=== PATIENT | female | born 1935 | race Caucasian/White ===

== ENCOUNTER 2017-05-24 17:25 | Emergency (ER) | payer MEDICARE ==
--- NOTE | 2017-05-24 17:43 | ERPHSYRPT ---
- History of Present Illness Time Seen by Provider: 05/24/17 17:35 Source: patient, family (daughter) Patient Subjective Stated Complaint: pt had hot flash, speech was mumbled and pt seemed confused. Triage Nursing Assessment: pt is alert x3. skin is pale, warm and dry. speech is clear respirations even and unlabored. pt is slow to get up from wheelchair and transfer to bed. Physician History: CC: confusion Hx: About one hour RN INVASIVE the patient was at [facility] in [place]. Friends noted her to be confused with garbled speech and trouble talking. She was disoriented. Daughter was called. Patient was brought to ER. She improved en route and now is basically back to normal. She had no headache, N/T/W. She fell a night or two ago. She has chronic depression. She is caring for her ailing at home who recently returned from rehab. She has no chest or abd pain. She has labile diabetes. No injury reported. Severity: moderate Allergies/Adverse Reactions: No Known Drug Allergies Allergy (Unverified 05/24/17 18:11) Home Medications: Alprazolam [Xanax] 0.5 mg PO TID 05/24/17 [History] Glyburide 5 mg [Micronase 5 MG] 4 mg PO DAILY 05/24/17 [History] Hydrocodone Bit/Acetaminophen [[place] 10-325 Tablet] 1 each PO Q8H 05/24/17 [ History] Levothyroxine Sodium 100 Mcg [Synthroid 100 Mcg] 100 mcg PO DAILY 05/24/17 [History] Metformin HCl 500 mg [Glucophage 500 MG] 500 mg PO TID 05/24/17 [History] Nifedipine [Nifedipine ER] 90 mg PO DAILY 05/24/17 [History] Sertraline HCl [Zoloft] 100 mg PO DAILY 05/24/17 [History] Simvastatin 40 mg [Zocor 40 mg] 40 mg PO DAILY 05/24/17 [History] Hx Tetanus, Diphtheria Vaccination/Date Given: No Hx Influenza Vaccination/Date Given: Yes Hx Pneumococcal Vaccination/Date Given: No Immunizations Up to Date: Yes - Review of Systems Constitutional: Weakness, No Fever, No Chills Eyes: No Vision Changes Ears, Nose, & Throat: No Symptoms Respiratory: No Cough, No Dyspnea Cardiac: Syncope (maybe at home a night or two ago), No Chest Pain Abdominal/Gastrointestinal: No Abdominal Pain, No Nausea, No Vomiting, No Diarrhea Genitourinary Symptoms: No Dysuria Musculoskeletal: Fall, No Back Pain, No Neck Pain Skin: No Rash Neurological: Speech Changes (with disorientation and confusion), No Focal Weakness, No Headache, No Parasthesia Psychological: Depression, Emotional Lability (stress caring for ), No Suicidal Ideations All Other Systems: Reviewed and Negative - Past Medical History Pertinent Past Medical History: Yes Neurological History: No Pertinent History ENT History: No Pertinent History Cardiac History: Hypertension Respiratory History: No Pertinent History Endocrine Medical History: Diabetes Type II Musculoskeletal History: Arthritis GI Medical History: No Pertinent History History: No Pertinent History Psycho-Social History: Depression Female Reproductive Disorders: Breast Cancer - Past Surgical History Past Surgical History: Yes Neuro Surgical History: No Pertinent History Cardiac: No Pertinent History Respiratory: No Pertinent History Gastrointestinal: Cholecystectomy Female Surgical History: Hysterectomy - Social History Smoking Status: Never smoker Exposure to second hand smoke: No Drug Use: none Patient Lives Alone: No - Nursing Vital Signs Nursing Vital Signs: Initial Vital Signs Temperature 97.8 F 05/24/17 17:26 Pulse Rate 100 H 05/24/17 17:26 Respiratory Rate 18 05/24/17 17:26 Blood Pressure 146/88 05/24/17 17:26 O2 Sat by Pulse Oximetry 93 L 05/24/17 17:26 Pain Scale Pain Intensity 0 - Physical Exam General Appearance: alert Eye Exam: PERRL/EOMI Ears, Nose, Throat Exam: normal ENT inspection, moist mucous membranes Neck Exam: normal inspection, non-tender, supple, No midline tenderness Respiratory Exam: normal breath sounds, lungs clear Cardiovascular Exam: regular rate/rhythm Gastrointestinal/Abdomen Exam: soft, No tenderness, No distention Back Exam: normal inspection, No vertebral tenderness Extremity Exam: normal inspection, normal range of motion Neurologic Exam: alert, cooperative, java j2ee lead II-XII nml as tested, sensation nml, No motor deficits Skin Exam: warm, dry, No rash SpO2 Interpretation: normal SpO2: 93 Oxygen Delivery: Room Air - Course Nursing assessment & vital signs reviewed: Yes EKG Interpreted by Me: RATE (97), Sinus Rhythm, NORMAL AXIS, NORMAL INTERVALS ( QTc 458), Q-wave (inferior) - Radiology Exams cxr X-ray Interpretation: Reviewed by me, Negative - CT Exams head CT Interpretation: Tele-radiologist Report (nonacute senile brain) Ordered Tests: Active Orders 24 hr Category Date Time Status Accucheck STAT Care 05/24/17 17:35 Active Armature Winder Repair STAT Care 05/24/17 17:37 Active Cath for Specimen-Straight STAT Care 05/24/17 17:37 Active EKG-ER Only STAT Care 05/24/17 17:35 Active IV Insertion STAT Care 05/24/17 17:35 Active NPO (ED) STAT Care 05/24/17 17:35 Active Pulse Oximetry (ED) STAT Care 05/24/17 17:35 Active CHEST 1 VIEW (PORTABLE) Stat Exams 05/24/17 17:36 Taken HEAD WITHOUT CONTRAST [CT] Stat Exams 05/24/17 17:36 Taken CBC W DIFF Stat Lab 05/24/17 17:45 Completed CMP Stat Lab 05/24/17 17:45 Completed CULTURE,URINE Stat Lab 05/24/17 18:30 Received ETHYL ALCOHOL Stat Lab 05/24/17 17:45 Completed PROTIME WITH INR Stat Lab 05/24/17 17:45 Completed PTT Stat Lab 05/24/17 17:45 Completed UA W/ MICROSCOPIC Stat Lab 05/24/17 18:30 Completed Urine Triage Profile Stat Lab 05/24/17 18:30 Completed Medication Summary Generic Name Dose Route Start Last Admin Trade Name Freq PRN Reason Stop Dose Admin Sodium Chloride 1,000 mls @ 50 mls/hr 05/24/17 17:45 05/24/17 18:02 Sodium Chloride 0.9% 1000 Ml IV 06/23/17 17:44 50 mls/hr .Q20H JEIMY Administration Lab/Rad Data: Laboratory Result Diagrams 05/24/17 17:45 05/24/17 17:45 Laboratory Results 05/24/17 05/24/17 05/24/17 Range/Units 18:30 18:30 17:45 WBC (4.0-10.5) K/mm3 RBC (4.1-5.4) M/mm3 Hgb (12.0-16.0) gm/dl Hct (35-47) % MCV (78-100) fl MCH (26-32) pg MCHC (32-36) g/dl RDW (11.5-14.0) % Plt Count (150-450) K/mm3 MPV (6-9.5) fl Gran % (36.0-66.0) % Lymphocytes % (24.0-44.0) % Monocytes % (0.0-12.0) % Eosinophils % (0.00-5.0) % Basophils % (0.0-0.4) % Basophils # (0-0.4) INR (0.8-3.0) APTT (25.3-37.0) SECONDS Sodium (136-145) mEq/L Potassium (3.5-5.1) mEq/L Chloride (98-107) mEq/L Carbon Dioxide (21-32) mEq/L Anion Gap (5-15) MEQ/L BUN (9-20) mg/dL Creatinine (0.55-1.30) mg/dl Estimated GFR ML/MIN Glucose (70-110) MG/DL Calcium (8.5-10.1) mg/dL Total Bilirubin (0.2-1.0) mg/dL AST (15-37) U/L ALT (12-78) U/L Alkaline Phosphatase (46-116) U/L Serum Total Protein (6.4-8.2) gm/dL Albumin (3.4-5.0) g/dL Ur Collection Type CCMS Urine Color YELLOW (YELLOW) Urine Appearance SLIGHTLY CLOUDY (CLEAR) Urine pH 5.0 (5-6) Ur Specific [place]ullen 1.025 (1.005-1.025) Urine Protein 30 (Negative) Urine Ketones NEGATIVE (NEGATIVE) Urine Blood NEGATIVE (0-5) Mitch/ul Urine Nitrite POSITIVE (NEGATIVE) Urine Bilirubin NEGATIVE (NEGATIVE) Urine Urobilinogen NORMAL (0-1) mg/dL Ur Leukocyte Esterase TRACE (NEGATIVE) Urine Microscopic WBC 25-50 (0-5) /HPF Ur Epithelial Cells RARE (FEW) /HPF Urine Bacteria PACKED (NEGATIVE) /HPF Urine Glucose NEGATIVE (NEGATIVE) mg/dL Urine Opiates Level POS. (NEGATIVE) Ur Methadone NEG. (NEGATIVE) Urine Barbiturates NEG. (NEGATIVE) Ur Phencyclidine (PCP) NEG. (NEGATIVE) Urine Amphetamine NEG. (NEGATIVE) U Benzodiazepine Level POS. (NEGATIVE) Urine Cocaine NEG. (NEGATIVE) Urine Marijuana (THC) NEG. (NEGATIVE) Ethyl Alcohol < 0.010 (0.00-0.01) % Specimen Received 05-24-17 [id number] 05/24/17 05/24/17 05/24/17 Range/Units 17:45 17:45 17:45 WBC 6.7 (4.0-10.5) K/mm3 RBC 4.67 (4.1-5.4) M/mm3 Hgb 13.1 (12.0-16.0) gm/dl Hct 40.4 (35-47) % MCV 86.5 (78-100) fl MCH 28.1 (26-32) pg MCHC 32.4 (32-36) g/dl RDW 15.1 H (11.5-14.0) % Plt Count 174 (150-450) K/mm3 MPV 11.9 H (6-9.5) fl Gran % 69.8 H (36.0-66.0) % Lymphocytes % 20.8 L (24.0-44.0) % Monocytes % 7.6 (0.0-12.0) % Eosinophils % 1.5 (0.00-5.0) % Basophils % 0.3 (0.0-0.4) % Basophils # 0.02 (0-0.4) INR 0.96 (0.8-3.0) APTT 30.0 (25.3-37.0) SECONDS Sodium 142 (136-145) mEq/L Potassium 4.1 (3.5-5.1) mEq/L Chloride 105 (98-107) mEq/L Carbon Dioxide 23.5 (21-32) mEq/L Anion Gap 18.0 H (5-15) MEQ/L BUN 30 H (9-20) mg/dL Creatinine 1.43 H (0.55-1.30) mg/dl Estimated GFR 37 ML/MIN Glucose 197 H (70-110) MG/DL Calcium 9.1 (8.5-10.1) mg/dL Total Bilirubin 0.40 (0.2-1.0) mg/dL AST 15 (15-37) U/L ALT 20 (12-78) U/L Alkaline Phosphatase 60 (46-116) U/L Serum Total Protein 7.7 (6.4-8.2) gm/dL Albumin 4.0 (3.4-5.0) g/dL Ur Collection Type Urine Color (YELLOW) Urine Appearance (CLEAR) Urine pH (5-6) Ur Specific Cullen (1.005-1.025) Urine Protein (Negative) Urine Ketones (NEGATIVE) Urine Blood (0-5) Mitch/ul Urine Nitrite (NEGATIVE) Urine Bilirubin (NEGATIVE) Urine Urobilinogen (0-1) mg/dL Ur Leukocyte Esterase (NEGATIVE) Urine Microscopic WBC (0-5) /HPF Ur Epithelial Cells (FEW) /HPF Urine Bacteria (NEGATIVE) /HPF Urine Glucose (NEGATIVE) mg/dL Urine Opiates Level (NEGATIVE) Ur Methadone (NEGATIVE) Urine Barbiturates (NEGATIVE) Ur Phencyclidine (PCP) (NEGATIVE) Urine Amphetamine (NEGATIVE) U Benzodiazepine Level (NEGATIVE) Urine Cocaine (NEGATIVE) Urine Marijuana (THC) (NEGATIVE) Ethyl Alcohol (0.00-0.01) % Specimen Received - Progress Progress Note: 05/24/17 18:43 NIH scale 0. Drank water without difficulty- passed bedside swallow test. 05/24/17 18:55 Pt ambulated well. She is tired and under stress. She has refused HHC. Family trying to help her care for . She needs rest. Advised baby asa daily and follow up with Dr Rosanne Arellano. 05/24/17 19:01 Cath urine positive. Culture sent. Rx keflex. Counseled pt/family regarding: lab results, diagnosis, need for follow-up, rad results - Departure Time of Disposition: 19:01 Departure Disposition: Home Clinical Impression: Emotional fatigue, TIA (transient ischemic attack), UTI (urinary tract infection) Condition: Stable Critical Care Time: No Referrals: CB ARELLANO [Primary Care Provider] - Instructions: Transient Ischemic Attack, Fatigue Additional Instructions: You need help at home caring for and to allow you to rest. Take baby aspirin daily. Follow up with Dr Arellano next week. Return for problems or concerns. No driving. Prescriptions: Cephalexin Mh 500 mg [Keflex 500 mg] 1 cap PO TID #21 capsule
[2017-05-24] MEDS ORDERED: Sodium Chloride 0.9% 1000 ML 1,000 ML IV SCH (17:45)
[2017-05-24 17:51] LABS: BASOPHIL % 0.3 % (0.0-0.4); Eosinophil % 1.5 % (0.00-5.0); Granulocytes % 69.8 % (36.0-66.0); Lymphocytes % 20.8 % (24.0-44.0); Mean Cell Volume 86.5 fl (78-100); Mean Corpuscular Hemoglobin 28.1 pg (26-32); Mean Platelet Volume 11.9 fl (6-9.5); Monocytes % 7.6 % (0.0-12.0); Platelet Count 174 K/mm3 (150-450); Red Blood Count 4.67 M/mm3 (4.1-5.4); Red Cell Distribution Width 15.1 % (11.5-14.0); White Blood Count 6.7 K/mm3 (4.0-10.5)
[2017-05-24] MEDS ORDERED: Sodium Chloride 0.9% 1000 ML 1,000 ML ONE (18:00)
[2017-05-24 18:17] LABS: INR 0.96 (0.8-3.0); PROTIME 10.9 SECONDS (9.95-12.35)
[2017-05-24 18:37] LABS: BILIRUBIN,TOTAL 0.4 mg/dL (0.2-1.0); Carbon Dioxide 23.5 mEq/L (21-32); Potassium 4.1 mEq/L (3.5-5.1); Total Protein 7.7 gm/dL (6.4-8.2)
[2017-05-24 18:57] LABS: Collection Type CCMS
[2017-05-24 18:58] LABS: Bilirubin NEGATIVE (NEGATIVE); Blood NEGATIVE Ery/ul (0-5); COMPLETE URINE MICROSCOPIC? YES; Glucose NEGATIVE (NEGATIVE); Leukocyte Esterase TRACE (NEGATIVE)
[2017-05-24 18:59] LABS: ADD URINE CULTURE? YES (NO); Bacteria PACKED /HPF (NEGATIVE); Epithelial Cells RARE /HPF (FEW); WBC 25-50 /HPF (0-5)
[2017-05-24 19:15] VITALS: BP 121/92; PULSE 105; O2SAT 96
--- NOTE | 2017-05-25 08:38 | XRAY ---
Indication: Confusion. Fatigue. Comparison: None Portable chest clear. Heart and mediastinal structures within normal limits. Bony thorax intact with mild osteopenia and degenerative changes. Impression: Nonacute chest.
--- NOTE | 2017-05-25 08:40 | XRAY ---
Indication: Confusion and fatigue. Multiple contiguous axial images obtained through the head without contrast. Comparison: None Study slightly degraded by motion artifact. Age-appropriate global atrophy and moderate periventricular degenerative microvascular ischemia bilaterally. Left thalamic remote lacunar infarct. No acute intracranial hemorrhage, abnormal extra-axial fluid collection, or mass effect. Fourth ventricle is midline. Bony calvarium intact. Visualized paranasal sinuses and mastoid air cells are clear. Impression: Left thalamic remote lacunar infarct. Nonacute senile brain. CTDI 60.68
== END 2017-05-24 19:16 | disposition home or self-care (01) ==
LOC: ED 17:25
DX: R45.86 Emotional lability (principal); Z86.73 Personal history of transient ischemic attack (TIA), and cerebral infarction without residual deficits; N39.0 Urinary tract infection, site not specified
CPT/HCPCS: 93041; 99285; 36000; 82962; 93005; 81000; 85610; 85730; 36415; 87186; 80307; 85025; 87077; 80053; 87086; 71010; 70450; P9612; G0481

== ENCOUNTER 2018-05-30 08:46 | Observation (INO) | payer MEDICARE ==
[2018-05-30] MEDS ORDERED: BABY ASPIRIN 81 MG CHEW PO ONE (09:03)
[2018-05-30] MEDS ORDERED: BABY ASPIRIN 81 MG CHEW ONE (09:11)
--- NOTE | 2018-05-30 09:11 | ERPHSYRPT ---
- History of Present Illness Time Seen by Provider: 05/30/18 09:00 Historian: patient Exam Limitations: no limitations Patient Subjective Stated Complaint: pt here for sob that woke her up this morning, no cough, no fever, pt tripped and fell againts house and was helped up , she states no injury at time, but now middle back hurts Triage Nursing Assessment: pt walked in, resp easy, skin w/d/p. alert, chest chema, pt able to talk without effert, no bruising noted to back Physician History: 83 y/o female with history of DM, HTN and anxiety comes to the ER with complaints of substernal chest pain and shortness of breath that started one hour prior to arrival while preparing breakfast. Pt states that the pain came on all of a sudden and lasted for several seconds. Pt describes the pain as burning, intermittent, mild, with radiation to back and pt did not take any pain meds. Pt also admits to having shortness of breath and dizziness. Of note, patient lost her 9 months which has caused her to have an additional amount of stress. Pt denies any fever, chills, cough, palpitations or lifting any heavy objects. Timing/Duration: today Activities at Onset: none Quality: burning Location: substernal Chest Pain Radiation: back Severity of Pain-Max: mild Severity of Pain-Current: none Modifying Factors: Improves With: nothing Associated Symptoms: dizziness Prior Chest Pain/Cardiac Workup: no prior chest pain Nitro Today/Relief: no nitro taken today Aspirin Treatment Today: no aspirin today Allergies/Adverse Reactions: No Known Drug Allergies Allergy (Verified 05/30/18 09:02) Home Medications: Alprazolam [Xanax] 0.5 mg PO TID 05/24/17 [History] Glyburide 5 mg [Micronase 5 MG] 4 mg PO DAILY 05/24/17 [History] Hydrocodone Bit/Acetaminophen [[place] 10-325 Tablet] 1 each PO Q8H 05/24/17 [ History] Levothyroxine Sodium 100 Mcg [Synthroid 100 Mcg] 100 mcg PO DAILY 05/24/17 [History] Metformin HCl 500 mg [Glucophage 500 MG] 500 mg PO TID 05/24/17 [History] Nifedipine [Nifedipine ER] 90 mg PO DAILY 05/24/17 [History] Sertraline HCl [Zoloft] 100 mg PO DAILY 05/24/17 [History] Simvastatin 40 mg [Zocor 40 mg] 40 mg PO DAILY 05/24/17 [History] Hx Tetanus, Diphtheria Vaccination/Date Given: No Hx Influenza Vaccination/Date Given: Yes Hx Pneumococcal Vaccination/Date Given: Yes Immunizations Up to Date: Yes - Review of Systems Constitutional: No Fever, No Chills Eyes: No Symptoms Ears, Nose, & Throat: No Symptoms Respiratory: Dyspnea, Dyspnea on Exertion (ROMERO), No Cough Cardiac: Chest Pain, No Edema, No Syncope Abdominal/Gastrointestinal: No Abdominal Pain, No Nausea, No Vomiting, No Diarrhea Genitourinary Symptoms: No Dysuria Musculoskeletal: No Back Pain, No Neck Pain Skin: No Rash Neurological: Dizziness, No Focal Weakness, No Sensory Changes Psychological: No Symptoms Endocrine: No Symptoms All Other Systems: Reviewed and Negative - Past Medical History Pertinent Past Medical History: Yes Neurological History: No Pertinent History ENT History: No Pertinent History Cardiac History: Hypertension Respiratory History: No Pertinent History Endocrine Medical History: Diabetes Type II Musculoskeletal History: Arthritis GI Medical History: No Pertinent History History: No Pertinent History Psycho-Social History: Depression Female Reproductive Disorders: Breast Cancer Other Medical History: chronic pain - Past Surgical History Past Surgical History: Yes Neuro Surgical History: No Pertinent History Cardiac: No Pertinent History Respiratory: No Pertinent History Gastrointestinal: Cholecystectomy Female Surgical History: Hysterectomy - Social History Smoking Status: Never smoker Exposure to second hand smoke: No Drug Use: none Patient Lives Alone: No - Female History Hx Last Menstrual Period: post Hx Now: No - Nursing Vital Signs Nursing Vital Signs: Initial Vital Signs Temperature 98.0 F 05/30/18 08:50 Pulse Rate 106 H 05/30/18 08:50 Respiratory Rate 18 05/30/18 08:50 Blood Pressure 179/90 05/30/18 08:50 O2 Sat by Pulse Oximetry 95 05/30/18 08:50 Pain Scale Pain Intensity 0 - Physical Exam General Appearance: no apparent distress, alert Eye Exam: PERRL/EOMI, eyes nml inspection Ears, Nose, Throat Exam: normal ENT inspection, moist mucous membranes Neck Exam: normal inspection, non-tender, supple, full range of motion Respiratory Exam: normal breath sounds, lungs clear, No respiratory distress Cardiovascular Exam: regular rate/rhythm, normal heart sounds, tachycardia Gastrointestinal/Abdomen Exam: soft, No tenderness, No mass Back Exam: normal inspection, No CVA tenderness, No vertebral tenderness Extremity Exam: normal inspection, normal range of motion Neurologic Exam: alert, oriented x 3, cooperative, normal mood/affect, sensation nml, No motor deficits Skin Exam: normal color, warm, dry SpO2: 95 - Course Nursing assessment & vital signs reviewed: Yes EKG Interpreted by Me: Non-specific ST Changes, Other (T wave flattening AVL. Q wave in III) Ordered Tests: Active Orders 24 hr Category Date Time Status Cement Finisher Apprentice STAT Care 05/30/18 09:04 Active EKG-ER Only STAT Care 05/30/18 09:03 Active IV Insertion STAT Care 05/30/18 09:03 Active CHEST 1 VIEW (PORTABLE) Stat Exams 05/30/18 09:04 Completed CHEST WITH CONTRAST [CT] Stat Exams 05/30/18 09:56 Completed CBC W DIFF Stat Lab 05/30/18 09:31 Completed CK-Creatinine Phosphokinase Stat Lab 05/30/18 09:31 Completed CMP Stat Lab 05/30/18 09:31 Completed D-DIMER QUANTITATION Stat Lab 05/30/18 09:31 Completed NT PRO BNP Stat Lab 05/30/18 09:31 Completed PROTIME WITH INR Stat Lab 05/30/18 09:31 Completed PTT Stat Lab 05/30/18 09:31 Completed TROPONIN Q3H Lab 05/30/18 09:30 Completed TROPONIN Q3H Lab 05/30/18 13:30 Ordered TROPONIN Q3H Lab 05/30/18 16:30 Ordered TROPONIN Q3H Lab 05/30/18 19:30 Ordered TROPONIN Q3H Lab 05/30/18 22:30 Ordered Medication Summary Discontinued Medications Generic Name Dose Route Start Last Admin Trade Name Freq PRN Reason Stop Dose Admin Aspirin 324 mg 05/30/18 09:03 05/30/18 09:11 Baby Aspirin 81 Mg Chew PO 05/30/18 09:04 324 mg STAT ONE Administration Aspirin Confirm 05/30/18 09:11 Baby Aspirin 81 Mg Chew Administered 05/30/18 09:12 Dose 324 mg .ROUTE .STK-MED ONE Sodium Chloride 1,000 mls @ 999 mls/hr 05/30/18 10:09 05/30/18 10:34 Sodium Chloride 0.9% 1000 Ml IV 05/30/18 11:09 999 mls/hr .Q1H1M STA Administration Sodium Chloride Confirm 05/30/18 10:33 Sodium Chloride 0.9% 1000 Ml Administered 05/30/18 10:34 Dose 1,000 mls @ ud .ROUTE .STK-MED ONE Insulin Human Regular 10 unit 05/30/18 10:09 05/30/18 10:35 Novolin R IV 05/30/18 10:10 10 unit STAT ONE Administration Insulin Human Regular Confirm 05/30/18 10:33 Novolin R Administered 05/30/18 10:34 Dose 10 unit .ROUTE .STK-MED ONE Lab/Rad Data: Laboratory Result Diagrams 05/30/18 09:31 05/30/18 09:31 Laboratory Results 05/30/18 05/30/18 05/30/18 Range/Units 09:31 09:31 09:31 WBC 6.9 (4.0-10.5) K/mm3 RBC 4.95 (4.1-5.4) M/mm3 Hgb 14.4 (12.0-16.0) gm/dl Hct 41.5 (35-47) % MCV 83.8 (78-100) fl MCH 29.1 (26-32) pg MCHC 34.7 (32-36) g/dl RDW 14.9 H (11.5-14.0) % Plt Count 213 (150-450) K/mm3 MPV 12.2 H (6-9.5) fl Gran % 71.6 H (36.0-66.0) % Eos # (Auto) 0.07 (0-0.5) Absolute Lymphs (auto) 1.47 (1.0-4.6) Absolute Monos (auto) 0.38 (0.0-1.3) Lymphocytes % 21.5 L (24.0-44.0) % Monocytes % 5.5 (0.0-12.0) % Eosinophils % 1.0 (0.00-5.0) % Basophils % 0.4 (0.0-0.4) % Absolute Granulocytes 4.90 (1.4-6.9) Basophils # 0.03 (0-0.4) PT 10.1 (9.95-12.35) SECONDS INR 0.87 (0.8-3.0) APTT 24.8 L (25.3-37.0) SECONDS D-Dimer 675 H* (215-500) ng/mL Sodium 132 L (137-145) mmol/L Potassium 4.6 (3.5-5.1) mmol/L Chloride 95 L (98-107) mmol/L Carbon Dioxide 26 (22-30) mmol/L Anion Gap 15.4 H (5-15) MEQ/L BUN 30 H (7-17) mg/dL Creatinine 1.07 H (0.52-1.04) mg/dL Estimated GFR 52.2 ML/MIN Glucose 597 H* (74-106) mg/dL Calcium 9.5 (8.4-10.2) mg/dL Total Bilirubin 0.30 (0.2-1.3) mg/dL AST 13 L (14-36) U/L ALT 21 (0-35) U/L Alkaline Phosphatase 112 (38-126) U/L Creatine Kinase 59 (30-135) U/L Troponin I (0.000-0.034) ng/mL NT-Pro-B Natriuret Pep 49.7 (0-1800) pg/mL Serum Total Protein 7.3 (6.3-8.2) g/dL Albumin 4.5 (3.5-5.0) g/dL 05/30/18 Range/Units 09:30 WBC (4.0-10.5) K/mm3 RBC (4.1-5.4) M/mm3 Hgb (12.0-16.0) gm/dl Hct (35-47) % MCV (78-100) fl MCH (26-32) pg MCHC (32-36) g/dl RDW (11.5-14.0) % Plt Count (150-450) K/mm3 MPV (6-9.5) fl Gran % (36.0-66.0) % Eos # (Auto) (0-0.5) Absolute Lymphs (auto) (1.0-4.6) Absolute Monos (auto) (0.0-1.3) Lymphocytes % (24.0-44.0) % Monocytes % (0.0-12.0) % Eosinophils % (0.00-5.0) % Basophils % (0.0-0.4) % Absolute Granulocytes (1.4-6.9) Basophils # (0-0.4) PT (9.95-12.35) SECONDS INR (0.8-3.0) APTT (25.3-37.0) SECONDS D-Dimer (215-500) ng/mL Sodium (137-145) mmol/L Potassium (3.5-5.1) mmol/L Chloride (98-107) mmol/L Carbon Dioxide (22-30) mmol/L Anion Gap (5-15) MEQ/L BUN (7-17) mg/dL Creatinine (0.52-1.04) mg/dL Estimated GFR ML/MIN Glucose (74-106) mg/dL Calcium (8.4-10.2) mg/dL Total Bilirubin (0.2-1.3) mg/dL AST (14-36) U/L ALT (0-35) U/L Alkaline Phosphatase (38-126) U/L Creatine Kinase (30-135) U/L Troponin I < 0.012 (0.000-0.034) ng/mL NT-Pro-B Natriuret Pep (0-1800) pg/mL Serum Total Protein (6.3-8.2) g/dL Albumin (3.5-5.0) g/dL - Progress Progress: improved Progress Note: 05/30/18 11:52 The EKG and first troponin are within normal limits. The d-dimer is elevated at 597. The CTA chest does not show any PE. The patient will receive NS fluids and 10 units of regular insulin. Repeat FS is 417. Since patient has multiple risk factors for coronary disease, patient will be admitted to Dr Lawton for chest pain. - Departure Time of Disposition: 11:54 Departure Disposition: Observation Clinical Impression: Chest pain Qualifiers: Chest pain type: unspecified Qualified Code(s): R07.9 - Chest pain, unspecified Condition: Fair Critical Care Time: Yes Critical Care Time(excluding separately billable procedures): 30-74 minutes Referrals: CB ARELLANO [Primary Care Provider] -
--- NOTE | 2018-05-30 09:28 | XRAY ---
Indication: Chest pain and short of breath. Comparison: May 24, 2017. Portable chest again demonstrates minimal bibasilar atelectasis/scarring. No focal infiltrate, consolidation, or large effusion. Heart and mediastinal structures within normal limits. Bony thorax intact again with mild osteopenia and degenerative changes. Impression: Stable nonacute chest with chronic features.
[2018-05-30 09:32] LABS: BASOPHIL % 0.4 % (0.0-0.4); Basophil (Absolute #) 0.03 (0-0.4); Eosinophil (Absolute #) 0.07 (0-0.5); Granulocytes % 71.6 % (36.0-66.0); Hematocrit 41.5 % (35-47); Hemoglobin 14.4 gm/dl (12.0-16.0); Lymphocyte (Absolute #) 1.47 (1.0-4.6); Lymphocytes % 21.5 % (24.0-44.0); Mean Cell Volume 83.8 fl (78-100); Mean Corpuscular Hemoglobin 29.1 pg (26-32); Mean Corpuscular Hgb Concent. 34.7 g/dl (32-36); Mean Platelet Volume 12.2 fl (6-9.5); Monocyte (Absolute #) 0.38 (0.0-1.3); Monocytes % 5.5 % (0.0-12.0); Platelet Count 213 K/mm3 (150-450); Red Blood Count 4.95 M/mm3 (4.1-5.4); Red Cell Distribution Width 14.9 % (11.5-14.0); White Blood Count 6.9 K/mm3 (4.0-10.5)
[2018-05-30 09:46] LABS: INR 0.87 (0.8-3.0)
[2018-05-30 09:49] LABS: PTT 24.8 SECONDS (25.3-37.0)
[2018-05-30 10:00] LABS: ALBUMIN 4.5 g/dL (3.5-5.0); ANION GAP 15.4 MEQ/L (5-15); BILIRUBIN,TOTAL 0.3 mg/dL (0.2-1.3); Calcium 9.5 mg/dL (8.4-10.2); Creatinine 1 1.07 mg/dL (0.52-1.04); NT PRO BNP 49.7 pg/mL (0-1800); Potassium 4.6 mmol/L (3.5-5.1); Total Protein 7.3 g/dL (6.3-8.2)
[2018-05-30] MEDS ORDERED: NovoLIN R IV ONE (10:09)
[2018-05-30] MEDS ORDERED: Sodium Chloride 0.9% 1000 ML 1,000 ML IV STA (10:09)
[2018-05-30] MEDS ORDERED: NovoLIN R ONE (10:33)
[2018-05-30] MEDS ORDERED: Sodium Chloride 0.9% 1000 ML 1,000 ML ONE (10:33)
[2018-05-30] MEDS ORDERED: HOLD METFORMIN PRODUCTS FOR 48 HOURS MC SCH (10:45)
--- NOTE | 2018-05-30 11:39 | XRAY ---
Indication: Short of breath, substernal chest pain, and elevated d-dimer. Multiple contiguous axial images obtained through the chest using 100 cc Isovue 370 contrast and PE protocol. Comparison: None There is adequate opacification of the pulmonary arteries to include the lobar and segmental branches. No filling defect or pulmonary embolus. Heart is not enlarged. Aorta mildly arteriosclerotic without aneurysm/dissection. 1.5 x 2.0 cm subcarinal lymph node. Smaller 1.0 x 1.4 cm node anterior to the arch. No pathologic hilar lymphadenopathy. Examination of the lung parenchyma demonstrates scattered fibrosis/scarring bilaterally. Indeterminate 1 cm noncalcified nodule in the inferior anterior medial right upper lobe. No infiltrate or effusion. Bony thorax intact with flowing osteophytes throughout the spine. Right breast demonstrates mild asymmetric periareolar skin thickening and a 12 mm intramammary lymph node in the outer aspect. Limited upper abdomen including adrenal glands unremarkable. Impression: 1. Negative pulmonary embolus. 2. Scattered fibrosis/scarring. No acute cardiopulmonary abnormalities. 3. Indeterminate right upper lobe 1 cm noncalcified pulmonary nodule. Comparison studies would be of benefit if performed elsewhere. If not, recommend follow-up per Fleischner guidelines. 4. Prominent subcarinal node. 5. Incidental right breast skin thickening and intramammary lymph node. CT DI 22.43
[2018-05-30] MEDS ORDERED: TYLENOL 325 MG PO PRN (11:55)
[2018-05-30] MEDS ORDERED: MILK OF MAGNESIA 30 ML PO PRN (11:55)
[2018-05-30] MEDS ORDERED: Zofran 4 MG/2 ML VIAL IV PRN (11:55)
[2018-05-30] MEDS ORDERED: Senokot-S Tablet PO PRN (11:55)
[2018-05-30] MEDS ORDERED: MAALOX ES 30 ML UNIT DOSE PO PRN (11:55)
[2018-05-30] MEDS: NovoLIN R SQ PRN ×2 (16:45→21:55)
[2018-05-30] MEDS: Norco 10/325 MG Tablet PO SCH ×2 (16:49→21:55)
[2018-05-30] MEDS ORDERED: Lantus Insulin SQ SCH (17:00)
[2018-05-30] MEDS ORDERED: Adalat CC 30 MG TABLET PO SCH (17:00)
[2018-05-30] MEDS ORDERED: ZOCOR 20MG PO SCH (17:00)
[2018-05-30] MEDS ORDERED: SYNTHROID 100 MCG PO SCH (17:00)
[2018-05-30] MEDS ORDERED: Cymbalta 30 MG Capsule PO SCH (17:00)
[2018-05-30] MEDS ORDERED: Lactated Ringers 1,000 ML IV ONE (18:14)
--- NOTE | 2018-05-30 18:17 | PCM.HP ---
History of Present Illness - Chief Complaint Chief Complaint: chest pain Date: 05/30/18 History of Present Illness: is a 83 year old female. 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 She called her son who brought her to the ED. These symptoms lasted about 30 mins and were improved on arrival at the ED and have not recurred. She di fall off her porch about 1 week ago and ems was called to her house but she did not seek treatment and has not noted any njuries since that time. She was trying to clean it and her foot slipped off the back falling onto her back and her neighbor called ems but she says she was up walking before they got there. She states she has been taking her medicine but has not been compliant with her diet and has been drinking about 1 gallon of chocolate mild and 2 dozen donuts over the last few days. She has improved mood but missed her f/u with [facility] after her falling event. She plans to re-establish with this. She has aching in her hips and legs but no chest pain or shortness of breath currently. - Review of Systems Constitutional: No Fever, No Chills Eyes: No Symptoms Ears, Nose, & Throat: No Symptoms Respiratory: No Cough, No Short Of Breath Cardiac: No Chest Pain, No Edema, No Syncope Abdominal/Gastrointestinal: No Abdominal Pain, No Nausea, No Vomiting, No Diarrhea Genitourinary Symptoms: No Dysuria Musculoskeletal: Back Pain, Joint Pain, Myalgias, No Neck Pain Skin: No Rash Neurological: No Dizziness, No Focal Weakness, No Sensory Changes Psychological: No Symptoms Endocrine: No Symptoms Hematologic/Lymphatic: No Symptoms Immunological/Allergic: No Symptoms Medications & Allergies Home Medications: Home Medication List Hydrocodone Bit/Acetaminophen [[place] 10-325 Tablet] 1 each PO Q8H 05/24/17 [ History Confirmed 05/30/18] Levothyroxine Sodium 100 Mcg [Synthroid 100 Mcg] 100 mcg PO DAILY 05/24/17 [History Confirmed 05/30/18] Nifedipine [Nifedipine ER] 90 mg PO DAILY 05/24/17 [History Confirmed 05/30/18] Simvastatin 40 mg [Zocor 40 mg] 40 mg PO DAILY 05/24/17 [History Confirmed 05/30] Diazepam 5 mg [Valium 5 MG] 5 mg PO HS 05/30/18 [History Confirmed ] Duloxetine HCl 60 mg PO DAILY 05/30/18 [History Confirmed 05/30/18] Olanzapine 5 mg PO HS 05/30/18 [History Confirmed 05/30/18] Aspirin EC 81 mg [Ecotrin 81 mg] 81 mg PO DAILY #90 tablet 05/31/18 [Rx] Insulin Glargine,Hum.rec.anlog [Lantus Solostar] 30 units SQ DAILY #0 05/31/18 [ Rx Confirmed 05/30/18] Allergies/Adverse Reactions: Allergies Allergy/AdvReac Type Severity Reaction Status Date / Time No Known Drug Allergies Allergy Verified 05/30/18 09:02 - Past Medical History Past Medical History: Yes Neurological History: No Pertinent History ENT History: No Pertinent History Cardiac History: Hypertension Respiratory History: No Pertinent History Endocrine Medical History: Diabetes Type II Musculoskelatal History: Arthritis GI Medical History: No Pertinent History History: No Pertinent History Pyscho-Social History: Depression Reproductive Disorders: Breast Cancer Comment: chronic pain - Female History Hx Last Menstrual Period: post Are you now?: No - Past Surgical History Past Surgical History: Yes Neuro Surgical History: No Pertinent History Cardiac History: No Pertinent History Respiratory Surgery: No Pertinent History GI Surgical History: Cholecystectomy Female Surgical History: Hysterectomy - Social History Smoking Status: Never smoker Exposure to second hand smoke: No Alcohol: None Drug Use: none - Physical Exam Vital Signs: Vital Signs - 24 hr Temp Pulse Resp BP Pulse Ox 05/30/18 16:17 98.1 F 119 H 20 141/71 95 05/30/18 13:09 92 L 05/30/18 12:44 98.3 F 107 H 20 161/80 95 05/30/18 12:37 98.3 F 107 H 20 161/80 95 05/30/18 11:55 94 L 05/30/18 11:54 95 05/30/18 11:43 95 H 16 200/111 96 05/30/18 10:08 72 16 169/90 93 L 05/30/18 09:01 18 95 05/30/18 08:50 98.0 F 106 H 18 179/90 95 General Appearance: no apparent distress, alert Neurologic Exam: alert, oriented x 3, cooperative, normal mood/affect, nml cerebellar function, nml station & gait, sensation nml, No motor deficits Eye Exam: PERRL/EOMI, eyes nml inspection Ears, Nose, Throat Exam: normal ENT inspection, pharynx normal, moist mucous membranes Neck Exam: normal inspection, non-tender, supple, full range of motion Respiratory Exam: normal breath sounds, lungs clear, No respiratory distress Cardiovascular Exam: regular rate/rhythm, normal heart sounds, normal peripheral pulses Gastrointestinal/Abdomen Exam: soft, normal bowel sounds, No tenderness, No mass Back Exam: normal inspection, normal range of motion, No CVA tenderness, No vertebral tenderness Extremity Exam: normal inspection, normal range of motion, pelvis stable Skin Exam: normal color, warm, dry, No rash Lymphatic Exam: No adenopathy Results - Labs Lab/Micro Results: Accuchecks Date 05/30/18 Accucheck Value: 383 Accucheck Value: 419 Accucheck Value: 419 Lab Results-Last 24 Hours 05/30/18 05/30/18 05/30/18 Range/Units 09:30 09:31 09:31 WBC 6.9 (4.0-10.5) K/mm3 RBC 4.95 (4.1-5.4) M/mm3 Hgb 14.4 (12.0-16.0) gm/dl Hct 41.5 (35-47) % MCV 83.8 (78-100) fl MCH 29.1 (26-32) pg MCHC 34.7 (32-36) g/dl RDW 14.9 H (11.5-14.0) % Plt Count 213 (150-450) K/mm3 MPV 12.2 H (6-9.5) fl Gran % 71.6 H (36.0-66.0) % Eos # (Auto) 0.07 (0-0.5) Absolute Lymphs (auto) 1.47 (1.0-4.6) Absolute Monos (auto) 0.38 (0.0-1.3) Lymphocytes % 21.5 L (24.0-44.0) % Monocytes % 5.5 (0.0-12.0) % Eosinophils % 1.0 (0.00-5.0) % Basophils % 0.4 (0.0-0.4) % Absolute Granulocytes 4.90 (1.4-6.9) Basophils # 0.03 (0-0.4) PT (9.95-12.35) SECONDS INR (0.8-3.0) APTT (25.3-37.0) SECONDS D-Dimer (215-500) ng/mL Sodium 132 L (137-145) mmol/L Potassium 4.6 (3.5-5.1) mmol/L Chloride 95 L (98-107) mmol/L Carbon Dioxide 26 (22-30) mmol/L Anion Gap 15.4 H (5-15) MEQ/L BUN 30 H (7-17) mg/dL Creatinine 1.07 H (0.52-1.04) mg/dL Estimated GFR 52.2 ML/MIN Glucose 597 H* (74-106) mg/dL Calcium 9.5 (8.4-10.2) mg/dL Total Bilirubin 0.30 (0.2-1.3) mg/dL AST 13 L (14-36) U/L ALT 21 (0-35) U/L Alkaline Phosphatase 112 (38-126) U/L Creatine Kinase 59 (30-135) U/L Troponin I < 0.012 (0.000-0.034) ng/mL NT-Pro-B Natriuret Pep 49.7 (0-1800) pg/mL Serum Total Protein 7.3 (6.3-8.2) g/dL Albumin 4.5 (3.5-5.0) g/dL 05/30/18 05/30/18 05/30/18 Range/Units 09:31 13:40 17:00 WBC (4.0-10.5) K/mm3 RBC (4.1-5.4) M/mm3 Hgb (12.0-16.0) gm/dl Hct (35-47) % MCV (78-100) fl MCH (26-32) pg MCHC (32-36) g/dl RDW (11.5-14.0) % Plt Count (150-450) K/mm3 MPV (6-9.5) fl Gran % (36.0-66.0) % Eos # (Auto) (0-0.5) Absolute Lymphs (auto) (1.0-4.6) Absolute Monos (auto) (0.0-1.3) Lymphocytes % (24.0-44.0) % Monocytes % (0.0-12.0) % Eosinophils % (0.00-5.0) % Basophils % (0.0-0.4) % Absolute Granulocytes (1.4-6.9) Basophils # (0-0.4) PT 10.1 (9.95-12.35) SECONDS INR 0.87 (0.8-3.0) APTT 24.8 L (25.3-37.0) SECONDS D-Dimer 675 H* (215-500) ng/mL Sodium (137-145) mmol/L Potassium (3.5-5.1) mmol/L Chloride (98-107) mmol/L Carbon Dioxide (22-30) mmol/L Anion Gap (5-15) MEQ/L BUN (7-17) mg/dL Creatinine (0.52-1.04) mg/dL Estimated GFR ML/MIN Glucose (74-106) mg/dL Calcium (8.4-10.2) mg/dL Total Bilirubin (0.2-1.3) mg/dL AST (14-36) U/L ALT (0-35) U/L Alkaline Phosphatase (38-126) U/L Creatine Kinase (30-135) U/L Troponin I < 0.012 < 0.012 (0.000-0.034) ng/mL NT-Pro-B Natriuret Pep (0-1800) pg/mL Serum Total Protein (6.3-8.2) g/dL Albumin (3.5-5.0) g/dL Accuchecks Date 05/30/18 Accucheck Value: 383 Accucheck Value: 419 Accucheck Value: 419 - Radiology Impressions Radiology Exams & Impressions: Radiology Procedures Category Date Time Status CHEST 1 VIEW (PORTABLE) Stat Exams 05/30/18 09:04 Completed CHEST WITH CONTRAST [CT] Stat Exams 05/30/18 09:56 Completed - Other Procedures and Tests Respiratory Therapy 05/31/18 05:00 EKG ONCE 06/01/18 05:00 EKG ONCE 06/02/18 05:00 EKG ONCE Assessment/Plan (1) Chest pain Status: Acute Qualifiers: Chest pain type: unspecified Qualified Code(s): R07.9 - Chest pain, unspecified Assessment & Plan: troponin negative thus far she has had the aspirin continue telemetry correct her hyperglycemia with insulin improve diet with her persistent hyperglycemia will give additional 1 L LR bolus Code(s): R07.9 - CHEST PAIN, UNSPECIFIED (2) Type 2 diabetes mellitus Status: Acute (3) Anxiety Status: Chronic Code(s): F41.9 - ANXIETY DISORDER, UNSPECIFIED (4) Depression Status: Chronic Code(s): F32.9 - MAJOR DEPRESSIVE DISORDER, SINGLE EPISODE, UNSPECIFIED (5) Hypertension Status: Chronic Code(s): I10 - ESSENTIAL (PRIMARY) HYPERTENSION (6) Hypothyroid Status: Chronic Code(s): E03.9 - HYPOTHYROIDISM, UNSPECIFIED (7) Spinal stenosis of lumbar region Status: Chronic Code(s): M48.061 - SPINAL STENOSIS, LUMBAR REGION WITHOUT NEUROGENIC KT
[2018-05-30] MEDS ORDERED: Valium 5 MG PO SCH (22:00)
[2018-05-30] MEDS ORDERED: zyPREXA 5MG TABLET PO SCH (22:00)
[2018-05-31 05:55] LABS: ANION GAP 13.6 MEQ/L (5-15); BLOOD UREA NITROGEN 21 mg/dL (7-17); CHLORIDE 100 mmol/L (98-107); Calcium 9.1 mg/dL (8.4-10.2); Carbon Dioxide 29 mmol/L (22-30); Cholesterol 197 mg/dL (50-200); Creatinine 1 0.89 mg/dL (0.52-1.04); Glucose 168 mg/dL (74-106); HDL CHOLESTEROL 38 mg/dL (40-60); LDL, DIRECT 91 mg/dL (30-100); Potassium 3.5 mmol/L (3.5-5.1); Risk Ratio 5.2; SODIUM 139 mmol/L (137-145); TRIGLYCERIDE 350 mg/dL (30-150)
[2018-05-31] MEDS: Norco 10/325 MG Tablet PO SCH (06:43)
[2018-05-31 08:13] VITALS: BP 133/62; PULSE 89; O2SAT 90
--- NOTE | 2018-05-31 08:49 | PCM.DS ---
Discharge Summary Date of Admission: 05/30/18 12:26 Date of Discharge: 05/31/2018 Admitting Physician: CB ARELLANO Primary Care Provider: CB ARELLANO Allergies Allergies No Known Drug Allergies Allergy (Verified 05/30/18 09:02) Hospital Summary - Hospital Course Hospital Course: she was admitted with sudden onset chest pain and heaviness in her chest and difficulty breathing that resolved in 30 mins. She was brought to the ED and found to have a blood sugar of >500. She admits to eating a very poor diet recently about 2 dozen donuts and a gallon of milk in the last few days. Her chest pain was resolved in the ED without treatment. She was given aspirin and admitted for rule out. She had no recurrence and no events on telemetry. troponin remained negative. Her blood sugar improved with iv hydration and regular insulin correction subcutaneous. She was started on aspirin her lantus is increased and she plans to improve her diet and f/u in 1 week. - Vitals & Intake/Output Vital Signs: Vital Signs Temperature 97.7 F 05/31/18 08:00 Pulse Rate 89 05/31/18 08:00 Respiratory Rate 18 05/31/18 08:00 Blood Pressure 133/62 05/31/18 08:00 O2 Sat by Pulse Oximetry 90 L 05/31/18 08:00 Intake & Output: Intake & Output 05/28/18 05/29/18 05/30/18 05/31/18 11:59 11:59 11:59 11:59 Intake Total 2245 Balance 2245 Weight 76.657 kg 96 kg - Lab Result Diagrams: 05/30/18 09:31 05/31/18 05:15 Lab Results-Last 24 Hrs: Accuchecks Date 05/31/18 Date 05/30/18 Date 05/30/18 Time 08:03 Time 22:00 Accucheck Value: 168 Accucheck Value: 271 Accucheck Value: 383 Accucheck Value: 419 Accucheck Value: 419 Lab Results-Last 24 Hours 05/30/18 05/30/18 05/30/18 Range/Units 09:30 09:31 09:31 WBC 6.9 (4.0-10.5) K/mm3 RBC 4.95 (4.1-5.4) M/mm3 Hgb 14.4 (12.0-16.0) gm/dl Hct 41.5 (35-47) % MCV 83.8 (78-100) fl MCH 29.1 (26-32) pg MCHC 34.7 (32-36) g/dl RDW 14.9 H (11.5-14.0) % Plt Count 213 (150-450) K/mm3 MPV 12.2 H (6-9.5) fl Gran % 71.6 H (36.0-66.0) % Eos # (Auto) 0.07 (0-0.5) Absolute Lymphs (auto) 1.47 (1.0-4.6) Absolute Monos (auto) 0.38 (0.0-1.3) Lymphocytes % 21.5 L (24.0-44.0) % Monocytes % 5.5 (0.0-12.0) % Eosinophils % 1.0 (0.00-5.0) % Basophils % 0.4 (0.0-0.4) % Absolute Granulocytes 4.90 (1.4-6.9) Basophils # 0.03 (0-0.4) PT (9.95-12.35) SECONDS INR (0.8-3.0) APTT (25.3-37.0) SECONDS D-Dimer (215-500) ng/mL Sodium 132 L (137-145) mmol/L Potassium 4.6 (3.5-5.1) mmol/L Chloride 95 L (98-107) mmol/L Carbon Dioxide 26 (22-30) mmol/L Anion Gap 15.4 H (5-15) MEQ/L BUN 30 H (7-17) mg/dL Creatinine 1.07 H (0.52-1.04) mg/dL Estimated GFR 52.2 ML/MIN Glucose 597 H* (74-106) mg/dL Hemoglobin A1c (4.5-6.0) % Calcium 9.5 (8.4-10.2) mg/dL Total Bilirubin 0.30 (0.2-1.3) mg/dL AST 13 L (14-36) U/L ALT 21 (0-35) U/L Alkaline Phosphatase 112 (38-126) U/L Creatine Kinase 59 (30-135) U/L Troponin I < 0.012 (0.000-0.034) ng/mL NT-Pro-B Natriuret Pep 49.7 (0-1800) pg/mL Serum Total Protein 7.3 (6.3-8.2) g/dL Albumin 4.5 (3.5-5.0) g/dL Triglycerides (30-150) mg/dL Cholesterol (50-200) mg/dL LDL Cholesterol (30-100) mg/dL HDL Cholesterol (40-60) mg/dL Heart Disease Risk Ratio 05/30/18 05/30/18 05/30/18 Range/Units 09:31 13:40 17:00 WBC (4.0-10.5) K/mm3 RBC (4.1-5.4) M/mm3 Hgb (12.0-16.0) gm/dl Hct (35-47) % MCV (78-100) fl MCH (26-32) pg MCHC (32-36) g/dl RDW (11.5-14.0) % Plt Count (150-450) K/mm3 MPV (6-9.5) fl Gran % (36.0-66.0) % Eos # (Auto) (0-0.5) Absolute Lymphs (auto) (1.0-4.6) Absolute Monos (auto) (0.0-1.3) Lymphocytes % (24.0-44.0) % Monocytes % (0.0-12.0) % Eosinophils % (0.00-5.0) % Basophils % (0.0-0.4) % Absolute Granulocytes (1.4-6.9) Basophils # (0-0.4) PT 10.1 (9.95-12.35) SECONDS INR 0.87 (0.8-3.0) APTT 24.8 L (25.3-37.0) SECONDS D-Dimer 675 H* (215-500) ng/mL Sodium (137-145) mmol/L Potassium (3.5-5.1) mmol/L Chloride (98-107) mmol/L Carbon Dioxide (22-30) mmol/L Anion Gap (5-15) MEQ/L BUN (7-17) mg/dL Creatinine (0.52-1.04) mg/dL Estimated GFR ML/MIN Glucose (74-106) mg/dL Hemoglobin A1c (4.5-6.0) % Calcium (8.4-10.2) mg/dL Total Bilirubin (0.2-1.3) mg/dL AST (14-36) U/L ALT (0-35) U/L Alkaline Phosphatase (38-126) U/L Creatine Kinase (30-135) U/L Troponin I < 0.012 < 0.012 (0.000-0.034) ng/mL NT-Pro-B Natriuret Pep (0-1800) pg/mL Serum Total Protein (6.3-8.2) g/dL Albumin (3.5-5.0) g/dL Triglycerides (30-150) mg/dL Cholesterol (50-200) mg/dL LDL Cholesterol (30-100) mg/dL HDL Cholesterol (40-60) mg/dL Heart Disease Risk Ratio 05/31/18 05/31/18 05/31/18 Range/Units 05:15 05:15 05:15 WBC (4.0-10.5) K/mm3 RBC (4.1-5.4) M/mm3 Hgb (12.0-16.0) gm/dl Hct (35-47) % MCV (78-100) fl MCH (26-32) pg MCHC (32-36) g/dl RDW (11.5-14.0) % Plt Count (150-450) K/mm3 MPV (6-9.5) fl Gran % (36.0-66.0) % Eos # (Auto) (0-0.5) Absolute Lymphs (auto) (1.0-4.6) Absolute Monos (auto) (0.0-1.3) Lymphocytes % (24.0-44.0) % Monocytes % (0.0-12.0) % Eosinophils % (0.00-5.0) % Basophils % (0.0-0.4) % Absolute Granulocytes (1.4-6.9) Basophils # (0-0.4) PT (9.95-12.35) SECONDS INR (0.8-3.0) APTT (25.3-37.0) SECONDS D-Dimer (215-500) ng/mL Sodium 139 (137-145) mmol/L Potassium 3.5 (3.5-5.1) mmol/L Chloride 100 (98-107) mmol/L Carbon Dioxide 29 (22-30) mmol/L Anion Gap 13.6 (5-15) MEQ/L BUN 21 H (7-17) mg/dL Creatinine 0.89 (0.52-1.04) mg/dL Estimated GFR > 60.0 ML/MIN Glucose 168 H (74-106) mg/dL Hemoglobin A1c 12.35 H (4.5-6.0) % Calcium 9.1 (8.4-10.2) mg/dL Total Bilirubin (0.2-1.3) mg/dL AST (14-36) U/L ALT (0-35) U/L Alkaline Phosphatase (38-126) U/L Creatine Kinase (30-135) U/L Troponin I < 0.012 (0.000-0.034) ng/mL NT-Pro-B Natriuret Pep (0-1800) pg/mL Serum Total Protein (6.3-8.2) g/dL Albumin (3.5-5.0) g/dL Triglycerides 350 H (30-150) mg/dL Cholesterol 197 (50-200) mg/dL LDL Cholesterol 91 (30-100) mg/dL HDL Cholesterol 38 L (40-60) mg/dL Heart Disease Risk Ratio 5.2 Micro Results-Entire Visit: Accuchecks Date 05/31/18 Date 05/30/18 Date 05/30/18 Time 08:03 Time 22:00 Accucheck Value: 168 Accucheck Value: 271 Accucheck Value: 383 Accucheck Value: 419 Accucheck Value: 419 - Radiology Exams Ordered Rad Exams-Entire Visit: Radiology Procedures Category Date Time Status CHEST 1 VIEW (PORTABLE) Stat Exams 05/30/18 09:04 Completed CHEST WITH CONTRAST [CT] Stat Exams 05/30/18 09:56 Completed - Procedures and Test Procedures and Tests throughout Hospitalization: Therapy Orders & Screens 05/30/18 17:01 EKG ONCE Comment: Diagnosis: chest pain 05/31/18 05:00 EKG ONCE Comment: Diagnosis: chest pain 06/01/18 05:00 EKG ONCE Comment: Diagnosis: chest pain 06/02/18 05:00 EKG ONCE Comment: Diagnosis: chest pain Final Diagnosis/Problem List - Final Discharge Diagnosis/Problem (1) Chest pain Current Visit: Yes Status: Acute (2) Type 2 diabetes mellitus Current Visit: Yes Status: Acute (3) Hypothyroid Current Visit: Yes Status: Chronic (4) Hypertension Current Visit: Yes Status: Chronic (5) Depression Current Visit: Yes Status: Chronic (6) Anxiety Current Visit: Yes Status: Chronic (7) Spinal stenosis of lumbar region Current Visit: Yes Status: Chronic - Discharge Discharge Date: 05/31/18 Disposition: Home, Self-Care Condition: Stable Prescriptions: New Aspirin EC 81 mg [Ecotrin 81 mg] 81 mg PO DAILY #90 tablet Continue Simvastatin 40 mg [Zocor 40 mg] 40 mg PO DAILY Hydrocodone Bit/Acetaminophen [[place] 10-325 Tablet] 1 each PO Q8H Levothyroxine Sodium 100 Mcg [Synthroid 100 Mcg] 100 mcg PO DAILY Nifedipine [Nifedipine ER] 90 mg PO DAILY Duloxetine HCl 60 mg PO DAILY Olanzapine 5 mg PO HS Diazepam 5 mg [Valium 5 MG] 5 mg PO HS Changed Insulin Glargine,Hum.rec.anlog [Lantus Solostar] 30 units SQ DAILY #0 Instructions: Diabetes Type 1, Adult (DC), Chest Pain (DC) Follow up with: CB ARELLANO [Primary Care Provider] - Call for Appointment Forms: Discharge Instructions, Patient Portal Information
[2018-05-31] MEDS ORDERED: NON-FORMULARY ITEM (Simvastatin 40 Mg [Zocor 40 Mg] 40 MG) PO SCH (10:00)
[2018-05-31] MEDS ORDERED: ENOXAPARIN SODIUM SQ SCH (10:00)
[2018-05-31] MEDS ORDERED: Ecotrin 325 MG PO SCH (10:00)
[2018-05-31] MEDS ORDERED: NIFEDIPINE 90 MG PO SCH (10:00)
[2018-05-31] MEDS ORDERED: INSULIN GLARGINE HUM REC ANLOG 20 UNIT SQ SCH (10:00)
== END 2018-05-31 09:50 | disposition home or self-care (01) ==
LOC: ED 08:46 → MED SURG 12:26
PROVIDERS: ADMIT Family Medicine; ATTEND Family Medicine
DX: R07.89 Other chest pain (principal); E11.9 Type 2 diabetes mellitus without complications; E03.9 Hypothyroidism, unspecified; I10 Essential (primary) hypertension; F41.8 Other specified anxiety disorders; M48.061 Spinal stenosis, lumbar region without neurogenic claudication; M19.90 Unspecified osteoarthritis, unspecified site; Z85.3 Personal history of malignant neoplasm of breast
CPT/HCPCS: 36000; 36415; 71045; 71260; 80048; 80053; 80061; 82550; 82962; 83036; 83721; 83880; 84484; 85025; 85379; 85610; 85730; 93005; 93041; 93268; 94762; 96360; 96374; 99285; A9270-GY; G0378

== ENCOUNTER 2018-07-13 13:32 | Emergency (ER) | payer MEDICARE ==
--- NOTE | 2018-07-13 14:05 | ERPHSYRPT ---
- History of Present Illness Time Seen by Provider: 07/13/18 13:51 Source: patient Exam Limitations: no limitations Patient Subjective Stated Complaint: Pt states "I checked my sugar and it was 450." Triage Nursing Assessment: Pt alert and oriented X 3, skin pwd. Pt ambulates with an upright slow gait. Pt carrying her cane but no using it. PT speech clear in full sentences. PT in no apparent respiratory distress. Physician History: The patient is an 83-year-old female with her son complaining of not feeling well for 3 days. Today she took her blood sugar using her own home monitor and it read 450. She wants to come in to be evaluated because she thinks she might have high blood sugar. She denies nausea, vomiting, or diarrhea. She denies fever or chills. She denies cough. She denies shortness of breath. She denies chest pain. She states that when she was in the kitchen this morning she walked over and sat down and "blacked out" briefly. She took 40 units of insulin glargine this morning. She has a past medical history of diabetes, hypothyroidism, hypertension, and arthritis. Timing/Duration: day(s) (3), constant, gradual onset Severity: mild Modifying Factors: Improves With: nothing Associated Symptoms: malaise, syncope Allergies/Adverse Reactions: No Known Drug Allergies Allergy (Verified 05/30/18 09:02) Home Medications: Hydrocodone Bit/Acetaminophen [[place] 10-325 Tablet] 1 each PO Q8H 05/24/17 [ History] Levothyroxine Sodium 100 Mcg [Synthroid 100 Mcg] 100 mcg PO DAILY 05/24/17 [History] Nifedipine [Nifedipine ER] 90 mg PO DAILY 05/24/17 [History] Simvastatin 40 mg [Zocor 40 mg] 40 mg PO DAILY 05/24/17 [History] Diazepam 5 mg [Valium 5 MG] 5 mg PO HS 05/30/18 [History] Duloxetine HCl 60 mg PO DAILY 05/30/18 [History] Olanzapine 5 mg PO HS 05/30/18 [History] Insulin Glargine,Hum.rec.anlog [Lantus Solostar] 100 unit IM DAILY 07/13/18 [ History] Hx Tetanus, Diphtheria Vaccination/Date Given: Yes Hx Influenza Vaccination/Date Given: Yes Hx Pneumococcal Vaccination/Date Given: Yes Immunizations Up to Date: Yes - Review of Systems Constitutional: No Fever, No Chills Eyes: No Symptoms Ears, Nose, & Throat: No Symptoms Respiratory: No Symptoms Cardiac: No Chest Pain, No Edema, No Syncope Abdominal/Gastrointestinal: No Abdominal Pain, No Nausea, No Vomiting, No Diarrhea Genitourinary Symptoms: No Dysuria Musculoskeletal: No Back Pain, No Neck Pain Skin: No Rash Neurological: No Dizziness, No Focal Weakness, No Sensory Changes Psychological: No Symptoms Endocrine: No Symptoms Hematologic/Lymphatic: No Symptoms Immunological/Allergic: No Symptoms All Other Systems: Reviewed and Negative - Past Medical History Pertinent Past Medical History: Yes Neurological History: No Pertinent History ENT History: No Pertinent History Cardiac History: Hypertension Respiratory History: No Pertinent History Endocrine Medical History: Diabetes Type II Musculoskeletal History: Arthritis GI Medical History: No Pertinent History History: No Pertinent History Psycho-Social History: Depression Female Reproductive Disorders: Breast Cancer Other Medical History: chronic pain - Past Surgical History Past Surgical History: Yes Neuro Surgical History: No Pertinent History Cardiac: No Pertinent History Respiratory: No Pertinent History Gastrointestinal: Cholecystectomy Female Surgical History: Hysterectomy - Social History Smoking Status: Never smoker Exposure to second hand smoke: No Drug Use: none Patient Lives Alone: Yes - Female History Hx Now: No - Nursing Vital Signs Nursing Vital Signs: Initial Vital Signs Temperature 98.2 F 07/13/18 13:41 Pulse Rate 96 H 07/13/18 13:41 Respiratory Rate 18 07/13/18 13:41 Blood Pressure 171/104 07/13/18 13:41 O2 Sat by Pulse Oximetry 96 07/13/18 13:41 Pain Scale Pain Intensity 6 - Physical Exam General Appearance: no apparent distress, alert Eye Exam: PERRL/EOMI, eyes nml inspection Ears, Nose, Throat Exam: normal ENT inspection, TMs normal, pharynx normal, moist mucous membranes Neck Exam: normal inspection, non-tender, supple, full range of motion Respiratory Exam: normal breath sounds, lungs clear, No respiratory distress Cardiovascular Exam: regular rate/rhythm, normal heart sounds, normal peripheral pulses Gastrointestinal/Abdomen Exam: soft, normal bowel sounds, No tenderness, No mass Pelvic Exam: not done Rectal Exam: not done Back Exam: normal inspection, normal range of motion, No CVA tenderness, No vertebral tenderness Extremity Exam: normal inspection, normal range of motion, pelvis stable Neurologic Exam: alert, oriented x 3, cooperative, normal mood/affect, nml cerebellar function, nml station & gait, sensation nml, No motor deficits Skin Exam: normal color, warm, dry, No rash Lymphatic Exam: No adenopathy SpO2 Interpretation: normal SpO2: 96 Oxygen Delivery: Room Air - Course EKG Interpreted by Me: RATE, Sinus Rhythm, NORMAL INTERVALS, NORMAL QRS, NORMAL ST-T, Other (no change compared to EKG from 05/31/18.) - Radiology Exams Chest X-ray Interpretation: Interpreted by me, Negative, Other (neg 2V chest with stable fibrosis in right lung, comp 1V chest 05/30/18.) Ordered Tests: Active Orders 24 hr Category Date Time Status EKG-ER Only STAT Care 07/13/18 14:09 Active CHEST 2 VIEWS (PA AND LAT) Stat Exams 07/13/18 14:38 Taken BMP Stat Lab 07/13/18 14:20 Completed CBC W DIFF Stat Lab 07/13/18 14:20 Completed CULTURE,URINE Stat Lab 07/13/18 16:32 Received Lactic Acid Stat Lab 07/13/18 14:09 Completed TROPONIN Q3H Lab 07/13/18 14:20 Completed TROPONIN Q3H Lab 07/13/18 17:15 Ordered TROPONIN Q3H Lab 07/13/18 20:15 Ordered TROPONIN Q3H Lab 07/13/18 23:15 Ordered TROPONIN Q3H Lab 07/14/18 02:15 Ordered UA W/RFX UR CULTURE Stat Lab 07/13/18 16:32 Completed Medication Summary Generic Name Dose Route Start Last Admin Trade Name Freq PRN Reason Stop Dose Admin Duloxetine HCl 60 mg 07/14/18 10:00 07/13/18 16:16 Cymbalta 30 Mg Capsule PO 08/13/18 09:59 60 mg QAM JEIMY Administration Discontinued Medications Generic Name Dose Route Start Last Admin Trade Name Freq PRN Reason Stop Dose Admin Duloxetine HCl Confirm 07/13/18 16:00 Cymbalta 30 Mg Capsule Administered 07/13/18 16:01 Dose 60 mg .ROUTE .[employer] Lab/Rad Data: Laboratory Result Diagrams 07/13/18 14:20 07/13/18 14:20 Laboratory Results 07/13/18 07/13/18 07/13/18 Range/Units 16:32 14:20 14:20 WBC (4.0-10.5) K/mm3 RBC (4.1-5.4) M/mm3 Hgb (12.0-16.0) gm/dl Hct (35-47) % MCV (78-100) fl MCH (26-32) pg MCHC (32-36) g/dl RDW (11.5-14.0) % Plt Count (150-450) K/mm3 MPV (6-9.5) fl Gran % (36.0-66.0) % Eos # (Auto) (0-0.5) Absolute Lymphs (auto) (1.0-4.6) Absolute Monos (auto) (0.0-1.3) Lymphocytes % (24.0-44.0) % Monocytes % (0.0-12.0) % Eosinophils % (0.00-5.0) % Basophils % (0.0-0.4) % Absolute Granulocytes (1.4-6.9) Basophils # (0-0.4) Sodium 140 (137-145) mmol/L Potassium 4.3 (3.5-5.1) mmol/L Chloride 101 (98-107) mmol/L Carbon Dioxide 30 (22-30) mmol/L Anion Gap 13.2 (5-15) MEQ/L BUN 20 H (7-17) mg/dL Creatinine 1.07 H (0.52-1.04) mg/dL Estimated GFR 52.2 ML/MIN Glucose 197 H (74-106) mg/dL Lactic Acid (0.4-2.0) Calcium 9.1 (8.4-10.2) mg/dL Troponin I < 0.012 (0.000-0.034) ng/mL Urine Color YELLOW (YELLOW) Urine Appearance SLIGHTLY CLOUDY (CLEAR) Urine pH 6.0 (5-6) Ur Specific [place] 1.008 (1.005-1.025) Urine Protein 30 (Negative) Urine Ketones NEGATIVE (NEGATIVE) Urine Blood NEGATIVE (0-5) Mitch/ul Urine Nitrite POSITIVE (NEGATIVE) Urine Bilirubin NEGATIVE (NEGATIVE) Urine Urobilinogen NEGATIVE (0-1) mg/dL Ur Leukocyte Esterase MODERATE (NEGATIVE) Urine WBC (Auto) 51-100 (0-5) /HPF Urine RBC (Auto) 0-2 (0-2) /HPF U Epithel Cells (Auto) RARE (FEW) /HPF Urine Bacteria (Auto) PACKED (NEGATIVE) /HPF Urine Mucus (Auto) SLIGHT (NEGATIVE) /HPF Urine Culture Reflexed YES (NO) Urine Glucose NEGATIVE (NEGATIVE) mg/dL 07/13/18 07/13/18 Range/Units 14:20 14:09 WBC 4.9 (4.0-10.5) K/mm3 RBC 4.99 (4.1-5.4) M/mm3 Hgb 14.1 (12.0-16.0) gm/dl Hct 42.7 (35-47) % MCV 85.6 (78-100) fl MCH 28.3 (26-32) pg MCHC 33.0 (32-36) g/dl RDW 14.8 H (11.5-14.0) % Plt Count 184 (150-450) K/mm3 MPV 12.5 H (6-9.5) fl Gran % 61.9 (36.0-66.0) % Eos # (Auto) 0.12 (0-0.5) Absolute Lymphs (auto) 1.49 (1.0-4.6) Absolute Monos (auto) 0.25 (0.0-1.3) Lymphocytes % 30.2 (24.0-44.0) % Monocytes % 5.1 (0.0-12.0) % Eosinophils % 2.4 (0.00-5.0) % Basophils % 0.4 (0.0-0.4) % Absolute Granulocytes 3.06 (1.4-6.9) Basophils # 0.02 (0-0.4) Sodium (137-145) mmol/L Potassium (3.5-5.1) mmol/L Chloride (98-107) mmol/L Carbon Dioxide (22-30) mmol/L Anion Gap (5-15) MEQ/L BUN (7-17) mg/dL Creatinine (0.52-1.04) mg/dL Estimated GFR ML/MIN Glucose (74-106) mg/dL Lactic Acid 1.0 (0.4-2.0) Calcium (8.4-10.2) mg/dL Troponin I (0.000-0.034) ng/mL Urine Color (YELLOW) Urine Appearance (CLEAR) Urine pH (5-6) Ur Specific [place] (1.005-1.025) Urine Protein (Negative) Urine Ketones (NEGATIVE) Urine Blood (0-5) Mitch/ul Urine Nitrite (NEGATIVE) Urine Bilirubin (NEGATIVE) Urine Urobilinogen (0-1) mg/dL Ur Leukocyte Esterase (NEGATIVE) Urine WBC (Auto) (0-5) /HPF Urine RBC (Auto) (0-2) /HPF U Epithel Cells (Auto) (FEW) /HPF Urine Bacteria (Auto) (NEGATIVE) /HPF Urine Mucus (Auto) (NEGATIVE) /HPF Urine Culture Reflexed (NO) Urine Glucose (NEGATIVE) mg/dL - Departure Time of Disposition: 17:01 Departure Disposition: Home Clinical Impression: UTI (urinary tract infection) Condition: Stable Critical Care Time: No Referrals: CB ARELLANO [Primary Care Provider] - Additional Instructions: You have not been feeling well for a few days because you have a UTI. You were given Rocephin 1 g by IM in the ER. Take Macrobid 100 mg 2 times a day for 7 days. Follow-up with your primary medical doctor on Saturday or Saturday. Prescriptions: Nitrofurantoin Macro 100 mg [Macrobid 100MG Capsule] 100 mg PO BID #14 capsule
[2018-07-13 14:28] LABS: BASOPHIL % 0.4 % (0.0-0.4); Basophil (Absolute #) 0.02 (0-0.4); Eosinophil % 2.4 % (0.00-5.0); Eosinophil (Absolute #) 0.12 (0-0.5); Granulocyte Absolute (ANC) 3.06 (1.4-6.9); Granulocytes % 61.9 % (36.0-66.0); Hematocrit 42.7 % (35-47); Hemoglobin 14.1 gm/dl (12.0-16.0); Lymphocyte (Absolute #) 1.49 (1.0-4.6); Lymphocytes % 30.2 % (24.0-44.0); Mean Cell Volume 85.6 fl (78-100); Mean Corpuscular Hemoglobin 28.3 pg (26-32); Mean Platelet Volume 12.5 fl (6-9.5); Monocyte (Absolute #) 0.25 (0.0-1.3); Monocytes % 5.1 % (0.0-12.0); Platelet Count 184 K/mm3 (150-450); Red Blood Count 4.99 M/mm3 (4.1-5.4); Red Cell Distribution Width 14.8 % (11.5-14.0); White Blood Count 4.9 K/mm3 (4.0-10.5)
[2018-07-13 14:45] LABS: ANION GAP 13.2 MEQ/L (5-15); Calcium 9.1 mg/dL (8.4-10.2); Creatinine 1 1.07 mg/dL (0.52-1.04); Potassium 4.3 mmol/L (3.5-5.1)
[2018-07-13] MEDS ORDERED: Cymbalta 30 MG Capsule ONE (16:00)
[2018-07-13 16:44] LABS: Appearance SLIGHTLY CLOUDY (CLEAR); Bilirubin NEGATIVE (NEGATIVE); Blood NEGATIVE Ery/ul (0-5); Glucose NEGATIVE (NEGATIVE); Ketones NEGATIVE (NEGATIVE); Leukocyte Esterase MODERATE (NEGATIVE); Nitrite POSITIVE (NEGATIVE); Protein,Urine Dip 30 (Negative); Specific Gravity 1.008 (1.005-1.025); Urobilinogen NEGATIVE mg/dL (0-1)
[2018-07-13] MEDS ORDERED: Rocephin 1000 MG INJ IM ONE (17:00)
[2018-07-13 17:06] VITALS: BP 178/102; PULSE 88; O2SAT 97
[2018-07-13] MEDS ORDERED: Rocephin 1000 MG INJ ONE (17:10)
--- NOTE | 2018-07-13 20:13 | XRAY ---
Indication: Syncope. High blood sugar. Comparison: May 30, 2018. PA/lateral chest inflated again with minimal bibasilar fibrosis/scarring. No focal infiltrate, consolidation, or large effusion. Heart and mediastinal structures within normal limits. Bony thorax intact again with mild osteopenia and degenerative changes. Impression: Nonacute chest with chronic features.
[2018-07-14] MEDS ORDERED: Cymbalta 30 MG Capsule PO SCH (10:00)
== END 2018-07-13 17:21 | disposition home or self-care (01) ==
LOC: ED 13:32
DX: N39.0 Urinary tract infection, site not specified (principal); R53.81 Other malaise; R55 Syncope and collapse; Z79.899 Other long term (current) drug therapy; E11.9 Type 2 diabetes mellitus without complications; Z79.4 Long term (current) use of insulin
CPT/HCPCS: 36415; 71046; 80048; 81001; 82962; 83605; 84484; 85025; 87077; 87086; 87186; 93005; 96372; 99284; J0696; A9270-GY

== ENCOUNTER 2018-12-16 16:57 | Emergency (ER) | payer MEDICARE ==
[2018-12-16] MEDS ORDERED: TYLENOL 325 MG PO ONE (17:44)
[2018-12-16 17:57] LABS: BASOPHIL % 0.5 % (0.0-0.4); Basophil (Absolute #) 0.03 (0-0.4); Eosinophil % 3.4 % (0.00-5.0); Granulocyte Absolute (ANC) 3.18 (1.4-6.9); Granulocytes % 54.6 % (36.0-66.0); Hematocrit 39.9 % (35-47); Lymphocyte (Absolute #) 2.01 (1.0-4.6); Lymphocytes % 34.5 % (24.0-44.0); Mean Cell Volume 87.3 fl (78-100); Mean Corpuscular Hemoglobin 28.4 pg (26-32); Mean Corpuscular Hgb Concent. 32.6 g/dl (32-36); Mean Platelet Volume 11.7 fl (6-9.5); Monocyte (Absolute #) 0.41 (0.0-1.3); Platelet Count 190 K/mm3 (150-450); Red Blood Count 4.57 M/mm3 (4.1-5.4); Red Cell Distribution Width 14.2 % (11.5-14.0); White Blood Count 5.8 K/mm3 (4.0-10.5)
[2018-12-16] MEDS ORDERED: TYLENOL 325 MG ONE ×2 (18:04→20:00)
[2018-12-16 18:07] LABS: ALBUMIN 3.9 g/dL (3.5-5.0); ALKALINE PHOSPHATASE 63 U/L (38-126); ANION GAP 12.9 MEQ/L (5-15); BLOOD UREA NITROGEN 26 mg/dL (7-17); CHLORIDE 105 mmol/L (98-107); Calcium 9.3 mg/dL (8.4-10.2); Carbon Dioxide 26 mmol/L (22-30); Creatinine 1 0.84 mg/dL (0.52-1.04); Glucose 269 mg/dL (74-106); SGOT/AST 14 U/L (14-36); SGPT/ALT 15 U/L (0-35); SODIUM 139 mmol/L (137-145); Total Protein 6.9 g/dL (6.3-8.2)
--- NOTE | 2018-12-16 18:11 | ERPHSYRPT ---
- History of Present Illness Source: patient Exam Limitations: no limitations Patient Subjective Stated Complaint: Pt states "I have had pain all over and a little shortness of breath. I just do not feel well." Triage Nursing Assessment: Pt alert and oriented X 3, skin pwd Pt ambulates with an upright steady gait, able to speak in clear full sentences. Pt in no apparent respiratory distress. PT moaning, tearful. Timing/Duration: week(s) Severity: moderate Modifying Factors: Improves With: medication Associated Symptoms: denies symptoms Hx Tetanus, Diphtheria Vaccination/Date Given: Yes Hx Influenza Vaccination/Date Given: Yes Hx Pneumococcal Vaccination/Date Given: Yes Immunizations Up to Date: Yes <RANDALL VELEZ - Last Filed: 12/16/18 18:34> <AZAR PATINO - Last Filed: 12/16/18 19:44> - History of Present Illness Time Seen by Provider: 12/16/18 19:40 Physician History: Pt is an 83 y/o female with a h/o OA. She was taking Ibuprofen for pain and in the past was on Lloyd, but was weaned off by her PCP. Her PCP retired/left, and pt was seen twice by a SYSTEMS TECHNICIAN. Pt states, that her pain is so bad, she finds its hard to ambulate. Pt is using a cane, and has multiple of cats that she is taking care off, and does not want to go to a facility. Pt had a h/o suicide attempts, but she feels well now, and believes that her Celexa is taking care of her depression. Pt never tried Tylenol before. (RANDALL VELEZ) Allergies/Adverse Reactions: No Known Drug Allergies Allergy (Verified 05/30/18 09:02) Home Medications: Levothyroxine Sodium 100 Mcg [Synthroid 100 Mcg] 100 mcg PO DAILY 05/24/17 [History] Nifedipine [Nifedipine ER] 90 mg PO DAILY 05/24/17 [History] Simvastatin 40 mg [Zocor 40 mg] 40 mg PO DAILY 05/24/17 [History] Diazepam 5 mg [Valium 5 MG] 5 mg PO HS 05/30/18 [History] Duloxetine HCl 60 mg PO DAILY 05/30/18 [History] Olanzapine 5 mg PO HS 05/30/18 [History] Insulin Glargine,Hum.rec.anlog [Lantus Solostar] 100 unit IM DAILY 07/13/18 [ History] Citalopram Hydrobromide 20 mg* [ceLEXa 20 MG] 20 mg PO DAILY 12/16/18 [ History] Trazodone HCl 50 mg PO DAILY 12/16/18 [History] - Review of Systems Constitutional: No Fever, No Chills Eyes: No Symptoms Ears, Nose, & Throat: No Symptoms Respiratory: No Cough, No Dyspnea Cardiac: No Chest Pain, No Edema, No Syncope Abdominal/Gastrointestinal: No Abdominal Pain, No Nausea, No Vomiting, No Diarrhea Musculoskeletal: Arthralgias, Joint Pain Neurological: No Dizziness, No Focal Weakness, No Sensory Changes <RANDALL VELEZ - Last Filed: 12/16/18 18:34> - Past Medical History Pertinent Past Medical History: Yes Neurological History: No Pertinent History ENT History: No Pertinent History Cardiac History: Hypertension Respiratory History: No Pertinent History Endocrine Medical History: Diabetes Type II Musculoskeletal History: Arthritis GI Medical History: No Pertinent History History: No Pertinent History Psycho-Social History: Depression Female Reproductive Disorders: Breast Cancer Other Medical History: chronic pain - Past Surgical History Past Surgical History: Yes Neuro Surgical History: No Pertinent History Cardiac: No Pertinent History Respiratory: No Pertinent History Gastrointestinal: Cholecystectomy Female Surgical History: Hysterectomy - Social History Smoking Status: Never smoker Exposure to second hand smoke: No Drug Use: none Patient Lives Alone: Yes - Female History Hx Now: No <RANDALL VELEZ - Last Filed: 12/16/18 18:34> - Physical Exam General Appearance: moderate distress (Secondary to pain) Eye Exam: PERRL/EOMI, eyes nml inspection Ears, Nose, Throat Exam: normal ENT inspection, pharynx normal, moist mucous membranes Neck Exam: normal inspection, non-tender, supple, full range of motion Respiratory Exam: normal breath sounds, lungs clear, No respiratory distress Cardiovascular Exam: regular rate/rhythm, normal heart sounds, normal peripheral pulses Gastrointestinal/Abdomen Exam: soft, normal bowel sounds, No tenderness, No mass Extremity Exam: normal inspection, normal range of motion, pelvis stable Neurologic Exam: alert, oriented x 3, cooperative, normal mood/affect, nml cerebellar function, nml station & gait, sensation nml, No motor deficits SpO2: 95 <RANDALL VELEZ Last Filed: 12/16/18 18:34> - Nursing Vital Signs Nursing Vital Signs: Initial Vital Signs Temperature 98.0 F 12/16/18 17:06 Pulse Rate 102 H 12/16/18 17:06 Respiratory Rate 20 12/16/18 17:06 Blood Pressure 151/90 12/16/18 17:06 O2 Sat by Pulse Oximetry 95 12/16/18 17:06 Pain Scale Pain Intensity [Right 8 Generalized] Pain Intensity 4 - Course Nursing assessment & vital signs reviewed: Yes <CYNTHIARANDALL - Last Filed: 12/16/18 18:34> Ordered Tests: Active Orders 24 hr Category Date Time Status CBC W DIFF Stat Lab 12/16/18 17:51 Completed CMP Stat Lab 12/16/18 17:51 Completed UA W/RFX UR CULTURE Stat Lab 12/16/18 18:52 Completed Medication Summary Discontinued Medications Generic Name Dose Route Start Last Admin Trade Name Freq PRN Reason Stop Dose Admin Acetaminophen 975 mg 12/16/18 17:44 12/16/18 18:04 Tylenol 325 Mg PO 12/16/18 17:45 975 mg STAT ONE Administration Acetaminophen Confirm 12/16/18 18:04 Tylenol 325 Mg Administered 12/16/18 18:05 Dose 975 mg .ROUTE .[employer] ONE Lab/Rad Data: Laboratory Result Diagrams 12/16/18 17:51 12/16/18 17:51 Laboratory Results 12/16/18 12/16/18 12/16/18 Range/Units 18:52 17:51 17:51 WBC 5.8 (4.0-10.5) K/mm3 RBC 4.57 (4.1-5.4) M/mm3 Hgb 13.0 (12.0-16.0) gm/dl Hct 39.9 (35-47) % MCV 87.3 (78-100) fl MCH 28.4 (26-32) pg MCHC 32.6 (32-36) g/dl RDW 14.2 H (11.5-14.0) % Plt Count 190 (150-450) K/mm3 MPV 11.7 H (6-9.5) fl Gran % 54.6 (36.0-66.0) % Eos # (Auto) 0.20 (0-0.5) Absolute Lymphs (auto) 2.01 (1.0-4.6) Absolute Monos (auto) 0.41 (0.0-1.3) Lymphocytes % 34.5 (24.0-44.0) % Monocytes % 7.0 (0.0-12.0) % Eosinophils % 3.4 (0.00-5.0) % Basophils % 0.5 (0.0-0.4) % Absolute Granulocytes 3.18 (1.4-6.9) Basophils # 0.03 (0-0.4) Sodium 139 (137-145) mmol/L Potassium 4.0 (3.5-5.1) mmol/L Chloride 105 (98-107) mmol/L Carbon Dioxide 26 (22-30) mmol/L Anion Gap 12.9 (5-15) MEQ/L BUN 26 H (7-17) mg/dL Creatinine 0.84 (0.52-1.04) mg/dL Estimated GFR > 60.0 ML/MIN Glucose 269 H (74-106) mg/dL Calcium 9.3 (8.4-10.2) mg/dL Total Bilirubin 0.30 (0.2-1.3) mg/dL AST 14 (14-36) U/L ALT 15 (0-35) U/L Alkaline Phosphatase 63 (38-126) U/L Serum Total Protein 6.9 (6.3-8.2) g/dL Albumin 3.9 (3.5-5.0) g/dL Urine Color STRAW (YELLOW) Urine Appearance CLEAR (CLEAR) Urine pH 6.0 (5-6) Ur Specific [place] 1.011 (1.005-1.025) Urine Protein NEGATIVE (Negative) Urine Ketones NEGATIVE (NEGATIVE) Urine Blood NEGATIVE (0-5) Mitch/ul Urine Nitrite NEGATIVE (NEGATIVE) Urine Bilirubin NEGATIVE (NEGATIVE) Urine Urobilinogen NEGATIVE (0-1) mg/dL Ur Leukocyte Esterase TRACE (NEGATIVE) Urine WBC (Auto) 6-10 (0-5) /HPF Urine RBC (Auto) NONE (0-2) /HPF U Epithel Cells (Auto) NONE (FEW) /HPF Urine Bacteria (Auto) NONE SEEN (NEGATIVE) /HPF Urine Culture Reflexed NO (NO) Urine Glucose >=500 (NEGATIVE) mg/dL <RANDALL VELEZ - Last Filed: 12/16/18 18:34> <AZAR PATINO - Last Filed: 12/16/18 19:44> - Progress Progress Note: 12/16/18 18:10 Pt presented to the ED with diffuse joint pain that is not controlled by Ibuprofen. Pt was on Lloyd in the past but was weaned off it. She never got Tylenol. Tylenol 975mg was given to the pt, and labs were taken. Pt was signed out to Dr Patino 12/16/18 18:35 (RANDALL VELEZ) 12/16/18 19:40 83-year-old white female with history of diabetes type 2, arthritis, depression , breast cancer, chronic pain Patient arrives with complaint of diffuse joint pain states she had some slight shortness of breath Patient apparently recently weaned off of Lloyd by her family doctor. Patient initially seen by Dr. Velez. Patient was given Tylenol she states she is feeling markedly better. Physical examination elderly white female she is alert oriented 3. Head is atraumatic normocephalic. Eyes PERRLA EOMI fundi are unremarkable. Ears TMs ruth intact bilaterally. Nose is clear. Throat is clear. Neck is supple. Lungs are clear. Heart regular rate and rhythm without murmur. Abdomen soft nontender nondistended positive bowel sounds. Extremities full range of motion pulse equal symmetrical 2 over 4. Neuro cranial nerves II through XII are intact DTRs symmetrical 2 over 4 Taniya Coma Scale is 15. Vitals temperature 98.0 pulse 102 respiration 20 blood pressure 151/90 sats 95%. Labs chemistry sodium 139 potassium 4.0 chloride 105 bicarbonate 26 BUN 26 creatinine 0.84 glucose 269. CBC White blood cell 5.8 hemoglobin 13.0 hematocrit 39.9 platelets 190. Urinalysis 6-10 white cells per high-power field greater than 500 glucose in the urine negative nitrites. Impression diffuse joint pain. Chronic joint pain syndrome. Hyperglycemia Patient with markedly improvement with Tylenol patient states she is ready to go home rolled discharge patient. Patient will need to watch her blood sugars. Tylenol every 4 hours as needed for pain. Contact your family doctor and arrange follow-up appointment. (AZAR PATINO) <RANDALL VELEZ - Last Filed: 12/16/18 18:34> - Departure Time of Disposition: 19:43 Departure Disposition: Home Critical Care Time: No <AZAR PATINO - Last Filed: 12/16/18 19:44> - Departure Clinical Impression: Chronic pain syndrome, Hyperglycemia Joint pain Qualifiers: Joint pain location: unspecified Qualified Code(s): M25.50 - Pain in unspecified joint Condition: Fair Referrals: CB ARELLANO [ACTIVE STAFF] - Instructions: Chronic Pain (DC) Additional Instructions: Return home. Plenty of fluids. Tylenol every 4 hours as needed for pain. Monitor blood sugars carefully follow-up with your family doctor. Return for acute distress or for severe symptoms.
[2018-12-16 19:09] LABS: Appearance CLEAR (CLEAR); Bilirubin NEGATIVE (NEGATIVE); Blood NEGATIVE Ery/ul (0-5); Glucose >=500 mg/dL (NEGATIVE); Ketones NEGATIVE (NEGATIVE); Leukocyte Esterase TRACE (NEGATIVE); Nitrite NEGATIVE (NEGATIVE); Protein,Urine Dip NEGATIVE (Negative); Specific Gravity 1.011 (1.005-1.025); Urobilinogen NEGATIVE mg/dL (0-1)
[2018-12-16 19:12] VITALS: BP 169/83; PULSE 91; O2SAT 93
[2018-12-16 19:12] LABS: Bacteria NONE SEEN /HPF (NEGATIVE)
[2018-12-16] MEDS ORDERED: TYLENOL 325 MG PO PRN (20:08)
== END 2018-12-16 20:15 | disposition home or self-care (01) ==
LOC: ED 16:57
DX: G89.4 Chronic pain syndrome (principal); M25.50 Pain in unspecified joint; E11.9 Type 2 diabetes mellitus without complications; F32.9 Major depressive disorder, single episode, unspecified; Z79.899 Other long term (current) drug therapy; Z85.3 Personal history of malignant neoplasm of breast
CPT/HCPCS: 36415; 80053; 81001; 85025; 99283; A9270-GY

== ENCOUNTER 2019-03-20 22:08 | Inpatient (IN) | payer MEDICARE ==
[2019-03-20] MEDS ORDERED: Sodium Chloride 0.9% 1000 ML 1,000 ML IV STA (22:24)
--- NOTE | 2019-03-20 22:30 | ERPHSYRPT ---
- History of Present Illness Time Seen by Provider: 03/20/19 22:29 Source: patient Exam Limitations: no limitations Patient Subjective Stated Complaint: Pt states "I've been falling all over the house, yesterday I knocked myself out. My health is just deteriorating so much, I just want to .". When asked if pt had plan to hurt herself pt states "Oh no! I would never ever do that. If I wanted to do that I would have done it years ago.". Pt adds "I haven't taken my meds in 2 days, because I just didn't care" Triage Nursing Assessment: Arnold/warm/dry, resp easy, a&ox4, gait not observed, pt has sad affect, appropriate behaviors. Physician History: Pt states "I've been falling all over the house, yesterday I knocked myself out. My health is just deteriorating so much, I just want to ." When asked if pt had plan to hurt herself pt states "Oh no! I would never ever do that. If I wanted to do that I would have done it years ago." Pt adds "I haven't taken my meds in 2 days, because I just didn't care" Timing/Duration: day(s) Associated Symptoms: denies symptoms Allergies/Adverse Reactions: No Known Drug Allergies Allergy (Verified 03/20/19 23:19) Home Medications: Levothyroxine Sodium 100 Mcg [Synthroid 100 Mcg] 100 mcg PO DAILY 05/24/17 [History] Nifedipine [Nifedipine ER] 90 mg PO DAILY 05/24/17 [History] Simvastatin 40 mg [Zocor 40 mg] 40 mg PO DAILY 05/24/17 [History] Olanzapine 5 mg PO HS 05/30/18 [History] Insulin Glargine,Hum.rec.anlog [Lantus Solostar] 100 unit SQ DAILY 07/13/18 [ History] Citalopram Hydrobromide 20 mg* [ceLEXa 20 MG] 20 mg PO DAILY 12/16/18 [ History] Trazodone HCl 50 mg PO DAILY 12/16/18 [History] Alprazolam 1 mg [Xanax 1 mg] 1 mg PO TID 03/20/19 [History] Glimepiride 4 mg [Amaryl 4 mg] 4 mg PO DAILY 03/20/19 [History] Losartan Potassium 25 mg PO DAILY 03/20/19 [History] Metformin HCl 500 mg PO BID 03/20/19 [History] Hx Tetanus, Diphtheria Vaccination/Date Given: Yes Hx Influenza Vaccination/Date Given: Yes Hx Pneumococcal Vaccination/Date Given: Yes Immunizations Up to Date: Yes - Review of Systems Constitutional: No Fever, No Chills Eyes: No Symptoms Ears, Nose, & Throat: No Symptoms Respiratory: No Cough, No Dyspnea Cardiac: No Chest Pain, No Edema, No Syncope Abdominal/Gastrointestinal: No Abdominal Pain, No Nausea, No Vomiting, No Diarrhea Genitourinary Symptoms: No Dysuria Musculoskeletal: No Back Pain, No Neck Pain Skin: No Rash Neurological: No Dizziness, No Focal Weakness, No Sensory Changes Psychological: No Symptoms Endocrine: No Symptoms All Other Systems: Reviewed and Negative - Past Medical History Pertinent Past Medical History: Yes Neurological History: No Pertinent History ENT History: No Pertinent History Cardiac History: Hypertension Respiratory History: No Pertinent History Endocrine Medical History: Diabetes Type II Musculoskeletal History: Arthritis GI Medical History: No Pertinent History History: No Pertinent History Psycho-Social History: Depression Female Reproductive Disorders: Breast Cancer Other Medical History: chronic pain - Past Surgical History Past Surgical History: Yes Neuro Surgical History: No Pertinent History Cardiac: No Pertinent History Respiratory: No Pertinent History Gastrointestinal: Cholecystectomy Female Surgical History: Hysterectomy - Social History Smoking Status: Never smoker Exposure to second hand smoke: No Drug Use: none Patient Lives Alone: Yes - Female History Hx Now: No - Nursing Vital Signs Nursing Vital Signs: Initial Vital Signs Temperature 98.0 F 03/20/19 22:10 Pulse Rate 95 H 03/20/19 22:10 Respiratory Rate 16 03/20/19 22:10 Blood Pressure 211/93 03/20/19 22:10 O2 Sat by Pulse Oximetry 93 L 03/20/19 22:10 - Physical Exam General Appearance: no apparent distress, alert Eye Exam: PERRL/EOMI, eyes nml inspection Ears, Nose, Throat Exam: normal ENT inspection, TMs normal, pharynx normal, moist mucous membranes Neck Exam: normal inspection, non-tender, supple, full range of motion Respiratory Exam: normal breath sounds, lungs clear, No respiratory distress Cardiovascular Exam: regular rate/rhythm, normal heart sounds, normal peripheral pulses Gastrointestinal/Abdomen Exam: soft, normal bowel sounds, No tenderness, No mass Back Exam: normal inspection, normal range of motion, No CVA tenderness, No vertebral tenderness Extremity Exam: normal inspection, normal range of motion, pelvis stable Neurologic Exam: alert, oriented x 3, cooperative, sensation nml, No motor deficits Skin Exam: normal color, warm, dry, rash (in right groin area) Lymphatic Exam: No adenopathy SpO2: 93 - Course Nursing assessment & vital signs reviewed: Yes Ordered Tests: Active Orders 24 hr Category Date Time Status IV Insertion STAT Care 03/20/19 22:52 Active CBC W DIFF Stat Lab 03/20/19 23:00 Completed CMP Stat Lab 03/20/19 23:00 Completed CULTURE,URINE Stat Lab 03/20/19 23:00 Received UA W/RFX UR CULTURE Stat Lab 03/20/19 23:00 Completed Medication Summary Generic Name Dose Route Start Last Admin Trade Name Freq PRN Reason Stop Dose Admin Ceftriaxone Sodium 1,000 mg 03/20/19 23:48 Rocephin 1000 Mg Inj IV 03/20/19 23:49 STAT ONE Discontinued Medications Generic Name Dose Route Start Last Admin Trade Name Freq PRN Reason Stop Dose Admin Sodium Chloride 1,000 mls @ 999 mls/hr 03/20/19 22:24 03/20/19 22:46 Sodium Chloride 0.9% 1000 Ml IV 03/20/19 23:24 999 mls/hr .Q1H1M STA Administration Sodium Chloride Confirm 03/20/19 22:42 Sodium Chloride 0.9% 1000 Ml Administered 03/20/19 22:43 Dose 1,000 mls @ ud .ROUTE .STK-MED ONE Lab/Rad Data: Laboratory Result Diagrams 03/20/19 23:00 03/20/19 23:00 Laboratory Results 03/20/19 03/20/19 03/20/19 Range/Units 23:00 23:00 23:00 WBC 8.6 (4.0-10.5) K/mm3 RBC 4.86 (4.1-5.4) M/mm3 Hgb 14.2 (12.0-16.0) gm/dl Hct 41.9 (35-47) % MCV 86.2 (78-100) fl MCH 29.2 (26-32) pg MCHC 33.9 (32-36) g/dl RDW 14.8 H (11.5-14.0) % Plt Count 198 (150-450) K/mm3 MPV 12.4 H (6-9.5) fl Gran % 71.8 H (36.0-66.0) % Eos # (Auto) 0.13 (0-0.5) Absolute Lymphs (auto) 1.80 (1.0-4.6) Absolute Monos (auto) 0.45 (0.0-1.3) Lymphocytes % 21.0 L (24.0-44.0) % Monocytes % 5.3 (0.0-12.0) % Eosinophils % 1.5 (0.00-5.0) % Basophils % 0.4 (0.0-0.4) % Absolute Granulocytes 6.15 (1.4-6.9) Basophils # 0.03 (0-0.4) Sodium 142 (137-145) mmol/L Potassium 3.5 (3.5-5.1) mmol/L Chloride 105 (98-107) mmol/L Carbon Dioxide 25 (22-30) mmol/L Anion Gap 14.5 (5-15) MEQ/L BUN 19 H (7-17) mg/dL Creatinine 1.12 H (0.52-1.04) mg/dL Estimated GFR 49.4 ML/MIN Glucose 265 H (74-106) mg/dL Calcium 9.6 (8.4-10.2) mg/dL Total Bilirubin 0.50 (0.2-1.3) mg/dL AST 19 (14-36) U/L ALT 15 (0-35) U/L Alkaline Phosphatase 83 (38-126) U/L Serum Total Protein 7.3 (6.3-8.2) g/dL Albumin 3.9 (3.5-5.0) g/dL Urine Color YELLOW (YELLOW) Urine Appearance SLIGHTLY CLOUDY (CLEAR) Urine pH 5.0 (5-6) Ur Specific [place] 1.013 (1.005-1.025) Urine Protein 100 (Negative) Urine Ketones NEGATIVE (NEGATIVE) Urine Blood NEGATIVE (0-5) Mitch/ul Urine Nitrite NEGATIVE (NEGATIVE) Urine Bilirubin NEGATIVE (NEGATIVE) Urine Urobilinogen NEGATIVE (0-1) mg/dL Ur Leukocyte Esterase NEGATIVE (NEGATIVE) Urine WBC (Auto) 3-5 (0-5) /HPF Urine RBC (Auto) 3-5 (0-2) /HPF U Hyaline Cast (Auto) 3-5 (0-2) /LPF U Epithel Cells (Auto) NONE (FEW) /HPF Urine Bacteria (Auto) MODERATE (NEGATIVE) /HPF Urine Mucus (Auto) SLIGHT (NEGATIVE) /HPF Urine Culture Reflexed YES (NO) Urine Glucose 150 (NEGATIVE) mg/dL - Progress Progress: unchanged Discussed with : Cecille Will see patient in: hospital (observation) Counseled pt/family regarding: lab results, diagnosis, need for follow-up - Departure Departure Disposition: Observation Clinical Impression: Hyperglycemia Depression Qualifiers: Depression Type: reactive depression Qualified Code(s): F32.9 - Major depressive disorder, single episode, unspecified UTI (urinary tract infection) Qualifiers: Urinary tract infection type: site unspecified Hematuria presence: without hematuria Qualified Code(s): N39.0 - Urinary tract infection, site not specified Type 2 diabetes mellitus Qualifiers: Diabetes mellitus fci insulin use: without fci use Diabetes mellitus complication status: with other specified complication Qualified Code(s ): E11.69 - Type 2 diabetes mellitus with other specified complication Condition: Fair Critical Care Time: Yes Critical Care Time(excluding separately billable procedures): 30-74 minutes
[2019-03-20] MEDS ORDERED: Sodium Chloride 0.9% 1000 ML 1,000 ML ONE (22:42)
[2019-03-20 23:04] LABS: BASOPHIL % 0.4 % (0.0-0.4); Basophil (Absolute #) 0.03 (0-0.4); Eosinophil % 1.5 % (0.00-5.0); Eosinophil (Absolute #) 0.13 (0-0.5); Granulocyte Absolute (ANC) 6.15 (1.4-6.9); Granulocytes % 71.8 % (36.0-66.0); Hematocrit 41.9 % (35-47); Hemoglobin 14.2 gm/dl (12.0-16.0); Mean Cell Volume 86.2 fl (78-100); Mean Corpuscular Hemoglobin 29.2 pg (26-32); Mean Corpuscular Hgb Concent. 33.9 g/dl (32-36); Mean Platelet Volume 12.4 fl (6-9.5); Monocyte (Absolute #) 0.45 (0.0-1.3); Monocytes % 5.3 % (0.0-12.0); Platelet Count 198 K/mm3 (150-450); Red Blood Count 4.86 M/mm3 (4.1-5.4); Red Cell Distribution Width 14.8 % (11.5-14.0); White Blood Count 8.6 K/mm3 (4.0-10.5)
[2019-03-20 23:30] LABS: Appearance SLIGHTLY CLOUDY (CLEAR); Bacteria MODERATE /HPF (NEGATIVE); Bilirubin NEGATIVE (NEGATIVE); Blood NEGATIVE Ery/ul (0-5); Glucose 150 mg/dL (NEGATIVE); Ketones NEGATIVE (NEGATIVE); Leukocyte Esterase NEGATIVE (NEGATIVE); Mucus SLIGHT /HPF (NEGATIVE); Nitrite NEGATIVE (NEGATIVE); Protein,Urine Dip 100 (Negative); Specific Gravity 1.013 (1.005-1.025); Urobilinogen NEGATIVE mg/dL (0-1)
[2019-03-20 23:33] LABS: ALBUMIN 3.9 g/dL (3.5-5.0); ANION GAP 14.5 MEQ/L (5-15); BILIRUBIN,TOTAL 0.5 mg/dL (0.2-1.3); Calcium 9.6 mg/dL (8.4-10.2); Creatinine 1 1.12 mg/dL (0.52-1.04); Potassium 3.5 mmol/L (3.5-5.1); Total Protein 7.3 g/dL (6.3-8.2)
[2019-03-20] MEDS ORDERED: Rocephin 1000 MG INJ IV ONE (23:48)
[2019-03-20] MEDS ORDERED: ROCEPHIN 1 Gm-D5w 50 ml Bag** 1 G/50 ML IVPB IV STA (23:56)
[2019-03-20] MEDS ORDERED: ROCEPHIN 1 Gm-D5w 50 ml Bag** 1 G/50 ML IVPB IV ONE (23:57)
[2019-03-21] MEDS: Sodium Chloride 0.9% 1000 ML 1,000 ML IV SCH ×2 (03:55→19:57)
--- NOTE | 2019-03-21 08:58 | PCM.HP ---
History of Present Illness - Chief Complaint Chief Complaint: c/o weakness, c/o hopelessness History of Present Illness: is a 84 year old female came to ER with c/o weakness, depression, feeling hopeless, Patient lives by herself since her year and half ago and feeling very depressed and hopeless - Review of Systems Constitutional: Fatigue, Malaise, Weakness, No Fever, No Chills Eyes: No Symptoms Ears, Nose, & Throat: No Symptoms Respiratory: No Cough, No Short Of Breath Cardiac: No Chest Pain, No Edema, No Syncope Abdominal/Gastrointestinal: No Abdominal Pain, No Nausea, No Vomiting, No Diarrhea Genitourinary Symptoms: No Dysuria Musculoskeletal: No Back Pain, No Neck Pain Skin: No Rash Neurological: No Dizziness, No Focal Weakness, No Sensory Changes Psychological: Anxiety, Depression, Emotional Lability, Mood Changes Endocrine: No Symptoms Hematologic/Lymphatic: No Symptoms Immunological/Allergic: No Symptoms Medications & Allergies Home Medications: Home Medication List Levothyroxine Sodium 100 Mcg [Synthroid 100 Mcg] 100 mcg PO DAILY 05/24/17 [History Confirmed 03/20/19] Nifedipine [Nifedipine ER] 90 mg PO DAILY 05/24/17 [History Confirmed 03/20/19] Simvastatin 40 mg [Zocor 40 mg] 40 mg PO DAILY 05/24/17 [History Confirmed 03/20] Olanzapine 5 mg PO HS 05/30/18 [History Confirmed 03/20/19] Citalopram Hydrobromide 20 mg* [ceLEXa 20 MG] 20 mg PO DAILY 12/16/18 [ History Confirmed 03/20/19] Trazodone HCl 50 mg PO DAILY 12/16/18 [History Confirmed 03/20/19] Alprazolam 1 mg [Xanax 1 mg] 1 mg PO TID 03/20/19 [History Confirmed 03/20] Glimepiride 4 mg [Amaryl 4 mg] 4 mg PO DAILY 03/20/19 [History Confirmed 03/20/19] Losartan Potassium 25 mg PO DAILY 03/20/19 [History Confirmed 03/20/19] Metformin HCl 500 mg PO BID 03/20/19 [History Confirmed 03/20/19] Insulin Glargine,Hum.rec.anlog [Lantus Solostar] 20 units SQ DAILY 03/21/19 [ History Confirmed 03/21/19] Allergies/Adverse Reactions: Allergies Allergy/AdvReac Type Severity Reaction Status Date / Time No Known Drug Allergies Allergy Verified 03/20/19 23:19 - Past Medical History Past Medical History: Yes Neurological History: No Pertinent History ENT History: No Pertinent History Cardiac History: Hypertension Respiratory History: No Pertinent History Endocrine Medical History: Diabetes Type II Musculoskelatal History: Arthritis GI Medical History: No Pertinent History History: No Pertinent History Pyscho-Social History: Depression Reproductive Disorders: Breast Cancer Comment: chronic pain - Female History Are you now?: No - Past Surgical History Past Surgical History: Yes Neuro Surgical History: No Pertinent History Cardiac History: No Pertinent History Respiratory Surgery: No Pertinent History GI Surgical History: Cholecystectomy Female Surgical History: Hysterectomy - Social History Smoking Status: Never smoker Exposure to second hand smoke: No Alcohol: Rarely Drug Use: none - Physical Exam Vital Signs: Vital Signs - 24 hr Temp Pulse Resp BP Pulse Ox 03/21/19 07:24 98.9 F 100 H 18 140/87 96 03/21/19 04:00 98.1 F 98 H 19 181/86 94 L 03/21/19 01:18 98.2 F 103 H 18 188/88 92 L 03/21/19 00:21 106 H 18 180/65 96 03/20/19 23:50 93 L 03/20/19 22:10 98.0 F 95 H 16 211/93 93 L General Appearance: no apparent distress, alert Neurologic Exam: alert, oriented x 3, cooperative, No motor deficits Eye Exam: PERRL/EOMI, eyes nml inspection Ears, Nose, Throat Exam: normal ENT inspection, TMs normal, pharynx normal, moist mucous membranes Neck Exam: normal inspection, non-tender, supple, full range of motion Respiratory Exam: normal breath sounds, lungs clear, No respiratory distress Cardiovascular Exam: regular rate/rhythm, normal heart sounds, normal peripheral pulses Gastrointestinal/Abdomen Exam: soft, normal bowel sounds, No tenderness, No mass Back Exam: normal inspection, normal range of motion, No CVA tenderness, No vertebral tenderness Extremity Exam: normal inspection, normal range of motion, pelvis stable Skin Exam: normal color, warm, dry, No rash Lymphatic Exam: No adenopathy Additional Findings: 03/21/19 08:59 Patient is depressed, Results - Labs Lab/Micro Results: Lab Results-Last 24 Hours 03/20/19 03/20/19 03/20/19 Range/Units 23:00 23:00 23:00 WBC 8.6 (4.0-10.5) K/mm3 RBC 4.86 (4.1-5.4) M/mm3 Hgb 14.2 (12.0-16.0) gm/dl Hct 41.9 (35-47) % MCV 86.2 (78-100) fl MCH 29.2 (26-32) pg MCHC 33.9 (32-36) g/dl RDW 14.8 H (11.5-14.0) % Plt Count 198 (150-450) K/mm3 MPV 12.4 H (6-9.5) fl Gran % 71.8 H (36.0-66.0) % Eos # (Auto) 0.13 (0-0.5) Absolute Lymphs (auto) 1.80 (1.0-4.6) Absolute Monos (auto) 0.45 (0.0-1.3) Lymphocytes % 21.0 L (24.0-44.0) % Monocytes % 5.3 (0.0-12.0) % Eosinophils % 1.5 (0.00-5.0) % Basophils % 0.4 (0.0-0.4) % Absolute Granulocytes 6.15 (1.4-6.9) Basophils # 0.03 (0-0.4) Sodium 142 (137-145) mmol/L Potassium 3.5 (3.5-5.1) mmol/L Chloride 105 (98-107) mmol/L Carbon Dioxide 25 (22-30) mmol/L Anion Gap 14.5 (5-15) MEQ/L BUN 19 H (7-17) mg/dL Creatinine 1.12 H (0.52-1.04) mg/dL Estimated GFR 49.4 ML/MIN Glucose 265 H (74-106) mg/dL Calcium 9.6 (8.4-10.2) mg/dL Total Bilirubin 0.50 (0.2-1.3) mg/dL AST 19 (14-36) U/L ALT 15 (0-35) U/L Alkaline Phosphatase 83 (38-126) U/L Serum Total Protein 7.3 (6.3-8.2) g/dL Albumin 3.9 (3.5-5.0) g/dL Urine Color YELLOW (YELLOW) Urine Appearance SLIGHTLY CLOUDY (CLEAR) Urine pH 5.0 (5-6) Ur Specific [place] 1.013 (1.005-1.025) Urine Protein 100 (Negative) Urine Ketones NEGATIVE (NEGATIVE) Urine Blood NEGATIVE (0-5) Mitch/ul Urine Nitrite NEGATIVE (NEGATIVE) Urine Bilirubin NEGATIVE (NEGATIVE) Urine Urobilinogen NEGATIVE (0-1) mg/dL Ur Leukocyte Esterase NEGATIVE (NEGATIVE) Urine WBC (Auto) 3-5 (0-5) /HPF Urine RBC (Auto) 3-5 (0-2) /HPF U Hyaline Cast (Auto) 3-5 (0-2) /LPF U Epithel Cells (Auto) NONE (FEW) /HPF Urine Bacteria (Auto) MODERATE (NEGATIVE) /HPF Urine Mucus (Auto) SLIGHT (NEGATIVE) /HPF Urine Culture Reflexed YES (NO) Urine Glucose 150 (NEGATIVE) mg/dL Assessment/Plan (1) UTI (urinary tract infection) Current Visit: Yes Status: Acute Qualifiers: Urinary tract infection type: site unspecified Hematuria presence: without hematuria Qualified Code(s): N39.0 - Urinary tract infection, site not specified Assessment & Plan: Chief Complaint Diagnosis c/o weakness, c/o hopelessness Allergies Allergy/AdvReac Type Severity Reaction Status Date / Time No Known Drug Allergies Allergy Verified 03/20/19 23:19 Vital Signs (Last 24 hours) Temp Pulse Resp BP Pulse Ox 03/21/19 07:24 98.9 F 100 H 18 140/87 96 03/21/19 04:00 98.1 F 98 H 19 181/86 94 L 03/21/19 01:18 98.2 F 103 H 18 188/88 92 L 03/21/19 00:21 106 H 18 180/65 96 03/20/19 23:50 93 L 03/20/19 22:10 98.0 F 95 H 16 211/93 93 L Home Medications Medication Instructions Recorded Confirmed Last Taken Type Alprazolam 1 mg [Xanax 1 mg] 1 mg PO TID 03/20/19 03/20/19 Unknown History Glimepiride 4 mg [Amaryl 4 4 mg PO DAILY 03/20/19 03/20/19 Unknown History mg] Losartan Potassium 25 mg PO DAILY 03/20/19 03/20/19 Unknown History Metformin HCl 500 mg PO BID 03/20/19 03/20/19 Unknown History Insulin Glargine,Hum.rec.anlog 20 units SQ DAILY 03/21/19 03/21/19 Unknown History [Lantus Solostar] Current Medications Generic Name Dose Route Start Last Admin Trade Name Freq PRN Reason Stop Dose Admin Alprazolam 1 mg 03/21/19 10:00 Xanax 1 Mg PO 04/20/19 09:59 TID JEIMY Citalopram Hydrobromide 20 mg 03/21/19 10:00 Celexa 20 Mg PO 04/20/19 09:59 DAILY JEIMY Glimepiride 4 mg 03/21/19 09:00 Amaryl 4 Mg PO 04/20/19 08:59 BREAKFAST JEIMY Sodium Chloride 1,000 mls @ 100 mls/hr 03/20/19 23:45 03/21/19 03:55 Sodium Chloride 0.9% 1000 Ml IV 04/19/19 23:44 100 mls/hr .Q10H JEIMY Administration Ceftriaxone Sodium/Dextrose 1 g in 50 mls @ 100 mls/hr 03/21/19 22:00 Rocephin 1 Gm-D5w 50 Ml Bag IV 04/20/19 09:59 QPM JEIMY Insulin Aspart 0 unit 03/21/19 06:57 Novolog Insulin SQ 04/20/19 06:56 UD PRN HYPERGLYCEMIA Insulin Glargine 20 unit 03/21/19 10:00 Lantus Insulin SQ 04/20/19 09:59 DAILY JEIMY Levothyroxine Sodium 100 mcg 03/21/19 10:00 Synthroid 100 Mcg PO 04/20/19 09:59 DAILY JEIMY Losartan Potassium 25 mg 03/21/19 10:00 Cozaar 50 Mg PO 04/20/19 09:59 DAILY JEIMY Metformin HCl 500 mg 03/21/19 09:00 Glucophage 500 Mg PO 04/20/19 08:59 BIDWM JEIMY Nifedipine 90 mg 03/21/19 10:00 Adalat Cc 30 Mg Tablet PO 04/20/19 09:59 DAILY JEIMY Olanzapine 5 mg 03/21/19 22:00 Zyprexa 5mg Tablet PO 04/20/19 21:59 HS JEIMY Simvastatin 40 mg 03/21/19 10:00 Zocor 20mg PO 04/20/19 09:59 DAILY JEIMY Trazodone HCl 25 mg 03/21/19 10:00 Desyrel 50 Mg PO 04/20/19 09:59 DAILY JEIMY Discontinued Medications Generic Name Dose Route Start Last Admin Trade Name Johnq PRN Reason Stop Dose Admin Ceftriaxone Sodium 1,000 mg 03/20/19 23:48 03/20/19 23:58 Rocephin 1000 Mg Inj IV 03/20/19 23:49 Not Given STAT ONE Sodium Chloride 1,000 mls @ 999 mls/hr 03/20/19 22:24 03/20/19 22:46 Sodium Chloride 0.9% 1000 Ml IV 03/20/19 23:24 999 mls/hr .Q1H1M STA Administration Sodium Chloride Confirm 03/20/19 22:42 Sodium Chloride 0.9% 1000 Ml Administered 03/20/19 22:43 Dose 1,000 mls @ ud .ROUTE .STK-MED ONE Ceftriaxone Sodium/Dextrose 1 g in 50 mls @ 100 mls/hr 03/21/19 10:00 23:58 Rocephin 1 Gm-D5w 50 Ml Bag IV 04/20/19 09:59 100 mls/hr Q24H10 JEIMY Administration Ceftriaxone Sodium/Dextrose 1 g in 50 mls @ 100 mls/hr 03/20/19 23:56 03:55 Rocephin 1 Gm-D5w 50 Ml Bag IV 03/21/19 00:25 Not Given STAT STA Ceftriaxone Sodium/Dextrose Confirm 03/20/19 23:57 Rocephin 1 Gm-D5w 50 Ml Bag Administered 03/20/19 23:58 Dose 1 g in 50 mls @ ud IV .STK-MED ONE Intake & Output (Last 24 hours) 03/18/19 03/19/19 03/20/19 03/21/19 11:59 11:59 11:59 11:59 Intake Total 600 Output Total 700 Balance -100 Weight 85.1 kg Microbiology Results (Last 24 hours) 03/20/19 23:00 Urine, Catheterized Urine Culture - Pending Laboratory Results (Last 24 hours) 03/20/19 03/20/19 03/20/19 23:00 23:00 23:00 WBC 8.6 RBC 4.86 Hgb 14.2 Hct 41.9 MCV 86.2 MCH 29.2 MCHC 33.9 RDW 14.8 H Plt Count 198 MPV 12.4 H Gran % 71.8 H Eos # (Auto) 0.13 Absolute Lymphs (auto) 1.80 Absolute Monos (auto) 0.45 Lymphocytes % 21.0 L Monocytes % 5.3 Eosinophils % 1.5 Basophils % 0.4 Absolute Granulocytes 6.15 Basophils # 0.03 Sodium 142 Potassium 3.5 Chloride 105 Carbon Dioxide 25 Anion Gap 14.5 BUN 19 H Creatinine 1.12 H Estimated GFR 49.4 Glucose 265 H Calcium 9.6 Total Bilirubin 0.50 AST 19 ALT 15 Alkaline Phosphatase 83 Serum Total Protein 7.3 Albumin 3.9 Urine Color YELLOW Urine Appearance SLIGHTLY CLOUDY Urine pH 5.0 Ur Specific [place] 1.013 Urine Protein 100 Urine Ketones NEGATIVE Urine Blood NEGATIVE Urine Nitrite NEGATIVE Urine Bilirubin NEGATIVE Urine Urobilinogen NEGATIVE Ur Leukocyte Esterase NEGATIVE Urine WBC (Auto) 3-5 Urine RBC (Auto) 3-5 U Hyaline Cast (Auto) 3-5 U Epithel Cells (Auto) NONE Urine Bacteria (Auto) MODERATE Urine Mucus (Auto) SLIGHT Urine Culture Reflexed YES Urine Glucose 150 Orders (Last 24 hours) Category Date Time Status Up Ad [place] ROUTINE Activity 03/20/19 23:53 Active ACCUCHECK [Accucheck] ACHS Care 03/21/19 06:55 Active Code Status Order ROUTINE Care 03/20/19 23:52 Active IV Care Q6H Care 03/20/19 23:52 Active IV Insertion STAT Care 03/20/19 22:52 Active Miscellaneous Nursing Order ROUTINE Care 03/20/19 23:[address] in Observation ROUTINE Care 03/20/19 23:52 Active Jose [place] ROUTINE Care 03/20/19 23:52 Active [employer] Specialist/Discharge Plan ROUTINE Cons 03/21/19 02:40 Active Nutritional Admission Screen once Diet 03/21/19 02:40 Active CBC W DIFF Stat Lab 03/20/19 23:00 Completed CMP Stat Lab 03/20/19 23:00 Completed CULTURE,URINE Stat Lab 03/20/19 23:00 Received UA W/RFX UR CULTURE Stat Lab 03/20/19 23:00 Completed Alprazolam 1 mg [Xanax 1 mg] Med 03/21/19 10:00 Active 1 mg PO TID Ceftriaxone 1 GM/50 ML PREMIX* [ROCEPHIN 1 Gm-D5w 50 ml Med 03/21/19 10:00 Discontinued Bag] 1 g in 50 ml IV Q24H10 Ceftriaxone 1 GM/50 ML PREMIX* [ROCEPHIN 1 Gm-D5w 50 ml Med 03/21/19 22:00 Active Bag] 1 g in 50 ml IV QPM Ceftriaxone 1 GM/50 ML PREMIX* [ROCEPHIN 1 Gm-D5w 50 ml Med 03/20/19 23:56 Discontinued Bag] 1 g in 50 ml IV STAT Ceftriaxone 1 GM/50 ML PREMIX* [ROCEPHIN 1 Gm-D5w 50 ml Med 03/20/19 23:57 Discontinued Bag] 1 g in 50 ml IV UD Ceftriaxone Sod 1000 mg Inj [Rocephin 1000 MG INJ] Med 03/20/19 23:48 Discontinued 1,000 mg IV STAT ONE Citalopram Hydrobromide 20 mg* [ceLEXa 20 MG] Med 03/21/19 10:00 Active 20 mg PO DAILY Glimepiride 4 mg [Amaryl 4 mg] Med 03/21/19 09:00 Active 4 mg PO BREAKFAST Insulin Aspart [NovoLOG Insulin] Med 03/21/19 06:57 Active See Dose Instructions SQ UD PRN Insulin Glargine [Lantus Insulin] Med 03/21/19 10:00 Active 20 unit SQ DAILY Levothyroxine Sodium 100 Mcg [Synthroid 100 Mcg] Med 03/21/19 10:00 Active 100 mcg PO DAILY Losartan Potassium 50 mg [Cozaar 50 MG] Med 03/21/19 10:00 Active 25 mg PO DAILY Metformin HCl 500 mg [Glucophage 500 MG] Med 03/21/19 09:00 Active 500 mg PO BIDWM NaCl 0.9% 1000 ml [Sodium Chloride 0.9% 1000 ML] 000 Med 03/20/19 22:42 Discontinued ml .ROUTE UD NaCl 0.9% 1000 ml [Sodium Chloride 0.9% 1000 ML] 000 Med 03/20/19 23:45 Active ml IV 100 mls/hr NaCl 0.9% 1000 ml [Sodium Chloride 0.9% 1000 ML] 000 Med 03/20/19 22:24 Discontinued ml IV 999 mls/hr Nifedipine Xl 30 mg [Adalat CC 30 MG TABLET] Med 03/21/19 10:00 Active 90 mg PO DAILY Olanzapine 5 mg [zyPREXA 5MG TABLET] Med 03/21/19 22:00 Active 5 mg PO HS Simvastatin 20Mg [Zocor 20Mg] Med 03/21/19 10:00 Active 40 mg PO DAILY Trazodone HCl 50 mg [Desyrel 50 mg] Med 03/21/19 10:00 Active 25 mg PO DAILY OT Screen per Nursing Assess ONCE OT 03/21/19 02:40 Active PT Screen per Nursing Assess ONCE PT 03/21/19 02:40 Active Code(s): N39.0 - URINARY TRACT INFECTION, SITE NOT SPECIFIED (2) Type 2 diabetes mellitus Current Visit: Yes Status: Acute Qualifiers: Diabetes mellitus long-term insulin use: 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
[2019-03-21] MEDS ORDERED: ROCEPHIN 1 Gm-D5w 50 ml Bag** 1 G/50 ML IVPB IV SCH ×2 (10:00→22:00)
[2019-03-21] MEDS ORDERED: NON-FORMULARY ITEM (Simvastatin 40 Mg [Zocor 40 Mg] 40 MG) PO SCH (10:00)
[2019-03-21] MEDS ORDERED: INSULIN GLARGINE HUM REC ANLOG 20 UNIT SQ SCH (10:00)
[2019-03-21] MEDS ORDERED: NIFEDIPINE 90 MG PO SCH (10:00)
[2019-03-21] MEDS: Lantus Insulin SQ SCH (10:43)
[2019-03-21] MEDS: ZOCOR 20MG PO SCH (10:44)
[2019-03-21] MEDS: ceLEXa 20 MG PO SCH (10:44)
[2019-03-21] MEDS: DESYREL 50 MG PO SCH (10:45)
[2019-03-21] MEDS: Adalat CC 30 MG TABLET PO SCH (10:46)
[2019-03-21] MEDS: SYNTHROID 100 MCG PO SCH (10:47)
[2019-03-21] MEDS: XANAX 1 MG PO SCH ×3 (10:47→22:30)
[2019-03-21] MEDS: Cozaar 50 MG PO SCH (10:48)
[2019-03-21] MEDS: NovoLOG Insulin SQ PRN ×3 (11:51→22:26)
[2019-03-21] MEDS: Glucophage 500 MG PO SCH ×2 (11:51→16:50)
[2019-03-21] MEDS: AMARYL 4 MG PO SCH (11:51)
[2019-03-21 21:08] LABS: Adenovirus F 40/41 NEGATIVE (NEGATIVE); Astrovirus NEGATIVE (NEGATIVE); C. Difficile Organism NEGATIVE (NEGATIVE); Campylobacter NEGATIVE (NEGATIVE); Cyclospora cayentanensis NEGATIVE (NEGATIVE); Entamoeaba histolytica NEGATIVE (NEGATIVE); Enteroaggregative E.coli NEGATIVE (NEGATIVE); Giardia lamblia NEGATIVE (NEGATIVE); Rotavirus A NEGATIVE (NEGATIVE); Salmonella NEGATIVE (NEGATIVE); Sapovirus NEGATIVE (NEGATIVE); Shiga-like toxin prod.E.coli NEGATIVE (NEGATIVE); Vibrio NEGATIVE (NEGATIVE)
[2019-03-21] MEDS: zyPREXA 5MG TABLET PO SCH (22:31)
[2019-03-22] MEDS ORDERED: BENADRYL 50 MG/ML IV ONE (05:31)
[2019-03-22] MEDS ORDERED: Decadron 4 MG INJ IV ONE (05:33)
[2019-03-22] MEDS: NovoLOG Insulin SQ PRN ×4 (07:43→22:37)
[2019-03-22] MEDS: Glucophage 500 MG PO SCH ×2 (07:43→16:38)
[2019-03-22] MEDS: AMARYL 4 MG PO SCH (07:43)
[2019-03-22] MEDS: Lantus Insulin SQ SCH (07:45)
--- NOTE | 2019-03-22 08:41 | PCM.NOTE ---
Date and Time: 03/22/19837 Subjective Assessment: doing better, c/o swollen lip ? due to rocephin - Review of Systems Constitutional: No Fever, No Chills Eyes: No Symptoms Ears, Nose, & Throat: No Symptoms, Other (swollen lip) Respiratory: No Cough, No Short Of Breath Cardiac: No Chest Pain, No Edema, No Syncope Abdominal/Gastrointestinal: No Abdominal Pain, No Nausea, No Vomiting, No Diarrhea Genitourinary Symptoms: No Dysuria Musculoskeletal: No Back Pain, No Neck Pain Skin: No Rash Neurological: No Dizziness, No Focal Weakness, No Sensory Changes Psychological: No Symptoms Endocrine: No Symptoms Hematologic/Lymphatic: No Symptoms Immunological/Allergic: No Symptoms Objective Exam General Appearance: no apparent distress, alert Neurologic Exam: alert, oriented x 3, cooperative, normal mood/affect, nml cerebellar function, sensation nml, No motor deficits Skin Exam: normal color, warm, dry Wound Assessment: healing Eye Exam: PERRL, EOMI, eyes nml inspection Ears, Nose, Throat Exam: normal ENT inspection, pharynx normal, moist mucous membranes, other (swollen lip) Neck Exam: normal inspection, non-tender, supple, full range of motion Respiratory Exam: normal breath sounds, lungs clear, No respiratory distress Cardiovascular Exam: regular rate/rhythm, normal heart sounds Gastrointestinal/Abdomen Exam: soft, No tenderness, No mass Extremity Exam: normal inspection, normal range of motion Back Exam: normal inspection, normal range of motion, No CVA tenderness, No vertebral tenderness Pelvic Exam: deferred Rectal Exam: deferred OBJECTIVE DATA Vital Signs: Vital Signs - 24 hr Temp Pulse Resp BP Pulse Ox 03/22/19 07:38 98.4 F 102 H 18 136/76 93 L 03/22/19 06:56 94 L 03/22/19 05:42 93 L 03/22/19 04:00 97.6 F 111 H 68 H 143/68 94 L 03/21/19 23:50 98.2 F 116 H 20 144/65 93 L 03/21/19 19:59 98.0 F 101 H 20 140/64 92 L 03/21/19 16:00 98.3 F 103 H 18 151/59 95 03/21/19 12:00 98.2 F 99 H 18 162/74 95 Pain Assessment - Last Documented Pain Intensity 3 Pain Scale Used 0-10 Pain Scale Intake and Output: Intake & Output 03/19/19 03/20/19 03/21/19 03/22/19 11:59 11:59 11:59 11:59 Intake Total 1460 2260 Output Total 1200 1350 Balance 260 910 Weight 85.1 kg Lab Results: Accuchecks Date 03/22/19 Date 03/21/19 Date 03/21/19 Date 03/21/19 Time 07:30 Time 21:30 Time 16:29 Time 11:30 Accucheck Value: 230 Accucheck Value: 229 Accucheck Value: 240 Accucheck Value: 365 Lab Results-Last 24 Hours 03/21/19 Range/Units 18:47 Stl C. cayetanensis PCR NEGATIVE (NEGATIVE) Stl Adenov F 40/41 PCR NEGATIVE (NEGATIVE) Stool Astrovirus (PCR) NEGATIVE (NEGATIVE) Stool Cryptosporidium PCR NEGATIVE (NEGATIVE) Stool EPEC (PCR) NEGATIVE (NEGATIVE) Stool EAEC (PCR) NEGATIVE (NEGATIVE) Stl E. histolytica PCR NEGATIVE (NEGATIVE) Stl P. shigelloides PCR NEGATIVE (NEGATIVE) Stool Sapovirus (PCR) NEGATIVE (NEGATIVE) St Y.enterocolitica PCR NEGATIVE (NEGATIVE) Stool Vibrio (PCR) NEGATIVE (NEGATIVE) Stl Vibrio cholerae PCR NEGATIVE (NEGATIVE) Stl Norovirus GI/GII PCR NEGATIVE (NEGATIVE) Campylobacter (PCR) NEGATIVE (NEGATIVE) C. difficile (PCR) NEGATIVE (NEGATIVE) Enterotoxigenic E. coli NEGATIVE (NEGATIVE) E.coli Shiga Toxins NEGATIVE (NEGATIVE) Giardia lamblia NEGATIVE (NEGATIVE) Rotavirus A (PCR) NEGATIVE (NEGATIVE) Salmonella (PCR) NEGATIVE (NEGATIVE) Shigella (PCR) NEGATIVE (NEGATIVE) Multi-Disciplinary Progress Notes: Multi-Disciplinary Progress Notes 03/21/19 17:22 Case Management Note by Alisia Vasquez DISCHARGE PLAN REVIEWED WITH DAUGHTER AND LAY CAREGIVER BLACK RENTERIA . PT NORMALLY LIVES AT HOME ALONE WITH A WALKER AND DIABETIC TESTING DEVICE. SHE HAS 2 HOUSE CATS, AND NUMEROUS OUTSIDE CATS. SHE HAS ADEQUATE COVERAGE FOR MEDICATIONS AND TRANSPORTATION VIA HER CHILDREN. 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 PT HAS HAD FREQUENT FALLS AT HOME. PLAN THOUGH IS FOR PT TO RETURN HOME TO PRE EPISODIC LEVEL OF FUNCTION, WITH ASSIST OF HHC/PT/OT IF ALLOWED, OR ASSISTED LIVING IF AGREEABLE. PT HAS ADAMANTLY REFUSED SNF. PRIMARY NURSE WILL CONTINUE TO MONITOR PATIENT TODAY, AND THIS NURSE WILL MEET WITH BOTH FAMILY AND PATIENT 03/22 AT NOON TO CONTINUE TO DISCUSS A SAFE D/C PLAN. Initialized on 03/21/19 17:22 - END OF NOTE Assessment/Plan (1) UTI (urinary tract infection) Current Visit: Yes Status: Acute Qualifiers: Urinary tract infection type: site unspecified Hematuria presence: without hematuria Qualified Code(s): N39.0 - Urinary tract infection, site not specified Assessment & Plan: abx changed to levaquin due to possible allergic reaction to rocephin Code(s): N39.0 - URINARY TRACT INFECTION, SITE NOT SPECIFIED (2) Type 2 diabetes mellitus Current Visit: Yes Status: Acute Qualifiers: Diabetes mellitus exterminator insulin use: with exterminator use Diabetes mellitus complication status: with other specified complication Qualified Code (s): E11.69 - Type 2 diabetes mellitus with other specified complication; Z79.4 - jail (current) use of insulin (3) Depression Current Visit: Yes Status: Chronic Qualifiers: Depression Type: reactive depression Qualified Code(s): F32.9 - Major depressive disorder, single episode, unspecified Code(s): F32.9 - MAJOR DEPRESSIVE DISORDER, SINGLE EPISODE, UNSPECIFIED
[2019-03-22] MEDS: Adalat CC 30 MG TABLET PO SCH (09:48)
[2019-03-22] MEDS: ZOCOR 20MG PO SCH (09:48)
[2019-03-22] MEDS: DESYREL 50 MG PO SCH (09:51)
[2019-03-22] MEDS: Cozaar 50 MG PO SCH (09:52)
[2019-03-22] MEDS: SYNTHROID 100 MCG PO SCH (09:52)
[2019-03-22] MEDS: XANAX 1 MG PO SCH ×3 (09:53→22:37)
[2019-03-22] MEDS: Levaquin 250MG/50ML D5W 250 MG/50 ML BAG IV SCH (09:53)
[2019-03-22] MEDS: ceLEXa 20 MG PO SCH (09:53)
[2019-03-22] MEDS: Sodium Chloride 0.9% 1000 ML 1,000 ML IV SCH ×2 (10:04→19:53)
[2019-03-22] MEDS: zyPREXA 5MG TABLET PO SCH (22:37)
[2019-03-23] MEDS: AMARYL 4 MG PO SCH (08:06)
[2019-03-23] MEDS: Glucophage 500 MG PO SCH ×2 (08:07→16:49)
[2019-03-23] MEDS: NovoLOG Insulin SQ PRN ×2 (08:07→12:27)
[2019-03-23] MEDS: Levaquin 250MG/50ML D5W 250 MG/50 ML BAG IV SCH (10:23)
--- NOTE | 2019-03-23 11:40 | PCM.NOTE ---
Date and Time: 03/23/19 1139 Subjective Assessment: doing ok - Review of Systems Constitutional: No Fever, No Chills Eyes: No Symptoms Ears, Nose, & Throat: No Symptoms Respiratory: No Cough, No Short Of Breath Cardiac: No Chest Pain, No Edema, No Syncope Abdominal/Gastrointestinal: No Abdominal Pain, No Nausea, No Vomiting, No Diarrhea Genitourinary Symptoms: No Dysuria Musculoskeletal: No Back Pain, No Neck Pain Skin: No Rash Neurological: No Dizziness, No Focal Weakness, No Sensory Changes Psychological: No Symptoms Endocrine: No Symptoms Hematologic/Lymphatic: No Symptoms Immunological/Allergic: No Symptoms Objective Exam General Appearance: no apparent distress, alert Neurologic Exam: alert, oriented x 3, cooperative, normal mood/affect, nml cerebellar function, sensation nml, No motor deficits Skin Exam: normal color, warm, dry Eye Exam: PERRL, EOMI, eyes nml inspection Ears, Nose, Throat Exam: normal ENT inspection, pharynx normal, moist mucous membranes Neck Exam: normal inspection, non-tender, supple, full range of motion Respiratory Exam: normal breath sounds, lungs clear, No respiratory distress Cardiovascular Exam: regular rate/rhythm, normal heart sounds Gastrointestinal/Abdomen Exam: soft, No tenderness, No mass Extremity Exam: normal inspection, normal range of motion Back Exam: normal inspection, normal range of motion, No CVA tenderness, No vertebral tenderness Pelvic Exam: deferred Rectal Exam: deferred OBJECTIVE DATA Vital Signs: Vital Signs - 24 hr Temp Pulse Resp BP Pulse Ox 03/23/19 07:34 98.2 F 101 H 18 166/78 94 L 03/23/19 07:04 94 L 03/23/19 04:00 97.9 F 65 18 145/65 95 03/22/19 23:09 98.2 F 112 H 18 140/65 95 03/22/19 19:36 98.3 F 114 H 19 141/74 94 L 03/22/19 19:19 92 L 03/22/19 16:00 98.7 F 117 H 18 145/69 96 03/22/19 11:47 98.4 F 101 H 18 159/72 94 L Pain Assessment - Last Documented Pain Intensity 0 Pain Scale Used 0-10 Pain Scale Intake and Output: Intake & Output 03/20/19 03/21/19 03/22/19 03/23/19 11:59 11:59 11:59 11:59 Intake Total 1460 2600 2200 Output Total 1200 1950 2250 Balance 260 650 -50 Weight 85.1 kg Lab Results: Accuchecks Date 03/22/19 Date 03/22/19 Time 21:30 Time 16:30 Accucheck Value: 229 Accucheck Value: 376 Accucheck Value: 409 Multi-Disciplinary Progress Notes: Multi-Disciplinary Progress Notes 03/22/19 12:42 Case Management Note by Alisia Vasquez AGAIN, CLARIFIED WITH THE POA/DAUGHTER THAT THE PATIENT STAY WAS INPATIENT, BUT SHE HAD "HEARD" THAT IT COULD BE UP TO 96 DAYS, NOT 96 HOURS. 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 DAUGHTER SAID THAT SHE WOULD LIKE HER TO THEN GO TO [facility] FOR MORE THERAPY BEFORE SHE GOES HOME, IF SHE CAN DO THAT. ADVISED THAT WE WOULD CONTACT [facility] ON SATURDAY TO SEE IF THEY WOULD HAVE A BED LATER IN THE WEEK , IF PT STILL NEEDED MORE THERAPY. WILL CONTINUE TO MONITOR AND ANSWER ALL QUESTIONS FROM BOTH PATIENT AND FAMILY. Initialized on 03/22/19 12:42 - END OF NOTE 03/22/19 12:00 (created 03/22/19 12:32) Case Management Note by Alisia Vasquez SON AND DAUGHTER AT BEDSIDE WITH PATIENT. DISCHARGE PLAN DISCUSSED. NOTIFIED THAT SHE HAD BEEN CHANGED TO INPATIENT THIS AM, AND WE WOULD WORK WITH HER TO BUILD HER STRENGTH WHILE SHE WAS HERE. PT DOES WANT TO GO HOME. ALL QUESTIONS WERE ANSWERED, AND THEY WERE ALL NOTIFIED THAT SHE WAS GOING TO HAVE A FACE TO FACE WITH [facility] EITHER LATER TODAY OR TOMORROW. THEY ARE IN AGREEMENT WITH THIS, THEY HAVE BEEN WORRIED ABOUT HER DEPRESSION SINCE HER . WILL CONTINUE TO MONITOR FOR ALL D/C NEEDS. Initialized on 03/22/19 12:32 - END OF NOTE Assessment/Plan (1) UTI (urinary tract infection) Current Visit: Yes Status: Resolved Qualifiers: Urinary tract infection type: site unspecified Hematuria presence: without hematuria Qualified Code(s): N39.0 - Urinary tract infection, site not specified Code(s): N39.0 - URINARY TRACT INFECTION, SITE NOT SPECIFIED (2) Type 2 diabetes mellitus Current Visit: Yes Status: Acute Qualifiers: Diabetes mellitus assistant terminal manager insulin use: with prison use Diabetes mellitus complication status: with other specified complication Qualified Code (s): E11.69 - Type 2 diabetes mellitus with other specified complication; Z79.4 - watermelon inspector (current) use of insulin (3) Depression Current Visit: Yes Status: Chronic Qualifiers: Depression Type: reactive depression Qualified Code(s): F32.9 - Major depressive disorder, single episode, unspecified Code(s): F32.9 - MAJOR DEPRESSIVE DISORDER, SINGLE EPISODE, UNSPECIFIED
[2019-03-23] MEDS: XANAX 1 MG PO SCH ×3 (12:25→21:17)
[2019-03-23] MEDS: Cozaar 50 MG PO SCH (12:25)
[2019-03-23] MEDS: Adalat CC 30 MG TABLET PO SCH (12:25)
[2019-03-23] MEDS: ZOCOR 20MG PO SCH (12:26)
[2019-03-23] MEDS: Lantus Insulin SQ SCH (12:26)
[2019-03-23] MEDS: ceLEXa 20 MG PO SCH (12:26)
[2019-03-23] MEDS: DESYREL 50 MG PO SCH (12:26)
[2019-03-23] MEDS: SYNTHROID 100 MCG PO SCH (12:26)
[2019-03-23] MEDS: Sodium Chloride 0.9% 1000 ML 1,000 ML IV SCH ×2 (12:31→22:24)
--- NOTE | 2019-03-23 16:17 | XRAY ---
Indication: intermediate placement. Comparison: July 13, 2018. Portable chest less inflated and slightly rotated. Stable right base fibrosis/scarring and a few tiny scattered calcified granulomas. No focal infiltrate, consolidation, or large effusion. Heart is not enlarged for AP portable technique. Bony thorax intact again with mild osteopenia and degenerative changes. Impression: Nonacute chest with chronic features.
[2019-03-23] MEDS: zyPREXA 5MG TABLET PO SCH (21:17)
[2019-03-24] MEDS ORDERED: BENADRYL 50 MG/ML IV ONE (04:54)
[2019-03-24] MEDS: Sodium Chloride 0.9% 1000 ML 1,000 ML IV SCH ×2 (08:19→18:12)
--- NOTE | 2019-03-24 08:41 | PCM.NOTE ---
Date and Time: 03/24/19839 Subjective Assessment: doing ok - Review of Systems Constitutional: No Fever, No Chills Eyes: No Symptoms Ears, Nose, & Throat: No Symptoms Respiratory: No Cough, No Short Of Breath Cardiac: No Chest Pain, No Edema, No Syncope Abdominal/Gastrointestinal: No Abdominal Pain, No Nausea, No Vomiting, No Diarrhea Genitourinary Symptoms: No Dysuria Musculoskeletal: No Back Pain, No Neck Pain Skin: No Rash Neurological: No Dizziness, No Focal Weakness, No Sensory Changes Psychological: No Symptoms Endocrine: No Symptoms Hematologic/Lymphatic: No Symptoms Immunological/Allergic: No Symptoms Objective Exam General Appearance: no apparent distress, alert Neurologic Exam: alert, oriented x 3, cooperative, normal mood/affect, nml cerebellar function, sensation nml, No motor deficits Skin Exam: normal color, warm, dry Eye Exam: PERRL, EOMI, eyes nml inspection Ears, Nose, Throat Exam: normal ENT inspection, pharynx normal, moist mucous membranes Neck Exam: normal inspection, non-tender, supple, full range of motion Respiratory Exam: normal breath sounds, lungs clear, No respiratory distress Cardiovascular Exam: regular rate/rhythm, normal heart sounds Gastrointestinal/Abdomen Exam: soft, No tenderness, No mass Extremity Exam: normal inspection, normal range of motion Back Exam: normal inspection, normal range of motion, No CVA tenderness, No vertebral tenderness Pelvic Exam: deferred Rectal Exam: deferred OBJECTIVE DATA Vital Signs: Vital Signs - 24 hr Temp Pulse Resp BP Pulse Ox 03/24/19 08:00 98.5 F 93 H 18 139/60 94 L 03/24/19 07:34 93 L 03/24/19 04:00 98.3 F 102 H 20 150/73 92 L 03/24/19 00:00 98.9 F 103 H 18 148/70 90 L 03/23/19 20:00 98.4 F 110 H 20 157/74 91 L 03/23/19 16:00 98.3 F 114 H 18 168/83 98 03/23/19 12:00 98.1 F 99 H 18 149/68 94 L Oxygen-Last 24 hours O2 Percentage 2 Liters = 28% Pain Assessment - Last Documented Pain Intensity 0 Pain Scale Used 0-10 Pain Scale Intake and Output: Intake & Output 03/21/19 03/22/19 03/23/19 03/24/19 11:59 11:59 11:59 11:59 Intake Total 1460 2600 2200 980 Output Total 1200 1950 2250 1600 Balance 260 650 -50 -620 Weight 85.1 kg Lab Results: Accuchecks Accucheck Value: 221 Accucheck Value: 144 Accucheck Value: 201 Radiology Exams: Radiology Procedures Category Date Time Status CHEST 1 VIEW (PORTABLE) Routine Exams 03/23/19 15:57 Completed Multi-Disciplinary Progress Notes: Multi-Disciplinary Progress Notes 03/23/19 15:40 Case Management Note by Fiordaliza Gomes REFERRAL FAXED TO [facility] FOR REHAB STAY ON DISCHARGE, PT/FAMILY PROVIDER OF CHOICE. Initialized on 03/23/19 15:40 - END OF NOTE 03/23/19 15:39 Case Management Note by Fiordaliza Gomes PASRR STARTED, QUEUED FOR REVIEW Initialized on 03/23/19 15:39 - END OF NOTE Assessment/Plan (1) UTI (urinary tract infection) Current Visit: Yes Status: Resolved Qualifiers: Urinary tract infection type: site unspecified Hematuria presence: without hematuria Qualified Code(s): N39.0 - Urinary tract infection, site not specified Code(s): N39.0 - URINARY TRACT INFECTION, SITE NOT SPECIFIED (2) Type 2 diabetes mellitus Current Visit: Yes Status: Acute Qualifiers: Diabetes mellitus terminal supervisor insulin use: with jail use Diabetes mellitus complication status: with other specified complication Qualified Code (s): E11.69 - Type 2 diabetes mellitus with other specified complication; Z79.4 - [facility] (current) use of insulin (3) Depression Current Visit: Yes Status: Chronic Qualifiers: Depression Type: reactive depression Qualified Code(s): F32.9 - Major depressive disorder, single episode, unspecified Code(s): F32.9 - MAJOR DEPRESSIVE DISORDER, SINGLE EPISODE, UNSPECIFIED
[2019-03-24] MEDS: Glucophage 500 MG PO SCH ×2 (09:16→17:03)
[2019-03-24] MEDS: AMARYL 4 MG PO SCH (09:16)
[2019-03-24] MEDS: DESYREL 50 MG PO SCH (09:17)
[2019-03-24] MEDS: ZOCOR 20MG PO SCH (09:17)
[2019-03-24] MEDS: SYNTHROID 100 MCG PO SCH (09:17)
[2019-03-24] MEDS: Cozaar 50 MG PO SCH (09:17)
[2019-03-24] MEDS: XANAX 1 MG PO SCH ×3 (09:17→18:35)
[2019-03-24] MEDS: Adalat CC 30 MG TABLET PO SCH (09:17)
[2019-03-24] MEDS: ceLEXa 20 MG PO SCH (09:18)
[2019-03-24] MEDS: Lantus Insulin SQ SCH (10:24)
[2019-03-24] MEDS: NovoLOG Insulin SQ PRN ×2 (11:58→17:03)
[2019-03-24] MEDS: zyPREXA 5MG TABLET PO SCH (22:10)
[2019-03-25] MEDS: Sodium Chloride 0.9% 1000 ML 1,000 ML IV SCH ×2 (04:09→07:59)
[2019-03-25] MEDS: AMARYL 4 MG PO SCH (07:36)
[2019-03-25] MEDS: Glucophage 500 MG PO SCH (07:36)
[2019-03-25 07:43] VITALS: BP 142/63; PULSE 109; O2SAT 94
[2019-03-25] MEDS: ZOCOR 20MG PO SCH (09:10)
[2019-03-25] MEDS: ceLEXa 20 MG PO SCH (09:10)
[2019-03-25] MEDS: DESYREL 50 MG PO SCH (09:11)
[2019-03-25] MEDS: Lantus Insulin SQ SCH (09:11)
[2019-03-25] MEDS: SYNTHROID 100 MCG PO SCH (09:11)
[2019-03-25] MEDS: XANAX 1 MG PO SCH (09:11)
[2019-03-25] MEDS: Cozaar 50 MG PO SCH (09:11)
[2019-03-25] MEDS: Adalat CC 30 MG TABLET PO SCH (09:11)
--- NOTE | 2019-03-25 11:44 | PCM.DS ---
Discharge Summary Date of Admission: 03/22/19 07:49 Date of Discharge: 03/25/2019 Admitting Physician: ALICIA WU Consults: Consults on Case 03/21/19 18:13 Tele-Health Consult ROUTINE Primary Care Provider: ZORAIDA DAVILA NP Allergies Allergies ceftriaxone [From Rocephin] Allergy (Verified 03/22/19 07:27) lip swelling Hospital Summary - Hospital Course Hospital Course: Chief Complaint Diagnosis UTI, FAILED OUTPATIENT, PROFOUND WEAKNESS Allergies Allergy/AdvReac Type Severity Reaction Status Date / Time ceftriaxone [From Rocephin] Allergy Verified 03/22/19 07:27 Vital Signs (Last 24 hours) Temp Pulse Resp BP Pulse Ox 03/25/19 07:43 98.4 F 109 H 18 142/63 94 L 03/25/19 07:32 90 L 03/25/19 04:00 97.9 F 101 H 22 144/70 90 L 03/25/19 00:00 18 03/24/19 20:00 98.6 F 92 H 18 147/68 94 L 03/24/19 19:51 90 L 03/24/19 16:00 99.3 F 98 H 22 137/72 92 L Home Medications Medication Instructions Recorded Confirmed Last Taken Type Alprazolam 1 mg [Xanax 1 mg] 1 mg PO TID 03/20/19 03/20/19 Unknown History Glimepiride 4 mg [Amaryl 4 4 mg PO DAILY 03/20/19 03/20/19 Unknown History mg] Losartan Potassium 25 mg PO DAILY 03/20/19 03/20/19 Unknown History Metformin HCl 500 mg PO BID 03/20/19 03/20/19 Unknown History Insulin Glargine,Hum.rec.anlog 20 units SQ DAILY 03/21/19 03/21/19 Unknown History [Lantus Solostar] Current Medications Discontinued Medications Generic Name Dose Route Start Last Admin Trade Name Freq PRN Reason Stop Dose Admin Alprazolam 1 mg 03/21/19 10:00 03/25/19 09:11 Xanax 1 Mg PO 04/20/19 09:59 1 mg TID JEIMY Administration Ceftriaxone Sodium 1,000 mg 03/20/19 23:48 03/20/19 23:58 Rocephin 1000 Mg Inj IV 03/20/19 23:49 Not Given STAT ONE Citalopram Hydrobromide 20 mg 03/21/19 10:00 03/25/19 09:10 Celexa 20 Mg PO 04/20/19 09:59 20 mg DAILY JEIMY Administration Dexamethasone Sodium Phosphate 4 mg 03/22/19 05:33 03/22/19 05:49 Decadron 4 Mg Inj IV 03/22/19 05:34 4 mg STAT ONE Administration Diphenhydramine HCl 25 mg 03/22/19 05:31 03/22/19 05:47 Benadryl 50 Mg/Ml IV 03/22/19 05:32 25 mg STAT ONE Administration Diphenhydramine HCl 25 mg 03/24/19 04:54 03/24/19 05:01 Benadryl 50 Mg/Ml IV 03/24/19 04:55 25 mg STAT ONE Administration Glimepiride 4 mg 03/21/19 09:00 03/25/19 07:36 Amaryl 4 Mg PO 04/20/19 08:59 4 mg BREAKFAST JEIMY Administration Sodium Chloride 1,000 mls @ 999 mls/hr 03/20/19 22:24 03/20/19 22:46 Sodium Chloride 0.9% 1000 Ml IV 03/20/19 23:24 999 mls/hr .Q1H1M STA Administration Sodium Chloride Confirm 03/20/19 22:42 Sodium Chloride 0.9% 1000 Ml Administered 03/20/19 22:43 Dose 1,000 mls @ ud .ROUTE .STK-MED ONE Ceftriaxone Sodium/Dextrose 1 g in 50 mls @ 100 mls/hr 03/21/19 10:00 23:58 Rocephin 1 Gm-D5w 50 Ml Bag IV 04/20/19 09:59 100 mls/hr Q24H10 JEIMY Administration Sodium Chloride 1,000 mls @ 100 mls/hr 03/20/19 23:45 03/25/19 07:59 Sodium Chloride 0.9% 1000 Ml IV 04/19/19 23:44 Not Given .Q10H JEIMY Ceftriaxone Sodium/Dextrose 1 g in 50 mls @ 100 mls/hr 03/20/19 23:56 03:55 Rocephin 1 Gm-D5w 50 Ml Bag IV 03/21/19 00:25 Not Given STAT STA Ceftriaxone Sodium/Dextrose 1 g in 50 mls @ 100 mls/hr 03/21/19 22:00 22:29 Rocephin 1 Gm-D5w 50 Ml Bag IV 04/20/19 09:59 100 mls/hr QPM JEIMY Administration Ceftriaxone Sodium/Dextrose Confirm 03/20/19 23:57 Rocephin 1 Gm-D5w 50 Ml Bag Administered 03/20/19 23:58 Dose 1 g in 50 mls @ ud IV .STK-MED ONE Levofloxacin/Dextrose 250 mg in 50 mls @ 50 mls/hr 03/22/19 10:00 03/23/19 10 :23 Levaquin 250mg/50ml D5w IV 04/21/19 09:59 50 mls/hr Q24H10 JEIMY Administration Insulin Aspart 0 unit 03/21/19 06:57 03/24/19 17:03 Novolog Insulin SQ 04/20/19 06:56 2 unit UD PRN Administration HYPERGLYCEMIA Insulin Glargine 20 unit 03/21/19 10:00 03/25/19 09:11 Lantus Insulin SQ 04/20/19 09:59 20 unit DAILY JEIMY Administration Levothyroxine Sodium 100 mcg 03/21/19 10:00 03/25/19 09:11 Synthroid 100 Mcg PO 04/20/19 09:59 100 mcg DAILY JEIMY Administration Losartan Potassium 25 mg 03/21/19 10:00 03/25/19 09:11 Cozaar 50 Mg PO 04/20/19 09:59 25 mg DAILY JEIMY Administration Metformin HCl 500 mg 03/21/19 09:00 03/25/19 07:36 Glucophage 500 Mg PO 04/20/19 08:59 500 mg BIDWM JEIMY Administration Nifedipine 90 mg 03/21/19 10:00 03/25/19 09:11 Adalat Cc 30 Mg Tablet PO 04/20/19 09:59 90 mg DAILY JEIMY Administration Olanzapine 5 mg 03/21/19 22:00 03/24/19 22:10 Zyprexa 5mg Tablet PO 04/20/19 21:59 5 mg HS JEIMY Administration Simvastatin 40 mg 03/21/19 10:00 03/25/19 09:10 Zocor 20mg PO 04/20/19 09:59 40 mg DAILY JEIMY Administration Trazodone HCl 25 mg 03/21/19 10:00 03/25/19 09:11 Desyrel 50 Mg PO 04/20/19 09:59 25 mg DAILY JEIMY Administration Intake & Output (Last 24 hours) 03/22/19 03/23/19 03/24/19 03/25/19 11:59 11:59 11:59 11:59 Intake Total 2600 2200 980 4779 Output Total 1950 2250 1600 1400 Balance 184 -66 -004 4355 Weight 85.1 kg Orders (Last 24 hours) Category Date Time Status Discharge Routine Discharge 03/25/19 Ordered Discharge Transfer Routine Transfer 03/25/19 Completed Patient Care Notes (Last 24 hours) 03/25/19 09:27 Nursing Note by Khloe Barr pt dc'd to swing bed. Initialized on 03/25/19 09:27 - END OF NOTE 03/25/19 09:00 (created 03/25/19 09:30) Case Management Note by Fiordaliza Gomes MD ORDER TO DC TO SWING BED TODAY, AWAIT LEVEL II COMPLETION FOR PT TO TRANSITION TO [facility] FOR SHORT TERM REHAB STAY. Initialized on 03/25/19 09:30 - END OF NOTE 03/24/19 15:15 (created 03/25/19 09:31) Case Management Note by Fiordaliza Gomes SPOKE WITH [facility] FROM [facility]POR[facility] THAT THEY CAN ACCEPT PT AND WILL HAVE REHAB BED AVAILABLE WHEN LEVEL II COMPLETE. Initialized on 03/25/19 09:31 - END OF NOTE - Vitals & Intake/Output Vital Signs: Vital Signs Temperature 98.4 F 03/25/19 07:43 Pulse Rate 109 H 03/25/19 07:43 Respiratory Rate 18 03/25/19 07:43 Blood Pressure 142/63 03/25/19 07:43 O2 Sat by Pulse Oximetry 94 L 03/25/19 07:43 Oxygen-Last Documented O2 Percentage 3 Liters = 32% Intake & Output: Intake & Output 03/22/19 03/23/19 03/24/19 03/25/19 11:59 11:59 11:59 11:59 Intake Total 2600 8090 980 4779 Output Total 0882 8220 1600 4543 Balance 508 -37 -909 7778 Weight 85.1 kg - Lab Result Diagrams: 03/20/19 23:00 03/20/19 23:00 Lab Results-Last 24 Hrs: Accuchecks Date 03/25/19 Time 07:47 Accucheck Value: 155 Accucheck Value: 246 Micro Results-Entire Visit: Microbiology 03/20/19 23:00 Urine Culture - Final Urine, Catheterized <10K NORMAL SKIN ANDIE PROBABLE SKIN CONTAMINANT Accuchecks Date 03/25/19 Time 07:47 Accucheck Value: 155 Accucheck Value: 246 - Radiology Exams Ordered Rad Exams-Entire Visit: Radiology Procedures Category Date Time Status CHEST 1 VIEW (PORTABLE) Routine Exams 03/23/19 15:57 Completed - Procedures and Test Procedures and Tests throughout Hospitalization: Therapy Orders & Screens 03/21/19 02:40 OT Screen per Nursing Assess ONCE Comment: Protocol Order Physician Instructions: Greater than 3 points order OT Admission Screening Reason For Exam: Triggered on Admission Diagnosis: UTI, hyperglycemia, acute reactive depression Open Wound/Cellutlitis/Pressure Ulcers: No Acute Fx/ORIF/Change in wt bearing status: No Severe MUSCULOSKELETAL pain: No ADL Dysfunction: Yes Acute CVA w/Hemiparesis/Hemiplegia: No Decreased Functional Mobility/Strength: Yes Sprain/Strain: No Acute Post-op Mobility Dysfunction: No Total Points: 4 PT Screen per Nursing Assess ONCE Comment: Protocol Order Physician Instructions: Greater than 3 points order PT Admission Screenin Reason For Exam: Triggered on Admission Diagnosis: UTI, hyperglycemia, acute reactive depression Open Wound/Cellutlitis/Pressure Ulcers: No Acute Fx/ORIF/Change in wt bearing status: No Severe MUSCULOSKELETAL pain: No ADL Dysfunction: Yes Acute CVA w/Hemiparesis/Hemiplegia: No Decreased Functional Mobility/Strength: Yes Sprain/Strain: No Acute Post-op Mobility Dysfunction: No Total Points: 4 03/22/19 05:42 Oxygen Nasal Cannula 2 lpm Comment: Diagnosis: c/o weakness, c/o hopelessness Discharge Exam General Appearance: no apparent distress, alert Neurologic Exam: alert, oriented x 3, cooperative, normal mood/affect, nml cerebellar function, sensation nml, No motor deficits Eye Exam: PERRL, EOMI, eyes nml inspection Ears, Nose, Throat Exam: normal ENT inspection, pharynx normal, moist mucous membranes Neck Exam: normal inspection, non-tender, supple, full range of motion Respiratory Exam: normal breath sounds, lungs clear, No respiratory distress Cardiovascular Exam: regular rate/rhythm, normal heart sounds Gastrointestinal/Abdomen Exam: soft, No tenderness, No mass Pelvic Exam: deferred Rectal Exam: deferred Back Exam: normal inspection, normal range of motion, No CVA tenderness, No vertebral tenderness Extremity Exam: normal inspection, normal range of motion Skin Exam: normal color, warm, dry Final Diagnosis/Problem List - Final Discharge Diagnosis/Problem (1) UTI (urinary tract infection) Status: Resolved Code(s): N39.0 - URINARY TRACT INFECTION, SITE NOT SPECIFIED (2) Type 2 diabetes mellitus Status: Acute (3) Depression Status: Chronic Code(s): F32.9 - MAJOR DEPRESSIVE DISORDER, SINGLE EPISODE, UNSPECIFIED - Discharge Discharge Date: 03/25/19 Disposition: Swing Bed @ [facility] Condition: Stable Prescriptions: No Action Simvastatin 40 mg [Zocor 40 mg] 40 mg PO DAILY Levothyroxine Sodium 100 Mcg [Synthroid 100 Mcg] 100 mcg PO DAILY Nifedipine [Nifedipine ER] 90 mg PO DAILY Olanzapine 5 mg PO HS Trazodone HCl 50 mg PO DAILY Citalopram Hydrobromide 20 mg* [ceLEXa 20 MG] 20 mg PO DAILY Metformin HCl 500 mg PO BID Glimepiride 4 mg [Amaryl 4 mg] 4 mg PO DAILY Losartan Potassium 25 mg PO DAILY Alprazolam 1 mg [Xanax 1 mg] 1 mg PO TID Insulin Glargine,Hum.rec.anlog [Lantus Solostar] 20 units SQ DAILY Additional Instructions: discharge to swing bed with same orders Follow up with: ZORAIDA DAVILA NP [Primary Care Provider] - 1 Week
== END 2019-03-25 09:29 | disposition swing bed (61) | DRG 690 ==
LOC: ED 22:08 → UNDOADMOB 23:08 → MED SURG 23:08 → UNDOADMOB 03-21 00:35 → OBSVTOIN 03-22 07:49
PROVIDERS: ADMIT General Practice; ATTEND General Practice
DX: N39.0 Urinary tract infection, site not specified (principal); E11.9 Type 2 diabetes mellitus without complications; F32.9 Major depressive disorder, single episode, unspecified; I10 Essential (primary) hypertension; R53.83 Other fatigue; R53.81 Other malaise; R53.1 Weakness; Z85.3 Personal history of malignant neoplasm of breast; Z79.4 Long term (current) use of insulin; Z79.899 Other long term (current) drug therapy
CPT/HCPCS: 36415; 71045; 80053; 81001; 82962; 83036; 85025; 87086; 87507; 90791; 94760; 94762; 99291; G0378; Q3014; 36000; 99285; J0696; J1100; J1200; J1956; A9270-GY

== ENCOUNTER 2019-03-25 09:30 | Inpatient (IN) | payer MEDICARE ==
[2019-03-25] MEDS ORDERED: Aplisol ID ONE (09:33)
[2019-03-25] MEDS ORDERED: Sodium Chloride 0.9% 1000 ML 1,000 ML IV SCH (09:33)
[2019-03-25] MEDS ORDERED: Aplisol ID SCH (10:00)
[2019-03-25] MEDS ORDERED: MAALOX ES 30 ML UNIT DOSE PO PRN (13:47)
[2019-03-25] MEDS: XANAX 1 MG PO SCH ×2 (14:05→23:04)
[2019-03-25] MEDS: Glucophage 500 MG PO SCH (16:47)
[2019-03-25] MEDS: zyPREXA 5MG TABLET PO SCH (23:04)
[2019-03-26] MEDS: DESYREL 50 MG PO SCH (09:49)
[2019-03-26] MEDS: ZOCOR 20MG PO SCH (09:50)
[2019-03-26] MEDS: Glucophage 500 MG PO SCH ×2 (09:50→16:40)
[2019-03-26] MEDS: Adalat CC 30 MG TABLET PO SCH (09:51)
[2019-03-26] MEDS: SYNTHROID 100 MCG PO SCH (09:51)
[2019-03-26] MEDS: Cozaar 50 MG PO SCH (09:51)
[2019-03-26] MEDS: ceLEXa 20 MG PO SCH (09:52)
[2019-03-26] MEDS: Lantus Insulin SQ SCH (09:52)
[2019-03-26] MEDS: XANAX 1 MG PO SCH ×3 (09:52→21:33)
[2019-03-26] MEDS: AMARYL 4 MG PO SCH (09:56)
[2019-03-26] MEDS: zyPREXA 5MG TABLET PO SCH (21:33)
[2019-03-27] MEDS: Glucophage 500 MG PO SCH ×2 (08:38→17:37)
[2019-03-27] MEDS: AMARYL 4 MG PO SCH (08:38)
[2019-03-27] MEDS: ceLEXa 20 MG PO SCH (10:58)
[2019-03-27] MEDS: Cozaar 50 MG PO SCH (10:58)
[2019-03-27] MEDS: DESYREL 50 MG PO SCH (10:58)
[2019-03-27] MEDS: Adalat CC 30 MG TABLET PO SCH (10:59)
[2019-03-27] MEDS: XANAX 1 MG PO SCH ×3 (10:59→22:26)
[2019-03-27] MEDS: ZOCOR 20MG PO SCH (10:59)
[2019-03-27] MEDS: SYNTHROID 100 MCG PO SCH (10:59)
[2019-03-27] MEDS: Lantus Insulin SQ SCH (11:00)
[2019-03-27] MEDS: zyPREXA 5MG TABLET PO SCH (22:26)
[2019-03-27] MEDS: Sodium Chloride 0.9% 10 ML FLUSH Syringe IV SCH (22:42)
--- NOTE | 2019-03-28 08:10 | PCM.NOTE ---
Date and Time: 03/28/19 0808 Subjective Assessment: doing better - Review of Systems Constitutional: No Fever, No Chills Eyes: No Symptoms Ears, Nose, & Throat: No Symptoms Respiratory: No Cough, No Short Of Breath Cardiac: No Chest Pain, No Edema, No Syncope Abdominal/Gastrointestinal: No Abdominal Pain, No Nausea, No Vomiting, No Diarrhea Genitourinary Symptoms: No Dysuria Musculoskeletal: No Back Pain, No Neck Pain Skin: No Rash Neurological: No Dizziness, No Focal Weakness, No Sensory Changes Psychological: No Symptoms Endocrine: No Symptoms Hematologic/Lymphatic: No Symptoms Immunological/Allergic: No Symptoms Objective Exam General Appearance: no apparent distress, alert Neurologic Exam: alert, oriented x 3, cooperative, normal mood/affect, nml cerebellar function, sensation nml, No motor deficits Skin Exam: normal color, warm, dry Eye Exam: PERRL, EOMI, eyes nml inspection Ears, Nose, Throat Exam: normal ENT inspection, pharynx normal, moist mucous membranes Neck Exam: normal inspection, non-tender, supple, full range of motion Respiratory Exam: normal breath sounds, lungs clear, No respiratory distress Cardiovascular Exam: regular rate/rhythm, normal heart sounds Gastrointestinal/Abdomen Exam: soft, No tenderness, No mass Extremity Exam: normal inspection, normal range of motion Back Exam: normal inspection, normal range of motion, No CVA tenderness, No vertebral tenderness Pelvic Exam: deferred Rectal Exam: deferred OBJECTIVE DATA Vital Signs: Vital Signs - 24 hr Temp Pulse Resp BP Pulse Ox 03/28/19 08:00 99.6 F 106 H 19 143/66 90 L 03/27/19 22:01 91 L 03/27/19 20:00 98.0 F 103 H 22 133/63 92 L 03/27/19 14:04 94 L Oxygen-Last 24 hours O2 Percentage 2 Liters = 28% O2 Percentage 2 Liters = 28% Pain Assessment - Last Documented Pain Intensity 0 Pain Scale Used [id number] Intake and Output: Intake & Output 03/25/19 03/26/19 03/27/19 03/28/19 11:59 11:59 11:59 11:59 Intake Total 1120 980 Output Total 650 400 Balance 470 580 Weight 85.1 kg Lab Results: Accuchecks Date 03/27/19 Time 21:30 Accucheck Value: 154 Accucheck Value: 131 Accucheck Value: 178 Multi-Disciplinary Progress Notes: Multi-Disciplinary Progress Notes 03/27/19 22:15 Respiratory Note by Rosario,Chris ENTERED PT RM AND SHE HAD REMOVED HER NC AND SHE HAD A SAT OF 80% ON RA. I PLACED PT ON 2LPM AND SAT CAME UP TO ONLY 88% AND HELD STEADY. I TITRATED PT UP TO 4LPM O2 TO MAINTAIN A SAT OF 91% AND ADDED HUMIDITY. 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 Initialized on 03/27/19 22:15 - END OF NOTE Assessment/Plan (1) Debilitated patient Current Visit: Yes Status: Acute Assessment & Plan: Last Vital Signs Temp 99.6 F 03/28/19 08:00 Pulse 106 H 03/28/19 08:00 Resp 19 03/28/19 08:00 BP 143/66 03/28/19 08:00 Pulse Ox 90 L 03/28/19 08:00 Allergies ceftriaxone [From Rocephin] Allergy (Verified 03/22/19 07:27) lip swelling Active Medications Al Hydrox/Mg Hydrox/Simethicone (Maalox Es 30 Ml Unit Dose) 30 ml PO Q4H PRN PRN PRN Reason: INDIGESTION Stop: 04/24/19 13:46 Last Admin: 03/25/19 14:05 Dose: 30 ml Alprazolam (Xanax 1 Mg) 1 mg PO TID JEIMY Stop: 04/20/19 14:59 Last Admin: 03/27/19 22:26 Dose: 1 mg Citalopram Hydrobromide (Celexa 20 Mg) 20 mg PO DAILY JEIMY Stop: 04/25/19 09:59 Last Admin: 03/27/19 10:58 Dose: 20 mg Glimepiride (Amaryl 4 Mg) 4 mg PO BREAKFAST JEIMY Stop: 04/20/19 08:59 Last Admin: 03/27/19 08:38 Dose: 4 mg Insulin Aspart (Novolog Insulin) 0 unit SQ UD PRN PRN Reason: HYPERGLYCEMIA Stop: 04/20/19 06:56 Insulin Glargine (Lantus Insulin) 20 unit SQ DAILY JEIMY Stop: 04/25/19 09:59 Last Admin: 03/27/19 11:00 Dose: 20 unit Levothyroxine Sodium (Synthroid 100 Mcg) 100 mcg PO DAILY [facility] Stop: 04/25/19 09:59 Last Admin: 03/27/19 10:59 Dose: 100 mcg Losartan Potassium (Cozaar 50 Mg) 25 mg PO DAILY JEIMY Stop: 04/25/19 09:59 Last Admin: 03/27/19 10:58 Dose: 25 mg Metformin HCl (Glucophage 500 Mg) 500 mg PO BIDWM JEIMY Stop: 04/20/19 08:59 Last Admin: 03/27/19 17:37 Dose: 500 mg Nifedipine (Adalat Cc 30 Mg Tablet) 90 mg PO DAILY JEIMY Stop: 04/25/19 09:59 Last Admin: 03/27/19 10:59 Dose: 90 mg Olanzapine (Zyprexa 5mg Tablet) 5 mg PO HS JEIMY Stop: 04/20/19 21:59 Last Admin: 03/27/19 22:26 Dose: 5 mg Simvastatin (Zocor 20mg) 40 mg PO DAILY [facility] Stop: 04/25/19 09:59 Last Admin: 03/27/19 10:59 Dose: 40 mg Sodium Chloride (Sodium Chloride 0.9% 10 Ml Flush Syringe) 10 ml IV Q12H JEIMY Stop: 04/27/19 08:59 Last Admin: 03/27/19 22:42 Dose: 10 ml Trazodone HCl (Desyrel 50 Mg) 25 mg PO DAILY [facility] Stop: 04/25/19 09:59 Last Admin: 03/27/19 10:58 Dose: 25 mg Tuberculin PPD (Aplisol) 5 unit ID DAILY [facility] Stop: 04/05/19 10:01 Intake & Output 03/27/19 03/28/19 11:59 11:59 Intake Total 1120 980 Output Total 650 400 Balance 470 580 Orders 03/28/19 09:00 NaCl 0.9% 10 ML FLUSH [Sodium Chloride 0.9% 10 ML FLUSH Syringe] 10 ml IV Q12H 04/01/19 05:00 Weight,Daily Q7D 04/05/19 10:00 Tuberculin,Purif.prot.deriv. [Aplisol] 5 unit ID DAILY 04/08/19 09:30 BMP Q14D Code(s): R53.81 - OTHER MALAISE (2) Type 2 diabetes mellitus Current Visit: Yes Status: Chronic Qualifiers: Diabetes mellitus retirement insulin use: unspecified retirement insulin use status Diabetes mellitus complication status: with other specified complication Qualified Code(s): E11.69 - Type 2 diabetes mellitus with other specified complication (3) Anxiety Current Visit: Yes Status: Chronic Code(s): F41.9 - ANXIETY DISORDER, UNSPECIFIED (4) Depression Current Visit: Yes Status: Chronic Qualifiers: Depression Type: major depressive disorder Active/Remission status: currently active Major depression episode severity: moderate Code(s): F32.9 - MAJOR DEPRESSIVE DISORDER, SINGLE EPISODE, UNSPECIFIED (5) Hypertension Current Visit: Yes Status: Chronic Qualifiers: Hypertension type: essential hypertension Qualified Code(s): I10 - Essential (primary) hypertension Code(s): I10 - ESSENTIAL (PRIMARY) HYPERTENSION (6) Hypothyroid Current Visit: Yes Status: Chronic Qualifiers: Hypothyroidism type: unspecified Qualified Code(s): E03.9 - Hypothyroidism , unspecified Code(s): E03.9 - HYPOTHYROIDISM, UNSPECIFIED (7) Spinal stenosis of lumbar region Current Visit: Yes Status: Chronic Qualifiers: Neurogenic claudication status: without neurogenic claudication Qualified Code(s): M48.061 - Spinal stenosis, lumbar region without neurogenic claudication Code(s): M48.061 - SPINAL STENOSIS, LUMBAR REGION WITHOUT NEUROGENIC KT (8) UTI (urinary tract infection) Current Visit: Yes Status: Resolved Qualifiers: Urinary tract infection type: site unspecified Hematuria presence: without hematuria Qualified Code(s): N39.0 - Urinary tract infection, site not specified Code(s): N39.0 - URINARY TRACT INFECTION, SITE NOT SPECIFIED
[2019-03-28] MEDS: AMARYL 4 MG PO SCH (09:02)
[2019-03-28] MEDS: Glucophage 500 MG PO SCH ×2 (09:02→17:09)
[2019-03-28] MEDS: DESYREL 50 MG PO SCH (10:22)
[2019-03-28] MEDS: SYNTHROID 100 MCG PO SCH (10:22)
[2019-03-28] MEDS: XANAX 1 MG PO SCH ×3 (10:22→21:50)
[2019-03-28] MEDS: Cozaar 50 MG PO SCH (10:23)
[2019-03-28] MEDS: Adalat CC 30 MG TABLET PO SCH (10:24)
[2019-03-28] MEDS: ZOCOR 20MG PO SCH (10:24)
[2019-03-28] MEDS: ceLEXa 20 MG PO SCH (10:24)
[2019-03-28] MEDS: Lantus Insulin SQ SCH (10:28)
[2019-03-28] MEDS: NovoLOG Insulin SQ PRN (12:18)
[2019-03-28] MEDS: zyPREXA 5MG TABLET PO SCH (21:50)
[2019-03-29 00:14] LABS: 027 TOX PROD PRESUMPTIVE NEGATIVE (NEGATIVE); TOXIGENIC C. DIFF ORG NEGATIVE (NEGATIVE)
[2019-03-29] MEDS: Sodium Chloride 0.9% 10 ML FLUSH Syringe IV SCH ×3 (07:30→22:13)
--- NOTE | 2019-03-29 07:39 | PCM.NOTE ---
Date and Time: 03/29/19737 Subjective Assessment: doing better - Review of Systems Constitutional: No Fever, No Chills Eyes: No Symptoms Ears, Nose, & Throat: No Symptoms Respiratory: No Cough, No Short Of Breath Cardiac: No Chest Pain, No Edema, No Syncope Abdominal/Gastrointestinal: No Abdominal Pain, No Nausea, No Vomiting, No Diarrhea Genitourinary Symptoms: No Dysuria Musculoskeletal: No Back Pain, No Neck Pain Skin: No Rash Neurological: No Dizziness, No Focal Weakness, No Sensory Changes Psychological: No Symptoms Endocrine: No Symptoms Hematologic/Lymphatic: No Symptoms Immunological/Allergic: No Symptoms Objective Exam General Appearance: no apparent distress, alert Neurologic Exam: alert, oriented x 3, cooperative, normal mood/affect, nml cerebellar function, sensation nml, No motor deficits Skin Exam: normal color, warm, dry Eye Exam: PERRL, EOMI, eyes nml inspection Ears, Nose, Throat Exam: normal ENT inspection, pharynx normal, moist mucous membranes Neck Exam: normal inspection, non-tender, supple, full range of motion Respiratory Exam: normal breath sounds, crackles/rales, No respiratory distress Cardiovascular Exam: regular rate/rhythm, normal heart sounds Gastrointestinal/Abdomen Exam: soft, No tenderness, No mass Extremity Exam: normal inspection, normal range of motion Back Exam: normal inspection, normal range of motion, No CVA tenderness, No vertebral tenderness Pelvic Exam: deferred Rectal Exam: deferred OBJECTIVE DATA Vital Signs: Vital Signs - 24 hr Temp Pulse Resp BP Pulse Ox 03/29/19 07:31 97.8 F 74 20 124/80 96 03/28/19 20:49 92 L 03/28/19 20:20 98.6 F 91 H 20 122/57 93 L 03/28/19 09:39 93 L 03/28/19 08:00 99.6 F 106 H 19 143/66 90 L Oxygen-Last 24 hours O2 Percentage 2 Liters = 28% O2 Percentage 2 Liters = 28% O2 Percentage 2 Liters = 28% Pain Assessment - Last Documented Pain Intensity 0 Pain Scale Used [facility] Intake and Output: Intake & Output 03/26/19 03/27/19 03/28/19 03/29/19 11:59 11:59 11:59 11:59 Intake Total 1120 980 240 Output Total 650 400 Balance 470 580 240 Lab Results: Accuchecks Accucheck Value: 119 Accucheck Value: 130 Accucheck Value: 233 Lab Results-Last 24 Hours 03/28/19 Range/Units 23:15 C. difficile Screen NEGATIVE (NEGATIVE) C.difficile [id number] PRESUMPTIVE NEGATIVE (NEGATIVE) Assessment/Plan (1) Debilitated patient Current Visit: Yes Status: Acute Assessment & Plan: Chief Complaint Diagnosis DECONDITIONING R/T UTI, FAILED OUTPATIENT, PROFOUND WEAKNESS Allergies Allergy/AdvReac Type Severity Reaction Status Date / Time ceftriaxone [From Rocephin] Allergy Verified 03/22/19 07:27 Vital Signs (Last 24 hours) Temp Pulse Resp BP Pulse Ox 03/29/19 07:31 97.8 F 74 20 124/80 96 03/28/19 20:49 92 L 03/28/19 20:20 98.6 F 91 H 20 122/57 93 L 03/28/19 09:39 93 L 03/28/19 08:00 99.6 F 106 H 19 143/66 90 L Current Medications Generic Name Dose Route Start Last Admin Trade Name Freq PRN Reason Stop Dose Admin Al Hydrox/Mg Hydrox/Simethicone 30 ml 03/25/19 13:47 03/25/19 14:05 Maalox Es 30 Ml Unit Dose PO 04/24/19 13:46 30 ml Q4H PRN PRN Administration INDIGESTION Alprazolam 1 mg 03/25/19 15:00 03/28/19 21:50 Xanax 1 Mg PO 04/20/19 14:59 1 mg TID JEIMY Administration Citalopram Hydrobromide 20 mg 03/26/19 10:00 03/28/19 10:24 Celexa 20 Mg PO 04/25/19 09:59 20 mg DAILY JEIMY Administration Glimepiride 4 mg 03/26/19 08:00 03/28/19 09:02 Amaryl 4 Mg PO 04/20/19 08:59 4 mg BREAKFAST JEIMY Administration Insulin Aspart 0 unit 03/25/19 09:33 03/28/19 12:18 Novolog Insulin SQ 04/20/19 06:56 2 unit UD PRN Administration HYPERGLYCEMIA Insulin Glargine 20 unit 03/26/19 10:00 03/28/19 10:28 Lantus Insulin SQ 04/25/19 09:59 20 unit DAILY JEIMY Administration Levothyroxine Sodium 100 mcg 03/26/19 10:00 03/28/19 10:22 Synthroid 100 Mcg PO 04/25/19 09:59 100 mcg DAILY JEIMY Administration Losartan Potassium 25 mg 03/26/19 10:00 03/28/19 10:23 Cozaar 50 Mg PO 04/25/19 09:59 25 mg DAILY JEIMY Administration Metformin HCl 500 mg 03/25/19 17:00 03/28/19 17:09 Glucophage 500 Mg PO 04/20/19 08:59 500 mg BIDWM JEIMY Administration Nifedipine 90 mg 03/26/19 10:00 03/28/19 10:24 Adalat Cc 30 Mg Tablet PO 04/25/19 09:59 90 mg DAILY JEIMY Administration Olanzapine 5 mg 03/25/19 22:00 03/28/19 21:50 Zyprexa 5mg Tablet PO 04/20/19 21:59 5 mg HS JEIMY Administration Simvastatin 40 mg 03/26/19 10:00 03/28/19 10:24 Zocor 20mg PO 04/25/19 09:59 40 mg DAILY JEIMY Administration Sodium Chloride 10 ml 03/28/19 09:00 03/27/19 22:42 Sodium Chloride 0.9% 10 Ml Flush Syringe IV 04/27/19 08:59 10 ml Q12H JEIMY Administration Trazodone HCl 25 mg 03/26/19 10:00 03/28/19 10:22 Desyrel 50 Mg PO 04/25/19 09:59 25 mg DAILY JEIMY Administration Tuberculin PPD 5 unit 04/05/19 10:00 Aplisol ID 04/05/19 10:01 DAILY JEIMY Discontinued Medications Generic Name Dose Route Start Last Admin Trade Name Freq PRN Reason Stop Dose Admin Sodium Chloride 1,000 mls @ 100 mls/hr 03/25/19 09:33 03/25/19 17:18 Sodium Chloride 0.9% 1000 Ml IV 04/19/19 23:44 Not Given .Q10H JEIMY Tuberculin PPD 5 unit 03/25/19 10:00 03/25/19 10:10 Aplisol ID 03/25/19 10:01 5 unit DAILY JEIMY Administration Intake & Output (Last 24 hours) 03/26/19 03/27/19 03/28/19 03/29/19 11:59 11:59 11:59 11:59 Intake Total 1120 980 240 Output Total 650 400 Balance 470 580 240 Laboratory Results (Last 24 hours) 03/28/19 23:15 C. difficile Screen NEGATIVE C.difficile [id number] PRESUMPTIVE NEGATIVE Orders (Last 24 hours) Category Date Time Status Weight,Daily Q7D Care 04/01/19 05:00 Active BMP Q14D Lab 04/08/19 09:30 Ordered C.Difficile by PCR Stat Lab 03/28/19 23:15 Completed NaCl 0.9% 10 ML FLUSH [Sodium Chloride 0.9% 10 ML FLUSH Med 03/28/19 09:00 Active Syringe] 10 ml IV Q12H Tuberculin,Purif.prot.deriv. 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 Diabetes mellitus complication status: with other specified complication Qualified Code(s): E11.69 - Type 2 diabetes mellitus with other specified complication (3) Anxiety Current Visit: Yes Status: Chronic Code(s): F41.9 - ANXIETY DISORDER, UNSPECIFIED (4) Depression Current Visit: Yes Status: Chronic Qualifiers: Depression Type: major depressive disorder Active/Remission status: currently active Major depression episode severity: moderate Code(s): F32.9 - MAJOR DEPRESSIVE DISORDER, SINGLE EPISODE, UNSPECIFIED (5) Hypertension Current Visit: Yes Status: Chronic Qualifiers: Hypertension type: essential hypertension Qualified Code(s): I10 - Essential (primary) hypertension Code(s): I10 - ESSENTIAL (PRIMARY) HYPERTENSION (6) Hypothyroid Current Visit: Yes Status: Chronic Qualifiers: Hypothyroidism type: unspecified Qualified Code(s): E03.9 - Hypothyroidism , unspecified Code(s): E03.9 - HYPOTHYROIDISM, UNSPECIFIED (7) Spinal stenosis of lumbar region Current Visit: Yes Status: Chronic Qualifiers: Neurogenic claudication status: without neurogenic claudication Qualified Code(s): M48.061 - Spinal stenosis, lumbar region without neurogenic claudication Code(s): M48.061 - SPINAL STENOSIS, LUMBAR REGION WITHOUT NEUROGENIC KT (8) UTI (urinary tract infection) Current Visit: Yes Status: Resolved Qualifiers: Urinary tract infection type: site unspecified Hematuria presence: without hematuria Qualified Code(s): N39.0 - Urinary tract infection, site not specified Code(s): N39.0 - URINARY TRACT INFECTION, SITE NOT SPECIFIED
[2019-03-29] MEDS: Glucophage 500 MG PO SCH ×2 (08:13→15:57)
[2019-03-29] MEDS: AMARYL 4 MG PO SCH (08:13)
[2019-03-29] MEDS: SYNTHROID 100 MCG PO SCH (10:39)
[2019-03-29] MEDS: DESYREL 50 MG PO SCH (10:39)
[2019-03-29] MEDS: Adalat CC 30 MG TABLET PO SCH (10:39)
[2019-03-29] MEDS: XANAX 1 MG PO SCH ×3 (10:39→22:11)
[2019-03-29] MEDS: ceLEXa 20 MG PO SCH (10:39)
[2019-03-29] MEDS: Cozaar 50 MG PO SCH (10:39)
[2019-03-29] MEDS: ZOCOR 20MG PO SCH (10:39)
[2019-03-29] MEDS: Lantus Insulin SQ SCH (10:40)
[2019-03-29] MEDS: zyPREXA 5MG TABLET PO SCH (22:11)
[2019-03-30] MEDS: Glucophage 500 MG PO SCH ×2 (08:19→17:00)
[2019-03-30] MEDS: AMARYL 4 MG PO SCH (08:19)
[2019-03-30] MEDS: Sodium Chloride 0.9% 10 ML FLUSH Syringe IV SCH ×2 (08:20)
[2019-03-30] MEDS: Cozaar 50 MG PO SCH (09:15)
[2019-03-30] MEDS: Lantus Insulin SQ SCH (09:15)
[2019-03-30] MEDS: ceLEXa 20 MG PO SCH (09:15)
[2019-03-30] MEDS: DESYREL 50 MG PO SCH (09:15)
[2019-03-30] MEDS: SYNTHROID 100 MCG PO SCH (09:15)
[2019-03-30] MEDS: XANAX 1 MG PO SCH ×3 (09:15→21:09)
[2019-03-30] MEDS: Adalat CC 30 MG TABLET PO SCH (09:15)
[2019-03-30] MEDS: ZOCOR 20MG PO SCH (09:15)
[2019-03-30] MEDS: zyPREXA 5MG TABLET PO SCH (21:09)
[2019-03-31] MEDS: Glucophage 500 MG PO SCH ×2 (08:35→16:32)
[2019-03-31] MEDS: AMARYL 4 MG PO SCH (08:35)
[2019-03-31] MEDS: ZOCOR 20MG PO SCH (10:19)
[2019-03-31] MEDS: ceLEXa 20 MG PO SCH (10:19)
[2019-03-31] MEDS: DESYREL 50 MG PO SCH (10:19)
[2019-03-31] MEDS: Cozaar 50 MG PO SCH (10:20)
[2019-03-31] MEDS: XANAX 1 MG PO SCH ×3 (10:20→22:29)
[2019-03-31] MEDS: SYNTHROID 100 MCG PO SCH (10:20)
[2019-03-31] MEDS: Adalat CC 30 MG TABLET PO SCH (10:21)
[2019-03-31] MEDS: Lantus Insulin SQ SCH (10:21)
[2019-03-31] MEDS: NYSTOP 30 GM CREAM TOP SCH ×2 (15:13→22:30)
[2019-03-31] MEDS: zyPREXA 5MG TABLET PO SCH (22:29)
[2019-03-31] MEDS: NovoLOG Insulin SQ PRN (22:30)
[2019-04-01] MEDS: AMARYL 4 MG PO SCH (07:57)
[2019-04-01] MEDS: Glucophage 500 MG PO SCH ×2 (07:57→16:35)
[2019-04-01] MEDS: ZOCOR 20MG PO SCH (08:01)
[2019-04-01] MEDS: ceLEXa 20 MG PO SCH (08:01)
[2019-04-01] MEDS: Adalat CC 30 MG TABLET PO SCH (08:02)
[2019-04-01] MEDS: Cozaar 50 MG PO SCH (08:02)
[2019-04-01] MEDS: DESYREL 50 MG PO SCH (08:02)
[2019-04-01] MEDS: SYNTHROID 100 MCG PO SCH (08:03)
[2019-04-01] MEDS: NYSTOP 30 GM CREAM TOP SCH ×2 (08:03→21:29)
[2019-04-01] MEDS: XANAX 1 MG PO SCH ×3 (08:04→21:28)
--- NOTE | 2019-04-01 09:00 | PCM.NOTE ---
Date and Time: 04/01/19 0859 Subjective Assessment: doing ok - Review of Systems Constitutional: No Fever, No Chills Eyes: No Symptoms Ears, Nose, & Throat: No Symptoms Respiratory: No Cough, No Short Of Breath Cardiac: No Chest Pain, No Edema, No Syncope Abdominal/Gastrointestinal: No Abdominal Pain, No Nausea, No Vomiting, No Diarrhea Genitourinary Symptoms: No Dysuria Musculoskeletal: No Back Pain, No Neck Pain Skin: No Rash Neurological: No Dizziness, No Focal Weakness, No Sensory Changes Psychological: No Symptoms Endocrine: No Symptoms Hematologic/Lymphatic: No Symptoms Immunological/Allergic: No Symptoms Objective Exam General Appearance: no apparent distress, alert Neurologic Exam: alert, oriented x 3, cooperative, normal mood/affect, nml cerebellar function, sensation nml, No motor deficits Skin Exam: normal color, warm, dry Eye Exam: PERRL, EOMI, eyes nml inspection Ears, Nose, Throat Exam: normal ENT inspection, pharynx normal, moist mucous membranes Neck Exam: normal inspection, non-tender, supple, full range of motion Respiratory Exam: normal breath sounds, lungs clear, No respiratory distress Cardiovascular Exam: regular rate/rhythm, normal heart sounds Gastrointestinal/Abdomen Exam: soft, No tenderness, No mass Extremity Exam: normal inspection, normal range of motion Back Exam: normal inspection, normal range of motion, No CVA tenderness, No vertebral tenderness Pelvic Exam: deferred Rectal Exam: deferred OBJECTIVE DATA Vital Signs: Vital Signs - 24 hr Temp Pulse Resp BP Pulse Ox 04/01/19 07:54 92 L 04/01/19 07:50 85 L 04/01/19 07:26 98.4 F 70 20 136/80 97 03/31/19 23:45 92 L 03/31/19 20:15 99.6 F 99 H 20 129/59 95 03/31/19 17:50 94 L 03/31/19 13:37 98.5 F Oxygen-Last 24 hours O2 Percentage 2 Liters = 28% O2 Percentage 2 Liters = 28% Pain Assessment - Last Documented Pain Intensity 0 Pain Scale Used 0-10 Pain Scale Intake and Output: Intake & Output 03/29/19 03/30/19 03/31/19 04/01/19 11:59 11:59 11:59 11:59 Intake Total 240 112 428 9178 Output Total 600 900 Balance 240 -240 480 340 Weight 85.1 kg 87 kg Lab Results: Accuchecks Date 04/01/19 Date 03/31/19 Date 03/31/19 Time 08:06 Time 16:30 Time 11:30 Accucheck Value: 100 Accucheck Value: 226 Accucheck Value: 108 Accucheck Value: 103 Multi-Disciplinary Progress Notes: Multi-Disciplinary Progress Notes 03/31/19 09:05 (created 03/31/19 15:51) Case Management Note by Fiordaliza Gomes CALLED [facility] TODAY SPOKE WITH MIREILLE, REPORTS THAT SHE WILL INQUIRE ABOUT LEVEL II TO SEE HOW MUCH LONGER IT WILL BE. SHE THINKS THAT IT IS LIKELY WITH THE PSYCHIATRIST NOW FOR REVIEW. 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 Diabetes mellitus complication status: with other specified complication Qualified Code(s): E11.69 - Type 2 diabetes mellitus with other specified complication (3) Anxiety Current Visit: Yes Status: Chronic Code(s): F41.9 - ANXIETY DISORDER, UNSPECIFIED (4) Depression Current Visit: Yes Status: Chronic Qualifiers: Depression Type: major depressive disorder Active/Remission status: currently active Major depression episode severity: moderate Code(s): F32.9 - MAJOR DEPRESSIVE DISORDER, SINGLE EPISODE, UNSPECIFIED (5) Hypertension Current Visit: Yes Status: Chronic Qualifiers: Hypertension type: essential hypertension Qualified Code(s): I10 - Essential (primary) hypertension Code(s): I10 - ESSENTIAL (PRIMARY) HYPERTENSION (6) Hypothyroid Current Visit: Yes Status: Chronic Qualifiers: Hypothyroidism type: unspecified Qualified Code(s): E03.9 - Hypothyroidism , unspecified Code(s): E03.9 - HYPOTHYROIDISM, UNSPECIFIED (7) Spinal stenosis of lumbar region Current Visit: Yes Status: Chronic Qualifiers: Neurogenic claudication status: without neurogenic claudication Qualified Code(s): M48.061 - Spinal stenosis, lumbar region without neurogenic claudication Code(s): M48.061 - SPINAL STENOSIS, LUMBAR REGION WITHOUT NEUROGENIC KT (8) UTI (urinary tract infection) Current Visit: Yes Status: Resolved Qualifiers: Urinary tract infection type: site unspecified Hematuria presence: without hematuria Qualified Code(s): N39.0 - Urinary tract infection, site not specified Code(s): N39.0 - URINARY TRACT INFECTION, SITE NOT SPECIFIED
[2019-04-01] MEDS: Lantus Insulin SQ SCH (09:56)
[2019-04-01] MEDS: zyPREXA 5MG TABLET PO SCH (21:28)
[2019-04-02 07:40] VITALS: BP 143/65; PULSE 111; O2SAT 94
[2019-04-02] MEDS: AMARYL 4 MG PO SCH (08:42)
[2019-04-02] MEDS: ceLEXa 20 MG PO SCH (08:42)
[2019-04-02] MEDS: ZOCOR 20MG PO SCH (08:42)
[2019-04-02] MEDS: DESYREL 50 MG PO SCH (08:42)
[2019-04-02] MEDS: Glucophage 500 MG PO SCH (08:42)
[2019-04-02] MEDS: Adalat CC 30 MG TABLET PO SCH (08:42)
[2019-04-02] MEDS: Lantus Insulin SQ SCH (08:43)
[2019-04-02] MEDS: SYNTHROID 100 MCG PO SCH (08:43)
[2019-04-02] MEDS: Cozaar 50 MG PO SCH (08:43)
[2019-04-02] MEDS: XANAX 1 MG PO SCH ×2 (08:43→14:05)
[2019-04-02] MEDS: NYSTOP 30 GM CREAM TOP SCH (08:44)
[2019-04-02] MEDS: NovoLOG Insulin SQ PRN (13:08)
--- NOTE | 2019-04-02 13:54 | PCM.DS ---
Discharge Summary Date of Admission: 03/25/19 09:30 Admitting Physician: ALICIA WU Primary Care Provider: ZORAIDA DAVILA NP Allergies Allergies ceftriaxone [From Rocephin] Allergy (Verified 03/22/19 07:27) lip swelling Hospital Summary - Hospital Course Hospital Course: Chief Complaint Diagnosis DECONDITIONING R/T UTI, FAILED OUTPATIENT, PROFOUND WEAKNESS Allergies Allergy/AdvReac Type Severity Reaction Status Date / Time ceftriaxone [From Rocephin] Allergy Verified 03/22/19 07:27 Vital Signs (Last 24 hours) Temp Pulse Resp BP Pulse Ox 04/02/19 07:39 97.8 F 111 H 18 143/65 94 L 04/02/19 07:27 93 L 04/01/19 20:46 91 L 04/01/19 20:00 99.2 F 102 H 18 152/67 91 L Current Medications Generic Name Dose Route Start Last Admin Trade Name Freq PRN Reason Stop Dose Admin Al Hydrox/Mg Hydrox/Simethicone 30 ml 03/25/19 13:47 03/25/19 14:05 Maalox Es 30 Ml Unit Dose PO 04/24/19 13:46 30 ml Q4H PRN PRN Administration INDIGESTION Alprazolam 1 mg 03/25/19 15:00 04/02/19 08:43 Xanax 1 Mg PO 04/20/19 14:59 1 mg TID JEIMY Administration Citalopram Hydrobromide 20 mg 03/26/19 10:00 04/02/19 08:42 Celexa 20 Mg PO 04/25/19 09:59 20 mg DAILY JEIMY Administration Glimepiride 4 mg 03/26/19 08:00 04/02/19 08:42 Amaryl 4 Mg PO 04/20/19 08:59 4 mg BREAKFAST JEIMY Administration Insulin Aspart 0 unit 03/25/19 09:33 04/02/19 13:08 Novolog Insulin SQ 04/20/19 06:56 2 unit UD PRN Administration HYPERGLYCEMIA Insulin Glargine 20 unit 03/26/19 10:00 04/02/19 08:43 Lantus Insulin SQ 04/25/19 09:59 20 unit DAILY JEIMY Administration Levothyroxine Sodium 100 mcg 03/26/19 10:00 04/02/19 08:43 Synthroid 100 Mcg PO 04/25/19 09:59 100 mcg DAILY JEIMY Administration Losartan Potassium 25 mg 03/26/19 10:00 04/02/19 08:43 Cozaar 50 Mg PO 04/25/19 09:59 25 mg DAILY JEIMY Administration Metformin HCl 500 mg 03/25/19 17:00 04/02/19 08:42 Glucophage 500 Mg PO 04/20/19 08:59 500 mg BIDWM JEIMY Administration Nifedipine 90 mg 03/26/19 10:00 04/02/19 08:42 Adalat Cc 30 Mg Tablet PO 04/25/19 09:59 90 mg DAILY JEIMY Administration Nystatin 1 gm 03/31/19 12:15 04/02/19 08:44 Nystop 30 Gm Cream TOP 04/30/19 12:14 1 gm BID JEIMY Administration Olanzapine 5 mg 03/25/19 22:00 04/01/19 21:28 Zyprexa 5mg Tablet PO 04/20/19 21:59 5 mg HS JEIMY Administration Simvastatin 40 mg 03/26/19 10:00 04/02/19 08:42 Zocor 20mg PO 04/25/19 09:59 40 mg DAILY JEIMY Administration Trazodone HCl 25 mg 03/26/19 10:00 04/02/19 08:42 Desyrel 50 Mg PO 04/25/19 09:59 25 mg DAILY JEIMY Administration Tuberculin PPD 5 unit 04/05/19 10:00 Aplisol ID 04/05/19 10:01 DAILY JEIMY Discontinued Medications Generic Name Dose Route Start Last Admin Trade Name Freq PRN Reason Stop Dose Admin Sodium Chloride 1,000 mls @ 100 mls/hr 03/25/19 09:33 03/25/19 17:18 Sodium Chloride 0.9% 1000 Ml IV 04/19/19 23:44 Not Given .Q10H JEIMY Sodium Chloride 10 ml 03/28/19 09:00 03/30/19 08:20 Sodium Chloride 0.9% 10 Ml Flush Syringe IV 04/27/19 08:59 Not Given Q12H JEIMY Tuberculin PPD 5 unit 03/25/19 10:00 03/25/19 10:10 Aplisol ID 03/25/19 10:01 5 unit DAILY JEIMY Administration Intake & Output (Last 24 hours) 03/31/19 04/01/19 04/02/19 04/03/19 11:59 11:59 11:59 11:59 Intake Total 480 1240 1060 Output Total 900 750 Balance 480 340 310 Weight 85.1 kg 87 kg Orders (Last 24 hours) Category Date Time Status Discharge Routine Discharge 04/02/19 Ordered BMP Q14D Lab 04/08/19 09:30 Ordered Tuberculin,Purif.prot.deriv. [Aplisol] Med 04/05/19 10:00 Active 5 unit ID DAILY Patient Care Notes (Last 24 hours) 04/02/19 13:46 Nursing Note by Chasity Philippe report called to briana at [facility] Initialized on 04/02/19 13:46 - END OF NOTE - Vitals & Intake/Output Vital Signs: Vital Signs Temperature 97.8 F 04/02/19 07:39 Pulse Rate 111 H 04/02/19 07:39 Respiratory Rate 18 04/02/19 07:39 Blood Pressure 143/65 04/02/19 07:39 O2 Sat by Pulse Oximetry 94 L 04/02/19 07:39 Oxygen-Last Documented O2 Percentage 2 Liters = 28% Intake & Output: Intake & Output 03/31/19 04/01/19 04/02/19 04/03/19 11:59 11:59 11:59 11:59 Intake Total 480 1240 1060 Output Total 900 750 Balance 480 340 310 Weight 85.1 kg 87 kg - Lab Lab Results-Last 24 Hrs: Accuchecks Date 04/02/1904/02/1904/01/19 Time 11:30 Time 07:30 Time 16:32 Accucheck Value: 247 Accucheck Value: 104 Accucheck Value: 134 Accucheck Value: 174 Micro Results-Entire Visit: Accuchecks Date 04/02/1904/02/1904/01/19 Time 11:30 Time 07:30 Time 16:32 Accucheck Value: 247 Accucheck Value: 104 Accucheck Value: 134 Accucheck Value: 174 - Procedures and Test Procedures and Tests throughout Hospitalization: Therapy Orders & Screens 03/25/19 09:33 PT Eval & Treat (MD Order) ROUTINE Reason for Eval:: DECONDITIONING Diagnosis: DECONDITIONING R/T UTI, FAILED OUTPATIENT, PROFOUND WEAKNESS Oxygen Nasal Cannula 2 lpm Comment: Diagnosis: c/o weakness, c/o hopelessness 03/25/19 18:10 EKG STAT Comment: Diagnosis: DECONDITIONING R/T UTI, FAILED OUTPATIENT, PROFOUND WEAKNESS Discharge Exam General Appearance: no apparent distress, alert Neurologic Exam: alert, oriented x 3, cooperative, normal mood/affect, nml cerebellar function, sensation nml, No motor deficits Eye Exam: PERRL, EOMI, eyes nml inspection Ears, Nose, Throat Exam: normal ENT inspection, pharynx normal, moist mucous membranes Neck Exam: normal inspection, non-tender, supple, full range of motion Respiratory Exam: normal breath sounds, lungs clear, No respiratory distress Cardiovascular Exam: regular rate/rhythm, normal heart sounds Gastrointestinal/Abdomen Exam: soft, No tenderness, No mass Pelvic Exam: deferred Rectal Exam: deferred Back Exam: normal inspection, normal range of motion, No CVA tenderness, No vertebral tenderness Extremity Exam: normal inspection, normal range of motion Skin Exam: normal color, warm, dry Final Diagnosis/Problem List - Final Discharge Diagnosis/Problem (1) Debilitated patient Current Visit: Yes Status: Acute Code(s): R53.81 - OTHER MALAISE (2) Type 2 diabetes mellitus Current Visit: Yes Status: Chronic (3) Anxiety Current Visit: Yes Status: Chronic Code(s): F41.9 - ANXIETY DISORDER, UNSPECIFIED (4) Depression Current Visit: Yes Status: Chronic Code(s): F32.9 - MAJOR DEPRESSIVE DISORDER, SINGLE EPISODE, UNSPECIFIED (5) Hypertension Current Visit: Yes Status: Chronic Code(s): I10 - ESSENTIAL (PRIMARY) HYPERTENSION (6) Hypothyroid Current Visit: Yes Status: Chronic Code(s): E03.9 - HYPOTHYROIDISM, UNSPECIFIED (7) Spinal stenosis of lumbar region Current Visit: Yes Status: Chronic Code(s): M48.061 - SPINAL STENOSIS, LUMBAR REGION WITHOUT NEUROGENIC KT (8) UTI (urinary tract infection) Current Visit: Yes Status: Resolved Code(s): N39.0 - URINARY TRACT INFECTION , SITE NOT SPECIFIED - Discharge Discharge Date: 04/02/19 Disposition: DC TO [facility] Condition: Stable Prescriptions: Continue Simvastatin 40 mg [Zocor 40 mg] 40 mg PO DAILY Levothyroxine Sodium 100 Mcg [Synthroid 100 Mcg] 100 mcg PO DAILY Nifedipine [Nifedipine ER] 90 mg PO DAILY Olanzapine 5 mg PO HS Trazodone HCl 50 mg PO DAILY Citalopram Hydrobromide 20 mg* [ceLEXa 20 MG] 20 mg PO DAILY Metformin HCl 500 mg PO BID Glimepiride 4 mg [Amaryl 4 mg] 4 mg PO DAILY Losartan Potassium 25 mg PO DAILY Insulin Glargine,Hum.rec.anlog [Lantus Solostar] 20 units SQ DAILY Alprazolam 1 mg [Xanax 1 mg] 1 mg PO TID #45 tablet Additional Instructions: [facility] ORDERS: PT/OT EVAL AND TREAT ACCU CHECK AC/HS 1800 ADA DIET 2L OXYGEN NEEDED TO KEEP SPO2 > 92% SEE ATTACHED MED LIST FOR CURRENT MED ORDERS Follow up with: ZORAIDA DAVILA NP [Primary Care Provider] - 1 Week ALICIA WU MD [ACTIVE STAFF] - 1 Week
[2019-04-05] MEDS ORDERED: Aplisol ID SCH (10:00)
== END 2019-04-02 14:09 | DRG 948 ==
LOC: MED SURG 09:30
PROVIDERS: ADMIT General Practice; ATTEND General Practice
DX: R53.81 Other malaise (principal); N39.0 Urinary tract infection, site not specified; E11.9 Type 2 diabetes mellitus without complications; F41.8 Other specified anxiety disorders; I10 Essential (primary) hypertension; E03.9 Hypothyroidism, unspecified; M48.061 Spinal stenosis, lumbar region without neurogenic claudication; Z79.899 Other long term (current) drug therapy; Z79.4 Long term (current) use of insulin; Z99.81 Dependence on supplemental oxygen
CPT/HCPCS: 36415; 82962; 84484; 87493; 93005; 94760; 97110-GP; A9270-GY

== ENCOUNTER 2019-12-29 03:54 | Emergency (ER) | payer MEDICARE ==
[2019-12-29] MEDS ORDERED: Sodium Chloride 0.9% 1000 ML 1,000 ML IV STA (04:22)
--- NOTE | 2019-12-29 04:33 | ERPHSYRPT ---
- History of Present Illness Time Seen by Provider: 12/29/19 04:33 Source: patient Exam Limitations: no limitations Physician History: Is a female 84 years old who yesterday at noon was lying down taking a nap on a single bed when she fell out of bed and was able to get up and laid on the floor until 8 PM. At that point she was found by her daughter who helped her up to a chair the daughter remained with her for a while and then the daughter went home and at 930 the patient suffered another fall felling face first and was not found until 3 AM and by her daughter. She complains primarily of pain in her back although this seems to be a chronic problem and she does have documented lumbar spinal stenosis in her medical record. Records also indicate a history of TIAs urinary tract infections diabetes mellitus type 2 hypothyroidism hypertension had her left knee replaced. Occurred: yesterday Reason for Fall: unknown Injuries/Pain Location: back, lower extremity (Knees) Loss of Consciousness: no loss of consciousness Quality: aching, cramping Severity of Pain-Max: moderate Severity of Pain-Current: moderate Modifying Factors: Improves With: nothing Associated Symptoms (Fall): back pain, extremity injury Allergies/Adverse Reactions: ceftriaxone [From Rocephin] Allergy (Verified 03/22/19 07:27) lip swelling Home Medications: Levothyroxine Sodium 100 Mcg [Synthroid 100 Mcg] 100 mcg PO DAILY 05/24/17 [History] Nifedipine [Nifedipine ER] 90 mg PO DAILY 05/24/17 [History] Simvastatin 40 mg [Zocor 40 mg] 40 mg PO DAILY 05/24/17 [History] Olanzapine 5 mg PO HS 05/30/18 [History] Citalopram Hydrobromide 20 mg* [ceLEXa 20 MG] 20 mg PO DAILY 12/16/18 [ History] Trazodone HCl 50 mg PO DAILY 12/16/18 [History] Glimepiride 4 mg [Amaryl 4 mg] 4 mg PO DAILY 03/20/19 [History] Losartan Potassium 25 mg PO DAILY 03/20/19 [History] Metformin HCl 500 mg PO TID 03/20/19 [History] Insulin Glargine,Hum.rec.anlog [Lantus Solostar] 20 units SQ DAILY 03/21/19 [ History] Aspirin EC 81 mg [Ecotrin 81 mg] 81 mg PO DAILY 12/29/19 [History] Melatonin 5 mg PO HS 12/29/19 [History] Hx Tetanus, Diphtheria Vaccination/Date Given: Yes Hx Influenza Vaccination/Date Given: Yes Hx Pneumococcal Vaccination/Date Given: Yes Travel Risk - International Travel Have you traveled outside of the country in past 3 weeks: No Have you or anyone close to you been diagnosed with or: No Do your reside in a community with a known COVID-19 case?: No - Coronavirus Screening Has patient experienced Coronavirus symptoms: No - Review of Systems Constitutional: Weakness, No Fever, No Chills Eyes: No Symptoms Ears, Nose, & Throat: No Symptoms Respiratory: No Cough, No Dyspnea Cardiac: No Chest Pain, No Edema, No Syncope Abdominal/Gastrointestinal: No Abdominal Pain, No Nausea, No Vomiting, No Diarrhea Genitourinary Symptoms: No Dysuria Musculoskeletal: No Back Pain, No Neck Pain Skin: Rash (Intertriginous areas) Neurological: No Dizziness, No Focal Weakness, No Sensory Changes Psychological: No Symptoms Endocrine: No Symptoms All Other Systems: Reviewed and Negative - Past Medical History Pertinent Past Medical History: Yes Neurological History: No Pertinent History ENT History: No Pertinent History Cardiac History: Hypertension Respiratory History: No Pertinent History Endocrine Medical History: Diabetes Type II Musculoskeletal History: Arthritis GI Medical History: No Pertinent History History: No Pertinent History Psycho-Social History: Depression Female Reproductive Disorders: Breast Cancer Other Medical History: chronic pain - Past Surgical History Past Surgical History: Yes Neuro Surgical History: No Pertinent History Cardiac: No Pertinent History Respiratory: No Pertinent History Gastrointestinal: Cholecystectomy Female Surgical History: Hysterectomy - Social History Smoking Status: Never smoker Exposure to second hand smoke: No Drug Use: none Patient Lives Alone: Yes - Nursing Vital Signs Nursing Vital Signs: Initial Vital Signs Temperature 98.2 F 12/29/19 04:01 Pulse Rate 115 H 12/29/19 04:01 Respiratory Rate 18 12/29/19 04:01 Blood Pressure 160/78 12/29/19 04:01 O2 Sat by Pulse Oximetry 97 12/29/19 04:01 Pain Scale Pain Intensity 5 - Taniya Coma Score Best Eye Response (Taniya): (4) open spontaneously Best Verbal Response ([place]): (5) oriented Best Motor Response (Taniya): (6) obeys commands Taniya Total: 15 - Physical Exam General Appearance: moderate distress Head Injury: no evidence of injury Eye Exam: PERRL/EOMI, eyes nml inspection ENT Exam: airway nml, evidence of ENT injury Neck Exam: supple, trachea midline, limited range of motion Respiratory/Chest Exam: chest tenderness, normal breath sounds, No palpable fracture Cardiovascular Exam: normal heart sounds, regular rate/rhythm Gastrointestinal Exam: soft, normal bowel sounds Rectal Exam: deferred Back Exam: normal inspection, vertebral tenderness, decreased range of motion Extremity Exam: limited range of motion Peripheral Pulses: carotid (R): 2+, carotid (L): 2+ Neurologic Exam: alert, oriented x 3, motor weakness Skin Exam: rash (Rash beneath the breast and in the inguinal folds very severe weeping red), abrasion (Both knees), other (Feels indicated some softness) SpO2 Interpretation: normal SpO2: 97 O2 Delivery: Nasal Cannula (3) - Course Nursing assessment & vital signs reviewed: Yes EKG Interpreted by Me: RATE (115), Sinus Tach, NORMAL AXIS, NORMAL INTERVALS, NORMAL QRS, Non-specific ST Changes - Radiology Exams Knee X-ray Interpretation: Interpreted by me, Other (Lateral knee show only degenerative changes no acute fractures or dislocations noted long the left there is been a knee replacement.) - CT Exams Head CT Interpretation: Other (The of the head shows a hematoma in the forehead.Chronic changes) Cervical Spine CT Interpretation: Negative, Other (CT scan of the C-spine shows a fracture of C4 CT scan of the chest shows no evidence of trauma CT scan of the abdomen pelvis shows no evidence of trauma there is diverticulitis noted.) Ordered Tests: Active Orders 24 hr Category Date Time Status EKG-ER Only STAT Care 12/29/19 04:22 Active IV Insertion STAT Care 12/29/19 04:22 Active ABDOMEN AND PELVIS W/0 CONTRAS [CT] Stat Exams 12/29/19 04:19 Taken CERVICAL SPINE WO CONTRAST [CT] Stat Exams 12/29/19 04:19 Taken CHEST WITHOUT CONTRAST [CT] Stat Exams 12/29/19 04:19 Taken HEAD WITHOUT CONTRAST [CT] Stat Exams 12/29/19 04:18 Taken KNEE (1 OR 2 VIEW) Stat Exams 12/29/19 04:20 Taken KNEE (3 VIEWS) Stat Exams 12/29/19 04:21 Taken AMYLASE Stat Lab 12/29/19 04:50 Completed CBC W DIFF Stat Lab 12/29/19 04:50 Completed CK (IN-HOUSE) [CK-Creatinine Phosphokinase] Stat Lab 12/29/19 04:50 Completed CMP Stat Lab 12/29/19 04:50 Completed CULTURE,URINE Stat Lab 12/29/19 06:00 Received LIPASE Stat Lab 12/29/19 04:50 Completed Lactic Acid Stat Lab 12/29/19 04:45 Completed TROPONIN Q3H Lab 12/29/19 04:50 Completed TROPONIN Q3H Lab 12/29/19 07:30 Ordered TROPONIN Q3H Lab 12/29/19 10:30 Ordered TROPONIN Q3H Lab 12/29/19 13:30 Ordered TROPONIN Q3H Lab 12/29/19 16:30 Ordered TSH [TSH, 3RD Generation] Stat Lab 12/29/19 04:50 Completed UA W/RFX UR CULTURE Stat Lab 12/29/19 06:00 Completed Urine Triage Profile Stat Lab 12/29/19 05:56 Completed Medication Summary Generic Name Dose Route Start Last Admin Trade Name Frerah PRN Reason Stop Dose Admin Lorazepam 1 mg 12/29/19 06:44 Ativan 2 Mg/1 Ml Vial IV 01/28/20 06:43 PRN PRN CIWA SCORE Nystatin 1 gm 12/29/19 10:00 12/29/19 04:47 Nystop Powder 15 Gm TP 01/28/20 09:59 1 gm BID JEIMY Administration Discontinued Medications Generic Name Dose Route Start Last Admin Trade Name Freq PRN Reason Stop Dose Admin Sodium Chloride 1,000 mls @ 999 mls/hr 12/29/19 04:22 12/29/19 05:59 Sodium Chloride 0.9% 1000 Ml IV 12/29/19 05:22 Infused .Q1H1M STA Infusion Sodium Chloride Confirm 12/29/19 04:37 Sodium Chloride 0.9% 1000 Ml Administered 12/29/19 04:38 Dose 1,000 mls @ ud .ROUTE .STK-MED ONE Ketorolac Tromethamine 15 mg 12/29/19 04:36 12/29/19 04:39 Toradol 30 Mg Injection IV 12/29/19 04:37 15 mg STAT ONE Administration Ketorolac Tromethamine Confirm 12/29/19 04:37 Toradol 30 Mg Injection Administered 12/29/19 04:38 Dose 30 mg .ROUTE .STK-MED ONE Lab/Rad Data: Laboratory Result Diagrams 12/29/19 04:50 12/29/19 04:50 Laboratory Results 12/29/19 12/29/19 12/29/19 Range/Units 06:00 05:56 04:50 WBC (4.0-10.5) K/mm3 RBC (4.1-5.4) M/mm3 Hgb (12.0-16.0) gm/dl Hct (35-47) % MCV (78-100) fl MCH (26-32) pg MCHC (32-36) g/dl RDW (11.5-14.0) % Plt Count (150-450) K/mm3 MPV (7.5-11.0) fl Gran % (36.0-66.0) % Eos # (Auto) (0-0.5) Absolute Lymphs (auto) (1.0-4.6) Absolute Monos (auto) (0.0-1.3) Lymphocytes % (24.0-44.0) % Monocytes % (0.0-12.0) % Eosinophils % (0.00-5.0) % Basophils % (0.0-0.4) % Absolute Granulocytes (1.4-6.9) Basophils # (0-0.4) Sodium (137-145) mmol/L Potassium (3.5-5.1) mmol/L Chloride (98-107) mmol/L Carbon Dioxide (22-30) mmol/L Anion Gap (5-15) MEQ/L BUN (7-17) mg/dL Creatinine (0.52-1.04) mg/dL Estimated GFR ML/MIN Glucose (74-106) mg/dL Lactic Acid (0.4-2.0) Calcium (8.4-10.2) mg/dL Total Bilirubin (0.2-1.3) mg/dL AST (14-36) U/L ALT (0-35) U/L Alkaline Phosphatase (38-126) U/L Creatine Kinase (30-135) U/L Troponin I (0.000-0.034) ng/mL Serum Total Protein (6.3-8.2) g/dL Albumin (3.5-5.0) g/dL Amylase (30-110) U/L Lipase (23-300) U/L TSH 3rd Generation 0.242 L (0.47-4.68) mIU/L Urine Color YELLOW (YELLOW) Urine Appearance SLIGHTLY CLOUDY (CLEAR) Urine pH 5.0 (5-6) Ur Specific [place] 1.021 (1.005-1.025) Urine Protein 100 (Negative) Urine Ketones SMALL (NEGATIVE) Urine Blood LARGE (0-5) Mitch/ul Urine Nitrite NEGATIVE (NEGATIVE) Urine Bilirubin NEGATIVE (NEGATIVE) Urine Urobilinogen NEGATIVE (0-1) mg/dL Ur Leukocyte Esterase NEGATIVE (NEGATIVE) Urine WBC (Auto) 3-5 (0-5) /HPF Urine RBC (Auto) 0-2 (0-2) /HPF U Hyaline Cast (Auto) 3-5 (0-2) /LPF U Epithel Cells (Auto) FEW (FEW) /HPF Urine Bacteria (Auto) RARE (NEGATIVE) /HPF Granular Casts (Auto) 2-5 (NEGATIVE) /LPF Urine Mucus (Auto) SLIGHT (NEGATIVE) /HPF Urine Culture Reflexed ORDERED SEPARATELY (NO) Urine Glucose 50 (NEGATIVE) mg/dL Urine Opiates Level NEGATIVE (NEGATIVE) Ur Methadone NEGATIVE (NEGATIVE) Urine Barbiturates NEGATIVE (NEGATIVE) Ur Phencyclidine (PCP) NEGATIVE (NEGATIVE) Urine Amphetamine NEGATIVE (NEGATIVE) U Benzodiazepine Level POSITIVE (NEGATIVE) Urine Cocaine NEGATIVE (NEGATIVE) Urine Marijuana (THC) NEGATIVE (NEGATIVE) 12/29/19 12/29/19 12/29/19 Range/Units 04:50 04:50 04:50 WBC 17.1 H (4.0-10.5) K/mm3 RBC 4.57 (4.1-5.4) M/mm3 Hgb 13.0 (12.0-16.0) gm/dl Hct 38.9 (35-47) % MCV 85.1 (78-100) fl MCH 28.4 (26-32) pg MCHC 33.4 (32-36) g/dl RDW 15.9 H (11.5-14.0) % Plt Count 238 (150-450) K/mm3 MPV 11.4 H (7.5-11.0) fl Gran % 90.7 H (36.0-66.0) % Eos # (Auto) 0.01 (0-0.5) Absolute Lymphs (auto) 0.79 L (1.0-4.6) Absolute Monos (auto) 0.77 (0.0-1.3) Lymphocytes % 4.6 L (24.0-44.0) % Monocytes % 4.5 (0.0-12.0) % Eosinophils % 0.1 (0.00-5.0) % Basophils % 0.1 (0.0-0.4) % Absolute Granulocytes 15.48 H (1.4-6.9) Basophils # 0.02 (0-0.4) Sodium 140 (137-145) mmol/L Potassium 4.0 (3.5-5.1) mmol/L Chloride 107 (98-107) mmol/L Carbon Dioxide 23 (22-30) mmol/L Anion Gap 14.6 (5-15) MEQ/L BUN 25 H (7-17) mg/dL Creatinine 1.07 H (0.52-1.04) mg/dL Estimated GFR 52.1 ML/MIN Glucose 307 H (74-106) mg/dL Lactic Acid (0.4-2.0) Calcium 9.5 (8.4-10.2) mg/dL Total Bilirubin 0.70 (0.2-1.3) mg/dL AST 42 H (14-36) U/L ALT 26 (0-35) U/L Alkaline Phosphatase 87 (38-126) U/L Creatine Kinase (30-135) U/L Troponin I 0.021 (0.000-0.034) ng/mL Serum Total Protein 7.7 (6.3-8.2) g/dL Albumin 4.2 (3.5-5.0) g/dL Amylase 42 (30-110) U/L Lipase 76 (23-300) U/L TSH 3rd Generation (0.47-4.68) mIU/L Urine Color (YELLOW) Urine Appearance (CLEAR) Urine pH (5-6) Ur Specific [place] (1.005-1.025) Urine Protein (Negative) Urine Ketones (NEGATIVE) Urine Blood (0-5) Mitch/ul Urine Nitrite (NEGATIVE) Urine Bilirubin (NEGATIVE) Urine Urobilinogen (0-1) mg/dL Ur Leukocyte Esterase (NEGATIVE) Urine WBC (Auto) (0-5) /HPF Urine RBC (Auto) (0-2) /HPF U Hyaline Cast (Auto) (0-2) /LPF U Epithel Cells (Auto) (FEW) /HPF Urine Bacteria (Auto) (NEGATIVE) /HPF Granular Casts (Auto) (NEGATIVE) /LPF Urine Mucus (Auto) (NEGATIVE) /HPF Urine Culture Reflexed (NO) Urine Glucose (NEGATIVE) mg/dL Urine Opiates Level (NEGATIVE) Ur Methadone (NEGATIVE) Urine Barbiturates (NEGATIVE) Ur Phencyclidine (PCP) (NEGATIVE) Urine Amphetamine (NEGATIVE) U Benzodiazepine Level (NEGATIVE) Urine Cocaine (NEGATIVE) Urine Marijuana (THC) (NEGATIVE) 12/29/19 12/29/19 Range/Units 04:50 04:45 WBC (4.0-10.5) K/mm3 RBC (4.1-5.4) M/mm3 Hgb (12.0-16.0) gm/dl Hct (35-47) % MCV (78-100) fl MCH (26-32) pg MCHC (32-36) g/dl RDW (11.5-14.0) % Plt Count (150-450) K/mm3 MPV (7.5-11.0) fl Gran % (36.0-66.0) % Eos # (Auto) (0-0.5) Absolute Lymphs (auto) (1.0-4.6) Absolute Monos (auto) (0.0-1.3) Lymphocytes % (24.0-44.0) % Monocytes % (0.0-12.0) % Eosinophils % (0.00-5.0) % Basophils % (0.0-0.4) % Absolute Granulocytes (1.4-6.9) Basophils # (0-0.4) Sodium (137-145) mmol/L Potassium (3.5-5.1) mmol/L Chloride (98-107) mmol/L Carbon Dioxide (22-30) mmol/L Anion Gap (5-15) MEQ/L BUN (7-17) mg/dL Creatinine (0.52-1.04) mg/dL Estimated GFR ML/MIN Glucose (74-106) mg/dL Lactic Acid 2.7 H (0.4-2.0) Calcium (8.4-10.2) mg/dL Total Bilirubin (0.2-1.3) mg/dL AST (14-36) U/L ALT (0-35) U/L Alkaline Phosphatase (38-126) U/L Creatine Kinase 1519 H (30-135) U/L Troponin I (0.000-0.034) ng/mL Serum Total Protein (6.3-8.2) g/dL Albumin (3.5-5.0) g/dL Amylase (30-110) U/L Lipase (23-300) U/L TSH 3rd Generation (0.47-4.68) mIU/L Urine Color (YELLOW) Urine Appearance (CLEAR) Urine pH (5-6) Ur Specific [place] (1.005-1.025) Urine Protein (Negative) Urine Ketones (NEGATIVE) Urine Blood (0-5) Mitch/ul Urine Nitrite (NEGATIVE) Urine Bilirubin (NEGATIVE) Urine Urobilinogen (0-1) mg/dL Ur Leukocyte Esterase (NEGATIVE) Urine WBC (Auto) (0-5) /HPF Urine RBC (Auto) (0-2) /HPF U Hyaline Cast (Auto) (0-2) /LPF U Epithel Cells (Auto) (FEW) /HPF Urine Bacteria (Auto) (NEGATIVE) /HPF Granular Casts (Auto) (NEGATIVE) /LPF Urine Mucus (Auto) (NEGATIVE) /HPF Urine Culture Reflexed (NO) Urine Glucose (NEGATIVE) mg/dL Urine Opiates Level (NEGATIVE) Ur Methadone (NEGATIVE) Urine Barbiturates (NEGATIVE) Ur Phencyclidine (PCP) (NEGATIVE) Urine Amphetamine (NEGATIVE) U Benzodiazepine Level (NEGATIVE) Urine Cocaine (NEGATIVE) Urine Marijuana (THC) (NEGATIVE) - Progress Progress: unchanged - Departure Departure Disposition: Transfer (To transfer this patient to [facility] to trauma to in the ER there accepting physician is Dr. Leonel Reynaga) Clinical Impression: C4 cervical fracture, Rhabdomyolysis, Diverticulitis Condition: Critical Critical Care Time: Yes Critical Care Time(excluding separately billable procedures): Critical 105-134 mins Referrals: ALICIA WU MD [Primary Care Provider] -
[2019-12-29] MEDS ORDERED: TORAdol 30 mg Injection IV ONE (04:36)
[2019-12-29] MEDS ORDERED: TORAdol 30 mg Injection ONE (04:37)
[2019-12-29] MEDS ORDERED: Sodium Chloride 0.9% 1000 ML 1,000 ML ONE ×2 (04:37→07:05)
[2019-12-29] MEDS ORDERED: NYSTOP POWDER 15 GM ONE (04:42)
[2019-12-29 04:54] LABS: Absolute Neutrophil Ct (ANC) 15.48 (1.4-6.9); BASOPHIL % 0.1 % (0.0-0.4); Basophil (Absolute #) 0.02 (0-0.4); Eosinophil % 0.1 % (0.00-5.0); Eosinophil (Absolute #) 0.01 (0-0.5); Hematocrit 38.9 % (35-47); Lymphocyte (Absolute #) 0.79 (1.0-4.6); Lymphocytes % 4.6 % (24.0-44.0); Mean Cell Volume 85.1 fl (78-100); Mean Corpuscular Hemoglobin 28.4 pg (26-32); Mean Corpuscular Hgb Concent. 33.4 g/dl (32-36); Mean Platelet Volume 11.4 fl (7.5-11.0); Monocyte (Absolute #) 0.77 (0.0-1.3); Monocytes % 4.5 % (0.0-12.0); Neutrophil % 90.7 % (36.0-66.0); Platelet Count 238 K/mm3 (150-450); Red Blood Count 4.57 M/mm3 (4.1-5.4); Red Cell Distribution Width 15.9 % (11.5-14.0); White Blood Count 17.1 K/mm3 (4.0-10.5)
[2019-12-29 05:06] LABS: ALBUMIN 4.2 g/dL (3.5-5.0); ANION GAP 14.6 MEQ/L (5-15); BILIRUBIN,TOTAL 0.7 mg/dL (0.2-1.3); Calcium 9.5 mg/dL (8.4-10.2); Creatinine 1 1.07 mg/dL (0.52-1.04); Total Protein 7.7 g/dL (6.3-8.2)
[2019-12-29 06:28] LABS: Appearance SLIGHTLY CLOUDY (CLEAR); Bacteria RARE /HPF (NEGATIVE); Bilirubin NEGATIVE (NEGATIVE); Blood LARGE Ery/ul (0-5); Epithelial Cells FEW /HPF (FEW); Glucose 50 mg/dL (NEGATIVE); Ketones SMALL (NEGATIVE); Leukocyte Esterase NEGATIVE (NEGATIVE); Mucus SLIGHT /HPF (NEGATIVE); Nitrite NEGATIVE (NEGATIVE); Protein,Urine Dip 100 (Negative); RBC 0-2 /HPF (0-2); Specific Gravity 1.021 (1.005-1.025); Urobilinogen NEGATIVE mg/dL (0-1)
[2019-12-29 06:36] LABS: Amphetamine,Urine NEGATIVE (NEGATIVE); Barbiturate,Urine NEGATIVE (NEGATIVE); Benzodiazepine,Urine POSITIVE (NEGATIVE); Cocaine,Urine NEGATIVE (NEGATIVE); Methadone,Urine NEGATIVE (NEGATIVE); Opiate,Urine NEGATIVE (NEGATIVE); PCP,Urine NEGATIVE (NEGATIVE); THC,Urine NEGATIVE (NEGATIVE)
[2019-12-29] MEDS ORDERED: Ativan 2 MG/1 ML VIAL IV PRN (06:44)
[2019-12-29] MEDS ORDERED: Ativan 2 MG/1 ML VIAL ONE (06:51)
[2019-12-29 06:58] VITALS: BP 155/70; PULSE 114; O2SAT 95
--- NOTE | 2019-12-29 09:04 | XRAY ---
Indication: Headache following fall. Multiple contiguous axial images obtained through the head without contrast. Comparison: May 24, 2017. Stable age-appropriate global atrophy and moderate periventricular degenerative micro-ischemia bilaterally. No acute intracranial hemorrhage, abnormal extra-axial fluid collection, or mass effect. Fourth ventricle is midline without hydrocephalus. New small frontal scalp hematoma near the vertex. Bony calvarium intact. Visualized paranasal sinuses and mastoid air cells are clear. Impression: New frontal scalp hematoma. Otherwise stable nonacute senile brain. Comment: Preliminary interpretation was made by [facility]. No critical discrepancy.
--- NOTE | 2019-12-29 09:12 | XRAY ---
Indication: Headache following fall. Multiple contiguous axial images obtained through the cervical spine. Sagittal and coronal reformatted images obtained. Comparison: None. Age-related osteopenia. Mild/moderate multilevel bridging and nonbridging anterior endplate spurring with what appears to be nondisplaced fracture involving the anterior C3-C4 osteophyte. Fracture line extends into the anterior superior C4 segment. Elsewhere mild atlantoaxial degenerative arthropathy, and mild C6-C7 degenerative vacuum disc phenomena. Otherwise no acute fracture, suspicious bony lesions, or spinal canal stenosis. Sagittal and coronal reformatted images demonstrates normal alignment with minimal C6-T1 disc space narrowing. No acute compression fracture, subluxation, or jumped facet. Normal appearing craniocervical junction. Visualized noncontrasted soft tissues demonstrates moderate carotid calcifications bilaterally. CT head and CT chest reported separately. Impression: 1. Multilevel anterior osteophytes with nondisplaced C3-C4 osteophyte fracture. 2. Osteopenia and multilevel degenerative changes. Comment: Preliminary interpretation was made by [facility]. No critical discrepancy.
--- NOTE | 2019-12-29 09:29 | XRAY ---
Indication: Back pain following fall. Multiple contiguous axial images obtained through the chest without contrast as ordered. Comparison: May 30, 2018. Lungs are inflated with stable scattered fibrosis/scarring bilaterally. Worsening mild bilateral dependent atelectasis especially lung bases. Stable 1 cm noncalcified nodule in the inferior anterior medial right upper lobe favored to be benign given stability over the years. No new pulmonary mass, infiltrate, or effusion. Heart is not enlarged with now small pericardial effusion. Aorta remains mildly arteriosclerotic without aneurysm. There remains a few small mediastinal lymph nodes. Again prominent subcarinal node today measuring 1.7 x 2.2 cm, previously 1.5 x 2.0 cm. Bony thorax again demonstrates osteopenia, degenerative changes, and flowing osteophytes throughout the spine. CT abdomen reported separately. Impression: 1. New small pericardial effusion. Echocardiogram may yield further information. 2. Minimally enlarging prominence subcarinal node. 3. Stable scattered bony fibrosis/scarring, atelectasis, benign right upper lobe noncalcified nodule, and chronic bony findings. Comment: Preliminary interpretation was made by [facility] who reports new left lower lobe pleural-based nodule. I believe the finding is more likely atelectasis as there is worsening dependent atelectasis especially left lung base.
--- NOTE | 2019-12-29 09:31 | XRAY ---
Indication: Back pain following fall. Multiple contiguous axial images obtained through the abdomen and pelvis without contrast as ordered. Comparison: None. CT chest reported separately. Noncontrasted stomach and bowel loops appear nonobstructed. Scattered descending and sigmoid diverticulosis. Junction of the descending and sigmoid colon demonstrates abnormal circumferential wall thickening with pericolonic stranding and tiny free fluid favoring diverticulitis. No walled off fluid collection or free air. Gallbladder not seen either contracted or surgically absent. Uterus surgically absent. Remaining liver, pancreas, spleen, adrenal glands, kidneys, ureters, and bladder appear unremarkable for noncontrast exam. Mild scattered vascular calcifications without AAA. Osseous structures demonstrates osteopenia, mild/moderate degenerative changes throughout the thoracolumbar spine, and moderate degenerative changes of both hips. Impression: 1. Colonic diverticulosis with diverticulitis at the junction of the descending and sigmoid colon. Tiny free fluid presumed reactive. 2. Osteopenia and degenerative changes. Comment: Preliminary interpretation was made by [facility]. No critical discrepancy.
--- NOTE | 2019-12-29 09:33 | XRAY ---
Indication: Pain following fall. Comparison: None 3 views of the left knee demonstrates osteopenia, total knee arthroplasty with intact articulation/prosthesis, patella spurring, and scattered vascular calcifications. No other bony, articular, or soft tissue abnormalities.
--- NOTE | 2019-12-29 09:33 | XRAY ---
Indication: Pain following fall. Comparison: None 2 views of the right knee demonstrates osteopenia, moderate tricompartmental degenerative changes greatest medial compartment, and scattered vascular calcifications. No other bony, articular, or soft tissue abnormalities.
[2019-12-29] MEDS ORDERED: NYSTOP POWDER 15 GM TP SCH (10:00)
== END 2019-12-29 08:00 | disposition short-term general hospital (02) ==
LOC: ED 03:54
DX: S12.300A Unspecified displaced fracture of fourth cervical vertebra, initial encounter for closed fracture (principal); W06.XXXA Fall from bed, initial encounter; Z91.81 History of falling; Y93.84 Activity, sleeping; Y92.9 Unspecified place or not applicable; M48.00 Spinal stenosis, site unspecified; E11.9 Type 2 diabetes mellitus without complications; Z86.73 Personal history of transient ischemic attack (TIA), and cerebral infarction without residual deficits; E03.9 Hypothyroidism, unspecified; Z96.652 Presence of left artificial knee joint; Z79.899 Other long term (current) drug therapy; Z87.440 Personal history of urinary (tract) infections
CPT/HCPCS: 36415; 70450; 71250; 72125; 73560; 73562; 74176; 80053; 80307; 81001; 82150; 82550; 83605; 83690; 84443; 84484; 85025; 87086; 93005; 96360; 96374; 96375; 99285; 99291; 99292; J1885; J2060; L0172

== ENCOUNTER 2020-03-11 13:05 | Observation (INO) | payer MEDICARE ==
[2020-03-11] MEDS ORDERED: BABY ASPIRIN 81 MG CHEW PO ONE (13:37)
[2020-03-11] MEDS ORDERED: BABY ASPIRIN 81 MG CHEW ONE (13:44)
[2020-03-11 13:47] LABS: Absolute Neutrophil Ct (ANC) 4.12 (1.4-6.9); BASOPHIL % 0.2 % (0.0-0.4); Basophil (Absolute #) 0.01 (0-0.4); Eosinophil % 2.3 % (0.00-5.0); Eosinophil (Absolute #) 0.15 (0-0.5); Hematocrit 35.2 % (35-47); Hemoglobin 11.2 gm/dl (12.0-16.0); Lymphocyte (Absolute #) 1.95 (1.0-4.6); Lymphocytes % 29.5 % (24.0-44.0); Mean Cell Volume 88.4 fl (78-100); Mean Corpuscular Hemoglobin 28.1 pg (26-32); Mean Corpuscular Hgb Concent. 31.8 g/dl (32-36); Mean Platelet Volume 11.6 fl (7.5-11.0); Monocyte (Absolute #) 0.38 (0.0-1.3); Monocytes % 5.7 % (0.0-12.0); Neutrophil % 62.3 % (36.0-66.0); Platelet Count 236 K/mm3 (150-450); Red Blood Count 3.98 M/mm3 (4.1-5.4); Red Cell Distribution Width 16.2 % (11.5-14.0); White Blood Count 6.6 K/mm3 (4.0-10.5)
[2020-03-11 13:56] LABS: Appearance CLEAR (CLEAR); Bacteria RARE /HPF (NEGATIVE); Bilirubin NEGATIVE (NEGATIVE); Blood NEGATIVE Ery/ul (0-5); Glucose NEGATIVE (NEGATIVE); Ketones NEGATIVE (NEGATIVE); Leukocyte Esterase NEGATIVE (NEGATIVE); Nitrite NEGATIVE (NEGATIVE); Protein,Urine Dip NEGATIVE (Negative); Specific Gravity 1.011 (1.005-1.025); Urobilinogen NEGATIVE mg/dL (0-1)
[2020-03-11 14:08] LABS: ALBUMIN 4.2 g/dL (3.5-5.0); ALKALINE PHOSPHATASE 96 U/L (38-126); ANION GAP 16.8 MEQ/L (5-15); BLOOD UREA NITROGEN 31 mg/dL (7-17); CHLORIDE 105 mmol/L (98-107); Calcium 9.1 mg/dL (8.4-10.2); Carbon Dioxide 23 mmol/L (22-30); Creatinine 1 0.92 mg/dL (0.52-1.04); Glucose 170 mg/dL (74-106); NT PRO BNP 84.9 pg/mL (0-1800); Potassium 4.7 mmol/L (3.5-5.1); SGOT/AST 150 U/L (14-36); SGPT/ALT 201 U/L (0-35); SODIUM 140 mmol/L (137-145); Total Protein 7.5 g/dL (6.3-8.2)
--- NOTE | 2020-03-11 14:08 | XRAY ---
Indication: Chest pain. Comparison: March 23, 2019 Portable chest demonstrates cervical collar overlying both lung apices. New left costophrenic angle blunting favoring tiny pleural effusion/thickening. Remaining heart and lungs unremarkable. Bony thorax intact again with osteopenia and degenerative changes.
--- NOTE | 2020-03-11 15:14 | ERPHSYRPT ---
- History of Present Illness Time Seen by Provider: 03/11/20 13:15 Historian: patient, family Patient Subjective Stated Complaint: Pt stated that she has been having chest pain for the past couple of weeks and it got worse today, pt stated that she was having pain in the medial chest that radiates to the left lower kidney, goes to her left shoulder and to her back shoulder blades and down her left arm Triage Nursing Assessment: Pt brought to the ER by her daughter, pt denies any cardiac history, rates her chest pain as 5/10, +3 pitting edema to nathanael feet, no swelling in legs, pulses normal, tachycardic, hypertensive, skin n/w/d, pt denies any bowel or urine issues, heart sounds normal, lungs clear Physician History: 84 years old old female with history of diabetes mellitus, hypertension, anxiety /depression, remote spinous process neck injury which is healed with resultant arthritic changes with c-collar on presented in the ER with sudden onset substernal chest pain sudden onset almost an hour and a half prior to arrival with radiation to the back and left arm and left flank area without any significant aggravating or relieving factor, lasted for almost an hour and started to improve and currently patient is pain-free. It was associated with mild shortness of breath and palpitations. Denies any fever chills or cough. No nausea or vomiting or abdominal pain otherwise. No diarrhea. Denies any sick contact. Does not have any cardiac work-up done in the past. Patient has bilateral feet ankle swelling off and on for quite some time. Timing/Duration: today, sudden, improved Activities at Onset: rest Quality: dullness, pressure Location: central Chest Pain Radiation: neck, arm, back, abdomen Severity of Pain-Max: moderate Severity of Pain-Current: none Modifying Factors: Improves With: nothing Associated Symptoms: shortness of breath Prior Chest Pain/Cardiac Workup: no prior cardiac workup Nitro Today/Relief: no nitro taken today Aspirin Treatment Today: no aspirin today Allergies/Adverse Reactions: ceftriaxone [From Rocephin] Allergy (Verified 03/11/20 13:06) lip swelling Home Medications: Levothyroxine Sodium 100 Mcg [Synthroid 100 Mcg] 100 mcg PO DAILY 05/24/17 [History] Nifedipine [Nifedipine ER] 90 mg PO DAILY 05/24/17 [History] Simvastatin 40 mg [Zocor 40 mg] 40 mg PO DAILY 05/24/17 [History] Olanzapine 5 mg PO HS 05/30/18 [History] Citalopram Hydrobromide 20 mg* [ceLEXa 20 MG] 40 mg PO DAILY 12/16/18 [ History] Trazodone HCl 100 mg PO DAILY 12/16/18 [History] Glimepiride 4 mg [Amaryl 4 mg] 4 mg PO DAILY 03/20/19 [History] Losartan Potassium 25 mg PO DAILY 03/20/19 [History] Metformin HCl 500 mg PO BID 03/20/19 [History] Insulin Glargine,Hum.rec.anlog [Lantus Solostar] 20 units SQ DAILY 03/21/19 [ History] Melatonin 5 mg PO HS 12/29/19 [History] Alprazolam 1 mg [Xanax 1 mg] 1 mg PO BID 03/11/20 [History] Celecoxib 100 mg [celeBREX 100 MG] 100 mg PO BID 03/11/20 [History] Escitalopram Oxalate [Lexapro] 20 mg PO DAILY 03/11/20 [History] Gabapentin 100 mg PO BID 03/11/20 [History] Hx Tetanus, Diphtheria Vaccination/Date Given: Yes Hx Influenza Vaccination/Date Given: Yes Hx Pneumococcal Vaccination/Date Given: Yes Travel Risk - International Travel Have you traveled outside of the country in past 3 weeks: No Have you or anyone close to you been diagnosed with or: No Do your reside in a community with a known COVID-19 case?: Yes If Yes where:: [place] - Coronavirus Screening Has patient experienced Coronavirus symptoms: No - Review of Systems Constitutional: No Symptoms Eyes: No Symptoms Ears, Nose, & Throat: No Symptoms Respiratory: Dyspnea Cardiac: Chest Pain, Palpitations Abdominal/Gastrointestinal: No Symptoms Genitourinary Symptoms: No Symptoms Musculoskeletal: Neck Pain Skin: No Symptoms Neurological: No Symptoms Psychological: No Symptoms Endocrine: No Symptoms Hematologic/Lymphatic: No Symptoms Immunological/Allergic: No Symptoms - Past Medical History Pertinent Past Medical History: Yes Neurological History: No Pertinent History ENT History: No Pertinent History Cardiac History: Hypertension Respiratory History: No Pertinent History Endocrine Medical History: Diabetes Type II Musculoskeletal History: Arthritis GI Medical History: No Pertinent History History: No Pertinent History Psycho-Social History: Depression Female Reproductive Disorders: Breast Cancer Other Medical History: chronic pain - Past Surgical History Past Surgical History: Yes Neuro Surgical History: No Pertinent History Cardiac: No Pertinent History Respiratory: No Pertinent History Gastrointestinal: Cholecystectomy Genitourinary: No Pertinent History Musculoskeletal: Joint Replacement Female Surgical History: Hysterectomy Other Surgical History: Left Knee Replacement - Social History Smoking Status: Never smoker Exposure to second hand smoke: No Drug Use: none Patient Lives Alone: Yes - Nursing Vital Signs Nursing Vital Signs: Initial Vital Signs Temperature 98.4 F 03/11/20 13:09 Pulse Rate 101 H 03/11/20 13:09 Respiratory Rate 18 03/11/20 13:09 Blood Pressure 131/110 03/11/20 13:09 O2 Sat by Pulse Oximetry 96 03/11/20 13:09 Pain Scale Pain Intensity 0 - Physical Exam General Appearance: no apparent distress Eye Exam: PERRL/EOMI, eyes nml inspection Ears, Nose, Throat Exam: normal ENT inspection, pharynx normal Neck Exam: normal inspection, supple, other (C-collar applied) Respiratory Exam: normal breath sounds Cardiovascular Exam: regular rate/rhythm, normal heart sounds Gastrointestinal/Abdomen Exam: soft Back Exam: normal inspection Extremity Exam: normal inspection, normal range of motion, pelvis stable Neurologic Exam: alert, oriented x 3, cooperative Skin Exam: normal color Lymphatic Exam: adenopathy SpO2 Interpretation: normal SpO2: 95 O2 Delivery: Room Air - Course Nursing assessment & vital signs reviewed: Yes EKG Interpreted by Me: RATE ([id number]), Sinus Tach, NORMAL AXIS, NORMAL INTERVALS, Non-specific ST Changes, Other (PRWP) Ordered Tests: Active Orders 24 hr Category Date Time Status 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 Specialist STAT Care 03/11/20 13:24 Active EKG-ER Only STAT Care 03/11/20 13:24 Active IV Insertion STAT Care 03/11/20 13:24 Active Pulse Oximetry (ED) STAT Care 03/11/20 13:24 Active cath [Cath for Specimen-Straight] STAT Care 03/11/20 13:25 Active CHEST 1 VIEW (PORTABLE) Stat Exams 03/11/20 13:52 Completed CBC W DIFF Stat Lab 03/11/20 13:49 Completed CMP Stat Lab 03/11/20 13:49 Completed CULTURE,URINE Stat Lab 03/11/20 13:49 Received D-DIMER QUANTITATIVE Stat Lab 03/11/20 14:11 Completed LIPASE Stat Lab 03/11/20 13:49 Completed NT PRO BNP Stat Lab 03/11/20 13:49 Completed TROPONIN Q3H Lab 03/11/20 13:49 Completed TROPONIN Q3H Lab 03/11/20 16:45 Ordered TROPONIN Q3H Lab 03/11/20 19:45 Ordered TROPONIN Q3H Lab 03/11/20 22:45 Ordered TROPONIN Q3H Lab 03/12/20 01:45 Ordered UA W/RFX UR CULTURE Stat Lab 03/11/20 13:49 Completed Transfer Order Routine Transfer 03/11/20 Ordered Medication Summary Discontinued Medications Generic Name Dose Route Start Last Admin Trade Name Freq PRN Reason Stop Dose Admin Aspirin 324 mg 03/11/20 13:37 03/11/20 13:47 Baby Aspirin 81 Mg Chew PO 03/11/20 13:38 324 mg STAT ONE Administration Aspirin Confirm 03/11/20 13:44 Baby Aspirin 81 Mg Chew Administered 03/11/20 13:45 Dose 324 mg .ROUTE .STK-MED ONE Enoxaparin Sodium 40 mg 03/11/20 15:29 03/11/20 15:39 Enoxaparin Sodium SQ 03/11/20 15:30 40 mg 1XONLY ONE Administration Enoxaparin Sodium Confirm 03/11/20 15:37 Enoxaparin Sodium Administered 03/11/20 15:38 Dose 80 mg SQ .STK-MED ONE Furosemide 20 mg 03/11/20 15:23 03/11/20 15:32 Lasix 40 Mg/4 Ml IV 03/11/20 15:24 20 mg STAT ONE Administration Furosemide Confirm 03/11/20 15:29 Lasix 40 Mg/4 Ml Administered 03/11/20 15:30 Dose 40 mg .ROUTE .STK-MED ONE Lab/Rad Data: Laboratory Result Diagrams 03/11/20 13:49 03/11/20 13:49 Laboratory Results 03/11/20 03/11/20 03/11/20 Range/Units 14:11 13:49 13:49 WBC (4.0-10.5) K/mm3 RBC (4.1-5.4) M/mm3 Hgb (12.0-16.0) gm/dl Hct (35-47) % MCV (78-100) fl MCH (26-32) pg MCHC (32-36) g/dl RDW (11.5-14.0) % Plt Count (150-450) K/mm3 MPV (7.5-11.0) fl Gran % (36.0-66.0) % Eos # (Auto) (0-0.5) Absolute Lymphs (auto) (1.0-4.6) Absolute Monos (auto) (0.0-1.3) Lymphocytes % (24.0-44.0) % Monocytes % (0.0-12.0) % Eosinophils % (0.00-5.0) % Basophils % (0.0-0.4) % Absolute Granulocytes (1.4-6.9) Basophils # (0-0.4) D-Dimer 1132 H* (215-500) ng/mL Sodium (137-145) mmol/L Potassium (3.5-5.1) mmol/L Chloride (98-107) mmol/L Carbon Dioxide (22-30) mmol/L Anion Gap (5-15) MEQ/L BUN (7-17) mg/dL Creatinine (0.52-1.04) mg/dL Estimated GFR ML/MIN Glucose (74-106) mg/dL Calcium (8.4-10.2) mg/dL Total Bilirubin (0.2-1.3) mg/dL AST (14-36) U/L ALT (0-35) U/L Alkaline Phosphatase (38-126) U/L Troponin I < 0.012 (0.000-0.034) ng/mL NT-Pro-B Natriuret Pep (0-1800) pg/mL Serum Total Protein (6.3-8.2) g/dL Albumin (3.5-5.0) g/dL Lipase 286 (23-300) U/L Urine Color (YELLOW) Urine Appearance (CLEAR) Urine pH (5-6) Ur Specific [place] (1.005-1.025) Urine Protein (Negative) Urine Ketones (NEGATIVE) Urine Blood (0-5) Mitch/ul Urine Nitrite (NEGATIVE) Urine Bilirubin (NEGATIVE) Urine Urobilinogen (0-1) mg/dL Ur Leukocyte Esterase (NEGATIVE) Urine WBC (Auto) (0-5) /HPF Urine RBC (Auto) (0-2) /HPF U Epithel Cells (Auto) (FEW) /HPF Urine Bacteria (Auto) (NEGATIVE) /HPF Urine Culture Reflexed (NO) Urine Glucose (NEGATIVE) mg/dL 03/11/20 03/11/20 03/11/20 Range/Units 13:49 13:49 13:49 WBC 6.6 (4.0-10.5) K/mm3 RBC 3.98 L (4.1-5.4) M/mm3 Hgb 11.2 L (12.0-16.0) gm/dl Hct 35.2 (35-47) % MCV 88.4 (78-100) fl MCH 28.1 (26-32) pg MCHC 31.8 L (32-36) g/dl RDW 16.2 H (11.5-14.0) % Plt Count 236 (150-450) K/mm3 MPV 11.6 H (7.5-11.0) fl Gran % 62.3 (36.0-66.0) % Eos # (Auto) 0.15 (0-0.5) Absolute Lymphs (auto) 1.95 (1.0-4.6) Absolute Monos (auto) 0.38 (0.0-1.3) Lymphocytes % 29.5 (24.0-44.0) % Monocytes % 5.7 (0.0-12.0) % Eosinophils % 2.3 (0.00-5.0) % Basophils % 0.2 (0.0-0.4) % Absolute Granulocytes 4.12 (1.4-6.9) Basophils # 0.01 (0-0.4) D-Dimer (215-500) ng/mL Sodium 140 (137-145) mmol/L Potassium 4.7 (3.5-5.1) mmol/L Chloride 105 (98-107) mmol/L Carbon Dioxide 23 (22-30) mmol/L Anion Gap 16.8 H (5-15) MEQ/L BUN 31 H (7-17) mg/dL Creatinine 0.92 (0.52-1.04) mg/dL Estimated GFR > 60.0 ML/MIN Glucose 170 H (74-106) mg/dL Calcium 9.1 (8.4-10.2) mg/dL Total Bilirubin 0.50 (0.2-1.3) mg/dL AST 150 H (14-36) U/L ALT 201 H (0-35) U/L Alkaline Phosphatase 96 (38-126) U/L Troponin I (0.000-0.034) ng/mL NT-Pro-B Natriuret Pep 84.9 (0-1800) pg/mL Serum Total Protein 7.5 (6.3-8.2) g/dL Albumin 4.2 (3.5-5.0) g/dL Lipase (23-300) U/L Urine Color YELLOW (YELLOW) Urine Appearance CLEAR (CLEAR) Urine pH 5.0 (5-6) Ur Specific [place] 1.011 (1.005-1.025) Urine Protein NEGATIVE (Negative) Urine Ketones NEGATIVE (NEGATIVE) Urine Blood NEGATIVE (0-5) Mitch/ul Urine Nitrite NEGATIVE (NEGATIVE) Urine Bilirubin NEGATIVE (NEGATIVE) Urine Urobilinogen NEGATIVE (0-1) mg/dL Ur Leukocyte Esterase NEGATIVE (NEGATIVE) Urine WBC (Auto) 3-5 (0-5) /HPF Urine RBC (Auto) NONE (0-2) /HPF U Epithel Cells (Auto) NONE (FEW) /HPF Urine Bacteria (Auto) RARE (NEGATIVE) /HPF Urine Culture Reflexed ORDERED SEPARATELY (NO) Urine Glucose NEGATIVE (NEGATIVE) mg/dL - Progress Progress: unchanged Air Movement: fair Progress Note: 03/11/20 15:26 84 years old is evaluated for chest pain. She reports having intermittent chest pain in the past as well but started almost an hour and a half prior to arrival which is improved now. She is not in any distress. She is given aspirin. She does not want anything for pain. Chest x-ray showed mild effusion and other chronic changes. She has negative initial troponin but has elevated D-dimers. I have ordered CTA chest but patient refused and will not get it done, wants to leave AGAINST MEDICAL ADVICE. Patient states she does not want to have CAT scan done at any cost. Discussed with patient about the risks of having incomplete work-up which she understand that it could be fatal as well. Later daughter called Dr. Oden, discussed with patient and she decided to stay in the hospital but would not get CTA done. I have discussed with Dr. Oden who recommended giving her 40 of subcu Lovenox and 20 mg of IV Lasix and patient would be admitted to floor for chest pain rule out. Blood Culture(s) Obtained: No Antibiotics given: No Counseled pt/family regarding: lab results, diagnosis, need for follow-up, rad results - Departure Departure Disposition: Observation Clinical Impression: Elevated d-dimer, Elevated transaminase level, Pedal edema Chest pain Qualifiers: Chest pain type: unspecified Qualified Code(s): R07.9 - Chest pain, unspecified Condition: Fair Critical Care Time: No
[2020-03-11] MEDS ORDERED: Lasix 40 MG/4 ML IV ONE (15:23)
[2020-03-11] MEDS ORDERED: ENOXAPARIN SODIUM SQ ONE ×2 (15:29→15:37)
[2020-03-11] MEDS ORDERED: Lasix 40 MG/4 ML ONE (15:29)
[2020-03-11] MEDS ORDERED: Zofran 4 MG/2 ML VIAL IV PRN (17:32)
[2020-03-11] MEDS ORDERED: DUONEB 0.5-3 MG/3 ml Neb IH PRN (17:32)
--- NOTE | 2020-03-11 19:14 | PCM.HP ---
History of Present Illness - Chief Complaint Chief Complaint: chest pain for 1 day History of Present Illness: is a 84 year old female with history of diabetes mellitus, hypertension , anxiety/depression, remote spinous process neck injury which is healed with resultant arthritic changes with c-collar on presented in the ER with sudden onset substernal chest pain sudden onset almost an hour and a half prior to arrival with radiation to the back and left arm and left flank area without any significant aggravating or relieving factor, lasted for almost an hour and started to improve and currently patient is pain-free. It was associated with mild shortness of breath and palpitations. Denies any fever chills or cough. No nausea or vomiting or abdominal pain otherwise. No diarrhea. Denies any sick contact. Does not have any cardiac work-up done in the past. Patient has bilateral feet ankle swelling off and on for quite some time. Timing/Duration: today, sudden, improved Activities at Onset: rest Quality: dullness, pressure Location: central Chest Pain Radiation: neck, arm, back, abdomen Severity of Pain-Max: moderate Severity of Pain-Current: none Modifying Factors: Improves With: nothing Associated Symptoms: shortness of breath Prior Chest Pain/Cardiac Workup: no prior cardiac workup - Review of Systems Constitutional: No Fever, No Chills Eyes: No Symptoms Ears, Nose, & Throat: No Symptoms Respiratory: Short Of Breath, No Cough Cardiac: No Chest Pain, No Edema, No Syncope Abdominal/Gastrointestinal: No Abdominal Pain, No Nausea, No Vomiting, No Diarrhea Genitourinary Symptoms: No Dysuria Musculoskeletal: No Back Pain, No Neck Pain Skin: No Rash Neurological: No Dizziness, No Focal Weakness, No Sensory Changes Psychological: No Symptoms Endocrine: No Symptoms Hematologic/Lymphatic: No Symptoms Immunological/Allergic: No Symptoms Medications & Allergies Home Medications: Home Medication List Levothyroxine Sodium 100 Mcg [Synthroid 100 Mcg] 100 mcg PO DAILY 05/24/17 [History Confirmed 03/11/20] Nifedipine [Nifedipine ER] 90 mg PO DAILY 05/24/17 [History Confirmed 03/11/20] Simvastatin 40 mg [Zocor 40 mg] 40 mg PO DAILY 05/24/17 [History Confirmed 03/11] Olanzapine 5 mg PO HS 05/30/18 [History Confirmed 03/11/20] Citalopram Hydrobromide 20 mg* [ceLEXa 20 MG] 40 mg PO DAILY 12/16/18 [ History Confirmed 03/11/20] Trazodone HCl 100 mg PO DAILY 12/16/18 [History Confirmed 03/11/20] Glimepiride 4 mg [Amaryl 4 mg] 4 mg PO DAILY 03/20/19 [History Confirmed 03/11/20] Losartan Potassium 25 mg PO DAILY 03/20/19 [History Confirmed 03/11/20] Metformin HCl 500 mg PO BID 03/20/19 [History Confirmed 03/11/20] Insulin Glargine,Hum.rec.anlog [Lantus Solostar] 20 units SQ DAILY 03/21/19 [ History Confirmed 03/11/20] Melatonin 5 mg PO HS 12/29/19 [History Confirmed 03/11/20] Alprazolam 1 mg [Xanax 1 mg] 1 mg PO BID 03/11/20 [History Confirmed 03/11] Celecoxib 100 mg [celeBREX 100 MG] 100 mg PO BID 03/11/20 [History Confirmed 03/11/20] Escitalopram Oxalate [Lexapro] 20 mg PO DAILY 03/11/20 [History Confirmed ] Gabapentin 100 mg PO BID 03/11/20 [History Confirmed 03/11/20] Allergies/Adverse Reactions: Allergies Allergy/AdvReac Type Severity Reaction Status Date / Time ceftriaxone [From Rocephin] Allergy Verified 03/11/20 13:06 - Past Medical History Past Medical History: Yes Neurological History: No Pertinent History ENT History: No Pertinent History Cardiac History: Hypertension Respiratory History: No Pertinent History Endocrine Medical History: Diabetes Type II Musculoskelatal History: Arthritis GI Medical History: No Pertinent History History: No Pertinent History Pyscho-Social History: Depression Reproductive Disorders: Breast Cancer Comment: chronic pain - Female History Are you now?: No - Past Surgical History Past Surgical History: Yes Neuro Surgical History: No Pertinent History Cardiac History: No Pertinent History Respiratory Surgery: No Pertinent History GI Surgical History: Cholecystectomy Genitourinary Surgical Hx: No Pertinent History Musculskeletal Surgical Hx: Joint Replacement Female Surgical History: Hysterectomy Other Surgical History: Left Knee Replacement - Social History Smoking Status: Never smoker Exposure to second hand smoke: No Alcohol: None Drug Use: none - Physical Exam Vital Signs: Vital Signs - 24 hr Temp Pulse Pulse Resp BP Pulse Ox 03/11/20 17:55 98.1 F 102 H 146/68 91 L 03/11/20 17:51 98.1 F 102 H 146/68 91 L 03/11/20 15:42 95 03/11/20 14:09 96 H 16 105/66 95 03/11/20 13:24 95 03/11/20 13:09 98.4 F 101 H 101 H 18 131/110 96 General Appearance: no apparent distress, alert Neurologic Exam: alert, oriented x 3, cooperative, normal mood/affect, nml cerebellar function, nml station & gait, sensation nml, No motor deficits Eye Exam: PERRL/EOMI, eyes nml inspection Ears, Nose, Throat Exam: normal ENT inspection, TMs normal, pharynx normal, moist mucous membranes Neck Exam: normal inspection, non-tender, supple, full range of motion Respiratory Exam: rhonchi, wheezing, No respiratory distress Cardiovascular Exam: regular rate/rhythm, normal heart sounds, normal peripheral pulses Gastrointestinal/Abdomen Exam: soft, normal bowel sounds, No tenderness, No mass Back Exam: normal inspection, normal range of motion, No CVA tenderness, No vertebral tenderness Extremity Exam: normal inspection, normal range of motion, pelvis stable Skin Exam: normal color, warm, dry, No rash Lymphatic Exam: No adenopathy Results - Labs Lab/Micro Results: Lab Results-Last 24 Hours 03/11/20 03/11/20 03/11/20 Range/Units 13:49 13:49 13:49 WBC 6.6 (4.0-10.5) K/mm3 RBC 3.98 L (4.1-5.4) M/mm3 Hgb 11.2 L (12.0-16.0) gm/dl Hct 35.2 (35-47) % MCV 88.4 (78-100) fl MCH 28.1 (26-32) pg MCHC 31.8 L (32-36) g/dl RDW 16.2 H (11.5-14.0) % Plt Count 236 (150-450) K/mm3 MPV 11.6 H (7.5-11.0) fl Gran % 62.3 (36.0-66.0) % Eos # (Auto) 0.15 (0-0.5) Absolute Lymphs (auto) 1.95 (1.0-4.6) Absolute Monos (auto) 0.38 (0.0-1.3) Lymphocytes % 29.5 (24.0-44.0) % Monocytes % 5.7 (0.0-12.0) % Eosinophils % 2.3 (0.00-5.0) % Basophils % 0.2 (0.0-0.4) % Absolute Granulocytes 4.12 (1.4-6.9) Basophils # 0.01 (0-0.4) D-Dimer (215-500) ng/mL Sodium 140 (137-145) mmol/L Potassium 4.7 (3.5-5.1) mmol/L Chloride 105 (98-107) mmol/L Carbon Dioxide 23 (22-30) mmol/L Anion Gap 16.8 H (5-15) MEQ/L BUN 31 H (7-17) mg/dL Creatinine 0.92 (0.52-1.04) mg/dL Estimated GFR > 60.0 ML/MIN Glucose 170 H (74-106) mg/dL Calcium 9.1 (8.4-10.2) mg/dL Total Bilirubin 0.50 (0.2-1.3) mg/dL AST 150 H (14-36) U/L ALT 201 H (0-35) U/L Alkaline Phosphatase 96 (38-126) U/L Troponin I (0.000-0.034) ng/mL NT-Pro-B Natriuret Pep 84.9 (0-1800) pg/mL Serum Total Protein 7.5 (6.3-8.2) g/dL Albumin 4.2 (3.5-5.0) g/dL Lipase (23-300) U/L Urine Color YELLOW (YELLOW) Urine Appearance CLEAR (CLEAR) Urine pH 5.0 (5-6) Ur Specific [place] 1.011 (1.005-1.025) Urine Protein NEGATIVE (Negative) Urine Ketones NEGATIVE (NEGATIVE) Urine Blood NEGATIVE (0-5) Mitch/ul Urine Nitrite NEGATIVE (NEGATIVE) Urine Bilirubin NEGATIVE (NEGATIVE) Urine Urobilinogen NEGATIVE (0-1) mg/dL Ur Leukocyte Esterase NEGATIVE (NEGATIVE) Urine WBC (Auto) 3-5 (0-5) /HPF Urine RBC (Auto) NONE (0-2) /HPF U Epithel Cells (Auto) NONE (FEW) /HPF Urine Bacteria (Auto) RARE (NEGATIVE) /HPF Urine Culture Reflexed ORDERED SEPARATELY (NO) Urine Glucose NEGATIVE (NEGATIVE) mg/dL 03/11/20 03/11/20 03/11/20 Range/Units 13:49 13:49 14:11 WBC (4.0-10.5) K/mm3 RBC (4.1-5.4) M/mm3 Hgb (12.0-16.0) gm/dl Hct (35-47) % MCV (78-100) fl MCH (26-32) pg MCHC (32-36) g/dl RDW (11.5-14.0) % Plt Count (150-450) K/mm3 MPV (7.5-11.0) fl Gran % (36.0-66.0) % Eos # (Auto) (0-0.5) Absolute Lymphs (auto) (1.0-4.6) Absolute Monos (auto) (0.0-1.3) Lymphocytes % (24.0-44.0) % Monocytes % (0.0-12.0) % Eosinophils % (0.00-5.0) % Basophils % (0.0-0.4) % Absolute Granulocytes (1.4-6.9) Basophils # (0-0.4) D-Dimer 1132 H* (215-500) ng/mL Sodium (137-145) mmol/L Potassium (3.5-5.1) mmol/L Chloride (98-107) mmol/L Carbon Dioxide (22-30) mmol/L Anion Gap (5-15) MEQ/L BUN (7-17) mg/dL Creatinine (0.52-1.04) mg/dL Estimated GFR ML/MIN Glucose (74-106) mg/dL Calcium (8.4-10.2) mg/dL Total Bilirubin (0.2-1.3) mg/dL AST (14-36) U/L ALT (0-35) U/L Alkaline Phosphatase (38-126) U/L Troponin I < 0.012 (0.000-0.034) ng/mL NT-Pro-B Natriuret Pep (0-1800) pg/mL Serum Total Protein (6.3-8.2) g/dL Albumin (3.5-5.0) g/dL Lipase 286 (23-300) U/L Urine Color (YELLOW) Urine Appearance (CLEAR) Urine pH (5-6) Ur Specific [place] (1.005-1.025) Urine Protein (Negative) Urine Ketones (NEGATIVE) Urine Blood (0-5) Mitch/ul Urine Nitrite (NEGATIVE) Urine Bilirubin (NEGATIVE) Urine Urobilinogen (0-1) mg/dL Ur Leukocyte Esterase (NEGATIVE) Urine WBC (Auto) (0-5) /HPF Urine RBC (Auto) (0-2) /HPF U Epithel Cells (Auto) (FEW) /HPF Urine Bacteria (Auto) (NEGATIVE) /HPF Urine Culture Reflexed (NO) Urine Glucose (NEGATIVE) mg/dL 03/11/20 Range/Units 16:50 WBC (4.0-10.5) K/mm3 RBC (4.1-5.4) M/mm3 Hgb (12.0-16.0) gm/dl Hct (35-47) % MCV (78-100) fl MCH (26-32) pg MCHC (32-36) g/dl RDW (11.5-14.0) % Plt Count (150-450) K/mm3 MPV (7.5-11.0) fl Gran % (36.0-66.0) % Eos # (Auto) (0-0.5) Absolute Lymphs (auto) (1.0-4.6) Absolute Monos (auto) (0.0-1.3) Lymphocytes % (24.0-44.0) % Monocytes % (0.0-12.0) % Eosinophils % (0.00-5.0) % Basophils % (0.0-0.4) % Absolute Granulocytes (1.4-6.9) Basophils # (0-0.4) D-Dimer (215-500) ng/mL Sodium (137-145) mmol/L Potassium (3.5-5.1) mmol/L Chloride (98-107) mmol/L Carbon Dioxide (22-30) mmol/L Anion Gap (5-15) MEQ/L BUN (7-17) mg/dL Creatinine (0.52-1.04) mg/dL Estimated GFR ML/MIN Glucose (74-106) mg/dL Calcium (8.4-10.2) mg/dL Total Bilirubin (0.2-1.3) mg/dL AST (14-36) U/L ALT (0-35) U/L Alkaline Phosphatase (38-126) U/L Troponin I < 0.012 (0.000-0.034) ng/mL NT-Pro-B Natriuret Pep (0-1800) pg/mL Serum Total Protein (6.3-8.2) g/dL Albumin (3.5-5.0) g/dL Lipase (23-300) U/L Urine Color (YELLOW) Urine Appearance (CLEAR) Urine pH (5-6) Ur Specific [place] (1.005-1.025) Urine Protein (Negative) Urine Ketones (NEGATIVE) Urine Blood (0-5) Mitch/ul Urine Nitrite (NEGATIVE) Urine Bilirubin (NEGATIVE) Urine Urobilinogen (0-1) mg/dL Ur Leukocyte Esterase (NEGATIVE) Urine WBC (Auto) (0-5) /HPF Urine RBC (Auto) (0-2) /HPF U Epithel Cells (Auto) (FEW) /HPF Urine Bacteria (Auto) (NEGATIVE) /HPF Urine Culture Reflexed (NO) Urine Glucose (NEGATIVE) mg/dL - Radiology Impressions Radiology Exams & Impressions: Radiology Procedures Category Date Time Status CHEST 1 VIEW (PORTABLE) Stat Exams 03/11/20 13:52 Completed Assessment/Plan (1) Chest pain Current Visit: Yes Status: Acute Qualifiers: Chest pain type: unspecified Qualified Code(s): R07.9 - Chest pain, unspecified Assessment & Plan: Chief Complaint Diagnosis chest pain Allergies Allergy/AdvReac Type Severity Reaction Status Date / Time ceftriaxone [From Rocephin] Allergy Verified 03/11/20 13:06 Vital Signs (Last 24 hours) Temp Pulse Pulse Resp BP Pulse Ox 03/11/20 17:55 98.1 F 102 H 146/68 91 L 03/11/20 17:51 98.1 F 102 H 146/68 91 L 03/11/20 15:42 95 03/11/20 14:09 96 H 16 105/66 95 03/11/20 13:24 95 03/11/20 13:09 98.4 F 101 H 101 H 18 131/110 96 Home Medications Medication Instructions Recorded Confirmed Last Taken Type Alprazolam 1 mg [Xanax 1 mg] 1 mg PO BID 03/11/20 03/11/20 03/11/20 History Celecoxib 100 mg [celeBREX 100 100 mg PO BID 03/11/20 03/11/20 03/11/20 History MG] Escitalopram Oxalate [Lexapro] 20 mg PO DAILY 03/11/20 03/11/20 03/11/20 History Gabapentin 100 mg PO BID 03/11/20 03/11/20 03/11/20 History Current Medications Generic Name Dose Route Start Last Admin Trade Name Freq PRN Reason Stop Dose Admin Albuterol/Ipratropium 3 ml 03/11/20 17:32 Duoneb 0.5-3 Mg/3 Ml Neb IH 04/10/20 17:31 Q4HPRN PRN SHORTNESS OF BREATH/WHEEZING Insulin Human Lispro 0 unit 03/11/20 17:32 Humalog SQ 04/10/20 17:31 UD PRN HYPERGLYCEMIA Ondansetron HCl 4 mg 03/11/20 17:32 Zofran 4 Mg/2 Ml Vial IV 04/10/20 17:31 Q6H PRN PRN NAUSEA/VOMITING Pantoprazole Sodium 40 mg 03/12/20 10:00 Protonix 40 Mg Iv IV 04/11/20 09:59 Q24H10 JEIMY Discontinued Medications Generic Name Dose Route Start Last Admin Trade Name Freq PRN Reason Stop Dose Admin Aspirin 324 mg 03/11/20 13:37 03/11/20 13:47 Baby Aspirin 81 Mg Chew PO 03/11/20 13:38 324 mg STAT ONE Administration Aspirin Confirm 03/11/20 13:44 Baby Aspirin 81 Mg Chew Administered 03/11/20 13:45 Dose 324 mg .ROUTE .STK-MED ONE Enoxaparin Sodium 40 mg 03/11/20 15:29 03/11/20 15:39 Enoxaparin Sodium SQ 03/11/20 15:30 40 mg 1XONLY ONE Administration Enoxaparin Sodium Confirm 03/11/20 15:37 Enoxaparin Sodium Administered 03/11/20 15:38 Dose 80 mg SQ .STK-MED ONE Furosemide 20 mg 03/11/20 15:23 03/11/20 15:32 Lasix 40 Mg/4 Ml IV 03/11/20 15:24 20 mg STAT ONE Administration Furosemide Confirm 03/11/20 15:29 Lasix 40 Mg/4 Ml Administered 03/11/20 15:30 Dose 40 mg .ROUTE .STK-MED ONE Intake & Output (Last 24 hours) 03/09/20 03/10/20 03/11/20 03/12/20 11:59 11:59 11:59 11:59 Intake Total 240 Balance 240 Weight 86.5 kg Microbiology Results (Last 24 hours) 03/11/20 13:49 Urine, Catheterized Urine Culture - Pending Laboratory Results (Last 24 hours) 03/11/20 03/11/20 03/11/20 16:50 14:11 13:49 WBC RBC Hgb Hct MCV MCH MCHC RDW Plt Count MPV Gran % Eos # (Auto) Absolute Lymphs (auto) Absolute Monos (auto) Lymphocytes % Monocytes % Eosinophils % Basophils % Absolute Granulocytes Basophils # D-Dimer 1132 H* Sodium Potassium Chloride Carbon Dioxide Anion Gap BUN Creatinine Estimated GFR Glucose Calcium Total Bilirubin AST ALT Alkaline Phosphatase Troponin I < 0.012 < 0.012 NT-Pro-B Natriuret Pep Serum Total Protein Albumin Lipase Urine Color Urine Appearance Urine pH Ur Specific [place] Urine Protein Urine Ketones Urine Blood Urine Nitrite Urine Bilirubin Urine Urobilinogen Ur Leukocyte Esterase Urine WBC (Auto) Urine RBC (Auto) U Epithel Cells (Auto) Urine Bacteria (Auto) Urine Culture Reflexed Urine Glucose 03/11/20 03/11/20 03/11/20 13:49 13:49 13:49 WBC 6.6 RBC 3.98 L Hgb 11.2 L Hct 35.2 MCV 88.4 MCH 28.1 MCHC 31.8 L RDW 16.2 H Plt Count 236 MPV 11.6 H Gran % 62.3 Eos # (Auto) 0.15 Absolute Lymphs (auto) 1.95 Absolute Monos (auto) 0.38 Lymphocytes % 29.5 Monocytes % 5.7 Eosinophils % 2.3 Basophils % 0.2 Absolute Granulocytes 4.12 Basophils # 0.01 D-Dimer Sodium 140 Potassium 4.7 Chloride 105 Carbon Dioxide 23 Anion Gap 16.8 H BUN 31 H Creatinine 0.92 Estimated GFR > 60.0 Glucose 170 H Calcium 9.1 Total Bilirubin 0.50 AST 150 H ALT 201 H Alkaline Phosphatase 96 Troponin I NT-Pro-B Natriuret Pep 84.9 Serum Total Protein 7.5 Albumin 4.2 Lipase 286 Urine Color Urine Appearance Urine pH Ur Specific [place] Urine Protein Urine Ketones Urine Blood Urine Nitrite Urine Bilirubin Urine Urobilinogen Ur Leukocyte Esterase Urine WBC (Auto) Urine RBC (Auto) U Epithel Cells (Auto) Urine Bacteria (Auto) Urine Culture Reflexed Urine Glucose 03/11/20 13:49 WBC RBC Hgb Hct MCV MCH MCHC RDW Plt Count MPV Gran % Eos # (Auto) Absolute Lymphs (auto) Absolute Monos (auto) Lymphocytes % Monocytes % Eosinophils % Basophils % Absolute Granulocytes Basophils # D-Dimer Sodium Potassium Chloride Carbon Dioxide Anion Gap BUN Creatinine Estimated GFR Glucose Calcium Total Bilirubin AST ALT Alkaline Phosphatase Troponin I NT-Pro-B Natriuret Pep Serum Total Protein Albumin Lipase Urine Color YELLOW Urine Appearance CLEAR Urine pH 5.0 Ur Specific [place] 1.011 Urine Protein NEGATIVE Urine Ketones NEGATIVE Urine Blood NEGATIVE Urine Nitrite NEGATIVE Urine Bilirubin NEGATIVE Urine Urobilinogen NEGATIVE Ur Leukocyte Esterase NEGATIVE Urine WBC (Auto) 3-5 Urine RBC (Auto) NONE U Epithel Cells (Auto) NONE Urine Bacteria (Auto) RARE Urine Culture Reflexed ORDERED SEPARATELY Urine Glucose NEGATIVE Orders (Last 24 hours) Category Date Time Status Up With Assistance ROUTINE Activity 03/11/20 17:32 Active Accucheck Q4H Care 03/11/20 17:32 Active Horizontal Boring Mill Operator STAT Care 03/11/20 13:24 Completed Code Status Order ROUTINE Care 03/11/20 17:32 Active EKG-ER Only STAT Care 03/11/20 13:24 Completed Fall Protocol ROUTINE Care 03/11/20 17:32 Active IV Care Q6H Care 03/11/20 17:32 Active IV Insertion STAT Care 03/11/20 13:[address] in Observation ROUTINE Care 03/11/20 17:32 Active Pulse Oximetry (ED) STAT Care 03/11/20 13:24 Completed Pola Hose, Apply ROUTINE Care 03/11/20 17:32 Active Weight,Daily 0600 Care 03/11/20 17:32 Active cath [Cath for Specimen-Straight] STAT Care 03/11/20 13:25 Completed 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 Assembler [employer]/Discharge Plan ROUTINE Cons 03/11/20 17:44 Active Consistent Carbohydrate Diet 1800 Calorie Diet 03/11/20 Dinner Active CHEST 1 VIEW (PORTABLE) Stat Exams 03/11/20 13:52 Completed CBC W DIFF AM.LAB Lab 03/12/20 04:00 Ordered CBC W DIFF Stat Lab 03/11/20 13:49 Completed CMP AM.LAB Lab 03/12/20 04:00 Ordered CMP Stat Lab 03/11/20 13:49 Completed CULTURE,URINE Stat Lab 03/11/20 13:49 Received D-DIMER QUANTITATIVE Stat Lab 03/11/20 14:11 Completed LIPASE Stat Lab 03/11/20 13:49 Completed NT PRO BNP Stat Lab 03/11/20 13:49 Completed TROPONIN Q3H Lab 03/11/20 13:49 Completed TROPONIN Q3H Lab 03/11/20 16:50 Completed TROPONIN Q3H Lab 03/11/20 19:45 Ordered TROPONIN Q3H Lab 03/11/20 22:45 Ordered TROPONIN Q3H Lab 03/12/20 01:45 Ordered UA W/RFX UR CULTURE Stat Lab 03/11/20 13:49 Completed Albuterol/Ipratropium 3ml Neb* [DUONEB 0.5-3 MG/3 ml Med 03/11/20 17:32 Ordered Neb] 3 ml IH Q4HPRN PRN Aspirin 81 gm Chew [Baby Aspirin 81 mg Chew] Med 03/11/20 13:44 Discontinued 324 mg .ROUTE .STK-MED ONE Aspirin 81 gm Chew [Baby Aspirin 81 mg Chew] Med 03/11/20 13:37 Discontinued 324 mg PO STAT ONE Enoxaparin Sodium [Enoxaparin Sodium] Med 03/11/20 15:29 Discontinued 40 mg SQ 1XONLY ONE Enoxaparin Sodium [Enoxaparin Sodium] Med 03/11/20 15:37 Discontinued 80 mg SQ .STK-MED ONE Furosemide 40 mg/4 ml [Lasix 40 MG/4 ML] Med 03/11/20 15:23 Discontinued 20 mg IV STAT ONE Furosemide 40 mg/4 ml [Lasix 40 MG/4 ML] Med 03/11/20 15:29 Discontinued 40 mg .ROUTE .STK-MED ONE Insulin Lispro [Humalog] Med 03/11/20 17:32 Ordered See Dose Instructions SQ UD PRN Ondansetron HCl 4 mg/2 ml [Zofran 4 MG/2 ML VIAL] Med 03/11/20 17:32 Ordered 4 mg IV Q6H PRN PRN Pantoprazole 40 mg [Protonix 40 mg IV] Med 03/12/20 10:00 Ordered 40 mg IV Q24H10 OT Screen per Nursing Assess ONCE OT 03/11/20 17:44 Active PT Screen per Nursing Assess ONCE PT 03/11/20 17:44 Active Transfer Order Routine Transfer 03/11/20 Completed Patient Care Notes (Last 24 hours) 03/11/20 18:10 Nursing Note by Tanesha Theodore Dr asking for pt to have CTA done and was going to give pt Valuim 5mg IV prior to exam though pt is refusing dt pain in back and neck when lying down states she "it is a closed subject" Initialized on 03/11/20 18:10 - END OF NOTE Code(s): R07.9 - CHEST PAIN, UNSPECIFIED (2) Elevated d-dimer Current Visit: Yes Status: Acute Code(s): R79.89 - OTHER SPECIFIED ABNORMAL FINDINGS OF BLOOD CHEMISTRY (3) Hypertension Current Visit: No Status: Chronic Qualifiers: Code(s): I10 - ESSENTIAL (PRIMARY) HYPERTENSION (4) Hypothyroid Current Visit: No Status: Chronic Qualifiers: Code(s): E03.9 - HYPOTHYROIDISM, UNSPECIFIED (5) Type 2 diabetes mellitus Current Visit: No Status: Chronic Qualifiers:
[2020-03-11] MEDS ORDERED: Glucophage 500 MG PO SCH (22:00)
[2020-03-11] MEDS: celeBREX 100 MG PO SCH (22:26)
[2020-03-11] MEDS: Neurontin 100 MG PO SCH (22:27)
[2020-03-11] MEDS: XANAX 1 MG PO SCH (22:27)
[2020-03-11] MEDS: zyPREXA 5MG TABLET PO SCH (22:28)
[2020-03-12 06:52] LABS: ALKALINE PHOSPHATASE 104 U/L (38-126); ANION GAP 14.4 MEQ/L (5-15); BLOOD UREA NITROGEN 23 mg/dL (7-17); CHLORIDE 105 mmol/L (98-107); Calcium 9.3 mg/dL (8.4-10.2); Carbon Dioxide 25 mmol/L (22-30); Creatinine 1 0.85 mg/dL (0.52-1.04); Glucose 81 mg/dL (74-106); Potassium 3.9 mmol/L (3.5-5.1); SGOT/AST 65 U/L (14-36); SGPT/ALT 160 U/L (0-35); SODIUM 141 mmol/L (137-145); Total Protein 7.4 g/dL (6.3-8.2)
[2020-03-12 06:54] LABS: BASOPHIL % 0.3 % (0.0-0.4); Basophil (Absolute #) 0.02 (0-0.4); Eosinophil % 3.2 % (0.00-5.0); Hematocrit 38.6 % (35-47); Hemoglobin 12.1 gm/dl (12.0-16.0); Lymphocyte (Absolute #) 2.05 (1.0-4.6); Lymphocytes % 32.7 % (24.0-44.0); Mean Cell Volume 88.3 fl (78-100); Mean Corpuscular Hemoglobin 27.7 pg (26-32); Mean Corpuscular Hgb Concent. 31.3 g/dl (32-36); Mean Platelet Volume 11.4 fl (7.5-11.0); Monocyte (Absolute #) 0.39 (0.0-1.3); Monocytes % 6.2 % (0.0-12.0); Neutrophil % 57.6 % (36.0-66.0); Platelet Count 260 K/mm3 (150-450); Red Blood Count 4.37 M/mm3 (4.1-5.4); Red Cell Distribution Width 16.2 % (11.5-14.0); White Blood Count 6.3 K/mm3 (4.0-10.5)
[2020-03-12] MEDS ORDERED: MEDICATION INTERVENTION MC SCH (08:00)
[2020-03-12] MEDS: AMARYL 4 MG PO SCH (08:18)
[2020-03-12] MEDS: Glucophage 500 MG PO SCH ×2 (08:18→17:09)
[2020-03-12] MEDS ORDERED: NON-FORMULARY ITEM (Escitalopram Oxalate [Lexapro] 20 MG) PO SCH (10:00)
[2020-03-12] MEDS ORDERED: INSULIN GLARGINE HUM REC ANLOG 20 UNIT SQ SCH (10:00)
[2020-03-12] MEDS ORDERED: NIFEDIPINE 90 MG PO SCH (10:00)
[2020-03-12] MEDS ORDERED: ceLEXa 20 MG PO SCH (10:00)
[2020-03-12] MEDS ORDERED: NON-FORMULARY ITEM (Simvastatin 40 Mg [Zocor 40 Mg] 40 MG) PO SCH (10:00)
[2020-03-12] MEDS ORDERED: DESYREL 50 MG PO SCH (10:00)
[2020-03-12] MEDS ORDERED: Lexapro 10 MG PO SCH (10:00)
[2020-03-12] MEDS: PROTONIX 40 MG IV IV SCH (10:36)
[2020-03-12] MEDS: ZOCOR 20MG PO SCH (10:37)
[2020-03-12] MEDS: Adalat CC 30 MG TABLET PO SCH (10:37)
[2020-03-12] MEDS: XANAX 1 MG PO SCH ×2 (10:37→21:53)
[2020-03-12] MEDS: Neurontin 100 MG PO SCH ×2 (10:38→21:53)
[2020-03-12] MEDS: celeBREX 100 MG PO SCH ×2 (10:38→21:53)
[2020-03-12] MEDS: Lantus Insulin SQ SCH (10:38)
[2020-03-12] MEDS: Cozaar 50 MG PO SCH (10:38)
[2020-03-12] MEDS: SYNTHROID 100 MCG PO SCH (11:09)
[2020-03-12] MEDS: HUMALOG SQ PRN ×2 (12:48→17:10)
[2020-03-12] MEDS: NYSTOP 30 GM CREAM TOP SCH ×2 (18:48→21:54)
[2020-03-12] MEDS: zyPREXA 5MG TABLET PO SCH (21:53)
--- NOTE | 2020-03-12 22:21 | PCM.NOTE ---
Date and Time: 03/12/202219 Subjective Assessment: doing better - Review of Systems Constitutional: No Fever, No Chills Eyes: No Symptoms Ears, Nose, & Throat: No Symptoms Respiratory: No Cough, No Short Of Breath Cardiac: No Chest Pain, No Edema, No Syncope Abdominal/Gastrointestinal: No Abdominal Pain, No Nausea, No Vomiting, No Diarrhea Genitourinary Symptoms: No Dysuria Musculoskeletal: No Back Pain, No Neck Pain Skin: No Rash Neurological: No Dizziness, No Focal Weakness, No Sensory Changes Psychological: No Symptoms Endocrine: No Symptoms Hematologic/Lymphatic: No Symptoms Immunological/Allergic: No Symptoms Objective Exam General Appearance: no apparent distress, alert Neurologic Exam: alert, oriented x 3, cooperative, normal mood/affect, nml cerebellar function, sensation nml, No motor deficits Skin Exam: normal color, warm, dry Eye Exam: PERRL, EOMI, eyes nml inspection Ears, Nose, Throat Exam: normal ENT inspection, pharynx normal, moist mucous membranes Neck Exam: normal inspection, non-tender, supple, full range of motion Respiratory Exam: normal breath sounds, lungs clear, No respiratory distress Cardiovascular Exam: regular rate/rhythm, normal heart sounds Gastrointestinal/Abdomen Exam: soft, No tenderness, No mass Extremity Exam: normal inspection, normal range of motion Back Exam: normal inspection, normal range of motion, No CVA tenderness, No vertebral tenderness Pelvic Exam: deferred Rectal Exam: deferred OBJECTIVE DATA Vital Signs: Vital Signs - 24 hr Temp Pulse Resp BP Pulse Ox 03/12/20 19:13 97.9 F 105 H 18 167/71 96 03/12/20 16:00 98.0 F 116 H 18 145/76 97 03/12/20 06:54 98.4 F 93 H 18 157/72 96 03/12/20 04:15 98.0 F 88 18 130/60 91 L 03/11/20 23:51 97.9 F 93 H 18 140/70 93 L Pain Assessment - Last Documented Pain Intensity 0 Pain Scale Used 0-10 Pain Scale Intake and Output: Intake & Output 03/10/20 03/11/20 03/12/20 03/13/20 11:59 11:59 11:59 11:59 Intake Total 660 560 Output Total 1350 600 Balance -690 -40 Weight 86 kg Lab Results: Accuchecks Date 03/12/20 Date 03/12/20 Date 03/12/20 Time 17:03 Time 12:47 Time 07:30 Accucheck Value: 201 Accucheck Value: 182 Accucheck Value: 81 Lab Results-Last 24 Hours 03/11/20 03/12/20 03/12/20 Range/Units 22:40 01:40 05:20 WBC 6.3 (4.0-10.5) K/mm3 RBC 4.37 (4.1-5.4) M/mm3 Hgb 12.1 (12.0-16.0) gm/dl Hct 38.6 (35-47) % MCV 88.3 (78-100) fl MCH 27.7 (26-32) pg MCHC 31.3 L (32-36) g/dl RDW 16.2 H (11.5-14.0) % Plt Count 260 (150-450) K/mm3 MPV 11.4 H (7.5-11.0) fl Gran % 57.6 (36.0-66.0) % Eos # (Auto) 0.20 (0-0.5) Absolute Lymphs (auto) 2.05 (1.0-4.6) Absolute Monos (auto) 0.39 (0.0-1.3) Lymphocytes % 32.7 (24.0-44.0) % Monocytes % 6.2 (0.0-12.0) % Eosinophils % 3.2 (0.00-5.0) % Basophils % 0.3 (0.0-0.4) % Absolute Granulocytes 3.60 (1.4-6.9) Basophils # 0.02 (0-0.4) Sodium (137-145) mmol/L Potassium (3.5-5.1) mmol/L Chloride (98-107) mmol/L Carbon Dioxide (22-30) mmol/L Anion Gap (5-15) MEQ/L BUN (7-17) mg/dL Creatinine (0.52-1.04) mg/dL Estimated GFR ML/MIN Glucose (74-106) mg/dL Calcium (8.4-10.2) mg/dL Total Bilirubin (0.2-1.3) mg/dL AST (14-36) U/L ALT (0-35) U/L Alkaline Phosphatase (38-126) U/L Troponin I < 0.012 < 0.012 (0.000-0.034) ng/mL Serum Total Protein (6.3-8.2) g/dL Albumin (3.5-5.0) g/dL 03/12/20 Range/Units 05:20 WBC (4.0-10.5) K/mm3 RBC (4.1-5.4) M/mm3 Hgb (12.0-16.0) gm/dl Hct (35-47) % MCV (78-100) fl MCH (26-32) pg MCHC (32-36) g/dl RDW (11.5-14.0) % Plt Count (150-450) K/mm3 MPV (7.5-11.0) fl Gran % (36.0-66.0) % Eos # (Auto) (0-0.5) Absolute Lymphs (auto) (1.0-4.6) Absolute Monos (auto) (0.0-1.3) Lymphocytes % (24.0-44.0) % Monocytes % (0.0-12.0) % Eosinophils % (0.00-5.0) % Basophils % (0.0-0.4) % Absolute Granulocytes (1.4-6.9) Basophils # (0-0.4) Sodium 141 (137-145) mmol/L Potassium 3.9 (3.5-5.1) mmol/L Chloride 105 (98-107) mmol/L Carbon Dioxide 25 (22-30) mmol/L Anion Gap 14.4 (5-15) MEQ/L BUN 23 H (7-17) mg/dL Creatinine 0.85 (0.52-1.04) mg/dL Estimated GFR > 60.0 ML/MIN Glucose 81 (74-106) mg/dL Calcium 9.3 (8.4-10.2) mg/dL Total Bilirubin 0.40 (0.2-1.3) mg/dL AST 65 H (14-36) U/L ALT 160 H (0-35) U/L Alkaline Phosphatase 104 (38-126) U/L Troponin I (0.000-0.034) ng/mL Serum Total Protein 7.4 (6.3-8.2) g/dL Albumin 4.0 (3.5-5.0) g/dL Radiology Exams: Radiology Procedures Category Date Time Status CHEST 1 VIEW (PORTABLE) Stat Exams 03/11/20 13:52 Completed Multi-Disciplinary Progress Notes: Multi-Disciplinary Progress Notes 03/12/20 09:01 Case Management Note by Alisia Vasquez DISCHARGE PLAN REVIEWED IN CHART. PT LIVES HOME ALONE AND DOES HAVE A WALKER. PT HAS A DAUGHTER THAT CHECKS ON PATIENT. PT DECLINES LAY CAREGIVER. PRIMARY NURSE TO NOTIFY SALVAGE WINDER OR THIS NURSE AT HOME OF ANY DISCHARGE NEEDS. WILL CONTINUE TO MONITOR FOR ALL D/C NEEDS. Initialized on 03/12/20 09:01 - END OF NOTE Assessment/Plan (1) Chest pain Current Visit: Yes Status: Resolved Qualifiers: Chest pain type: unspecified Qualified Code(s): R07.9 - Chest pain, unspecified Code(s): R07.9 - CHEST PAIN, UNSPECIFIED (2) Elevated d-dimer Current Visit: Yes Status: Resolved Code(s): R79.89 - OTHER SPECIFIED ABNORMAL FINDINGS OF BLOOD CHEMISTRY (3) Hypertension Current Visit: No Status: Chronic Qualifiers: Hypertension type: essential hypertension Code(s): I10 - ESSENTIAL (PRIMARY) HYPERTENSION (4) Hypothyroid Current Visit: No Status: Chronic Qualifiers: Hypothyroidism type: acquired Qualified Code(s): E03.9 - Hypothyroidism, unspecified Code(s): E03.9 - HYPOTHYROIDISM, UNSPECIFIED (5) Type 2 diabetes mellitus Current Visit: No Status: Chronic Qualifiers: Diabetes mellitus intermediate manager insulin use: without intermediate manager use Diabetes mellitus complication status: without complication Qualified Code(s): E11.9 - Type 2 diabetes mellitus without complications
[2020-03-13] MEDS: SYNTHROID 100 MCG PO SCH (06:18)
[2020-03-13] MEDS: AMARYL 4 MG PO SCH (07:31)
[2020-03-13] MEDS: Glucophage 500 MG PO SCH (07:31)
[2020-03-13] MEDS: ZOCOR 20MG PO SCH (10:13)
[2020-03-13] MEDS: Neurontin 100 MG PO SCH (10:13)
[2020-03-13] MEDS: PROTONIX 40 MG IV IV SCH (10:13)
[2020-03-13] MEDS: Lantus Insulin SQ SCH (10:14)
[2020-03-13] MEDS: XANAX 1 MG PO SCH (10:14)
[2020-03-13] MEDS: celeBREX 100 MG PO SCH (10:14)
[2020-03-13] MEDS: Adalat CC 30 MG TABLET PO SCH (10:15)
[2020-03-13] MEDS: Cozaar 50 MG PO SCH (10:15)
[2020-03-13] MEDS: NYSTOP 30 GM CREAM TOP SCH (10:16)
[2020-03-13] MEDS: HUMALOG SQ PRN (11:42)
[2020-03-13] MEDS ORDERED: xanAX 0.25 MG PO ONE (12:50)
[2020-03-13 15:16] VITALS: BP 147/65; PULSE 97; O2SAT 95
[2020-03-13] MEDS ORDERED: DESYREL 50 MG PO SCH (22:00)
== END 2020-03-13 16:15 | disposition home or self-care (01) ==
LOC: ED 13:05 → MED SURG 17:25
PROVIDERS: ADMIT General Practice; ATTEND General Practice
DX: R07.9 Chest pain, unspecified (principal); I10 Essential (primary) hypertension; E11.9 Type 2 diabetes mellitus without complications; R06.02 Shortness of breath; R00.2 Palpitations; Z79.899 Other long term (current) drug therapy; R79.89 Other specified abnormal findings of blood chemistry; E03.9 Hypothyroidism, unspecified
CPT/HCPCS: 36000; 36415; 71045; 80053; 81001; 82962; 83690; 83880; 84484; 85025; 85379; 87086; 93005; 93041; 93268; 94760; 96372; 96374; 99285; G0378; P9612; J1650; J1817; J1940; A9270-GY

== ENCOUNTER 2020-04-19 13:15 | Inpatient (IN) | payer MEDICARE ==
[2020-04-19] MEDS ORDERED: Sodium Chloride 0.9% 1000 ML 1,000 ML IV SCH ×2 (13:30→18:59)
[2020-04-19] MEDS ORDERED: Sodium Chloride 0.9% 500 ML 500 ML IV ONE ×2 (13:34→13:43)
--- NOTE | 2020-04-19 13:41 | ERPHSYRPT ---
- History of Present Illness Time Seen by Provider: 04/19/20 13:25 Source: patient, EMS Exam Limitations: no limitations Physician History: This is an insulin-dependent diabetic with hypertension 85-year-old white female who has a known chronic cervical spine fracture that is stable and not amenable to surgical intervention at this time. Patient lives alone and last night, at approximately 11:30 PM, fell for unknown reason. Patient states that she thinks she stumbled when she missed the bed. She states that she did not hit her head. However after lying on the floor for several hours (approximately 5 hours) the patient states that she "went out". Her daughter, who does frequent home visits daily, found her on the floor. Initially, the patient was lying on her right side but she said she was able to lay flat on her back after several hours. Patient complains of low back pain. She denies chest pain, she denies shortness of breath, she denies abdominal pain, she denies nausea vomiting diarrhea. Patient does state that she has some mild cramping in her feet bilaterally. Patient states that she has not been eating or drinking well in the last several days Occurred: yesterday Reason for Fall: unknown Injuries/Pain Location: back Loss of Consciousness: no loss of consciousness Quality: aching Severity of Pain-Max: moderate Severity of Pain-Current: moderate Modifying Factors: Improves With: movement Associated Symptoms (Fall): back pain, No confusion, No chest pain, No extremity injury, No shortness of breath, No slurred speech Allergies/Adverse Reactions: ceftriaxone [From Rocephin] Allergy (Verified 04/19/20 15:18) lip swelling Home Medications: Levothyroxine Sodium 100 Mcg [Synthroid 100 Mcg] 100 mcg PO DAILY 05/24/17 [History] Nifedipine [Nifedipine ER] 90 mg PO DAILY 05/24/17 [History] Simvastatin 40 mg [Zocor 40 mg] 40 mg PO DAILY 05/24/17 [History] Olanzapine 5 mg PO HS 05/30/18 [History] Trazodone HCl 100 mg PO DAILY 12/16/18 [History] Glimepiride 4 mg [Amaryl 4 mg] 4 mg PO DAILY 03/20/19 [History] Losartan Potassium 25 mg PO DAILY 03/20/19 [History] Metformin HCl 500 mg PO BID 03/20/19 [History] Insulin Glargine,Hum.rec.anlog [Lantus Solostar] 20 units SQ DAILY 03/21/19 [History] Melatonin 5 mg PO HS 12/29/19 [History] Alprazolam 1 mg [Xanax 1 mg] 1 mg PO BID 03/11/20 [History] Escitalopram Oxalate [Lexapro] 20 mg PO DAILY 03/11/20 [History] Gabapentin 100 mg PO BID 03/11/20 [History] Celecoxib 100 mg PO DAILY 04/19/20 [History] Furosemide [Lasix] 25 mg PO DAILY 04/19/20 [History] Hx Tetanus, Diphtheria Vaccination/Date Given: Yes Hx Influenza Vaccination/Date Given: Yes Hx Pneumococcal Vaccination/Date Given: Yes Travel Risk - International Travel Have you traveled outside of the country in past 3 weeks: No - Coronavirus Screening Are you exhibiting any of the following symptoms?: No Close contact with a COVID-19 positive Pt in past 14-21 Days: No - Review of Systems Constitutional: No Symptoms Eyes: No Symptoms Ears, Nose, & Throat: No Symptoms Respiratory: No Symptoms Cardiac: No Symptoms Abdominal/Gastrointestinal: No Symptoms Genitourinary Symptoms: No Symptoms Musculoskeletal: Back Pain, Other (Mild cramping in bilateral feet) Skin: No Symptoms Neurological: No Symptoms Psychological: No Symptoms Endocrine: No Symptoms - Past Medical History Pertinent Past Medical History: Yes Neurological History: No Pertinent History ENT History: No Pertinent History Cardiac History: Hypertension Respiratory History: No Pertinent History Endocrine Medical History: Diabetes Type II Musculoskeletal History: Arthritis GI Medical History: No Pertinent History History: No Pertinent History Psycho-Social History: Depression Female Reproductive Disorders: Breast Cancer Other Medical History: chronic pain - Past Surgical History Past Surgical History: Yes Neuro Surgical History: No Pertinent History Cardiac: No Pertinent History Respiratory: No Pertinent History Gastrointestinal: Cholecystectomy Genitourinary: No Pertinent History Musculoskeletal: Joint Replacement Female Surgical History: Hysterectomy Other Surgical History: Left Knee Replacement - Social History Smoking Status: Never smoker Exposure to second hand smoke: No Drug Use: none Patient Lives Alone: Yes - Nursing Vital Signs Nursing Vital Signs: Initial Vital Signs Temperature 97.4 F 04/19/20 13:16 Pulse Rate 115 H 04/19/20 13:16 Respiratory Rate 16 04/19/20 13:16 Blood Pressure 151/88 07/14/20 13:16 O2 Sat by Pulse Oximetry 95 04/19/20 13:16 Pain Scale Pain Intensity 5 - Taniya Coma Score Best Eye Response (Taniya): (4) open spontaneously Best Verbal Response (Taniya): (5) oriented Best Motor Response ([place]): (6) obeys commands Taniya Total: 15 - Physical Exam General Appearance: mild distress, alert, anxiety Head Injury: no evidence of injury Eye Exam: PERRL/EOMI, eyes nml inspection ENT Exam: airway nml, nml ext.inspection, other (Dry mucous membranes) Neck Exam: supple, trachea midline, full range of motion, normal alignment, n ormal inspection Respiratory/Chest Exam: normal breath sounds, No chest tenderness, No respiratory distress, No ecchymosis, No crepitus, No rhonchi, No wheezing, No accessory muscle use Cardiovascular Exam: normal heart sounds, regular rate/rhythm, murmur, normal peripheral pulses Gastrointestinal Exam: soft, normal bowel sounds, No tenderness Rectal Exam: not done Back Exam: normal inspection, normal range of motion, muscle spasm, No CVA tenderness, No vertebral tenderness Extremity Exam: normal inspection, normal range of motion, capillary refill <3 sec, pelvis stable Neurologic Exam: alert, oriented x 3, cooperative, marine engineer II-XII nml as tested, sensation nml Skin Exam: normal color, warm, dry SpO2 Interpretation: normal O2 Delivery: Room Air (Your mom called and said she does not have the phone) - Course Nursing assessment & vital signs reviewed: Yes EKG Interpreted by Me: RATE, Sinus Tach, NORMAL AXIS, NORMAL INTERVALS, NORMAL QRS, Other (There are no acute ischemic changes. There is no change when compared to EKG dated March 11, 2020) Ordered Tests: Active Orders 24 hr Category Date Time Status Lighting Equipment Operator STAT Care 04/19/20 13:32 Active Catheter-[place]oe STAT Care 04/19/20 13:30 Active EKG-ER Only STAT Care 04/19/20 13:30 Active IV Insertion STAT Care 04/19/20 13:30 Active NPO (ED) STAT Care 04/19/20 13:31 Active CHEST 1 VIEW (PORTABLE) Stat Exams 04/19/20 13:31 Completed HEAD WITHOUT CONTRAST [CT] Stat Exams 04/19/20 13:31 Completed LUMBAR SPINE W/O [CT] Stat Exams 04/19/20 14:12 Completed CBC W DIFF Stat Lab 04/19/20 14:43 Completed CK-Creatinine Phosphokinase Stat Lab 04/19/20 15:25 Completed CMP Stat Lab 04/19/20 14:43 Completed Lactic Acid Stat Lab 04/19/20 14:55 Completed PROTIME WITH INR Stat Lab 04/19/20 14:43 Completed UA W/RFX UR CULTURE Stat Lab 04/19/20 13:41 Completed Transfer Order Routine Transfer 04/19/20 Ordered Medication Summary Generic Name Dose Route Start Last Admin Trade Name Freq PRN Reason Stop Dose Admin Sodium Chloride 1,000 mls @ 100 mls/hr 04/19/20 13:30 04/19/20 16:36 Sodium Chloride 0.9% 1000 Ml IV 05/19/20 13:29 100 mls/hr .Q10H JEIMY Administration Discontinued Medications Generic Name Dose Route Start Last Admin Trade Name Freq PRN Reason Stop Dose Admin Sodium Chloride 500 mls @ 500 mls/hr 04/19/20 13:34 04/19/20 14:47 Sodium Chloride 0.9% 500 Ml IV 04/19/20 14:33 Infused .Q1H ONE Infusion Sodium Chloride Confirm 04/19/20 13:43 Sodium Chloride 0.9% 500 Ml Administered 04/19/20 13:44 Dose 500 mls @ ud IV .STK-MED ONE Levofloxacin/Dextrose 500 mg in 100 mls @ 100 mls/hr 04/19/20 15:20 04/19/20 16:32 Levofloxacin 500mg/100ml D5w IV 04/19/20 16:19 Infused STAT STA Infusion Levofloxacin/Dextrose Confirm 04/19/20 15:30 Levofloxacin 500mg/100ml D5w Administered 04/19/20 15:31 Dose 500 mg in 100 mls @ ud IV .STK-MED ONE Lab/Rad Data: Laboratory Result Diagrams 04/19/20 14:43 04/19/20 14:43 Laboratory Results 04/19/20 04/19/20 04/19/20 Range/Units 16:51 15:25 14:55 WBC (4.0-10.5) K/mm3 RBC (4.1-5.4) M/mm3 Hgb (12.0-16.0) gm/dl Hct (35-47) % MCV (78-100) fl MCH (26-32) pg MCHC (32-36) g/dl RDW (11.5-14.0) % Plt Count (150-450) K/mm3 MPV (7.5-11.0) fl Gran % (36.0-66.0) % Eos # (Auto) (0-0.5) Absolute Lymphs (auto) (1.0-4.6) Absolute Monos (auto) (0.0-1.3) Lymphocytes % (24.0-44.0) % Monocytes % (0.0-12.0) % Eosinophils % (0.00-5.0) % Basophils % (0.0-0.4) % Absolute Granulocytes (1.4-6.9) Basophils # (0-0.4) PT (9.95-12.35) SECONDS INR (0.8-3.0) Sodium (137-145) mmol/L Potassium (3.5-5.1) mmol/L Chloride (98-107) mmol/L Carbon Dioxide (22-30) mmol/L Anion Gap (5-15) MEQ/L BUN (7-17) mg/dL Creatinine (0.52-1.04) mg/dL Estimated GFR ML/MIN Glucose (74-106) mg/dL Lactic Acid 1.7 (0.4-2.0) Calcium (8.4-10.2) mg/dL Total Bilirubin (0.2-1.3) mg/dL AST (14-36) U/L ALT (0-35) U/L Alkaline Phosphatase (38-126) U/L Creatine Kinase 511 H (30-135) U/L Serum Total Protein (6.3-8.2) g/dL Albumin (3.5-5.0) g/dL Urine Color (YELLOW) Urine Appearance (CLEAR) Urine pH (5-6) Ur Specific [place] (1.005-1.025) Urine Protein (Negative) Urine Ketones (NEGATIVE) Urine Blood (0-5) Mitch/ul Urine Nitrite (NEGATIVE) Urine Bilirubin (NEGATIVE) Urine Urobilinogen (0-1) mg/dL Ur Leukocyte Esterase (NEGATIVE) Urine WBC (Auto) (0-5) /HPF Urine RBC (Auto) (0-2) /HPF U Epithel Cells (Auto) (FEW) /HPF Urine Bacteria (Auto) (NEGATIVE) /HPF Urine Mucus (Auto) (NEGATIVE) /HPF Urine Culture Reflexed (NO) Urine Glucose (NEGATIVE) mg/dL SARS-CoV-2 (PCR) NEGATIVE (NEGATIVE) Slides for Path Review 04/19/20 04/19/20 04/19/20 Range/Units 14:43 14:43 14:43 WBC 11.4 H (4.0-10.5) K/mm3 RBC 4.07 L (4.1-5.4) M/mm3 Hgb 11.3 L (12.0-16.0) gm/dl Hct 35.9 (35-47) % MCV 88.2 (78-100) fl MCH 27.8 (26-32) pg MCHC 31.5 L (32-36) g/dl RDW 15.2 H (11.5-14.0) % Plt Count 245 (150-450) K/mm3 MPV 11.5 H (7.5-11.0) fl Gran % 93.5 H (36.0-66.0) % Eos # (Auto) 0.01 (0-0.5) Absolute Lymphs (auto) 0.37 L (1.0-4.6) Absolute Monos (auto) 0.33 (0.0-1.3) Lymphocytes % 3.3 L (24.0-44.0) % Monocytes % 2.9 (0.0-12.0) % Eosinophils % 0.1 (0.00-5.0) % Basophils % 0.2 (0.0-0.4) % Absolute Granulocytes 10.63 H (1.4-6.9) Basophils # 0.02 (0-0.4) PT 12.9 H (9.95-12.35) SECONDS INR 1.14 (0.8-3.0) Sodium 139 (137-145) mmol/L Potassium 4.6 (3.5-5.1) mmol/L Chloride 106 (98-107) mmol/L Carbon Dioxide 21 L (22-30) mmol/L Anion Gap 17.4 H (5-15) MEQ/L BUN 32 H (7-17) mg/dL Creatinine 1.22 H (0.52-1.04) mg/dL Estimated GFR 44.6 ML/MIN Glucose 315 H (74-106) mg/dL Lactic Acid (0.4-2.0) Calcium 9.0 (8.4-10.2) mg/dL Total Bilirubin 0.40 (0.2-1.3) mg/dL AST 23 (14-36) U/L ALT 27 (0-35) U/L Alkaline Phosphatase 101 (38-126) U/L Creatine Kinase (30-135) U/L Serum Total Protein 7.5 (6.3-8.2) g/dL Albumin 4.2 (3.5-5.0) g/dL Urine Color (YELLOW) Urine Appearance (CLEAR) Urine pH (5-6) Ur Specific [place] (1.005-1.025) Urine Protein (Negative) Urine Ketones (NEGATIVE) Urine Blood (0-5) Mitch/ul Urine Nitrite (NEGATIVE) Urine Bilirubin (NEGATIVE) Urine Urobilinogen (0-1) mg/dL Ur Leukocyte Esterase (NEGATIVE) Urine WBC (Auto) (0-5) /HPF Urine RBC (Auto) (0-2) /HPF U Epithel Cells (Auto) (FEW) /HPF Urine Bacteria (Auto) (NEGATIVE) /HPF Urine Mucus (Auto) (NEGATIVE) /HPF Urine Culture Reflexed (NO) Urine Glucose (NEGATIVE) mg/dL SARS-CoV-2 (PCR) (NEGATIVE) Slides for Path Review YES 04/19/20 Range/Units 13:41 WBC (4.0-10.5) K/mm3 RBC (4.1-5.4) M/mm3 Hgb (12.0-16.0) gm/dl Hct (35-47) % MCV (78-100) fl MCH (26-32) pg MCHC (32-36) g/dl RDW (11.5-14.0) % Plt Count (150-450) K/mm3 MPV (7.5-11.0) fl Gran % (36.0-66.0) % Eos # (Auto) (0-0.5) Absolute Lymphs (auto) (1.0-4.6) Absolute Monos (auto) (0.0-1.3) Lymphocytes % (24.0-44.0) % Monocytes % (0.0-12.0) % Eosinophils % (0.00-5.0) % Basophils % (0.0-0.4) % Absolute Granulocytes (1.4-6.9) Basophils # (0-0.4) PT (9.95-12.35) SECONDS INR (0.8-3.0) Sodium (137-145) mmol/L Potassium (3.5-5.1) mmol/L Chloride (98-107) mmol/L Carbon Dioxide (22-30) mmol/L Anion Gap (5-15) MEQ/L BUN (7-17) mg/dL Creatinine (0.52-1.04) mg/dL Estimated GFR ML/MIN Glucose (74-106) mg/dL Lactic Acid (0.4-2.0) Calcium (8.4-10.2) mg/dL Total Bilirubin (0.2-1.3) mg/dL AST (14-36) U/L ALT (0-35) U/L Alkaline Phosphatase (38-126) U/L Creatine Kinase (30-135) U/L Serum Total Protein (6.3-8.2) g/dL Albumin (3.5-5.0) g/dL Urine Color YELLOW (YELLOW) Urine Appearance SLIGHTLY CLOUDY (CLEAR) Urine pH 5.0 (5-6) Ur Specific [place] 1.010 (1.005-1.025) Urine Protein NEGATIVE (Negative) Urine Ketones TRACE (NEGATIVE) Urine Blood NEGATIVE (0-5) Mitch/ul Urine Nitrite NEGATIVE (NEGATIVE) Urine Bilirubin NEGATIVE (NEGATIVE) Urine Urobilinogen NEGATIVE (0-1) mg/dL Ur Leukocyte Esterase SMALL (NEGATIVE) Urine WBC (Auto) 6-10 (0-5) /HPF Urine RBC (Auto) NONE (0-2) /HPF U Epithel Cells (Auto) NONE (FEW) /HPF Urine Bacteria (Auto) FEW (NEGATIVE) /HPF Urine Mucus (Auto) SLIGHT (NEGATIVE) /HPF Urine Culture Reflexed NO (NO) Urine Glucose 50 (NEGATIVE) mg/dL SARS-CoV-2 (PCR) (NEGATIVE) Slides for Path Review - Progress Progress: improved, re-examined Progress Note: 04/19/20 15:19 Chest x-ray shows a new right lower lobe infiltrate. CAT scan of the lumbar spine shows no acute fractures or subluxation. CAT scan of the head shows a new scalp hematoma but no bony fractures or intracranial abnormalities 04/19/20 18:18 Medical decision making: This patient lives alone she had fallen and could not get up on her own. She has a right-sided pneumonia and a mild urinary tract infection. We did COVID testing on her and it was negative. I spoke with Dr. Brock. I reviewed the patient history, condition, laboratory report and report of the x-rays. She accepts the patient for admission. Discussed with : Kath Counseled pt/family regarding: lab results, diagnosis, rad results - Departure Departure Disposition: In-patient Admission Clinical Impression: Pneumonia, UTI (urinary tract infection) Condition: Stable Critical Care Time: No Referrals: ALICIA WU MD [Primary Care Provider] -
[2020-04-19 14:25] LABS: Appearance SLIGHTLY CLOUDY (CLEAR); Bacteria FEW /HPF (NEGATIVE); Bilirubin NEGATIVE (NEGATIVE); Blood NEGATIVE Ery/ul (0-5); Glucose 50 mg/dL (NEGATIVE); Ketones TRACE (NEGATIVE); Leukocyte Esterase SMALL (NEGATIVE); Mucus SLIGHT /HPF (NEGATIVE); Nitrite NEGATIVE (NEGATIVE); Protein,Urine Dip NEGATIVE (Negative); Urobilinogen NEGATIVE mg/dL (0-1)
--- NOTE | 2020-04-19 14:39 | XRAY ---
Indication: Status post fall. Loss of consciousness. Comparison: March 11, 2020. Portable chest rotated with new right infrahilar infiltrate versus atelectasis and right lung volume loss. Remaining heart and left lung unremarkable. Bony thorax intact again with osteopenia and degenerative changes.
--- NOTE | 2020-04-19 14:42 | XRAY ---
Indication: Status post fall. Loss of consciousness. Multiple contiguous axial images obtained through the head without contrast. Comparison: December 29, 2019. Stable age-appropriate global atrophy and moderate periventricular degenerative micro-ischemia bilaterally. No acute intracranial hemorrhage, abnormal extra-axial fluid collection, or mass effect. Fourth ventricle is midline without hydrocephalus. Bony calvarium intact. New small high right parietal scalp hematoma. Visualized paranasal sinuses and mastoid air cells are clear. Impression: New right parietal scalp hematoma. Otherwise stable nonacute senile brain.
--- NOTE | 2020-04-19 14:43 | XRAY ---
Indication: Pain following fall. Loss of consciousness. Multiple contiguous axial images obtained through the lumbar spine. Sagittal and coronal reformatted images obtained. Comparison: CT abdomen/pelvis December 29, 2019. Osseous structures remain demineralized. There remains grossly stable mild/moderate multilevel degenerative spondylosis throughout the thoracolumbar spine again greatest at the L3-L4 level. No acute fracture or suspicious bony lesions. Sagittal and coronal reformatted images demonstrates normal lumbar lordosis again with minimal levoscoliosis centered at L3 and minimal/mild multilevel disc space narrowing. No acute compression fracture or subluxation. Visualized noncontrasted soft tissues again demonstrates heavy scattered vascular calcifications and bibasilar dependent atelectasis. Impression: Stable osteopenia, multilevel degenerative spondylosis, minimal levoscoliosis, and arteriosclerotic disease. No new/acute findings.
[2020-04-19 14:49] LABS: Absolute Neutrophil Ct (ANC) 10.63 (1.4-6.9); BASOPHIL % 0.2 % (0.0-0.4); Basophil (Absolute #) 0.02 (0-0.4); Eosinophil % 0.1 % (0.00-5.0); Eosinophil (Absolute #) 0.01 (0-0.5); Hematocrit 35.9 % (35-47); Hemoglobin 11.3 gm/dl (12.0-16.0); Lymphocyte (Absolute #) 0.37 (1.0-4.6); Lymphocytes % 3.3 % (24.0-44.0); Mean Cell Volume 88.2 fl (78-100); Mean Corpuscular Hemoglobin 27.8 pg (26-32); Mean Corpuscular Hgb Concent. 31.5 g/dl (32-36); Mean Platelet Volume 11.5 fl (7.5-11.0); Monocyte (Absolute #) 0.33 (0.0-1.3); Monocytes % 2.9 % (0.0-12.0); Neutrophil % 93.5 % (36.0-66.0); Platelet Count 245 K/mm3 (150-450); Red Blood Count 4.07 M/mm3 (4.1-5.4); Red Cell Distribution Width 15.2 % (11.5-14.0); White Blood Count 11.4 K/mm3 (4.0-10.5)
[2020-04-19 15:05] LABS: INR 1.14 (0.8-3.0); PROTIME 12.9 SECONDS (9.95-12.35)
[2020-04-19 15:09] LABS: ALBUMIN 4.2 g/dL (3.5-5.0); ANION GAP 17.4 MEQ/L (5-15); BILIRUBIN,TOTAL 0.4 mg/dL (0.2-1.3); Creatinine 1 1.22 mg/dL (0.52-1.04); Potassium 4.6 mmol/L (3.5-5.1); Total Protein 7.5 g/dL (6.3-8.2)
[2020-04-19] MEDS ORDERED: Levofloxacin 500MG/100ML D5W 500 MG/100 ML BAG IV STA (15:20)
[2020-04-19] MEDS ORDERED: Levofloxacin 500MG/100ML D5W 500 MG/100 ML BAG IV ONE (15:30)
[2020-04-19 16:05] LABS: Slide Review 1 YES
[2020-04-19] MEDS ORDERED: Sodium Chloride 0.9% 1000 ML 1,000 ML ONE (16:35)
[2020-04-19] MEDS ORDERED: Lopressor 25MG Tab PO ONE (20:36)
[2020-04-19] MEDS: Cozaar 50 MG PO SCH (20:45)
[2020-04-19] MEDS: Adalat CC 30 MG TABLET PO SCH (20:49)
[2020-04-19] MEDS: HUMALOG SQ PRN (20:50)
[2020-04-19] MEDS ORDERED: APRESOLINE 20 MG/ML INJ IV PRN (21:00)
[2020-04-19] MEDS: XANAX 1 MG PO SCH (22:50)
[2020-04-19] MEDS: celeBREX 100 MG PO SCH (22:50)
[2020-04-19] MEDS: zyPREXA 5MG TABLET PO SCH (22:50)
[2020-04-19] MEDS: Neurontin 100 MG PO SCH (22:51)
[2020-04-20 05:17] LABS: Absolute Neutrophil Ct (ANC) 5.54 (1.4-6.9); BASOPHIL % 0.1 % (0.0-0.4); Basophil (Absolute #) 0.01 (0-0.4); Eosinophil % 1.4 % (0.00-5.0); Eosinophil (Absolute #) 0.11 (0-0.5); Hematocrit 36.9 % (35-47); Hemoglobin 11.4 gm/dl (12.0-16.0); Lymphocyte (Absolute #) 1.74 (1.0-4.6); Lymphocytes % 21.4 % (24.0-44.0); Mean Cell Volume 87.9 fl (78-100); Mean Corpuscular Hemoglobin 27.1 pg (26-32); Mean Corpuscular Hgb Concent. 30.9 g/dl (32-36); Mean Platelet Volume 11.2 fl (7.5-11.0); Monocyte (Absolute #) 0.73 (0.0-1.3); Neutrophil % 68.1 % (36.0-66.0); Platelet Count 258 K/mm3 (150-450); Red Cell Distribution Width 15.3 % (11.5-14.0); White Blood Count 8.1 K/mm3 (4.0-10.5)
[2020-04-20 05:32] LABS: ALBUMIN 3.7 g/dL (3.5-5.0); ALKALINE PHOSPHATASE 86 U/L (38-126); BLOOD UREA NITROGEN 20 mg/dL (7-17); CHLORIDE 110 mmol/L (98-107); Carbon Dioxide 25 mmol/L (22-30); Creatinine 1 0.91 mg/dL (0.52-1.04); Glucose 94 mg/dL (74-106); SGOT/AST 30 U/L (14-36); SGPT/ALT 26 U/L (0-35); SODIUM 141 mmol/L (137-145); Total Protein 6.8 g/dL (6.3-8.2)
[2020-04-20] MEDS: TYLENOL 325 MG PO PRN ×2 (07:32→12:52)
[2020-04-20] MEDS: Cozaar 50 MG PO SCH (09:42)
[2020-04-20] MEDS: Adalat CC 30 MG TABLET PO SCH (09:42)
[2020-04-20] MEDS: celeBREX 100 MG PO SCH (09:42)
[2020-04-20] MEDS: XANAX 1 MG PO SCH ×2 (09:42→21:22)
[2020-04-20] MEDS: Levofloxacin 500MG/100ML D5W 500 MG/100 ML BAG IV SCH (09:51)
[2020-04-20] MEDS ORDERED: INSULIN GLARGINE HUM REC ANLOG 20 UNIT SQ SCH (10:00)
[2020-04-20] MEDS ORDERED: Lantus Insulin SQ SCH ×2 (10:00→22:00)
[2020-04-20] MEDS ORDERED: NON-FORMULARY ITEM (Simvastatin 40 Mg [Zocor 40 Mg] 40 MG) PO SCH (10:00)
[2020-04-20] MEDS ORDERED: NON-FORMULARY ITEM (Escitalopram Oxalate [Lexapro] 20 MG) PO SCH (10:00)
--- NOTE | 2020-04-20 10:03 | PCM.HP ---
History of Present Illness - Chief Complaint Chief Complaint: Pneumonia, UTI History of Present Illness: is a 85 year old female pt of Dr. Oden with IDDM, HTN, and stable c- spine fx (nonsurgical) who was brought to ER after a fall yesterday. Found to have RLL pna and UTI and started on levaquin. Apparently she fell when getting into bed; she saw a bright green light but denies LOC. She laid there for about 5 hours; she had a first alert button but pushed it multiple times with no result. She did have some dizziness just yesterday. Denies hitting her head, but CT head chowed scalp hematoma. Was c/o lbp in ER, but lumbar spine CT neg for fx. CK was 511 yesterday but is 611 this morning. Renal function decreased on admission (eGFR 44.6 yesterday) but today is wnl. Pt c/o chronic sore on her bottom for the past 1-2 mo. Pt notes her c-spine fx is from a fall a few months ago when she laid for 9h on the floor. - Review of Systems Musculoskeletal: Back Pain, Fall Skin: Decubiti Neurological: Dizziness Psychological: Depression (long hx depression; no current suicidal ideation) Medications & Allergies Home Medications: Home Medication List Levothyroxine Sodium 100 Mcg [Synthroid 100 Mcg] 100 mcg PO DAILY 05/24/17 [History Confirmed 04/19/20] Nifedipine [Nifedipine ER] 90 mg PO DAILY 05/24/17 [History Confirmed 04/19/20] Simvastatin 40 mg [Zocor 40 mg] 40 mg PO DAILY 05/24/17 [History Confirmed 04/19/20] Olanzapine 5 mg PO HS 05/30/18 [History Confirmed 04/19/20] Trazodone HCl 100 mg PO DAILY 12/16/18 [History Confirmed 04/19/20] Glimepiride 4 mg [Amaryl 4 mg] 4 mg PO DAILY 03/20/19 [History Confirmed 04/19/20] Losartan Potassium 25 mg PO DAILY 03/20/19 [History Confirmed 04/19/20] Metformin HCl 500 mg PO BID 03/20/19 [History Confirmed 04/19/20] Insulin Glargine,Hum.rec.anlog [Lantus Solostar] 20 units SQ DAILY 03/21/19 [History Confirmed 04/19/20] Melatonin 5 mg PO HS 12/29/19 [History Confirmed 04/19/20] Alprazolam 1 mg [Xanax 1 mg] 1 mg PO BID 03/11/20 [History Confirmed 04/19/20] Escitalopram Oxalate [Lexapro] 20 mg PO DAILY 03/11/20 [History Confirmed 04/19/20] Gabapentin 200 mg PO QHS 03/11/20 [History Confirmed 04/19/20] Celecoxib 100 mg PO DAILY 04/19/20 [History Confirmed 04/19/20] Furosemide [Lasix] 25 mg PO DAILY 04/19/20 [History Confirmed 04/19/20] Allergies/Adverse Reactions: Allergies Allergy/AdvReac Type Severity Reaction Status Date / Time ceftriaxone [From Rocephin] Allergy Verified 04/19/20 15:18 - Past Medical History Past Medical History: Yes Neurological History: No Pertinent History ENT History: No Pertinent History Cardiac History: Hypertension Respiratory History: No Pertinent History Endocrine Medical History: Diabetes Type II Musculoskelatal History: Arthritis GI Medical History: No Pertinent History History: No Pertinent History Pyscho-Social History: Depression Reproductive Disorders: Breast Cancer Comment: chronic pain - Female History Are you now?: No - Past Surgical History Past Surgical History: Yes Neuro Surgical History: No Pertinent History Cardiac History: No Pertinent History Respiratory Surgery: No Pertinent History GI Surgical History: Cholecystectomy Genitourinary Surgical Hx: No Pertinent History Musculskeletal Surgical Hx: Joint Replacement Female Surgical History: Hysterectomy Other Surgical History: Left Knee Replacement - Social History Smoking Status: Never smoker Exposure to second hand smoke: No Alcohol: None Drug Use: none - Physical Exam Vital Signs: Vital Signs - 24 hr Temp Pulse Resp BP Pulse Ox 04/20/20 07:47 98.2 F 107 H 16 135/63 97 04/20/20 07:21 97 04/20/20 04:00 98.3 F 96 H 16 131/61 94 L 04/19/20 23:31 98.5 F 92 H 14 135/66 96 04/19/20 22:09 94 H 159/88 04/19/20 21:32 94 H 167/71 04/19/20 20:56 97.8 F 123 H 18 177/79 95 04/19/20 20:21 177/79 04/19/20 20:19 183/79 04/19/20 19:33 95 04/19/20 18:40 97.8 F 123 H 16 174/79 96 04/19/20 17:50 110 H 16 149/73 95 04/19/20 17:00 116 H 16 148/76 95 04/19/20 16:09 117 H 15 134/71 96 04/19/20 15:03 118 H 23 139/69 96 04/19/20 14:49 119 H 32 H 151/88 96 04/19/20 13:16 97.4 F 115 H 16 151/88 95 Oxygen-Last 24 hours Oxygen Flowrate (L/min)-RT 2 Oxygen Flowrate (L/min)-RT 2 General Appearance: no apparent distress, alert, obese Neurologic Exam: oriented x 3, cooperative Eye Exam: eyes nml inspection Ears, Nose, Throat Exam: moist mucous membranes Neck Exam: normal inspection Respiratory Exam: normal breath sounds, lungs clear, No crackles/rales, No rhonchi, No wheezing Cardiovascular Exam: regular rate/rhythm, normal heart sounds, No murmur Gastrointestinal/Abdomen Exam: soft, normal bowel sounds, No tenderness, No distention, No mass, No guarding, No rebound Extremity Exam: No pedal edema, No swelling Skin Exam: warm, dry, No rash Results - Labs Lab/Micro Results: Accuchecks Accucheck Value: 101 Lab Results-Last 24 Hours 04/19/20 04/19/20 04/19/20 Range/Units 13:41 14:43 14:43 WBC 11.4 H (4.0-10.5) K/mm3 RBC 4.07 L (4.1-5.4) M/mm3 Hgb 11.3 L (12.0-16.0) gm/dl Hct 35.9 (35-47) % MCV 88.2 (78-100) fl MCH 27.8 (26-32) pg MCHC 31.5 L (32-36) g/dl RDW 15.2 H (11.5-14.0) % Plt Count 245 (150-450) K/mm3 MPV 11.5 H (7.5-11.0) fl Gran % 93.5 H (36.0-66.0) % Eos # (Auto) 0.01 (0-0.5) Absolute Lymphs (auto) 0.37 L (1.0-4.6) Absolute Monos (auto) 0.33 (0.0-1.3) Lymphocytes % 3.3 L (24.0-44.0) % Monocytes % 2.9 (0.0-12.0) % Eosinophils % 0.1 (0.00-5.0) % Basophils % 0.2 (0.0-0.4) % Absolute Granulocytes 10.63 H (1.4-6.9) Basophils # 0.02 (0-0.4) PT (9.95-12.35) SECONDS INR (0.8-3.0) Sodium 139 (137-145) mmol/L Potassium 4.6 (3.5-5.1) mmol/L Chloride 106 (98-107) mmol/L Carbon Dioxide 21 L (22-30) mmol/L Anion Gap 17.4 H (5-15) MEQ/L BUN 32 H (7-17) mg/dL Creatinine 1.22 H (0.52-1.04) mg/dL Estimated GFR 44.6 ML/MIN Glucose 315 H (74-106) mg/dL Hemoglobin A1c (4.5-6.0) % Lactic Acid (0.4-2.0) Calcium 9.0 (8.4-10.2) mg/dL Total Bilirubin 0.40 (0.2-1.3) mg/dL AST 23 (14-36) U/L ALT 27 (0-35) U/L Alkaline Phosphatase 101 (38-126) U/L Creatine Kinase (30-135) U/L Serum Total Protein 7.5 (6.3-8.2) g/dL Albumin 4.2 (3.5-5.0) g/dL Urine Color YELLOW (YELLOW) Urine Appearance SLIGHTLY CLOUDY (CLEAR) Urine pH 5.0 (5-6) Ur Specific [place] 1.010 (1.005-1.025) Urine Protein NEGATIVE (Negative) Urine Ketones TRACE (NEGATIVE) Urine Blood NEGATIVE (0-5) Mitch/ul Urine Nitrite NEGATIVE (NEGATIVE) Urine Bilirubin NEGATIVE (NEGATIVE) Urine Urobilinogen NEGATIVE (0-1) mg/dL Ur Leukocyte Esterase SMALL (NEGATIVE) Urine WBC (Auto) 6-10 (0-5) /HPF Urine RBC (Auto) NONE (0-2) /HPF U Epithel Cells (Auto) NONE (FEW) /HPF Urine Bacteria (Auto) FEW (NEGATIVE) /HPF Urine Mucus (Auto) SLIGHT (NEGATIVE) /HPF Urine Culture Reflexed NO (NO) Urine Glucose 50 (NEGATIVE) mg/dL SARS-CoV-2 (PCR) (NEGATIVE) Slides for Path Review YES 04/19/20 04/19/20 04/19/20 Range/Units 14:43 14:43 14:55 WBC (4.0-10.5) K/mm3 RBC (4.1-5.4) M/mm3 Hgb (12.0-16.0) gm/dl Hct (35-47) % MCV (78-100) fl MCH (26-32) pg MCHC (32-36) g/dl RDW (11.5-14.0) % Plt Count (150-450) K/mm3 MPV (7.5-11.0) fl Gran % (36.0-66.0) % Eos # (Auto) (0-0.5) Absolute Lymphs (auto) (1.0-4.6) Absolute Monos (auto) (0.0-1.3) Lymphocytes % (24.0-44.0) % Monocytes % (0.0-12.0) % Eosinophils % (0.00-5.0) % Basophils % (0.0-0.4) % Absolute Granulocytes (1.4-6.9) Basophils # (0-0.4) PT 12.9 H (9.95-12.35) SECONDS INR 1.14 (0.8-3.0) Sodium (137-145) mmol/L Potassium (3.5-5.1) mmol/L Chloride (98-107) mmol/L Carbon Dioxide (22-30) mmol/L Anion Gap (5-15) MEQ/L BUN (7-17) mg/dL Creatinine (0.52-1.04) mg/dL Estimated GFR ML/MIN Glucose (74-106) mg/dL Hemoglobin A1c 6.52 H (4.5-6.0) % Lactic Acid 1.7 (0.4-2.0) Calcium (8.4-10.2) mg/dL Total Bilirubin (0.2-1.3) mg/dL AST (14-36) U/L ALT (0-35) U/L Alkaline Phosphatase (38-126) U/L Creatine Kinase (30-135) U/L Serum Total Protein (6.3-8.2) g/dL Albumin (3.5-5.0) g/dL Urine Color (YELLOW) Urine Appearance (CLEAR) Urine pH (5-6) Ur Specific [place] (1.005-1.025) Urine Protein (Negative) Urine Ketones (NEGATIVE) Urine Blood (0-5) Mitch/ul Urine Nitrite (NEGATIVE) Urine Bilirubin (NEGATIVE) Urine Urobilinogen (0-1) mg/dL Ur Leukocyte Esterase (NEGATIVE) Urine WBC (Auto) (0-5) /HPF Urine RBC (Auto) (0-2) /HPF U Epithel Cells (Auto) (FEW) /HPF Urine Bacteria (Auto) (NEGATIVE) /HPF Urine Mucus (Auto) (NEGATIVE) /HPF Urine Culture Reflexed (NO) Urine Glucose (NEGATIVE) mg/dL SARS-CoV-2 (PCR) (NEGATIVE) Slides for Path Review 04/19/20 04/19/20 04/20/20 Range/Units 15:25 16:51 04:30 WBC 8.1 (4.0-10.5) K/mm3 RBC 4.20 (4.1-5.4) M/mm3 Hgb 11.4 L (12.0-16.0) gm/dl Hct 36.9 (35-47) % MCV 87.9 (78-100) fl MCH 27.1 (26-32) pg MCHC 30.9 L (32-36) g/dl RDW 15.3 H (11.5-14.0) % Plt Count 258 (150-450) K/mm3 MPV 11.2 H (7.5-11.0) fl Gran % 68.1 H (36.0-66.0) % Eos # (Auto) 0.11 (0-0.5) Absolute Lymphs (auto) 1.74 (1.0-4.6) Absolute Monos (auto) 0.73 (0.0-1.3) Lymphocytes % 21.4 L (24.0-44.0) % Monocytes % 9.0 (0.0-12.0) % Eosinophils % 1.4 (0.00-5.0) % Basophils % 0.1 (0.0-0.4) % Absolute Granulocytes 5.54 (1.4-6.9) Basophils # 0.01 (0-0.4) PT (9.95-12.35) SECONDS INR (0.8-3.0) Sodium (137-145) mmol/L Potassium (3.5-5.1) mmol/L Chloride (98-107) mmol/L Carbon Dioxide (22-30) mmol/L Anion Gap (5-15) MEQ/L BUN (7-17) mg/dL Creatinine (0.52-1.04) mg/dL Estimated GFR ML/MIN Glucose (74-106) mg/dL Hemoglobin A1c (4.5-6.0) % Lactic Acid (0.4-2.0) Calcium (8.4-10.2) mg/dL Total Bilirubin (0.2-1.3) mg/dL AST (14-36) U/L ALT (0-35) U/L Alkaline Phosphatase (38-126) U/L Creatine Kinase 511 H (30-135) U/L Serum Total Protein (6.3-8.2) g/dL Albumin (3.5-5.0) g/dL Urine Color (YELLOW) Urine Appearance (CLEAR) Urine pH (5-6) Ur Specific [place] (1.005-1.025) Urine Protein (Negative) Urine Ketones (NEGATIVE) Urine Blood (0-5) Mitch/ul Urine Nitrite (NEGATIVE) Urine Bilirubin (NEGATIVE) Urine Urobilinogen (0-1) mg/dL Ur Leukocyte Esterase (NEGATIVE) Urine WBC (Auto) (0-5) /HPF Urine RBC (Auto) (0-2) /HPF U Epithel Cells (Auto) (FEW) /HPF Urine Bacteria (Auto) (NEGATIVE) /HPF Urine Mucus (Auto) (NEGATIVE) /HPF Urine Culture Reflexed (NO) Urine Glucose (NEGATIVE) mg/dL SARS-CoV-2 (PCR) NEGATIVE (NEGATIVE) Slides for Path Review 04/20/20 04/20/20 Range/Units 04:30 04:30 WBC (4.0-10.5) K/mm3 RBC (4.1-5.4) M/mm3 Hgb (12.0-16.0) gm/dl Hct (35-47) % MCV (78-100) fl MCH (26-32) pg MCHC (32-36) g/dl RDW (11.5-14.0) % Plt Count (150-450) K/mm3 MPV (7.5-11.0) fl Gran % (36.0-66.0) % Eos # (Auto) (0-0.5) Absolute Lymphs (auto) (1.0-4.6) Absolute Monos (auto) (0.0-1.3) Lymphocytes % (24.0-44.0) % Monocytes % (0.0-12.0) % Eosinophils % (0.00-5.0) % Basophils % (0.0-0.4) % Absolute Granulocytes (1.4-6.9) Basophils # (0-0.4) PT (9.95-12.35) SECONDS INR (0.8-3.0) Sodium 141 (137-145) mmol/L Potassium 4.0 (3.5-5.1) mmol/L Chloride 110 H (98-107) mmol/L Carbon Dioxide 25 (22-30) mmol/L Anion Gap 10.0 (5-15) MEQ/L BUN 20 H (7-17) mg/dL Creatinine 0.91 (0.52-1.04) mg/dL Estimated GFR > 60.0 ML/MIN Glucose 94 (74-106) mg/dL Hemoglobin A1c (4.5-6.0) % Lactic Acid (0.4-2.0) Calcium 9.0 (8.4-10.2) mg/dL Total Bilirubin 0.40 (0.2-1.3) mg/dL AST 30 (14-36) U/L ALT 26 (0-35) U/L Alkaline Phosphatase 86 (38-126) U/L Creatine Kinase 611 H (30-135) U/L Serum Total Protein 6.8 (6.3-8.2) g/dL Albumin 3.7 (3.5-5.0) g/dL Urine Color (YELLOW) Urine Appearance (CLEAR) Urine pH (5-6) Ur Specific [place] (1.005-1.025) Urine Protein (Negative) Urine Ketones (NEGATIVE) Urine Blood (0-5) Mitch/ul Urine Nitrite (NEGATIVE) Urine Bilirubin (NEGATIVE) Urine Urobilinogen (0-1) mg/dL Ur Leukocyte Esterase (NEGATIVE) Urine WBC (Auto) (0-5) /HPF Urine RBC (Auto) (0-2) /HPF U Epithel Cells (Auto) (FEW) /HPF Urine Bacteria (Auto) (NEGATIVE) /HPF Urine Mucus (Auto) (NEGATIVE) /HPF Urine Culture Reflexed (NO) Urine Glucose (NEGATIVE) mg/dL SARS-CoV-2 (PCR) (NEGATIVE) Slides for Path Review Accuchecks Accucheck Value: 101 - Radiology Impressions Radiology Exams & Impressions: Radiology Procedures Category Date Time Status CHEST 1 VIEW (PORTABLE) Stat Exams 04/19/20 13:31 Completed HEAD WITHOUT CONTRAST [CT] Stat Exams 04/19/20 13:31 Completed LUMBAR SPINE W/O [CT] Stat Exams 04/19/20 14:12 Completed - Other Procedures and Tests Respiratory Therapy 04/19/20 19:43 Oxygen NASAL CANNULA 2 lpm Assessment/Plan (1) Pneumonia Current Visit: Yes Status: Acute Qualifiers: Pneumonia type: due to unspecified organism Laterality: right Lung location: lower lobe of lung Qualified Code(s): J18.9 - Pneumonia, unspecified organism Assessment & Plan: Likely due to lying on the ground for hours. On IV Levaquin day #2. Code(s): J18.9 - PNEUMONIA, UNSPECIFIED ORGANISM (2) Elevated CK Current Visit: Yes Status: Acute Assessment & Plan: worse today; continue IV fluids, recheck in a.m. (3) Fall Current Visit: Yes Status: Acute Qualifiers: Encounter type: initial encounter Qualified Code(s): W19.XXXA - Unspecified fall, initial encounter Assessment & Plan: PT consulted. Code(s): W19.XXXA - UNSPECIFIED FALL, INITIAL ENCOUNTER (4) UTI (urinary tract infection) Current Visit: Yes Status: Acute Qualifiers: Urinary tract infection type: acute cystitis Hematuria presence: without hematuria Qualified Code(s): N30.00 - Acute cystitis without hematuria Assessment & Plan: Could be reason for the fall. Code(s): N39.0 - URINARY TRACT INFECTION, SITE NOT SPECIFIED (5) C4 cervical fracture Current Visit: No Status: Acute Qualifiers: Encounter type: initial encounter Fracture type: closed Fracture morphology: other fracture Fracture alignment: nondisplaced Qualified Code(s): S12.391A - Other nondisplaced fracture of fourth cervical vertebra, initial encounter for closed fracture Code(s): S12.300A - UNSP DISP FX OF FOURTH CERVICAL VERTEBRA, INIT FOR CLOS FX
[2020-04-20] MEDS: DESYREL 50 MG PO SCH (10:14)
[2020-04-20] MEDS: Lexapro 10 MG PO SCH (10:14)
[2020-04-20] MEDS ORDERED: MEDICATION INTERVENTION PO SCH (10:15)
[2020-04-20] MEDS: SYNTHROID 100 MCG PO SCH (10:15)
[2020-04-20] MEDS: ZOCOR 20MG PO SCH (10:15)
[2020-04-20] MEDS: AMARYL 4 MG PO SCH (11:52)
[2020-04-20] MEDS: HUMALOG SQ PRN (13:17)
[2020-04-20] MEDS: zyPREXA 5MG TABLET PO SCH (21:22)
[2020-04-20] MEDS: Neurontin 100 MG PO SCH (21:22)
[2020-04-21 05:19] LABS: Hematocrit 35.5 % (35-47); Mean Cell Volume 88.5 fl (78-100); Mean Corpuscular Hemoglobin 27.4 pg (26-32); Platelet Count 241 K/mm3 (150-450); Red Blood Count 4.01 M/mm3 (4.1-5.4); Red Cell Distribution Width 15.4 % (11.5-14.0); White Blood Count 7.3 K/mm3 (4.0-10.5)
[2020-04-21 05:35] LABS: ALBUMIN 3.4 g/dL (3.5-5.0); ANION GAP 8.8 MEQ/L (5-15); BILIRUBIN,TOTAL 0.3 mg/dL (0.2-1.3); Calcium 8.8 mg/dL (8.4-10.2); Creatinine 1 1.07 mg/dL (0.52-1.04); Potassium 4.1 mmol/L (3.5-5.1); Total Protein 6.3 g/dL (6.3-8.2)
[2020-04-21] MEDS: AMARYL 4 MG PO SCH (08:25)
[2020-04-21] MEDS: Lexapro 10 MG PO SCH (08:25)
[2020-04-21] MEDS: SYNTHROID 100 MCG PO SCH (08:26)
[2020-04-21] MEDS: celeBREX 100 MG PO SCH (08:26)
[2020-04-21] MEDS: XANAX 1 MG PO SCH (08:26)
[2020-04-21] MEDS: DESYREL 50 MG PO SCH (08:26)
[2020-04-21] MEDS: Adalat CC 30 MG TABLET PO SCH (08:26)
[2020-04-21] MEDS: ZOCOR 20MG PO SCH (08:26)
[2020-04-21] MEDS: Cozaar 50 MG PO SCH (08:27)
[2020-04-21] MEDS: Levofloxacin 500MG/100ML D5W 500 MG/100 ML BAG IV SCH (08:29)
[2020-04-21 13:02] VITALS: BP 144/60; PULSE 104; O2SAT 94
--- NOTE | 2020-04-21 15:11 | PCM.DS ---
Discharge Summary Date of Admission: 04/19/20 18:30 Admitting Physician: MARCELO YI Primary Care Provider: ALICIA WU Allergies Allergies ceftriaxone [From Rocephin] Allergy (Verified 04/19/20 15:18) lip swelling Hospital Summary - Hospital Course Hospital Course: Pt is 85 yo female pt of Dr. Wu with DM and peripheral neuropathy who was admitted to hospital after a fall with RLL PNA and UTI with elevated CK. Denies syncope. She was admitted on IV fluids and IV levaquin. Initially she felt weak but today she is feeling the "best I've felt in a month." She would like to go home. Has some residual aching from lying on th efloor and chronic back pain. Looking back, she didn't eat well the day of her fall and wonders if her blood sugar was decreased. Pt's O2 sat decreased to 87% last night - pt does not wear O2 at home. She doesn't want to go home on O2 currently; will consent to overnight pulse ox study in about a week. - Vitals & Intake/Output Vital Signs: Vital Signs Temperature 98.0 F 04/21/20 12:00 Pulse Rate 104 H 04/21/20 12:00 Respiratory Rate 19 04/21/20 12:00 Blood Pressure 144/60 04/21/20 12:00 O2 Sat by Pulse Oximetry 94 L 04/21/20 12:00 Intake & Output: Intake & Output 04/19/20 04/20/20 04/21/20 04/22/20 11:59 11:59 11:59 11:59 Intake Total 2110 720 Output Total 3200 800 Balance -1090 -80 Weight 87.2 kg 84.8 kg 84.8 kg - Lab Result Diagrams: 04/21/20 04:35 04/21/20 04:35 Lab Results-Last 24 Hrs: Accuchecks Date 04/21/20 Date 04/21/20 Date 04/20/20 Date 04/20/20 Time 11:30 Time 07:30 Time 22:00 Time 16:45 Accucheck Value: 136 Accucheck Value: 166 Accucheck Value: 149 Accucheck Value: 184 Lab Results-Last 24 Hours 04/21/20 04/21/20 Range/Units 04:35 04:35 WBC 7.3 (4.0-10.5) K/mm3 RBC 4.01 L (4.1-5.4) M/mm3 Hgb 11.0 L (12.0-16.0) gm/dl Hct 35.5 (35-47) % MCV 88.5 (78-100) fl MCH 27.4 (26-32) pg MCHC 31.0 L (32-36) g/dl RDW 15.4 H (11.5-14.0) % Plt Count 241 (150-450) K/mm3 MPV 11.0 (7.5-11.0) fl Sodium 140 (137-145) mmol/L Potassium 4.1 (3.5-5.1) mmol/L Chloride 110 H (98-107) mmol/L Carbon Dioxide 26 (22-30) mmol/L Anion Gap 8.8 (5-15) MEQ/L BUN 23 H (7-17) mg/dL Creatinine 1.07 H (0.52-1.04) mg/dL Estimated GFR 51.9 ML/MIN Glucose 166 H (74-106) mg/dL Calcium 8.8 (8.4-10.2) mg/dL Total Bilirubin 0.30 (0.2-1.3) mg/dL AST 23 (14-36) U/L ALT 22 (0-35) U/L Alkaline Phosphatase 71 (38-126) U/L Creatine Kinase 311 H (30-135) U/L Serum Total Protein 6.3 (6.3-8.2) g/dL Albumin 3.4 L (3.5-5.0) g/dL Micro Results-Entire Visit: Accuchecks Date 04/21/20 Date 04/21/20 Date 04/20/20 Date 04/20/20 Time 11:30 Time 07:30 Time 22:00 Time 16:45 Accucheck Value: 136 Accucheck Value: 166 Accucheck Value: 149 Accucheck Value: 184 - Radiology Exams Ordered Rad Exams-Entire Visit: Radiology Procedures Category Date Time Status LUMBAR SPINE W/O [CT] Stat Exams 04/19/20 14:12 Completed - Procedures and Test Procedures and Tests throughout Hospitalization: Therapy Orders & Screens 04/19/20 19:43 Oxygen NASAL CANNULA 2 lpm Comment: Diagnosis: Pneumonia 04/19/20 21:31 OT Screen per Nursing Assess ONCE Comment: Protocol Order Physician Instructions: Greater than 3 points order OT Admission Screening Reason For Exam: Triggered on Admission Diagnosis: Pneumonia, UTI Open Wound/Cellutlitis/Pressure Ulcers: No Acute Fx/ORIF/Change in wt bearing status: No Severe MUSCULOSKELETAL pain: No ADL Dysfunction: Yes Acute CVA w/Hemiparesis/Hemiplegia: No Decreased Functional Mobility/Strength: Yes Sprain/Strain: No Acute Post-op Mobility Dysfunction: No Total Points: 4 04/20/20 08:53 PT Eval & Treat (MD Order) ROUTINE Reason for Eval:: FALL AT HOME, LIVES ALONE Diagnosis: Pneumonia, UTI Discharge Exam General Appearance: no apparent distress, obese Neurologic Exam: oriented x 3, cooperative, other (somewhat flattened affect) Eye Exam: eyes nml inspection Ears, Nose, Throat Exam: moist mucous membranes Neck Exam: normal inspection Respiratory Exam: normal breath sounds, lungs clear, No crackles/rales, No rhonchi, No wheezing Cardiovascular Exam: regular rate/rhythm, normal heart sounds, No murmur Back Exam: normal inspection, No rash Extremity Exam: normal inspection, No swelling, No tenderness Skin Exam: normal color, warm, dry, No rash Final Diagnosis/Problem List - Final Discharge Diagnosis/Problem (1) Pneumonia Current Visit: Yes Status: Acute Assessment & Plan: Home on po levaquin. She is doing quite well clinically. Code(s): J18.9 - PNEUMONIA, UNSPECIFIED ORGANISM (2) Elevated CK Current Visit: Yes Status: Acute Assessment & Plan: Improved; was up to 611 yesterday and is 311 today. (3) Fall Current Visit: Yes Status: Acute Code(s): W19.XXXA - UNSPECIFIED FALL, INITIAL ENCOUNTER (4) UTI (urinary tract infection) Current Visit: Yes Status: Acute Code(s): N39.0 - URINARY TRACT INFECTION, SITE NOT SPECIFIED (5) C4 cervical fracture Current Visit: No Status: Chronic Assessment & Plan: chronic and stable. Code(s): S12.300A - UNSP DISP FX OF FOURTH CERVICAL VERTEBRA, INIT FOR CLOS FX (6) Hypoxemia Current Visit: Yes Status: Acute Assessment & Plan: Overnight pulse ox in 1 week; she only dropped to 87 so I think this is reasonable. Could be due to present PNA. Code(s): R09.02 - HYPOXEMIA - Discharge Disposition: Home, Self-Care Condition: Stable Prescriptions: New Levofloxacin [Levaquin] 500 mg PO DAILY #4 tablet Continue Nifedipine [Nifedipine ER] 90 mg PO DAILY Losartan Potassium 25 mg PO DAILY No Action Simvastatin 40 mg [Zocor 40 mg] 40 mg PO DAILY Levothyroxine Sodium 100 Mcg [Synthroid 100 Mcg] 100 mcg PO DAILY Olanzapine 5 mg PO HS Trazodone HCl 100 mg PO DAILY Metformin HCl 500 mg PO BID Glimepiride 4 mg [Amaryl 4 mg] 4 mg PO DAILY Insulin Glargine,Hum.rec.anlog [Lantus Solostar] 20 units SQ DAILY Melatonin 5 mg PO HS Alprazolam 1 mg [Xanax 1 mg] 1 mg PO BID Gabapentin 200 mg PO QHS Escitalopram Oxalate [Lexapro] 20 mg PO DAILY Furosemide [Lasix] 25 mg PO DAILY Celecoxib 100 mg PO DAILY Additional Instructions: YOUR APPOINTMENT WITH PHYSICAL THERAPY IS SATURDAY 04/28 AT 1 PM Follow up with: ALICIA WU MD [Primary Care Provider] - 04/28/20 10:45 am
== END 2020-04-21 15:55 | disposition home or self-care (01) | DRG 194 ==
LOC: ED 13:15 → MED SURG 18:30 → OBSVTOIN 18:30
PROVIDERS: ADMIT Family Medicine; ATTEND Family Medicine
DX: J18.9 Pneumonia, unspecified organism (principal); S12.300A Unspecified displaced fracture of fourth cervical vertebra, initial encounter for closed fracture; N39.0 Urinary tract infection, site not specified; M54.5 Low back pain; E11.9 Type 2 diabetes mellitus without complications; I10 Essential (primary) hypertension; R42 Dizziness and giddiness; R09.02 Hypoxemia; Z11.59 Encounter for screening for other viral diseases; G62.9 Polyneuropathy, unspecified; S00.03XA Contusion of scalp, initial encounter; W19.XXXA Unspecified fall, initial encounter; Y92.009 Unspecified place in unspecified non-institutional (private) residence as the place of occurrence of the external cause; Z85.3 Personal history of malignant neoplasm of breast; Z79.899 Other long term (current) drug therapy
CPT/HCPCS: 36000; 36415; 51702; 70450; 71045; 72131; 80053; 81001; 82550; 82962; 83036; 83605; 85025; 85027; 85610; 93005; 93041; 94760; 96360; 96361; 96365; 97161; 97530; 99285; U0003; J1817; J1956; A9270-GY

== ENCOUNTER 2020-05-24 14:53 | Observation (INO) | payer MEDICARE ==
[2020-05-24 15:50] LABS: Absolute Neutrophil Ct (ANC) 6.12 (1.4-6.9); BASOPHIL % 0.2 % (0.0-0.4); Basophil (Absolute #) 0.02 (0-0.4); Eosinophil % 1.9 % (0.00-5.0); Eosinophil (Absolute #) 0.18 (0-0.5); Hematocrit 38.6 % (35-47); Hemoglobin 12.1 gm/dl (12.0-16.0); Lymphocyte (Absolute #) 2.37 (1.0-4.6); Lymphocytes % 25.5 % (24.0-44.0); Mean Cell Volume 88.1 fl (78-100); Mean Corpuscular Hemoglobin 27.6 pg (26-32); Mean Corpuscular Hgb Concent. 31.3 g/dl (32-36); Mean Platelet Volume 11.1 fl (7.5-11.0); Monocyte (Absolute #) 0.59 (0.0-1.3); Monocytes % 6.4 % (0.0-12.0); Platelet Count 257 K/mm3 (150-450); Red Blood Count 4.38 M/mm3 (4.1-5.4); Red Cell Distribution Width 15.6 % (11.5-14.0); White Blood Count 9.3 K/mm3 (4.0-10.5)
[2020-05-24 16:02] LABS: ALBUMIN 4.2 g/dL (3.5-5.0); ANION GAP 16.5 MEQ/L (5-15); BILIRUBIN,TOTAL 0.4 mg/dL (0.2-1.3); Calcium 9.2 mg/dL (8.4-10.2); Creatinine 1 2.09 mg/dL (0.52-1.04); Total Protein 7.2 g/dL (6.3-8.2)
--- NOTE | 2020-05-24 16:24 | XRAY ---
Indication: Intermittent weakness and short of breath 2 weeks. Comparison: April 19, 2020. Portable chest now clear. Heart not enlarged for AP portable technique. Bony thorax intact again with mild osteopenia and degenerative changes. Impression: Nonacute chest with chronic bony findings.
--- NOTE | 2020-05-24 17:33 | ERPHSYRPT ---
- History of Present Illness Time Seen by Provider: 05/24/20 15:00 Source: patient Exam Limitations: no limitations Patient Subjective Stated Complaint: SOB Triage Nursing Assessment: Patient brought into ED via EMS and transferred to bed with assist of 2. Patient A+O 3. Patient's skin pink, warm and dry. Patient complains of increased SOB with exertion. Patient states her lower back hurts 6/10 constant aching pain. Patient also states she has a blister on her buttocks that hurts. Patient's lungs clear a/p nathanael. No edema noted. Heart tones audible. Patient has small open area noted to coccyx. Physician History: Patient is an 85-year-old female presents to our ED with complaints of shortness of breath. Patient states her shortness of breath started at home while she was sitting in a chair. Patient felt as though she was being smothered. However symptoms spontaneously improved. Patient lives by herself. No associated chest pain. No nausea no vomiting. No trauma. No fevers. Symptoms are mild to moderate in intensity when present. Symptoms are essentially nonremarkable at this time. Patient voices no other complaints. Timing/Duration: today Severity: moderate Modifying Factors: Improves With: nothing Associated Symptoms: shortness of breath, No nausea, No vomiting, No abdominal pain, No heartburn, No diaphoresis, No headaches, No syncope, No seizure Allergies/Adverse Reactions: ceftriaxone [From Rocephin] Allergy (Verified 05/24/20 14:57) lip swelling Home Medications: Levothyroxine Sodium 100 Mcg [Synthroid 100 Mcg] 100 mcg PO DAILY 05/24/17 [History] Nifedipine [Nifedipine ER] 90 mg PO DAILY 05/24/17 [History] Simvastatin 40 mg [Zocor 40 mg] 40 mg PO DAILY 05/24/17 [History] Olanzapine 5 mg PO HS 05/30/18 [History] Trazodone HCl 100 mg PO DAILY 12/16/18 [History] Glimepiride 4 mg [Amaryl 4 mg] 4 mg PO DAILY 03/20/19 [History] Losartan Potassium 25 mg PO DAILY 03/20/19 [History] Metformin HCl 500 mg PO BID 03/20/19 [History] Insulin Glargine,Hum.rec.anlog [Lantus Solostar] 20 units SQ DAILY 03/21/19 [History] Melatonin 5 mg PO HS 12/29/19 [History] Alprazolam 1 mg [Xanax 1 mg] 1 mg PO BID 03/11/20 [History] Escitalopram Oxalate [Lexapro] 20 mg PO DAILY 03/11/20 [History] Gabapentin 200 mg PO QHS 03/11/20 [History] Celecoxib 100 mg PO DAILY 04/19/20 [History] Furosemide [Lasix] 20 mg PO DAILY 04/19/20 [History] Hx Tetanus, Diphtheria Vaccination/Date Given: Yes Hx Influenza Vaccination/Date Given: Yes Hx Pneumococcal Vaccination/Date Given: Yes Immunizations Up to Date: Yes Travel Risk - International Travel Have you traveled outside of the country in past 3 weeks: No - Coronavirus Screening Are you exhibiting any of the following symptoms?: Yes Symptoms: Shortness of Breath, Vomiting/Diarrhea Close contact with a COVID-19 positive Pt in past 14-21 Days: No - Review of Systems Constitutional: No Symptoms, No Fever, No Chills Eyes: No Symptoms Ears, Nose, & Throat: No Symptoms Respiratory: No Symptoms, No Cough, No Dyspnea Cardiac: No Symptoms, No Chest Pain, No Edema, No Syncope Abdominal/Gastrointestinal: No Symptoms, No Abdominal Pain, No Nausea, No Vomiting, No Diarrhea Genitourinary Symptoms: No Symptoms, No Dysuria Musculoskeletal: No Symptoms, No Back Pain, No Neck Pain Skin: No Symptoms, No Rash Neurological: No Symptoms, No Dizziness, No Focal Weakness, No Sensory Changes Psychological: No Symptoms Endocrine: No Symptoms Hematologic/Lymphatic: No Symptoms Immunological/Allergic: No Symptoms All Other Systems: Reviewed and Negative - Past Medical History Pertinent Past Medical History: Yes Neurological History: No Pertinent History ENT History: No Pertinent History Cardiac History: Hypertension Respiratory History: Pneumonia Endocrine Medical History: Diabetes Type II Musculoskeletal History: Degenerative Disk Disease, Fractures, Osteoarthritis GI Medical History: No Pertinent History History: No Pertinent History Psycho-Social History: Depression Female Reproductive Disorders: Breast Cancer Other Medical History: PMHX: DEPRESSION, BREAST CA, CHRONIC LOW BACK PAIN, CHOLECYSTECTOMY, HYSTERECTOMY - Past Surgical History Past Surgical History: Yes Neuro Surgical History: No Pertinent History Cardiac: No Pertinent History Respiratory: No Pertinent History Gastrointestinal: Cholecystectomy Genitourinary: No Pertinent History Musculoskeletal: Joint Replacement Female Surgical History: Hysterectomy Other Surgical History: Left Knee Replacement - Social History Smoking Status: Never smoker Exposure to second hand smoke: No Drug Use: none Patient Lives Alone: Yes - Female History Hx Now: No - Nursing Vital Signs Nursing Vital Signs: Initial Vital Signs Temperature 98.6 F 05/24/20 14:58 Pulse Rate 99 H 05/24/20 14:58 Respiratory Rate 18 05/24/20 14:58 Blood Pressure 100/72 05/24/20 14:58 O2 Sat by Pulse Oximetry 94 L 05/24/20 14:58 Pain Scale Pain Intensity 5 - Physical Exam General Appearance: no apparent distress, alert Eye Exam: PERRL/EOMI, eyes nml inspection Ears, Nose, Throat Exam: normal ENT inspection, TMs normal, pharynx normal, moist mucous membranes Neck Exam: normal inspection, non-tender, supple, full range of motion Respiratory Exam: normal breath sounds, lungs clear, No respiratory distress Cardiovascular Exam: regular rate/rhythm, normal heart sounds, normal peripheral pulses Gastrointestinal/Abdomen Exam: soft, normal bowel sounds, No tenderness, No mass Back Exam: normal inspection, normal range of motion, No CVA tenderness, No vertebral tenderness Extremity Exam: normal inspection, normal range of motion, pelvis stable Neurologic Exam: alert, oriented x 3, cooperative, normal mood/affect, nml cerebellar function, nml station & gait, sensation nml, No motor deficits Skin Exam: normal color, warm, dry, No rash Lymphatic Exam: No adenopathy SpO2 Interpretation: normal SpO2: 96 O2 Delivery: Room Air - Course Nursing assessment & vital signs reviewed: Yes EKG Interpreted by Me: RATE (92), Sinus Rhythm, NORMAL AXIS, NORMAL INTERVALS - Radiology Exams Chest X-ray Interpretation: Teleradiologist Report (Nonacute chest with chronic findings.) Ordered Tests: Active Orders 24 hr Category Date Time Status Bedrest ROUTINE Activity 05/24/20 18:34 Active Accucheck ACHS Care 05/24/20 18:34 Active Planner Internship STAT Care 05/24/20 15:12 Completed Code Status Order ROUTINE Care 05/24/20 18:34 Active EKG-ER Only STAT Care 05/24/20 15:10 Completed IV Care Q6H Care 05/24/20 18:34 Active IV Insertion STAT Care 05/24/20 15:10 Completed Implement CHF Pathway ROUTINE Care 05/24/20 18:[address] in Observation ROUTINE Care 05/24/20 18:34 Active Pulse Oximetry (ED) STAT Care 05/24/20 15:10 Completed Weight,Daily 0600 Care 05/24/20 18:34 Active Consistent Carbohydrate Diet 1800 Calorie Diet 05/24/20 Breakfast Active CHEST 1 VIEW (PORTABLE) Stat Exams 05/24/20 15:12 Completed BMP AM.LAB Lab 05/25/20 04:00 Ordered CBC AM.LAB Lab 05/25/20 04:00 Ordered CBC W DIFF Stat Lab 05/24/20 15:45 Completed CMP Stat Lab 05/24/20 15:45 Completed D-DIMER QUANTITATIVE Stat Lab 05/24/20 15:45 Completed NT PRO BNP AM.LAB Lab 05/25/20 04:00 Ordered NT PRO BNP Stat Lab 05/24/20 18:15 Completed TROPONIN DAILY Lab 05/25/20 18:30 Ordered TROPONIN DAILY Lab 05/26/20 18:30 Ordered TROPONIN DAILY Lab 05/27/20 18:30 Ordered TROPONIN Q3H Lab 05/24/20 15:45 Completed TROPONIN Q3H Lab 05/24/20 18:15 Completed TROPONIN Q3H Lab 05/24/20 21:15 Ordered TROPONIN Q3H Lab 05/25/20 00:15 Ordered TROPONIN Q3H Lab 05/25/20 03:15 Ordered UA W/RFX UR CULTURE Stat Lab 05/24/20 18:01 Completed Oxygen NASAL CANNULA 2 lpm RT 05/24/20 18:34 Active Pulse Oximetry OVERNIGHT RT 05/24/20 18:34 Active Transfer Order Routine Transfer 05/24/20 Completed Medication Summary Generic Name Dose Route Start Last Admin Trade Name Freq PRN Reason Stop Dose Admin Alprazolam 1 mg 05/24/20 22:00 Xanax 1 Mg PO 06/23/20 21:59 BID JEIMY Enoxaparin Sodium 80 mg 05/24/20 20:00 Enoxaparin Sodium SQ 05/24/20 20:01 1XONLY ONE Gabapentin 200 mg 05/24/20 22:00 Neurontin 100 Mg PO 06/23/20 21:59 HS JEIMY Metformin HCl 500 mg 05/24/20 22:00 Glucophage 500 Mg PO 06/23/20 21:59 BID JEIMY Olanzapine 5 mg 05/24/20 22:00 Zyprexa 5mg Tablet PO 06/23/20 21:59 HS [facility] Lab/Rad Data: Laboratory Result Diagrams 05/24/20 15:45 05/24/20 15:45 Laboratory Results 05/24/20 05/24/20 05/24/20 Range/Units 18:15 18:15 18:01 WBC (4.0-10.5) K/mm3 RBC (4.1-5.4) M/mm3 Hgb (12.0-16.0) gm/dl Hct (35-47) % MCV (78-100) fl MCH (26-32) pg MCHC (32-36) g/dl RDW (11.5-14.0) % Plt Count (150-450) K/mm3 MPV (7.5-11.0) fl Gran % (36.0-66.0) % Eos # (Auto) (0-0.5) Absolute Lymphs (auto) (1.0-4.6) Absolute Monos (auto) (0.0-1.3) Lymphocytes % (24.0-44.0) % Monocytes % (0.0-12.0) % Eosinophils % (0.00-5.0) % Basophils % (0.0-0.4) % Absolute Granulocytes (1.4-6.9) Basophils # (0-0.4) D-Dimer (215-500) ng/mL Sodium (137-145) mmol/L Potassium (3.5-5.1) mmol/L Chloride (98-107) mmol/L Carbon Dioxide (22-30) mmol/L Anion Gap (5-15) MEQ/L BUN (7-17) mg/dL Creatinine (0.52-1.04) mg/dL Estimated GFR ML/MIN Glucose (74-106) mg/dL Calcium (8.4-10.2) mg/dL Total Bilirubin (0.2-1.3) mg/dL AST (14-36) U/L ALT (0-35) U/L Alkaline Phosphatase (38-126) U/L Troponin I < 0.012 (0.000-0.034) ng/mL NT-Pro-B Natriuret Pep 360 (0-1800) pg/mL Serum Total Protein (6.3-8.2) g/dL Albumin (3.5-5.0) g/dL Urine Color YELLOW (YELLOW) Urine Appearance CLEAR (CLEAR) Urine pH 5.0 (5-6) Ur Specific [place] 1.020 (1.005-1.025) Urine Protein 30 (Negative) Urine Ketones NEGATIVE (NEGATIVE) Urine Blood NEGATIVE (0-5) Mitch/ul Urine Nitrite NEGATIVE (NEGATIVE) Urine Bilirubin NEGATIVE (NEGATIVE) Urine Urobilinogen NEGATIVE (0-1) mg/dL Ur Leukocyte Esterase TRACE (NEGATIVE) Urine WBC (Auto) 3-5 (0-5) /HPF Urine RBC (Auto) NONE (0-2) /HPF U Hyaline Cast (Auto) 3-5 (0-2) /LPF U Epithel Cells (Auto) NONE (FEW) /HPF Urine Bacteria (Auto) NONE (NEGATIVE) /HPF Urine Mucus (Auto) SLIGHT (NEGATIVE) /HPF Urine Culture Reflexed NO (NO) Urine Glucose NEGATIVE (NEGATIVE) mg/dL 05/24/20 05/24/20 05/24/20 Range/Units 15:45 15:45 15:45 WBC (4.0-10.5) K/mm3 RBC (4.1-5.4) M/mm3 Hgb (12.0-16.0) gm/dl Hct (35-47) % MCV (78-100) fl MCH (26-32) pg MCHC (32-36) g/dl RDW (11.5-14.0) % Plt Count (150-450) K/mm3 MPV (7.5-11.0) fl Gran % (36.0-66.0) % Eos # (Auto) (0-0.5) Absolute Lymphs (auto) (1.0-4.6) Absolute Monos (auto) (0.0-1.3) Lymphocytes % (24.0-44.0) % Monocytes % (0.0-12.0) % Eosinophils % (0.00-5.0) % Basophils % (0.0-0.4) % Absolute Granulocytes (1.4-6.9) Basophils # (0-0.4) D-Dimer 2536 H* (215-500) ng/mL Sodium 139 (137-145) mmol/L Potassium 4.0 (3.5-5.1) mmol/L Chloride 104 (98-107) mmol/L Carbon Dioxide 23 (22-30) mmol/L Anion Gap 16.5 H (5-15) MEQ/L BUN 35 H (7-17) mg/dL Creatinine 2.09 H (0.52-1.04) mg/dL Estimated GFR 24.0 ML/MIN Glucose 186 H (74-106) mg/dL Calcium 9.2 (8.4-10.2) mg/dL Total Bilirubin 0.40 (0.2-1.3) mg/dL AST 20 (14-36) U/L ALT 15 (0-35) U/L Alkaline Phosphatase 61 (38-126) U/L Troponin I < 0.012 (0.000-0.034) ng/mL NT-Pro-B Natriuret Pep (0-1800) pg/mL Serum Total Protein 7.2 (6.3-8.2) g/dL Albumin 4.2 (3.5-5.0) g/dL Urine Color (YELLOW) Urine Appearance (CLEAR) Urine pH (5-6) Ur Specific [place] (1.005-1.025) Urine Protein (Negative) Urine Ketones (NEGATIVE) Urine Blood (0-5) Mitch/ul Urine Nitrite (NEGATIVE) Urine Bilirubin (NEGATIVE) Urine Urobilinogen (0-1) mg/dL Ur Leukocyte Esterase (NEGATIVE) Urine WBC (Auto) (0-5) /HPF Urine RBC (Auto) (0-2) /HPF U Hyaline Cast (Auto) (0-2) /LPF U Epithel Cells (Auto) (FEW) /HPF Urine Bacteria (Auto) (NEGATIVE) /HPF Urine Mucus (Auto) (NEGATIVE) /HPF Urine Culture Reflexed (NO) Urine Glucose (NEGATIVE) mg/dL 05/24/20 Range/Units 15:45 WBC 9.3 (4.0-10.5) K/mm3 RBC 4.38 (4.1-5.4) M/mm3 Hgb 12.1 (12.0-16.0) gm/dl Hct 38.6 (35-47) % MCV 88.1 (78-100) fl MCH 27.6 (26-32) pg MCHC 31.3 L (32-36) g/dl RDW 15.6 H (11.5-14.0) % Plt Count 257 (150-450) K/mm3 MPV 11.1 H (7.5-11.0) fl Gran % 66.0 (36.0-66.0) % Eos # (Auto) 0.18 (0-0.5) Absolute Lymphs (auto) 2.37 (1.0-4.6) Absolute Monos (auto) 0.59 (0.0-1.3) Lymphocytes % 25.5 (24.0-44.0) % Monocytes % 6.4 (0.0-12.0) % Eosinophils % 1.9 (0.00-5.0) % Basophils % 0.2 (0.0-0.4) % Absolute Granulocytes 6.12 (1.4-6.9) Basophils # 0.02 (0-0.4) D-Dimer (215-500) ng/mL Sodium (137-145) mmol/L Potassium (3.5-5.1) mmol/L Chloride (98-107) mmol/L Carbon Dioxide (22-30) mmol/L Anion Gap (5-15) MEQ/L BUN (7-17) mg/dL Creatinine (0.52-1.04) mg/dL Estimated GFR ML/MIN Glucose (74-106) mg/dL Calcium (8.4-10.2) mg/dL Total Bilirubin (0.2-1.3) mg/dL AST (14-36) U/L ALT (0-35) U/L Alkaline Phosphatase (38-126) U/L Troponin I (0.000-0.034) ng/mL NT-Pro-B Natriuret Pep (0-1800) pg/mL Serum Total Protein (6.3-8.2) g/dL Albumin (3.5-5.0) g/dL Urine Color (YELLOW) Urine Appearance (CLEAR) Urine pH (5-6) Ur Specific [place] (1.005-1.025) Urine Protein (Negative) Urine Ketones (NEGATIVE) Urine Blood (0-5) Mitch/ul Urine Nitrite (NEGATIVE) Urine Bilirubin (NEGATIVE) Urine Urobilinogen (0-1) mg/dL Ur Leukocyte Esterase (NEGATIVE) Urine WBC (Auto) (0-5) /HPF Urine RBC (Auto) (0-2) /HPF U Hyaline Cast (Auto) (0-2) /LPF U Epithel Cells (Auto) (FEW) /HPF Urine Bacteria (Auto) (NEGATIVE) /HPF Urine Mucus (Auto) (NEGATIVE) /HPF Urine Culture Reflexed (NO) Urine Glucose (NEGATIVE) mg/dL - Progress Progress: improved Progress Note: 05/24/20 20:36 Patient reassessed. She feels well. D-dimer elevated. Case discussed with Dr. Oden. Patient not a candidate for CTA due to renal function. Per we will dose patient with 1 mg/kg of Lovenox. Possible VQ scan as an inpatient. Plan of care discussed with patient. She agrees to admission to [facility] for further evaluation and treatment. Discussed with Dr.: Cammy Counseled pt/family regarding: lab results, diagnosis, rad results - Departure Departure Disposition: Observation Clinical Impression: Shortness of breath, Elevated d-dimer Condition: Stable Critical Care Time: No
[2020-05-24 18:43] LABS: Appearance CLEAR (CLEAR); Bilirubin NEGATIVE (NEGATIVE); Blood NEGATIVE Ery/ul (0-5); Glucose NEGATIVE (NEGATIVE); Ketones NEGATIVE (NEGATIVE); Leukocyte Esterase TRACE (NEGATIVE); Mucus SLIGHT /HPF (NEGATIVE); Nitrite NEGATIVE (NEGATIVE); Protein,Urine Dip 30 (Negative); Urobilinogen NEGATIVE mg/dL (0-1)
[2020-05-24] MEDS ORDERED: ENOXAPARIN SODIUM SQ ONE (20:00)
[2020-05-24] MEDS ORDERED: Glucophage 500 MG PO SCH (22:00)
[2020-05-24] MEDS: Neurontin 100 MG PO SCH (22:22)
[2020-05-24] MEDS: XANAX 1 MG PO SCH (22:28)
[2020-05-24] MEDS: zyPREXA 5MG TABLET PO SCH (22:28)
[2020-05-25 04:30] LABS: ANION GAP 12.9 MEQ/L (5-15); Calcium 9.3 mg/dL (8.4-10.2); Creatinine 1 1.66 mg/dL (0.52-1.04); Potassium 4.1 mmol/L (3.5-5.1)
[2020-05-25 04:33] LABS: Hematocrit 40.5 % (35-47); Hemoglobin 12.8 gm/dl (12.0-16.0); Mean Cell Volume 87.7 fl (78-100); Mean Corpuscular Hemoglobin 27.7 pg (26-32); Mean Corpuscular Hgb Concent. 31.6 g/dl (32-36); Mean Platelet Volume 11.2 fl (7.5-11.0); Platelet Count 264 K/mm3 (150-450); Red Blood Count 4.62 M/mm3 (4.1-5.4); Red Cell Distribution Width 15.7 % (11.5-14.0); White Blood Count 9.3 K/mm3 (4.0-10.5)
[2020-05-25] MEDS ORDERED: MEDICATION INTERVENTION MC SCH (07:30)
[2020-05-25] MEDS: Glucophage 500 MG PO SCH ×2 (08:51→18:05)
[2020-05-25] MEDS: AMARYL 4 MG PO SCH (08:51)
[2020-05-25] MEDS: Lantus Insulin SQ SCH (08:52)
[2020-05-25] MEDS: celeBREX 100 MG PO SCH (09:57)
[2020-05-25] MEDS: LASIX 20 MG PO SCH (09:57)
[2020-05-25] MEDS: Lexapro 10 MG PO SCH (09:58)
[2020-05-25] MEDS: SYNTHROID 100 MCG PO SCH (09:58)
[2020-05-25] MEDS: Adalat CC 30 MG TABLET PO SCH (09:58)
[2020-05-25] MEDS: Cozaar 50 MG PO SCH (09:59)
[2020-05-25] MEDS: XANAX 1 MG PO SCH ×2 (09:59→21:38)
[2020-05-25] MEDS ORDERED: NIFEDIPINE 90 MG PO SCH (10:00)
[2020-05-25] MEDS ORDERED: DESYREL 50 MG PO SCH ×2 (10:00→22:00)
[2020-05-25] MEDS ORDERED: NON-FORMULARY ITEM (Escitalopram Oxalate [Lexapro] 20 MG) PO SCH (10:00)
[2020-05-25] MEDS ORDERED: INSULIN GLARGINE HUM REC ANLOG 20 UNIT SQ SCH (10:00)
[2020-05-25] MEDS ORDERED: NON-FORMULARY ITEM (Simvastatin 40 Mg [Zocor 40 Mg] 40 MG) PO SCH (10:00)
[2020-05-25] MEDS: ZOCOR 20MG PO SCH (10:05)
--- NOTE | 2020-05-25 12:30 | PCM.HP ---
History of Present Illness - Chief Complaint Chief Complaint: SOB for 1-2 days History of Present Illness: is an 85-year-old female presents to our ED with complaints of shortness of breath. Patient states her shortness of breath started at home while she was sitting in a chair. Patient felt as though she was being smothered. However symptoms spontaneously improved. Patient lives by herself. No associated chest pain. No nausea no vomiting. No trauma. No fevers. Symptoms are mild to moderate in intensity when present. Symptoms are essentially nonremarkable at this time. Patient voices no other complaints. - Review of Systems Constitutional: No Fever, No Chills Eyes: No Symptoms Ears, Nose, & Throat: No Symptoms Respiratory: No Cough, No Short Of Breath Cardiac: No Chest Pain, No Edema, No Syncope Abdominal/Gastrointestinal: No Abdominal Pain, No Nausea, No Vomiting, No Diarrhea Genitourinary Symptoms: No Dysuria Musculoskeletal: No Back Pain, No Neck Pain Skin: No Rash Neurological: No Dizziness, No Focal Weakness, No Sensory Changes Psychological: No Symptoms Endocrine: No Symptoms Hematologic/Lymphatic: No Symptoms Immunological/Allergic: No Symptoms Medications & Allergies Home Medications: Home Medication List Levothyroxine Sodium 100 Mcg [Synthroid 100 Mcg] 100 mcg PO DAILY 05/24/17 [History Confirmed 05/24/20] Nifedipine [Nifedipine ER] 90 mg PO DAILY 05/24/17 [History Confirmed 05/24/20] Simvastatin 40 mg [Zocor 40 mg] 40 mg PO DAILY 05/24/17 [History Confirmed 05/24/20] Olanzapine 5 mg PO HS 05/30/18 [History Confirmed 05/24/20] Trazodone HCl 100 mg PO DAILY 12/16/18 [History Confirmed 05/24/20] Glimepiride 4 mg [Amaryl 4 mg] 4 mg PO DAILY 03/20/19 [History Confirmed 05/24/20] Losartan Potassium 25 mg PO DAILY 03/20/19 [History Confirmed 05/24/20] Metformin HCl 500 mg PO BID 03/20/19 [History Confirmed 05/24/20] Insulin Glargine,Hum.rec.anlog [Lantus Solostar] 20 units SQ DAILY 03/21/19 [History Confirmed 05/24/20] Melatonin 5 mg PO HS 12/29/19 [History Confirmed 05/24/20] Alprazolam 1 mg [Xanax 1 mg] 1 mg PO BID 03/11/20 [History Confirmed 05/24/20] Escitalopram Oxalate [Lexapro] 20 mg PO DAILY 03/11/20 [History Confirmed 05/24/20] Gabapentin 200 mg PO QHS 03/11/20 [History Confirmed 05/24/20] Celecoxib 100 mg PO DAILY 04/19/20 [History Confirmed 05/24/20] Furosemide [Lasix] 20 mg PO DAILY 04/19/20 [History Confirmed 05/24/20] Allergies/Adverse Reactions: Allergies Allergy/AdvReac Type Severity Reaction Status Date / Time ceftriaxone [From Rocephin] Allergy Verified 05/24/20 14:57 - Past Medical History Past Medical History: Yes Neurological History: No Pertinent History ENT History: No Pertinent History Cardiac History: Hypertension Respiratory History: Pneumonia Endocrine Medical History: Diabetes Type II Musculoskelatal History: Degenerative Disk Disease, Fractures, Osteoarthritis GI Medical History: No Pertinent History History: No Pertinent History Pyscho-Social History: Depression Reproductive Disorders: Breast Cancer Comment: PMHX: DEPRESSION, BREAST CA, CHRONIC LOW BACK PAIN, CHOLECYSTECTOMY, HYSTERECTOMY - Female History Are you now?: No - Past Surgical History Past Surgical History: Yes Neuro Surgical History: No Pertinent History Cardiac History: No Pertinent History Respiratory Surgery: No Pertinent History GI Surgical History: Cholecystectomy Genitourinary Surgical Hx: No Pertinent History Musculskeletal Surgical Hx: Joint Replacement Female Surgical History: Hysterectomy Other Surgical History: Left Knee Replacement - Social History Smoking Status: Never smoker Exposure to second hand smoke: No Alcohol: None Drug Use: none - Physical Exam Vital Signs: Vital Signs - 24 hr Temp Pulse Resp BP Pulse Ox 05/25/20 08:00 97.8 F 100 H 20 136/66 93 L 05/25/20 07:30 90 L 05/25/20 04:00 97.4 F 95 H 14 168/70 92 L 05/25/20 00:00 97.9 F 82 19 156/72 90 L 05/24/20 20:39 96 05/24/20 19:46 94 L 05/24/20 18:48 98.7 F 88 16 138/62 97 05/24/20 18:34 97 05/24/20 18:17 74 18 118/62 97 05/24/20 17:29 98.6 F 83 20 105/59 96 05/24/20 16:24 98.6 F 83 20 106/54 95 05/24/20 15:17 95 05/24/20 14:58 98.6 F 99 H 18 100/72 96 General Appearance: no apparent distress, alert Neurologic Exam: alert, oriented x 3, cooperative, normal mood/affect, nml cerebellar function, nml station & gait, sensation nml, No motor deficits Eye Exam: PERRL/EOMI, eyes nml inspection Ears, Nose, Throat Exam: normal ENT inspection, TMs normal, pharynx normal, moist mucous membranes Neck Exam: normal inspection, non-tender, supple, full range of motion Respiratory Exam: normal breath sounds, lungs clear, No respiratory distress Cardiovascular Exam: regular rate/rhythm, normal heart sounds, normal peripheral pulses Gastrointestinal/Abdomen Exam: soft, normal bowel sounds, No tenderness, No mass Back Exam: normal inspection, normal range of motion, No CVA tenderness, No vertebral tenderness Extremity Exam: normal inspection, normal range of motion, pelvis stable Skin Exam: normal color, warm, dry, No rash Wound Assessment: Skin/Wound Assessment Wound/Incision Assessment Start: 05/24/20 20:40 Text: Status: Active Freq: Q6H Protocol: Document 05/25/20 09:00 AR (Rec: 05/25/20 09:25 AR [id number]) Wound/Incision Assessment Proximal Right Intergluteal Cleft Wound Assessment Shift Assessment Wound Type Pressure Ulcer Wound Stage Stage II Drainage Amount None General Appearance Clean/Dry Wound Bed Greatest Portion Pale [place] Wound Bed Lesser Portion Pale [place] % Granulated (Red) 100 % Sl[place] (Yellow) 0 % Eschar (Black) 0 Surrounding Tissue [place] Primary Dressing barrier cream applied Comment BARRIER CREAM APPLIED PRN Lymphatic Exam: No adenopathy Results - Labs Lab/Micro Results: Accuchecks Date 05/24/20 Time 22:00 Accucheck Value: 152 Lab Results-Last 24 Hours 05/24/20 05/24/20 05/24/20 Range/Units 15:45 15:45 15:45 WBC 9.3 (4.0-10.5) K/mm3 RBC 4.38 (4.1-5.4) M/mm3 Hgb 12.1 (12.0-16.0) gm/dl Hct 38.6 (35-47) % MCV 88.1 (78-100) fl MCH 27.6 (26-32) pg MCHC 31.3 L (32-36) g/dl RDW 15.6 H (11.5-14.0) % Plt Count 257 (150-450) K/mm3 MPV 11.1 H (7.5-11.0) fl Gran % 66.0 (36.0-66.0) % Eos # (Auto) 0.18 (0-0.5) Absolute Lymphs (auto) 2.37 (1.0-4.6) Absolute Monos (auto) 0.59 (0.0-1.3) Lymphocytes % 25.5 (24.0-44.0) % Monocytes % 6.4 (0.0-12.0) % Eosinophils % 1.9 (0.00-5.0) % Basophils % 0.2 (0.0-0.4) % Absolute Granulocytes 6.12 (1.4-6.9) Basophils # 0.02 (0-0.4) D-Dimer 2536 H* (215-500) ng/mL Sodium 139 (137-145) mmol/L Potassium 4.0 (3.5-5.1) mmol/L Chloride 104 (98-107) mmol/L Carbon Dioxide 23 (22-30) mmol/L Anion Gap 16.5 H (5-15) MEQ/L BUN 35 H (7-17) mg/dL Creatinine 2.09 H (0.52-1.04) mg/dL Estimated GFR 24.0 ML/MIN Glucose 186 H (74-106) mg/dL Calcium 9.2 (8.4-10.2) mg/dL Total Bilirubin 0.40 (0.2-1.3) mg/dL AST 20 (14-36) U/L ALT 15 (0-35) U/L Alkaline Phosphatase 61 (38-126) U/L Troponin I (0.000-0.034) ng/mL NT-Pro-B Natriuret Pep (0-1800) pg/mL Serum Total Protein 7.2 (6.3-8.2) g/dL Albumin 4.2 (3.5-5.0) g/dL Urine Color (YELLOW) Urine Appearance (CLEAR) Urine pH (5-6) Ur Specific [place] (1.005-1.025) Urine Protein (Negative) Urine Ketones (NEGATIVE) Urine Blood (0-5) Mitch/ul Urine Nitrite (NEGATIVE) Urine Bilirubin (NEGATIVE) Urine Urobilinogen (0-1) mg/dL Ur Leukocyte Esterase (NEGATIVE) Urine WBC (Auto) (0-5) /HPF Urine RBC (Auto) (0-2) /HPF U Hyaline Cast (Auto) (0-2) /LPF U Epithel Cells (Auto) (FEW) /HPF Urine Bacteria (Auto) (NEGATIVE) /HPF Urine Mucus (Auto) (NEGATIVE) /HPF Urine Culture Reflexed (NO) Urine Glucose (NEGATIVE) mg/dL 05/24/20 05/24/20 05/24/20 Range/Units 15:45 18:01 18:15 WBC (4.0-10.5) K/mm3 RBC (4.1-5.4) M/mm3 Hgb (12.0-16.0) gm/dl Hct (35-47) % MCV (78-100) fl MCH (26-32) pg MCHC (32-36) g/dl RDW (11.5-14.0) % Plt Count (150-450) K/mm3 MPV (7.5-11.0) fl Gran % (36.0-66.0) % Eos # (Auto) (0-0.5) Absolute Lymphs (auto) (1.0-4.6) Absolute Monos (auto) (0.0-1.3) Lymphocytes % (24.0-44.0) % Monocytes % (0.0-12.0) % Eosinophils % (0.00-5.0) % Basophils % (0.0-0.4) % Absolute Granulocytes (1.4-6.9) Basophils # (0-0.4) D-Dimer (215-500) ng/mL Sodium (137-145) mmol/L Potassium (3.5-5.1) mmol/L Chloride (98-107) mmol/L Carbon Dioxide (22-30) mmol/L Anion Gap (5-15) MEQ/L BUN (7-17) mg/dL Creatinine (0.52-1.04) mg/dL Estimated GFR ML/MIN Glucose (74-106) mg/dL Calcium (8.4-10.2) mg/dL Total Bilirubin (0.2-1.3) mg/dL AST (14-36) U/L ALT (0-35) U/L Alkaline Phosphatase (38-126) U/L Troponin I < 0.012 < 0.012 (0.000-0.034) ng/mL NT-Pro-B Natriuret Pep (0-1800) pg/mL Serum Total Protein (6.3-8.2) g/dL Albumin (3.5-5.0) g/dL Urine Color YELLOW (YELLOW) Urine Appearance CLEAR (CLEAR) Urine pH 5.0 (5-6) Ur Specific [place] 1.020 (1.005-1.025) Urine Protein 30 (Negative) Urine Ketones NEGATIVE (NEGATIVE) Urine Blood NEGATIVE (0-5) Mitch/ul Urine Nitrite NEGATIVE (NEGATIVE) Urine Bilirubin NEGATIVE (NEGATIVE) Urine Urobilinogen NEGATIVE (0-1) mg/dL Ur Leukocyte Esterase TRACE (NEGATIVE) Urine WBC (Auto) 3-5 (0-5) /HPF Urine RBC (Auto) NONE (0-2) /HPF U Hyaline Cast (Auto) 3-5 (0-2) /LPF U Epithel Cells (Auto) NONE (FEW) /HPF Urine Bacteria (Auto) NONE (NEGATIVE) /HPF Urine Mucus (Auto) SLIGHT (NEGATIVE) /HPF Urine Culture Reflexed NO (NO) Urine Glucose NEGATIVE (NEGATIVE) mg/dL 05/24/20 05/24/20 05/25/20 Range/Units 18:15 21:35 00:45 WBC (4.0-10.5) K/mm3 RBC (4.1-5.4) M/mm3 Hgb (12.0-16.0) gm/dl Hct (35-47) % MCV (78-100) fl MCH (26-32) pg MCHC (32-36) g/dl RDW (11.5-14.0) % Plt Count (150-450) K/mm3 MPV (7.5-11.0) fl Gran % (36.0-66.0) % Eos # (Auto) (0-0.5) Absolute Lymphs (auto) (1.0-4.6) Absolute Monos (auto) (0.0-1.3) Lymphocytes % (24.0-44.0) % Monocytes % (0.0-12.0) % Eosinophils % (0.00-5.0) % Basophils % (0.0-0.4) % Absolute Granulocytes (1.4-6.9) Basophils # (0-0.4) D-Dimer (215-500) ng/mL Sodium (137-145) mmol/L Potassium (3.5-5.1) mmol/L Chloride (98-107) mmol/L Carbon Dioxide (22-30) mmol/L Anion Gap (5-15) MEQ/L BUN (7-17) mg/dL Creatinine (0.52-1.04) mg/dL Estimated GFR ML/MIN Glucose (74-106) mg/dL Calcium (8.4-10.2) mg/dL Total Bilirubin (0.2-1.3) mg/dL AST (14-36) U/L ALT (0-35) U/L Alkaline Phosphatase (38-126) U/L Troponin I < 0.012 < 0.012 (0.000-0.034) ng/mL NT-Pro-B Natriuret Pep 360 (0-1800) pg/mL Serum Total Protein (6.3-8.2) g/dL Albumin (3.5-5.0) g/dL Urine Color (YELLOW) Urine Appearance (CLEAR) Urine pH (5-6) Ur Specific [place] (1.005-1.025) Urine Protein (Negative) Urine Ketones (NEGATIVE) Urine Blood (0-5) Mitch/ul Urine Nitrite (NEGATIVE) Urine Bilirubin (NEGATIVE) Urine Urobilinogen (0-1) mg/dL Ur Leukocyte Esterase (NEGATIVE) Urine WBC (Auto) (0-5) /HPF Urine RBC (Auto) (0-2) /HPF U Hyaline Cast (Auto) (0-2) /LPF U Epithel Cells (Auto) (FEW) /HPF Urine Bacteria (Auto) (NEGATIVE) /HPF Urine Mucus (Auto) (NEGATIVE) /HPF Urine Culture Reflexed (NO) Urine Glucose (NEGATIVE) mg/dL 05/25/20 05/25/20 05/25/20 Range/Units 03:50 03:50 03:50 WBC 9.3 (4.0-10.5) K/mm3 RBC 4.62 (4.1-5.4) M/mm3 Hgb 12.8 (12.0-16.0) gm/dl Hct 40.5 (35-47) % MCV 87.7 (78-100) fl MCH 27.7 (26-32) pg MCHC 31.6 L (32-36) g/dl RDW 15.7 H (11.5-14.0) % Plt Count 264 (150-450) K/mm3 MPV 11.2 H (7.5-11.0) fl Gran % (36.0-66.0) % Eos # (Auto) (0-0.5) Absolute Lymphs (auto) (1.0-4.6) Absolute Monos (auto) (0.0-1.3) Lymphocytes % (24.0-44.0) % Monocytes % (0.0-12.0) % Eosinophils % (0.00-5.0) % Basophils % (0.0-0.4) % Absolute Granulocytes (1.4-6.9) Basophils # (0-0.4) D-Dimer (215-500) ng/mL Sodium 140 (137-145) mmol/L Potassium 4.1 (3.5-5.1) mmol/L Chloride 105 (98-107) mmol/L Carbon Dioxide 25 (22-30) mmol/L Anion Gap 12.9 (5-15) MEQ/L BUN 36 H (7-17) mg/dL Creatinine 1.66 H (0.52-1.04) mg/dL Estimated GFR 31.3 ML/MIN Glucose 90 (74-106) mg/dL Calcium 9.3 (8.4-10.2) mg/dL Total Bilirubin (0.2-1.3) mg/dL AST (14-36) U/L ALT (0-35) U/L Alkaline Phosphatase (38-126) U/L Troponin I < 0.012 (0.000-0.034) ng/mL NT-Pro-B Natriuret Pep 185 (0-1800) pg/mL Serum Total Protein (6.3-8.2) g/dL Albumin (3.5-5.0) g/dL Urine Color (YELLOW) Urine Appearance (CLEAR) Urine pH (5-6) Ur Specific [place] (1.005-1.025) Urine Protein (Negative) Urine Ketones (NEGATIVE) Urine Blood (0-5) Mitch/ul Urine Nitrite (NEGATIVE) Urine Bilirubin (NEGATIVE) Urine Urobilinogen (0-1) mg/dL Ur Leukocyte Esterase (NEGATIVE) Urine WBC (Auto) (0-5) /HPF Urine RBC (Auto) (0-2) /HPF U Hyaline Cast (Auto) (0-2) /LPF U Epithel Cells (Auto) (FEW) /HPF Urine Bacteria (Auto) (NEGATIVE) /HPF Urine Mucus (Auto) (NEGATIVE) /HPF Urine Culture Reflexed (NO) Urine Glucose (NEGATIVE) mg/dL Accuchecks Date 05/24/20 Time 22:00 Accucheck Value: 152 - Radiology Impressions Radiology Exams & Impressions: Radiology Procedures Category Date Time Status CHEST 1 VIEW (PORTABLE) Stat Exams 05/24/20 15:12 Completed PULMONARY PERF VENTILATION [NUCMED] Urgent Exams 05/26/20 07:00 Ordered - Other Procedures and Tests Respiratory Therapy 05/24/20 18:34 Oxygen NASAL CANNULA 2 lpm Assessment/Plan (1) Elevated d-dimer Current Visit: Yes Status: Acute Assessment & Plan: Chief Complaint Diagnosis SOB Allergies Allergy/AdvReac Type Severity Reaction Status Date / Time ceftriaxone [From Rocephin] Allergy Verified 05/24/20 14:57 Vital Signs (Last 24 hours) Temp Pulse Resp BP Pulse Ox 05/25/20 12:00 97.7 F 81 20 143/60 93 L 05/25/20 08:00 97.8 F 100 H 20 136/66 93 L 05/25/20 07:30 90 L 05/25/20 04:00 97.4 F 95 H 14 168/70 92 L 05/25/20 00:00 97.9 F 82 19 156/72 90 L 05/24/20 20:39 96 05/24/20 19:46 94 L 05/24/20 18:48 98.7 F 88 16 138/62 97 05/24/20 18:34 97 05/24/20 18:17 74 18 118/62 97 05/24/20 17:29 98.6 F 83 20 105/59 96 05/24/20 16:24 98.6 F 83 20 106/54 95 08/18/20 15:17 95 05/24/20 14:58 98.6 F 99 H 18 100/72 96 Current Medications Generic Name Dose Route Start Last Admin Trade Name James PRN Reason Stop Dose Admin Alprazolam 1 mg 05/24/20 22:00 05/25/20 09:59 Xanax 1 Mg PO 06/23/20 21:59 1 mg BID JEIMY Administration Celecoxib 100 mg 05/25/20 10:00 05/25/20 09:57 Celebrex 100 Mg PO 06/24/20 09:59 100 mg DAILY JEIMY Administration Escitalopram Oxalate 20 mg 05/25/20 10:00 05/25/20 09:58 Lexapro 10 Mg PO 06/24/20 09:59 20 mg DAILY JEIMY Administration Furosemide 20 mg 05/25/20 10:00 05/25/20 09:57 Lasix 20 Mg PO 06/24/20 09:59 20 mg DAILY JEIMY Administration Gabapentin 200 mg 05/24/20 22:00 05/24/20 22:22 Neurontin 100 Mg PO 06/23/20 21:59 200 mg HS JEIMY Administration Glimepiride 4 mg 05/25/20 08:00 05/25/20 08:51 Amaryl 4 Mg PO 06/24/20 07:59 4 mg DAILY@0800 JEIMY Administration Insulin Glargine 20 unit 05/25/20 08:00 05/25/20 08:52 Lantus Insulin SQ 06/24/20 07:59 20 unit AMINSULIN JEIMY Administration Levothyroxine Sodium 100 mcg 05/25/20 10:00 05/25/20 09:58 Synthroid 100 Mcg PO 06/24/20 09:59 100 mcg DAILY@0600 JEIMY Administration Losartan Potassium 25 mg 05/25/20 10:00 05/25/20 09:59 Cozaar 50 Mg PO 06/24/20 09:59 25 mg DAILY JEIMY Administration Metformin HCl 500 mg 05/25/20 08:00 05/25/20 08:51 Glucophage 500 Mg PO 06/24/20 07:59 500 mg BIDWM JEIMY Administration Miscellaneous Information 1 each 05/25/20 07:30 Medication Intervention MC 06/24/20 07:29 .RN TO CHECK WITH PT JEIMY Nifedipine 90 mg 05/25/20 10:00 05/25/20 09:58 Adalat Cc 30 Mg Tablet PO 06/24/20 09:59 90 mg DAILY JEIMY Administration Olanzapine 5 mg 05/24/20 22:00 05/24/20 22:28 Zyprexa 5mg Tablet PO 06/23/20 21:59 5 mg HS JEIMY Administration Simvastatin 40 mg 05/25/20 10:00 05/25/20 10:05 Zocor 20mg PO 06/24/20 09:59 40 mg DAILY JEIMY Administration Trazodone HCl 100 mg 05/25/20 22:00 Desyrel 50 Mg PO 06/24/20 09:59 HS JEIMY Discontinued Medications Generic Name Dose Route Start Last Admin Trade Name Freq PRN Reason Stop Dose Admin Enoxaparin Sodium 80 mg 05/24/20 20:00 05/24/20 20:41 Enoxaparin Sodium SQ 05/24/20 20:01 Not Given 1XONLY ONE Metformin HCl 500 mg 05/24/20 22:00 05/24/20 22:22 Glucophage 500 Mg PO 06/23/20 21:59 500 mg BID JEIMY Administration Non-Formulary Medication 20 units 05/25/20 10:00 Insulin Glargine,Hum.Rec.Anlog [Lantus Solostar] SQ 06/24/20 09:59 DAILY JEIMY Trazodone HCl 100 mg 05/25/20 10:00 Desyrel 50 Mg PO 06/24/20 09:59 DAILY JEIMY Intake & Output (Last 24 hours) 05/23/20 05/24/20 05/25/20 05/26/20 11:59 11:59 11:59 11:59 Intake Total 600 Balance 600 Weight 80.3 kg Laboratory Results (Last 24 hours) 05/25/20 05/25/20 05/25/20 03:50 03:50 03:50 WBC 9.3 RBC 4.62 Hgb 12.8 Hct 40.5 MCV 87.7 MCH 27.7 MCHC 31.6 L RDW 15.7 H Plt Count 264 MPV 11.2 H Gran % Eos # (Auto) Absolute Lymphs (auto) Absolute Monos (auto) Lymphocytes % Monocytes % Eosinophils % Basophils % Absolute Granulocytes Basophils # D-Dimer Sodium 140 Potassium 4.1 Chloride 105 Carbon Dioxide 25 Anion Gap 12.9 BUN 36 H Creatinine 1.66 H Estimated GFR 31.3 Glucose 90 Calcium 9.3 Total Bilirubin AST ALT Alkaline Phosphatase Troponin I < 0.012 NT-Pro-B Natriuret Pep 185 Serum Total Protein Albumin Urine Color Urine Appearance Urine pH Ur Specific [place] Urine Protein Urine Ketones Urine Blood Urine Nitrite Urine Bilirubin Urine Urobilinogen Ur Leukocyte Esterase Urine WBC (Auto) Urine RBC (Auto) U Hyaline Cast (Auto) U Epithel Cells (Auto) Urine Bacteria (Auto) Urine Mucus (Auto) Urine Culture Reflexed Urine Glucose 05/25/20 05/24/20 05/24/20 00:45 21:35 18:15 WBC RBC Hgb Hct MCV MCH MCHC RDW Plt Count MPV Gran % Eos # (Auto) Absolute Lymphs (auto) Absolute Monos (auto) Lymphocytes % Monocytes % Eosinophils % Basophils % Absolute Granulocytes Basophils # D-Dimer Sodium Potassium Chloride Carbon Dioxide Anion Gap BUN Creatinine Estimated GFR Glucose Calcium Total Bilirubin AST ALT Alkaline Phosphatase Troponin I < 0.012 < 0.012 NT-Pro-B Natriuret Pep 360 Serum Total Protein Albumin Urine Color Urine Appearance Urine pH Ur Specific [place] Urine Protein Urine Ketones Urine Blood Urine Nitrite Urine Bilirubin Urine Urobilinogen Ur Leukocyte Esterase Urine WBC (Auto) Urine RBC (Auto) U Hyaline Cast (Auto) U Epithel Cells (Auto) Urine Bacteria (Auto) Urine Mucus (Auto) Urine Culture Reflexed Urine Glucose 05/24/20 05/24/20 05/24/20 18:15 18:01 15:45 WBC RBC Hgb Hct MCV MCH MCHC RDW Plt Count MPV Gran % Eos # (Auto) Absolute Lymphs (auto) Absolute Monos (auto) Lymphocytes % Monocytes % Eosinophils % Basophils % Absolute Granulocytes Basophils # D-Dimer Sodium Potassium Chloride Carbon Dioxide Anion Gap BUN Creatinine Estimated GFR Glucose Calcium Total Bilirubin AST ALT Alkaline Phosphatase Troponin I < 0.012 < 0.012 NT-Pro-B Natriuret Pep Serum Total Protein Albumin Urine Color YELLOW Urine Appearance CLEAR Urine pH 5.0 Ur Specific [place] 1.020 Urine Protein 30 Urine Ketones NEGATIVE Urine Blood NEGATIVE Urine Nitrite NEGATIVE Urine Bilirubin NEGATIVE Urine Urobilinogen NEGATIVE Ur Leukocyte Esterase TRACE Urine WBC (Auto) 3-5 Urine RBC (Auto) NONE U Hyaline Cast (Auto) 3-5 U Epithel Cells (Auto) NONE Urine Bacteria (Auto) NONE Urine Mucus (Auto) SLIGHT Urine Culture Reflexed NO Urine Glucose NEGATIVE 05/24/20 05/24/20 05/24/20 15:45 15:45 15:45 WBC 9.3 RBC 4.38 Hgb 12.1 Hct 38.6 MCV 88.1 MCH 27.6 MCHC 31.3 L RDW 15.6 H Plt Count 257 MPV 11.1 H Gran % 66.0 Eos # (Auto) 0.18 Absolute Lymphs (auto) 2.37 Absolute Monos (auto) 0.59 Lymphocytes % 25.5 Monocytes % 6.4 Eosinophils % 1.9 Basophils % 0.2 Absolute Granulocytes 6.12 Basophils # 0.02 D-Dimer 2536 H* Sodium 139 Potassium 4.0 Chloride 104 Carbon Dioxide 23 Anion Gap 16.5 H BUN 35 H Creatinine 2.09 H Estimated GFR 24.0 Glucose 186 H Calcium 9.2 Total Bilirubin 0.40 AST 20 ALT 15 Alkaline Phosphatase 61 Troponin I NT-Pro-B Natriuret Pep Serum Total Protein 7.2 Albumin 4.2 Urine Color Urine Appearance Urine pH Ur Specific [place] Urine Protein Urine Ketones Urine Blood Urine Nitrite Urine Bilirubin Urine Urobilinogen Ur Leukocyte Esterase Urine WBC (Auto) Urine RBC (Auto) U Hyaline Cast (Auto) U Epithel Cells (Auto) Urine Bacteria (Auto) Urine Mucus (Auto) Urine Culture Reflexed Urine Glucose Orders (Last 24 hours) Category Date Time Status Bedrest ROUTINE Activity 05/24/20 18:34 Active Accucheck ACHS Care 05/24/20 18:34 Active Protective Service Specialist STAT Care 05/24/20 15:12 Completed Code Status Order ROUTINE Care 05/24/20 18:34 Active EKG-ER Only STAT Care 05/24/20 15:10 Completed IV Care Q6H Care 05/24/20 18:34 Active IV Insertion STAT Care 05/24/20 15:10 Completed Implement CHF Pathway ROUTINE Care 05/24/20 18:[address] in Observation ROUTINE Care 05/24/20 18:34 Active Pulse Oximetry (ED) STAT Care 05/24/20 15:10 Completed Weight,Daily 0600 Care 05/24/20 18:34 Active CHEST 1 VIEW (PORTABLE) Stat Exams 05/24/20 15:12 Completed PULMONARY PERF VENTILATION [NUCMED] Urgent Exams 05/26/20 07:00 Ordered BMP AM.LAB Lab 05/25/20 03:50 Completed CBC AM.LAB Lab 05/25/20 03:50 Completed CBC W DIFF Stat Lab 05/24/20 15:45 Completed CMP Stat Lab 05/24/20 15:45 Completed D-DIMER QUANTITATIVE Stat Lab 05/24/20 15:45 Completed NT PRO BNP AM.LAB Lab 05/25/20 03:50 Completed NT PRO BNP Stat Lab 05/24/20 18:15 Completed TROPONIN DAILY Lab 05/25/20 18:30 Ordered TROPONIN DAILY Lab 05/26/20 18:30 Ordered TROPONIN DAILY Lab 05/27/20 18:30 Ordered TROPONIN Q3H Lab 05/24/20 15:45 Completed TROPONIN Q3H Lab 05/24/20 18:15 Completed TROPONIN Q3H Lab 05/24/20 21:35 Completed TROPONIN Q3H Lab 05/25/20 00:45 Completed TROPONIN Q3H Lab 05/25/20 03:50 Completed UA W/RFX UR CULTURE Stat Lab 05/24/20 18:01 Completed Alprazolam 1 mg [Xanax 1 mg] Med 05/24/20 22:00 Active 1 mg PO BID Celecoxib 100 mg [celeBREX 100 MG] Med 05/25/20 10:00 Active 100 mg PO DAILY Enoxaparin Sodium [Enoxaparin Sodium] Med 05/24/20 20:00 Discontinued 80 mg SQ 1XONLY ONE Escitalopram Oxalate 10 mg [Lexapro 10 MG] Med 05/25/20 10:00 Active 20 mg PO DAILY Furosemide 20 mg [Lasix 20 mg] Med 05/25/20 10:00 Active 20 mg PO DAILY Gabapentin 100 mg [Neurontin 100 MG] Med 05/24/20 22:00 Active 200 mg PO HS Glimepiride 4 mg [Amaryl 4 mg] Med 05/25/20 08:00 Active 4 mg PO DAILY@0800 Insulin Glargine [Lantus Insulin] Med 05/25/20 08:00 Active 20 unit SQ AMINSULIN Insulin Glargine,Hum.rec.anlog [Lantus Solostar] Med 05/25/20 10:00 Discontinued 20 units SQ DAILY Levothyroxine Sodium 100 Mcg [Synthroid 100 Mcg] Med 05/25/20 10:00 Active 100 mcg PO DAILY@0600 Losartan Potassium 50 mg [Cozaar 50 MG] Med 05/25/20 10:00 Active 25 mg PO DAILY Medication Intervention Med 05/25/20 07:30 Active 1 each MC .RN TO CHECK WITH PT Metformin HCl 500 mg [Glucophage 500 MG] Med 05/24/20 22:00 Discontinued 500 mg PO BID Metformin HCl 500 mg [Glucophage 500 MG] Med 05/25/20 08:00 Active 500 mg PO BIDWM Nifedipine Xl 30 mg [Adalat CC 30 MG TABLET] Med 05/25/20 10:00 Active 90 mg PO DAILY Olanzapine 5 mg [zyPREXA 5MG TABLET] Med 05/24/20 22:00 Active 5 mg PO HS Simvastatin 20Mg [Zocor 20Mg] Med 05/25/20 10:00 Active 40 mg PO DAILY Trazodone HCl 50 mg [Desyrel 50 mg] Med 05/25/20 10:00 Discontinued 100 mg PO DAILY Trazodone HCl 50 mg [Desyrel 50 mg] Med 05/25/20 22:00 Active 100 mg PO HS PT Eval & Treat (MD Order) ROUTINE PT 05/25/20 09:19 Active Oxygen NASAL CANNULA 2 lpm RT 05/24/20 18:34 Active Pulse Oximetry .spot check RT 05/24/20 19:59 Active Pulse Oximetry OVERNIGHT RT 05/24/20 18:34 Active Patient Care Notes (Last 24 hours) 05/25/20 09:40 Case Management Note by Roxy Miranda ATTEMPTED TO CALL SON/POA TO DISCUSS DC PLANS- NO ANSWER AT THIS TIME Initialized on 05/25/20 09:40 - END OF NOTE Code(s): R79.89 - OTHER SPECIFIED ABNORMAL FINDINGS OF BLOOD CHEMISTRY (2) Shortness of breath Current Visit: Yes Status: Acute Code(s): R06.02 - SHORTNESS OF BREATH (3) Hypertension Current Visit: No Status: Chronic Qualifiers: Code(s): I10 - ESSENTIAL (PRIMARY) HYPERTENSION (4) Type 2 diabetes mellitus Current Visit: No Status: Chronic Qualifiers:
[2020-05-25] MEDS: Neurontin 100 MG PO SCH (21:37)
[2020-05-25] MEDS: zyPREXA 5MG TABLET PO SCH (21:38)
[2020-05-26] MEDS: SYNTHROID 100 MCG PO SCH (05:51)
[2020-05-26] MEDS: AMARYL 4 MG PO SCH (07:42)
[2020-05-26] MEDS: Lantus Insulin SQ SCH (07:42)
[2020-05-26] MEDS: Glucophage 500 MG PO SCH (07:42)
[2020-05-26] MEDS ORDERED: TYLENOL 325 MG PO PRN (10:24)
[2020-05-26] MEDS: Adalat CC 30 MG TABLET PO SCH (10:26)
[2020-05-26] MEDS: XANAX 1 MG PO SCH (10:26)
[2020-05-26] MEDS: celeBREX 100 MG PO SCH (10:27)
[2020-05-26] MEDS: Cozaar 50 MG PO SCH (10:27)
[2020-05-26] MEDS: LASIX 20 MG PO SCH (10:27)
[2020-05-26] MEDS: Lexapro 10 MG PO SCH (10:27)
[2020-05-26] MEDS: ZOCOR 20MG PO SCH (10:27)
[2020-05-26 12:03] VITALS: BP 131/63; PULSE 110; O2SAT 98
--- NOTE | 2020-05-26 13:59 | XRAY ---
Indication: Short of breath. Comparison: May 24. PA/lateral chest hyperinflated and remains clear. Heart and mediastinal structures within normal limits. No new/acute findings.
--- NOTE | 2020-05-26 17:15 | PCM.DS ---
Discharge Summary Date of Admission: 05/24/20 18:29 Admitting Physician: ALICIA WU Primary Care Provider: ALICIA WU Allergies Allergies ceftriaxone [From Rocephin] Allergy (Verified 05/24/20 14:57) lip swelling Hospital Summary - Hospital Course Hospital Course: Chief Complaint Diagnosis SOB for 1-2 days Allergies Allergy/AdvReac Type Severity Reaction Status Date / Time ceftriaxone [From Rocephin] Allergy Verified 05/24/20 14:57 Vital Signs (Last 24 hours) Temp Pulse Resp BP Pulse Ox 05/26/20 12:00 97.6 F 110 H 22 131/63 98 05/26/20 07:43 97.7 F 98 H 18 132/59 95 05/26/20 07:02 92 L 05/26/20 04:00 97.9 F 88 18 122/56 94 L 05/25/20 23:30 98.5 F 93 H 18 137/59 93 L 05/25/20 21:53 95 05/25/20 20:00 98.6 F 92 H 20 131/56 92 L 05/25/20 18:34 96 Current Medications Discontinued Medications Generic Name Dose Route Start Last Admin Trade Name Freq PRN Reason Stop Dose Admin Acetaminophen 650 mg 05/26/20 10:24 05/26/20 10:44 Tylenol 325 Mg PO 06/25/20 10:23 650 mg Q4H PRN PRN Administration PAIN AND/OR FEVER Alprazolam 1 mg 05/24/20 22:00 05/26/20 10:26 Xanax 1 Mg PO 06/23/20 21:59 1 mg BID JEIMY Administration Celecoxib 100 mg 05/25/20 10:00 05/26/20 10:27 Celebrex 100 Mg PO 06/24/20 09:59 100 mg DAILY JEIMY Administration Enoxaparin Sodium 80 mg 05/24/20 20:00 05/24/20 20:41 Enoxaparin Sodium SQ 05/24/20 20:01 Not Given 1XONLY ONE Escitalopram Oxalate 20 mg 05/25/20 10:00 05/26/20 10:27 Lexapro 10 Mg PO 06/24/20 09:59 20 mg DAILY JEIMY Administration Furosemide 20 mg 05/25/20 10:00 05/26/20 10:27 Lasix 20 Mg PO 06/24/20 09:59 20 mg DAILY JEIMY Administration Gabapentin 200 mg 05/24/20 22:00 05/25/20 21:37 Neurontin 100 Mg PO 06/23/20 21:59 200 mg HS JEIMY Administration Glimepiride 4 mg 05/25/20 08:00 05/26/20 07:42 Amaryl 4 Mg PO 06/24/20 07:59 4 mg DAILY@0800 JEIMY Administration Insulin Glargine 20 unit 05/25/20 08:00 05/26/20 07:42 Lantus Insulin SQ 06/24/20 07:59 20 unit AMINSULIN JEIMY Administration Levothyroxine Sodium 100 mcg 05/25/20 10:00 05/26/20 05:51 Synthroid 100 Mcg PO 06/24/20 09:59 100 mcg DAILY@0600 JEIMY Administration Losartan Potassium 25 mg 05/25/20 10:00 05/26/20 10:27 Cozaar 50 Mg PO 06/24/20 09:59 25 mg DAILY JEIMY Administration Metformin HCl 500 mg 05/24/20 22:00 05/24/20 22:22 Glucophage 500 Mg PO 06/23/20 21:59 500 mg BID JEIMY Administration Metformin HCl 500 mg 05/25/20 08:00 05/26/20 07:42 Glucophage 500 Mg PO 06/24/20 07:59 500 mg BIDWM JEIMY Administration Miscellaneous Information 1 each 05/25/20 07:30 Medication Intervention 06/24/20 07:29 .RN TO CHECK WITH PT [facility] Nifedipine 90 mg 05/25/20 10:00 05/26/20 10:26 Adalat Cc 30 Mg Tablet PO 06/24/20 09:59 90 mg DAILY JEIMY Administration Non-Formulary Medication 20 units 05/25/20 10:00 Insulin Glargine,Hum.Rec.Anlog [Lantus Solostar] SQ 06/24/20 09:59 DAILY JEIMY Olanzapine 5 mg 05/24/20 22:00 05/25/20 21:38 Zyprexa 5mg Tablet PO 06/23/20 21:59 5 mg HS JEIMY Administration Simvastatin 40 mg 05/25/20 10:00 05/26/20 10:27 Zocor 20mg PO 06/24/20 09:59 40 mg DAILY JEIMY Administration Trazodone HCl 100 mg 05/25/20 10:00 05/25/20 14:57 Desyrel 50 Mg PO 06/24/20 09:59 Not Given DAILY JEIMY Trazodone HCl 100 mg 05/25/20 22:00 05/25/20 21:37 Desyrel 50 Mg PO 06/24/20 09:59 100 mg HS JEIMY Administration Intake & Output (Last 24 hours) 05/24/20 05/25/20 05/26/20 05/27/20 11:59 11:59 11:59 11:59 Intake Total 600 1800 240 Balance 600 1800 240 Weight 80.3 kg 78.5 kg Laboratory Results (Last 24 hours) 05/26/20 05/25/20 04:50 19:05 D-Dimer 1721 H* Troponin I < 0.012 Orders (Last 24 hours) Category Date Time Status Discharge Routine Discharge 05/26/20 Ordered CHEST 2 VIEWS (PA AND LAT) Routine Exams 05/26/20 13:47 Completed D-DIMER QUANTITATIVE AM.LAB Lab 05/26/20 04:50 Completed TROPONIN DAILY Lab 05/25/20 19:05 Completed TROPONIN DAILY Lab 05/26/20 18:30 Ordered Acetaminophen 325 mg [Tylenol 325 mg] Med 05/26/20 10:24 Discontinued 650 mg PO Q4H PRN PRN Trazodone HCl 50 mg [Desyrel 50 mg] Med 05/25/20 22:00 Discontinued 100 mg PO HS Patient Care Notes (Last 24 hours) 05/26/20 14:30 (created 05/26/20 16:23) Nursing Note by Chris Camacho AND RUDOLPH FROM RADIOLOGY REPORTS DURING SETTING UP PT FOR SCAN SHE REFUSED IT, STATED SHE DOES NOT WANT ANYTHING PUT IN HER AND SHE CANNOT LAY ON HER BACK FLAT FOR THAT LONG. THEY BOTH EXPLAINED IMPORTANCE OF EXAM TO PT LOOKING FOR A PE. PT CONT TO REFUSE EXAM. PT WAS BROUGHT BACK TO MS FLOOR. I SPOKE TO THE PT AND EXPLAINED IMPORTANCE OF EXAM AND RISKS SHE STATED SHE UNDERSTANDS BUT SHE CONT TO REFUSE EXAM. WAS MADE AWARE Initialized on 05/26/20 16:23 - END OF NOTE 05/26/20 13:59 Case Management Note by Fiordaliza Gomes CALL TO DR. WU OFFICE TO REPORT THAT PT IS NOW REFUSING TO HAVE VQ SCAN. REPORTS THAT SHE CAN NOT LAY FLAT ON A TABLE THE LENGTH OF TIME NEEDED FOR THE TEST. [employer] INFORMED PT OF WHY THE MD WANTED THE TEST. NURSE JUANITA CAMACHO EDUCATED PT ABOUT THE COMPLICATIONS/PROBLEMS THAT PT COULD HAVE IF SHE HAS A BLOOD CLOT IN HER LUNG AND IS LEFT UNTREATED. PT VERBALIZED UNDERSTANDING, AND ABLE TO REPEAT INFORMATION. STILL PERSISTENT THAT SHE DOES NOT WANT TO HAVE ANY FURTHER TESTING. CALLED DR. WU TO REPORT. DR. WU GAVE ORDERS TO DC HOME AND F/U IN ONE WEEK. Initialized on 05/26/20 13:59 - END OF NOTE 05/26/20 11:42 Physical Therapy Note by Nataliia Carroll PT. REPORTS SHE IS FEELING BETTER W/ HER BREATHING. RATES L LBP @ 7/10 AND REQUESTED TYLENOL. DISCUSSED BENEFITS OF HHC W/ D/C ROXY CARCAMO, W/ PT AND SHE IS RESISTANT TO "STRANGERS BEING IN HER HOME." ADVISED PT. THAT SHE WOULD NEED TO BE MORE COMPLIANT W/ OP P.T. ATTENDANCE AND REGULAR BATHING IF SHE DID NOT WANT HHC THIS WAS HER SON'S REQUEST ALSO HER DAUGHTER IS A ACOUSTICAL ENGINEER AND IS NOW BACK TO WORK AND ISN'T AVAILABLE TO HELP PT. PT. WAS SEATED ON SIDE OF BED UPON P.T. ARRIVAL. HAD TAKEN HERSELF TO BATHROOM D/T URGENECY FOR 2 BOWEL MOVEMENTS. ASSISTED PT. W/ CLEANINF UP BUTTOCKS AND GOWN THERE WAS BM PRESENT. PERFORMED SIT TO STAND W/ CBA. AMBULATED 150' W/ ROLLER WALKER AND SBA-MOD I. NEEDS FREQUENT REMINDERS TO MAINTAIN PROPER FOOT POSITION IN CENTER OF WALKER FOR SAFETY AND BALANCE OF WALKER. O2 SATS 95% ON ROOM AIR AFTER WALKING. NO DYSPNEA NOTED. PT. EXHIBITS SIGNIFICANT KYPHOTIC POSTURE W/ GAIT WHICH WAS PREEXISTING. SHORTENED BUT = STRIDE LENGTH BILATERALLY. HAS TENDENCY TO ABANDON WALKER WHEN TAKING A FEW STEPS TO TURN TO SIT AND TO MOVE SHORT DISTANCES. ADVISED PT. THAT SHE NEEDS TO USE WALKER AT ALL TIMES AT HOME FOR SAFETY TO DECREASE FALL RISK. PT. STILL AT RISK FOR FALLS BUT IS NOT AGREEABLE TO HHC AT THIS TIME. IS SCHEDULED TO COME IN FOR OP PT W/ SON TO BRING HER NEXT WEEK 05/30/20. WILL CONT. INPT PT UNTIL D/C . NATALIIA CARROLL, PT Initialized on 05/26/20 11:42 - END OF NOTE 05/26/20 10:55 Case Management Note by Roxy Miranda S/W SON RICH - HE WOULD LIKE PATIENT TO BE AGREEABLE TO NH OR ACCEPT HHC. HE REPORTS SHE IS LAX WITH PERSONAL HYGIENE AND CLEANING. 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 HE REPORTS HE DOES CHECK ON HER DAILY AND WARM MEALS UP FOR HER. HE IS HER TRANSPORTATION. HE WILL CONTINUE TO PROVIDE TRANSPORTATION FOR PATIENT TO PHYSICAL THERAPY IF PATIENT WISHES TO CONTINUE. HE REPORTS SHE HAS MISSED THE LAST TWO FROM NOT FEELING WELL. S/W PATIENT AFTER CONVERSATION WITH RICH- SHE CONTINUES TO DENY HHC (DOES NOT WANT STRANGERS IN HER HOUSE) REPORTS SHE HAS A SHOWER CHAIR AND SET UP THAT SHE DOES HER OWN BATHING AND DOES NOT NEED A [facility] AID FOR THAT. SHE STATED THE [facility] NURSE "WERE A JOKE". PATIENT PROMISES TO GO TO EVERY PHYSICAL THERAPY APPOINTMENT AND KEEP UP WITH HER HYGIENE. SHE STILL REFUSES HOME HEALTHCARE AND NH PLACEMENT AT THIS TIME. Initialized on 05/26/20 10:55 - END OF NOTE 05/26/20 10:11 Case Management Note by Roxy Miranda S/Viola PATIENT ABOUT DC PLANS - SHE CONTINUES TO WANT TO RETURN HOME TO HER PRIOR LEVEL OF FUNCTIONING. SHE IS AWARE OF THE RISKS OF RETURNING HOME BY HERSELF VS A NH. SHE USES HER WALKER AND REPORTS HER FAMILY CHECKS ON HER DAILY IF NOT MORE. SHE COMES IN 2-3X A WEEK FOR THERAPY AND WANTS TO CONTINUE THAT. Initialized on 05/26/20 10:11 - END OF NOTE - Vitals & Intake/Output Vital Signs: Vital Signs Temperature 97.6 F 05/26/20 12:00 Pulse Rate 110 H 05/26/20 12:00 Respiratory Rate 22 05/26/20 12:00 Blood Pressure 131/63 05/26/20 12:00 O2 Sat by Pulse Oximetry 98 05/26/20 12:00 Intake & Output: Intake & Output 05/24/20 05/25/20 05/26/20 08/21/20 11:59 11:59 11:59 11:59 Intake Total 600 1800 240 Balance 600 1800 240 Weight 80.3 kg 78.5 kg - Lab Result Diagrams: 05/25/20 03:50 05/25/20 03:50 Lab Results-Last 24 Hrs: Accuchecks Accucheck Value: 229 Accucheck Value: 120 Accucheck Value: 150 Lab Results-Last 24 Hours 05/25/20 05/26/20 Range/Units 19:05 04:50 D-Dimer 1721 H* (215-500) ng/mL Troponin I < 0.012 (0.000-0.034) ng/mL Micro Results-Entire Visit: Accuchecks Accucheck Value: 229 Accucheck Value: 120 Accucheck Value: 150 - Radiology Exams Ordered Rad Exams-Entire Visit: Radiology Procedures Category Date Time Status CHEST 2 VIEWS (PA AND LAT) Routine Exams 05/26/20 13:47 Completed - Procedures and Test Procedures and Tests throughout Hospitalization: Therapy Orders & Screens 05/24/20 18:34 Oxygen NASAL CANNULA 2 lpm Comment: Diagnosis: CHF 05/25/20 09:19 PT Eval & Treat (MD Order) ROUTINE Reason for Eval:: WEAKNESS, LIVES ALONE Diagnosis: SOB Discharge Exam General Appearance: no apparent distress, alert Neurologic Exam: alert, oriented x 3, cooperative, normal mood/affect, nml cerebellar function, sensation nml, No motor deficits Eye Exam: PERRL, EOMI, eyes nml inspection Ears, Nose, Throat Exam: normal ENT inspection, pharynx normal, moist mucous membranes Neck Exam: normal inspection, non-tender, supple, full range of motion Respiratory Exam: normal breath sounds, lungs clear, No respiratory distress Cardiovascular Exam: regular rate/rhythm, normal heart sounds Gastrointestinal/Abdomen Exam: soft, No tenderness, No mass Pelvic Exam: deferred Rectal Exam: deferred Back Exam: normal inspection, normal range of motion, No CVA tenderness, No vertebral tenderness Extremity Exam: normal inspection, normal range of motion Skin Exam: normal color, warm, dry Wound Assessment: Skin/Wound Assessment Wound/Incision Assessment Start: 05/24/20 20:40 Text: Status: Active Freq: Q6H Protocol: Document 05/26/20 15:00 AR (Rec: 05/26/20 16:21 AR [id number]) Wound/Incision Assessment Proximal Right Intergluteal Cleft Wound Assessment Shift Assessment Wound Type Pressure Ulcer Wound Stage Stage II Drainage Amount None General Appearance Clean/Dry Wound Bed Greatest Portion Pale Toppers Wound Bed Lesser Portion Pale Toppers % Granulated (Red) 100 % Slough (Yellow) 0 % Eschar (Black) 0 Surrounding Tissue Toppers Primary Dressing barrier cream applied Comment BARRIER CREAM APPLIED PRN Wound Photo Photo Taken No Final Diagnosis/Problem List - Final Discharge Diagnosis/Problem (1) Elevated d-dimer Status: Resolved Code(s): R79.89 - OTHER SPECIFIED ABNORMAL FINDINGS OF BLOOD CHEMISTRY (2) Shortness of breath Status: Resolved Code(s): R06.02 - SHORTNESS OF BREATH (3) Hypertension Status: Chronic Code(s): I10 - ESSENTIAL (PRIMARY) HYPERTENSION (4) Type 2 diabetes mellitus Status: Chronic - Discharge Discharge Date: 05/26/20 Disposition: Home, Self-Care Condition: Stable Prescriptions: No Action Simvastatin 40 mg [Zocor 40 mg] 40 mg PO DAILY Levothyroxine Sodium 100 Mcg [Synthroid 100 Mcg] 100 mcg PO DAILY Nifedipine [Nifedipine ER] 90 mg PO DAILY Olanzapine 5 mg PO HS Trazodone HCl 100 mg PO DAILY Metformin HCl 500 mg PO BID Glimepiride 4 mg [Amaryl 4 mg] 4 mg PO DAILY Losartan Potassium 25 mg PO DAILY Insulin Glargine,Hum.rec.anlog [Lantus Solostar] 20 units SQ DAILY Melatonin 5 mg PO HS Alprazolam 1 mg [Xanax 1 mg] 1 mg PO BID Gabapentin 200 mg PO QHS Escitalopram Oxalate [Lexapro] 20 mg PO DAILY Furosemide [Lasix] 20 mg PO DAILY Celecoxib 100 mg PO DAILY Instructions: Shortness of Breath (Dyspnea) (DC) Additional Instructions: DR WU APPOINTMENT AT [place]. GO TO OUTPATIENT P.T. DIRECTED BY NATALIIA CARROLL, PHYSICAL THERAPIST. Follow up with: ALICIA WU MD [Primary Care Provider] - 06/02/20 11:15 am
== END 2020-05-26 15:57 | disposition home or self-care (01) ==
LOC: ED 14:53 → MED SURG 18:29
PROVIDERS: ADMIT General Practice; ATTEND General Practice
DX: R79.89 Other specified abnormal findings of blood chemistry (principal); R06.02 Shortness of breath; I10 Essential (primary) hypertension; E11.9 Type 2 diabetes mellitus without complications; L89.312 Pressure ulcer of right buttock, stage 2; Z79.899 Other long term (current) drug therapy; Z85.3 Personal history of malignant neoplasm of breast
CPT/HCPCS: 36415; 51701; 71045; 71046; 80048; 80053; 81001; 82962; 83880; 84484; 85025; 85027; 85379; 93005; 93041; 93268; 94760; 94762; 97161; 97530; 99285; G0378; A9270-GY

== ENCOUNTER 2020-06-18 15:58 | Inpatient (IN) | payer MEDICARE ==
[2020-06-18] MEDS ORDERED: Sodium Chloride 0.9% 1000 ML 1,000 ML IV STA (17:00)
[2020-06-18] MEDS ORDERED: Sodium Chloride 0.9% 1000 ML 1,000 ML ONE (17:02)
--- NOTE | 2020-06-18 17:02 | ERPHSYRPT ---
- History of Present Illness Time Seen by Provider: 06/18/20 16:17 Source: patient, EMS Exam Limitations: no limitations Patient Subjective Stated Complaint: pt here for falls,she has fallen 4 times since , she states she looses her balance and falls, she co pain to buttucks she states is from sitting too much, no injury from falls Triage Nursing Assessment: pt alert, arrived per ambulance, skin w/d/p, resp easy, no edema noted, Physician History: 85 years old female with multiple medical problems including history of multiple falls in the past, weak balance is brought in the ER with chief complaint of fal l and inability to get up. Patient went to the bathroom almost an hour prior to arrival and lost her balance and slowly went down on her hips. She is complaining of dull aching mild pain but because of generalized weakness she was not able to get up. Patient reports weakness all over with no energy to do her routine activities. Patient does have history of multiple falls every day. Did not hit her head, no loss of consciousness. Patient has decubitus ulcers which patient is more concerned about being painful. She denies any chest pain abdominal pain nausea or vomiting. No shortness of breath or palpitations reported. Patient reports she has not been eating and drinking very well lat lynsey. Patient reports "I do not know why I am in the hospital as I am not hurting anywhere from this fall. I was on the bathroom floor and my daughter told that EMS is here" Occurred: this afternoon Reason for Fall: lost balance Injuries/Pain Location: pelvis Loss of Consciousness: no loss of consciousness Quality: aching Severity of Pain-Max: mild Severity of Pain-Current: mild Modifying Factors: Improves With: movement Associated Symptoms (Fall): denies symptoms Allergies/Adverse Reactions: ceftriaxone [From Rocephin] Allergy (Verified 06/18/20 16:08) lip swelling Home Medications: Levothyroxine Sodium 100 Mcg [Synthroid 100 Mcg] 100 mcg PO DAILY 05/24/17 [History] Nifedipine [Nifedipine ER] 90 mg PO DAILY 05/24/17 [History] Simvastatin 40 mg [Zocor 40 mg] 40 mg PO HS 05/24/17 [History] Olanzapine 5 mg PO HS 05/30/18 [History] Trazodone HCl 100 mg PO HS 12/16/18 [History] Glimepiride 4 mg [Amaryl 4 mg] 4 mg PO DAILY 03/20/19 [History] Losartan Potassium 25 mg PO DAILY 03/20/19 [History] Metformin HCl 500 mg PO BID 03/20/19 [History] Insulin Glargine,Hum.rec.anlog [Lantus Solostar] 20 units SQ DAILY 03/21/19 [History] Melatonin 5 mg PO HS 12/29/19 [History] Alprazolam 1 mg [Xanax 1 mg] 1 mg PO BID 03/11/20 [History] Escitalopram Oxalate [Lexapro] 20 mg PO DAILY 03/11/20 [History] Gabapentin 200 mg PO BID 03/11/20 [History] Celecoxib 100 mg PO DAILY 04/19/20 [History] Furosemide [Lasix] 20 mg PO DAILY 04/19/20 [History] Hx Tetanus, Diphtheria Vaccination/Date Given: Yes Hx Influenza Vaccination/Date Given: Yes Hx Pneumococcal Vaccination/Date Given: Yes Immunizations Up to Date: Yes Travel Risk - International Travel Have you traveled outside of the country in past 3 weeks: No - Coronavirus Screening Are you exhibiting any of the following symptoms?: No Close contact with a COVID-19 positive Pt in past 14-21 Days: No - Review of Systems Constitutional: Fatigue, Weakness Eyes: No Symptoms Ears, Nose, & Throat: No Symptoms Respiratory: No Symptoms Cardiac: No Symptoms Abdominal/Gastrointestinal: No Symptoms Genitourinary Symptoms: No Symptoms Musculoskeletal: Back Pain, Fall Skin: Skin Lesions Neurological: No Symptoms Psychological: No Symptoms Endocrine: No Symptoms Hematologic/Lymphatic: No Symptoms Immunological/Allergic: No Symptoms - Past Medical History Pertinent Past Medical History: Yes Neurological History: No Pertinent History ENT History: No Pertinent History Cardiac History: Hypertension Respiratory History: Pneumonia Endocrine Medical History: Diabetes Type II Musculoskeletal History: Degenerative Disk Disease, Fractures, Osteoarthritis GI Medical History: No Pertinent History History: No Pertinent History Psycho-Social History: Depression Female Reproductive Disorders: Breast Cancer Other Medical History: PMHX: DEPRESSION, BREAST CA, CHRONIC LOW BACK PAIN, CHOLECYSTECTOMY, HYSTERECTOMY - Past Surgical History Past Surgical History: Yes Neuro Surgical History: No Pertinent History Cardiac: No Pertinent History Respiratory: No Pertinent History Gastrointestinal: Cholecystectomy Genitourinary: No Pertinent History Musculoskeletal: Joint Replacement Female Surgical History: Hysterectomy Other Surgical History: Left Knee Replacement - Social History Smoking Status: Never smoker Exposure to second hand smoke: No Drug Use: none Patient Lives Alone: Yes - Female History Hx Last Menstrual Period: post Hx Now: No - Nursing Vital Signs Nursing Vital Signs: Initial Vital Signs Temperature 98.3 F 06/18/20 16:02 Pulse Rate 127 H 06/18/20 16:02 Respiratory Rate 16 06/18/20 16:02 Blood Pressure 130/68 06/18/20 16:02 O2 Sat by Pulse Oximetry 97 06/18/20 16:02 Pain Scale Pain Intensity 0 - Taniya Coma Score Best Eye Response ([place]): (4) open spontaneously Best Verbal Response ([place]): (5) oriented Best Motor Response ([place]): (6) obeys commands Taniya Total: 15 - Physical Exam General Appearance: no apparent distress, alert Head Injury: no evidence of injury, active bleeding Eye Exam: eyes nml inspection ENT Exam: airway nml, evidence of ENT injury Neck Exam: supple, trachea midline, full range of motion, normal alignment Respiratory/Chest Exam: normal breath sounds, No chest tenderness Cardiovascular Exam: normal heart sounds, tachycardia Gastrointestinal Exam: soft, normal bowel sounds, No tenderness Back Exam: normal inspection, No CVA tenderness, No vertebral tenderness Extremity Exam: normal inspection, normal range of motion, capillary refill <3 sec Neurologic Exam: alert, oriented x 3, cooperative, 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 II-XII nml as tested, normal mood/affect Skin Exam: normal color, other (Decubitus ulcer in the coccyx area and buttocks stage II) SpO2 Interpretation: normal SpO2: 97 O2 Delivery: Room Air - Course Nursing assessment & vital signs reviewed: Yes EKG Interpreted by Me: RATE (125), Sinus Tach, NORMAL AXIS, NORMAL INTERVALS, NORMAL QRS Ordered Tests: Active Orders 24 hr Category Date Time Status Bedrest ROUTINE Activity 06/18/20 19:04 Active Up With Assistance ROUTINE Activity 06/18/20 19:03 Active Computer Operations Technician STAT Care 06/18/20 17:09 Active Code Status Order ROUTINE Care 06/18/20 19:03 Active EKG-ER Only STAT Care 06/18/20 17:03 Active Fall Protocol Q1H Care 06/18/20 19:04 Active IV Care Q6H Care 06/18/20 19:03 Active Neuro Checks Q4H Care 06/18/20 19:03 Active Oxygen-ED Only Nasal Cannula 2 lpm Care 06/18/20 17:09 Active POCT Glucose Check ACHS Care 06/18/20 19:[address] in Observation ROUTINE Care 06/18/20 19:03 Active Pola RocaJose ROUTINE Care 06/18/20 19:03 Active Weight,Daily 0600 Care 06/18/20 19:03 Active cath [Cath for Specimen-Straight] STAT Care 06/18/20 18:15 Active CHEST 1 VIEW (PORTABLE) Stat Exams 06/18/20 18:57 Taken PELVIS WITHOUT CONTRAST [CT] Routine Exams 06/18/20 17:27 Taken CBC W DIFF AM.LAB Lab 06/19/20 04:00 Ordered CBC W DIFF Stat Lab 06/18/20 16:45 Completed CK-Creatinine Phosphokinase Stat Lab 06/18/20 16:45 Completed CMP AM.LAB Lab 06/19/20 04:00 Ordered CMP Stat Lab 06/18/20 16:45 Completed UA W/RFX UR CULTURE Stat Lab 06/18/20 18:20 Completed Medication Summary Generic Name Dose Route Start Last Admin Trade Name Freq PRN Reason Stop Dose Admin Acetaminophen 650 mg 06/18/20 19:03 Tylenol 325 Mg PO 07/18/20 19:02 Q4H PRN PRN PAIN AND/OR FEVER Famotidine 20 mg 06/18/20 22:00 Pepcid 20 Mg Vial IV 07/18/20 21:59 Q12HT JEIMY Potassium Chloride/Sodium Chloride 1,000 mls @ 100 mls/hr 06/18/20 19:15 06/18/20 20:16 Sodium Chloride 0.9% W/ 20 Meq Kcl/Liter IV 07/18/20 19:14 100 mls/hr .Q10H JEIMY Administration Insulin Human Lispro 0 unit 06/18/20 19:03 Humalog SQ 07/18/20 19:02 UD PRN HYPERGLYCEMIA Ondansetron HCl 4 mg 06/18/20 19:03 Zofran 4 Mg/2 Ml Vial IV 07/18/20 19:02 Q6H PRN PRN NAUSEA/VOMITING Discontinued Medications Generic Name Dose Route Start Last Admin Trade Name Freq PRN Reason Stop Dose Admin Sodium Chloride 1,000 mls @ 999 mls/hr 06/18/20 17:00 09/12/20 19:05 Sodium Chloride 0.9% 1000 Ml IV 06/18/20 18:00 Infused .Q1H1M STA Infusion Sodium Chloride Confirm 06/18/20 17:02 Sodium Chloride 0.9% 1000 Ml Administered 06/18/20 17:03 Dose 1,000 mls @ ud .ROUTE [facility] Lab/Rad Data: Laboratory Result Diagrams 06/18/20 16:45 06/18/20 16:45 Laboratory Results 06/18/20 06/18/20 06/18/20 Range/Units 18:20 16:45 16:45 WBC 15.4 H (4.0-10.5) K/mm3 RBC 4.07 L (4.1-5.4) M/mm3 Hgb 11.3 L (12.0-16.0) gm/dl Hct 35.6 (35-47) % MCV 87.5 (78-100) fl MCH 27.8 (26-32) pg MCHC 31.7 L (32-36) g/dl RDW 15.9 H (11.5-14.0) % Plt Count 215 (150-450) K/mm3 MPV 11.5 H (7.5-11.0) fl Gran % 87.9 H (36.0-66.0) % Eos # (Auto) 0.04 (0-0.5) Absolute Lymphs (auto) 0.96 L (1.0-4.6) Absolute Monos (auto) 0.84 (0.0-1.3) Lymphocytes % 6.2 L (24.0-44.0) % Monocytes % 5.5 (0.0-12.0) % Eosinophils % 0.3 (0.00-5.0) % Basophils % 0.1 (0.0-0.4) % Absolute Granulocytes 13.52 H (1.4-6.9) Basophils # 0.01 (0-0.4) Sodium 138 (137-145) mmol/L Potassium 3.2 L (3.5-5.1) mmol/L Chloride 106 (98-107) mmol/L Carbon Dioxide 21 L (22-30) mmol/L Anion Gap 13.8 (5-15) MEQ/L BUN 60 H (7-17) mg/dL Creatinine 1.72 H (0.52-1.04) mg/dL Estimated GFR 30.0 ML/MIN Glucose 216 H (74-106) mg/dL Calcium 9.3 (8.4-10.2) mg/dL Total Bilirubin 0.60 (0.2-1.3) mg/dL AST 41 H (14-36) U/L ALT 25 (0-35) U/L Alkaline Phosphatase 85 (38-126) U/L Creatine Kinase 1187 H (30-135) U/L Serum Total Protein 7.1 (6.3-8.2) g/dL Albumin 4.0 (3.5-5.0) g/dL Urine Color YELLOW (YELLOW) Urine Appearance CLEAR (CLEAR) Urine pH 5.0 (5-6) Ur Specific Reynolds 1.015 (1.005-1.025) Urine Protein NEGATIVE (Negative) Urine Ketones NEGATIVE (NEGATIVE) Urine Blood MODERATE (0-5) Mitch/ul Urine Nitrite NEGATIVE (NEGATIVE) Urine Bilirubin NEGATIVE (NEGATIVE) Urine Urobilinogen NEGATIVE (0-1) mg/dL Ur Leukocyte Esterase NEGATIVE (NEGATIVE) Urine WBC (Auto) NONE (0-5) /HPF Urine RBC (Auto) NONE SEEN (0-2) /HPF U Hyaline Cast (Auto) 0-2 (0-2) /LPF U Epithel Cells (Auto) NONE (FEW) /HPF Urine Bacteria (Auto) NONE (NEGATIVE) /HPF Urine Mucus (Auto) SLIGHT (NEGATIVE) /HPF Urine Culture Reflexed NO (NO) Urine Glucose NEGATIVE (NEGATIVE) mg/dL - Progress Progress: improved, re-examined Progress Note: 06/18/20 85 years old is evaluated for fall. She is not complaining of any pain but has some discomfort. Patient was tachycardic on presentation, given a fluid bolus and her heart rate is improving. EKG did not show cute ischemic changes. She has a CK level of 1187 and mild acute kidney injury with a BUN 60 and creatinine of 1.72. I believe patient is developing rhabdo because of being on the floor for a little while. I have obtained CT pelvis which is negative for any acute fracture. She has a white count of 15 chest, chest x-ray negative for any acute cardiopulmonary findings. She is not in any respiratory distress. She has chronic bedsores which could be the source of white count but I would not start her on any antibiotic yet. Discussed with Dr. Madison and patient is being admitted. Discussed with Dr.: Fady Will see patient in: hospital (observation) Counseled pt/family regarding: lab results, diagnosis, rad results - Departure Departure Disposition: Observation Clinical Impression: KATELYN (acute kidney injury), Frequent falls Rhabdomyolysis Qualifiers: Rhabdomyolysis type: traumatic Encounter type: initial encounter Qualified Code(s): T79.6XXA - Traumatic ischemia of muscle, initial encounter Condition: Stable Critical Care Time: No
[2020-06-18 17:12] LABS: Absolute Neutrophil Ct (ANC) 13.52 (1.4-6.9); BASOPHIL % 0.1 % (0.0-0.4); Basophil (Absolute #) 0.01 (0-0.4); Eosinophil % 0.3 % (0.00-5.0); Eosinophil (Absolute #) 0.04 (0-0.5); Hematocrit 35.6 % (35-47); Hemoglobin 11.3 gm/dl (12.0-16.0); Lymphocyte (Absolute #) 0.96 (1.0-4.6); Lymphocytes % 6.2 % (24.0-44.0); Mean Cell Volume 87.5 fl (78-100); Mean Corpuscular Hemoglobin 27.8 pg (26-32); Mean Corpuscular Hgb Concent. 31.7 g/dl (32-36); Mean Platelet Volume 11.5 fl (7.5-11.0); Monocyte (Absolute #) 0.84 (0.0-1.3); Monocytes % 5.5 % (0.0-12.0); Neutrophil % 87.9 % (36.0-66.0); Platelet Count 215 K/mm3 (150-450); Red Blood Count 4.07 M/mm3 (4.1-5.4); Red Cell Distribution Width 15.9 % (11.5-14.0); White Blood Count 15.4 K/mm3 (4.0-10.5)
[2020-06-18 17:30] LABS: ANION GAP 13.8 MEQ/L (5-15); BILIRUBIN,TOTAL 0.6 mg/dL (0.2-1.3); Calcium 9.3 mg/dL (8.4-10.2); Creatinine 1 1.72 mg/dL (0.52-1.04); Potassium 3.2 mmol/L (3.5-5.1); Total Protein 7.1 g/dL (6.3-8.2)
[2020-06-18 18:32] LABS: Appearance CLEAR (CLEAR); Bilirubin NEGATIVE (NEGATIVE); Blood MODERATE Ery/ul (0-5); Glucose NEGATIVE (NEGATIVE); Hyaline Casts 0-2 /LPF (0-2); Ketones NEGATIVE (NEGATIVE); Leukocyte Esterase NEGATIVE (NEGATIVE); Mucus SLIGHT /HPF (NEGATIVE); Nitrite NEGATIVE (NEGATIVE); Protein,Urine Dip NEGATIVE (Negative); Specific Gravity 1.015 (1.005-1.025); Urobilinogen NEGATIVE mg/dL (0-1)
[2020-06-18 18:37] LABS: RBC NONE SEEN /HPF (0-2)
[2020-06-18] MEDS ORDERED: Zofran 4 MG/2 ML VIAL IV PRN (19:03)
[2020-06-18] MEDS: Sodium Chloride 0.9% W/ 20 mEq KCl/LITER 1,000 ML IV SCH (20:16)
--- NOTE | 2020-06-18 21:11 | XRAY ---
Indication: Sacrococcygeal pain following fall. Multiple contiguous axial images obtained through the pelvis with special attention to the osseous structures. Comparison: December 29, 2019. Stable osteopenia, mild degenerative changes of the lower lumbar spine, and mild/moderate degenerative changes of both hips. No acute fracture, dislocation, or suspicious bony lesions. Visualized noncontrasted soft tissues again demonstrates descending/sigmoid diverticulosis and hysterectomy. Stable mild aortoiliac calcifications and pelvic phleboliths. Urinary bladder unremarkable. Impression: 1. Negative for acute fracture/dislocation. 2. Stable colonic diverticulosis, arteriosclerotic disease, and chronic bony findings. Comment: Preliminary interpretation was made by [facility]. No critical discrepancy.
--- NOTE | 2020-06-18 21:13 | XRAY ---
Indication: Cough. Pneumonia. Comparison: May 26, 2020. Portable chest less inflated and remains clear. Heart is not enlarged. No new/acute findings.
[2020-06-18] MEDS: HUMALOG SQ PRN (22:56)
[2020-06-18] MEDS: XANAX 1 MG PO SCH (22:56)
[2020-06-18] MEDS: Pepcid 20 MG VIAL IV SCH (22:56)
[2020-06-19] MEDS: NYSTOP 30 GM CREAM TOP SCH ×3 (00:24→22:16)
[2020-06-19] MEDS: Sodium Chloride 0.9% W/ 20 mEq KCl/LITER 1,000 ML IV SCH ×2 (06:01→16:02)
[2020-06-19 06:14] LABS: Absolute Neutrophil Ct (ANC) 10.77 (1.4-6.9); BASOPHIL % 0.1 % (0.0-0.4); Basophil (Absolute #) 0.02 (0-0.4); Eosinophil % 0.9 % (0.00-5.0); Eosinophil (Absolute #) 0.13 (0-0.5); Hematocrit 40.2 % (35-47); Hemoglobin 12.5 gm/dl (12.0-16.0); Lymphocytes % 14.4 % (24.0-44.0); Mean Cell Volume 89.3 fl (78-100); Mean Corpuscular Hemoglobin 27.8 pg (26-32); Mean Corpuscular Hgb Concent. 31.1 g/dl (32-36); Mean Platelet Volume 12.6 fl (7.5-11.0); Monocytes % 7.2 % (0.0-12.0); Neutrophil % 77.4 % (36.0-66.0); Platelet Count 132 K/mm3 (150-450); Red Cell Distribution Width 16.3 % (11.5-14.0); White Blood Count 13.9 K/mm3 (4.0-10.5)
[2020-06-19 06:21] LABS: ALBUMIN 3.8 g/dL (3.5-5.0); ANION GAP 12.7 MEQ/L (5-15); BILIRUBIN,TOTAL 0.6 mg/dL (0.2-1.3); Calcium 8.7 mg/dL (8.4-10.2); Creatinine 1 1.14 mg/dL (0.52-1.04); EST GLOMERULAR FILTRATION RATE 48.3 ML/MIN; Potassium 3.4 mmol/L (3.5-5.1)
[2020-06-19 06:43] LABS: Slide Review 1 YES
[2020-06-19] MEDS: XANAX 1 MG PO SCH ×2 (09:04→22:15)
[2020-06-19] MEDS: Pepcid 20 MG VIAL IV SCH ×2 (09:05→22:15)
[2020-06-19 11:29] LABS: 027 TOX PROD PRESUMPTIVE NEGATIVE (NEGATIVE); TOXIGENIC C. DIFF ORG NEGATIVE (NEGATIVE)
[2020-06-19] MEDS: HUMALOG SQ PRN (12:37)
[2020-06-19 16:01] LABS: Adenovirus F 40/41 NEGATIVE (NEGATIVE); Astrovirus NEGATIVE (NEGATIVE); C. Difficile Organism NEGATIVE (NEGATIVE); Campylobacter NEGATIVE (NEGATIVE); Cryptosporidium NEGATIVE (NEGATIVE); Cyclospora cayentanensis NEGATIVE (NEGATIVE); Entamoeaba histolytica NEGATIVE (NEGATIVE); Enteroaggregative E.coli NEGATIVE (NEGATIVE); Enteropathogenic E.coli NEGATIVE (NEGATIVE); Enterotoxigenic E.coli NEGATIVE (NEGATIVE); Giardia lamblia NEGATIVE (NEGATIVE); Norovirus GI/GII NEGATIVE (NEGATIVE); Plesiomonas shigelloides NEGATIVE (NEGATIVE); Rotavirus A NEGATIVE (NEGATIVE); Salmonella NEGATIVE (NEGATIVE); Sapovirus NEGATIVE (NEGATIVE); Shiga-like toxin prod.E.coli NEGATIVE (NEGATIVE); Vibrio NEGATIVE (NEGATIVE); Vibrio cholerae NEGATIVE (NEGATIVE); Yersinia enterocolitica NEGATIVE (NEGATIVE)
[2020-06-19] MEDS: NORCO 5/325 MG PO PRN (16:02)
[2020-06-19] MEDS ORDERED: XANAX 1 MG PO SCH (22:00)
[2020-06-19] MEDS: zyPREXA 5MG TABLET PO SCH (22:15)
[2020-06-19] MEDS: Neurontin 100 MG PO SCH (22:16)
[2020-06-19] MEDS: ZOCOR 20MG PO SCH (22:16)
[2020-06-19] MEDS: DESYREL 50 MG PO SCH (22:16)
--- NOTE | 2020-06-20 00:32 | PCM.HP ---
History of Present Illness - Chief Complaint Chief Complaint: Rhabdomyolysis History of Present Illness: is a 85 year old female, patient of Dr. Oden with multiple medical problems including HTN,DM2,hyperlipidemia ,diverticulosis,spinal stenosis . Patient presented to ER by EMS after a fall ,multiple falls without head trauma ,xrays in ER ruled out fracture. Daughter states patient has had incontinence of stool and overall condition has declined . - Review of Systems Constitutional: Weakness Ears, Nose, & Throat: No Symptoms Respiratory: Other (denies cough) Cardiac: Edema, Other (denies chest pain) Abdominal/Gastrointestinal: Diarrhea, Other (incontinent of stool) Genitourinary Symptoms: Incontinence Musculoskeletal: Back Pain, Other (arthritis) Skin: Rash (groin) Neurological: Gait Changes (due to weakness), Irritability Endocrine: Other (diabetes) Medications & Allergies Home Medications: Home Medication List Levothyroxine Sodium 100 Mcg [Synthroid 100 Mcg] 100 mcg PO DAILY 05/24/17 [History Confirmed 06/18/20] Nifedipine [Nifedipine ER] 90 mg PO DAILY 05/24/17 [History Confirmed 06/18/20] Simvastatin 40 mg [Zocor 40 mg] 40 mg PO HS 05/24/17 [History Confirmed 06/18/20] Olanzapine 5 mg PO HS 05/30/18 [History Confirmed 06/18/20] Trazodone HCl 100 mg PO HS 12/16/18 [History Confirmed 06/18/20] Glimepiride 4 mg [Amaryl 4 mg] 4 mg PO DAILY 03/20/19 [History Confirmed 06/18/20] Losartan Potassium 25 mg PO DAILY 03/20/19 [History Confirmed 06/18/20] Metformin HCl 500 mg PO BID 03/20/19 [History Confirmed 06/18/20] Insulin Glargine,Hum.rec.anlog [Lantus Solostar] 20 units SQ DAILY 03/21/19 [History Confirmed 06/18/20] Melatonin 5 mg PO HS 12/29/19 [History Confirmed 06/18/20] Alprazolam 1 mg [Xanax 1 mg] 1 mg PO BID 03/11/20 [History Confirmed 06/18/20] Escitalopram Oxalate [Lexapro] 20 mg PO DAILY 03/11/20 [History Confirmed 06/18/20] Gabapentin 200 mg PO BID 03/11/20 [History Confirmed 06/18/20] Celecoxib 100 mg PO DAILY 04/19/20 [History Confirmed 06/18/20] Furosemide [Lasix] 20 mg PO DAILY 04/19/20 [History Confirmed 06/18/20] Allergies/Adverse Reactions: Allergies Allergy/AdvReac Type Severity Reaction Status Date / Time ceftriaxone [From Rocephin] Allergy Verified 06/18/20 16:08 - Past Medical History Past Medical History: Yes Neurological History: No Pertinent History ENT History: No Pertinent History Cardiac History: Hypertension Respiratory History: Pneumonia Endocrine Medical History: Diabetes Type II Musculoskelatal History: Degenerative Disk Disease, Fractures, Osteoarthritis GI Medical History: No Pertinent History History: No Pertinent History Pyscho-Social History: Depression Reproductive Disorders: Breast Cancer Comment: PMHX: DEPRESSION, BREAST CA, CHRONIC LOW BACK PAIN, CHOLECYSTECTOMY, HYSTERECTOMY - Female History Hx Last Menstrual Period: post Are you now?: No - Past Surgical History Past Surgical History: Yes Neuro Surgical History: No Pertinent History Cardiac History: No Pertinent History Respiratory Surgery: No Pertinent History GI Surgical History: Cholecystectomy Genitourinary Surgical Hx: No Pertinent History Musculskeletal Surgical Hx: Joint Replacement Female Surgical History: Hysterectomy Other Surgical History: Left Knee Replacement - Social History Smoking Status: Never smoker Exposure to second hand smoke: No Alcohol: None Drug Use: none - Physical Exam Vital Signs: Vital Signs - 24 hr Temp Pulse Resp BP Pulse Ox 06/19/20 23:34 98.0 F 106 H 18 143/72 98 06/19/20 20:00 98.7 F 96 H 16 151/66 98 06/19/20 16:00 100.7 F 111 H 23 170/77 98 06/19/20 12:00 99.8 F 112 H 22 148/72 95 06/19/20 08:00 98.3 F 110 H 18 152/70 96 06/19/20 03:59 98.2 F 107 H 20 150/69 96 06/19/20 00:15 98.2 F 101 H 20 126/53 97 General Appearance: moderate distress Neurologic Exam: alert, uncooperative (states she is not doing a F____ Covid test,refuses to cooperate and "hates female doctors". See physical exam per Dr Drake.) Results - Labs Lab/Micro Results: Lab Results-Last 24 Hours 06/19/20 06/19/20 06/19/20 Range/Units 05:40 05:40 05:40 WBC 13.9 H (4.0-10.5) K/mm3 RBC 4.50 (4.1-5.4) M/mm3 Hgb 12.5 (12.0-16.0) gm/dl Hct 40.2 (35-47) % MCV 89.3 (78-100) fl MCH 27.8 (26-32) pg MCHC 31.1 L (32-36) g/dl RDW 16.3 H (11.5-14.0) % Plt Count 132 L D (150-450) K/mm3 MPV 12.6 H (7.5-11.0) fl Gran % 77.4 H (36.0-66.0) % Eos # (Auto) 0.13 (0-0.5) Absolute Lymphs (auto) 2.00 (1.0-4.6) Absolute Monos (auto) 1.00 (0.0-1.3) Lymphocytes % 14.4 L (24.0-44.0) % Monocytes % 7.2 (0.0-12.0) % Eosinophils % 0.9 (0.00-5.0) % Basophils % 0.1 (0.0-0.4) % Absolute Granulocytes 10.77 H (1.4-6.9) Basophils # 0.02 (0-0.4) Sodium 139 (137-145) mmol/L Potassium 3.4 L (3.5-5.1) mmol/L Chloride 110 H (98-107) mmol/L Carbon Dioxide 20 L (22-30) mmol/L Anion Gap 12.7 (5-15) MEQ/L BUN 45 H (7-17) mg/dL Creatinine 1.14 H (0.52-1.04) mg/dL Estimated GFR 48.3 ML/MIN Glucose 99 (74-106) mg/dL POC Glucometer (74 to 106) mg/dL Hemoglobin A1c (4.5-6.0) % Calcium 8.7 (8.4-10.2) mg/dL Total Bilirubin 0.60 (0.2-1.3) mg/dL AST 45 H (14-36) U/L ALT 24 (0-35) U/L Alkaline Phosphatase 71 (38-126) U/L Creatine Kinase 1128 H (30-135) U/L Serum Total Protein 7.0 (6.3-8.2) g/dL Albumin 3.8 (3.5-5.0) g/dL Stl C. cayetanensis PCR (NEGATIVE) Stl Adenov F 40/ PCR (NEGATIVE) Stool Astrovirus (PCR) (NEGATIVE) Stool Cryptosporidium PCR (NEGATIVE) Stool EPEC (PCR) (NEGATIVE) Stool EAEC (PCR) (NEGATIVE) Stl E. histolytica PCR (NEGATIVE) Stl P. shigelloides PCR (NEGATIVE) Stool Sapovirus (PCR) (NEGATIVE) St Y.enterocolitica PCR (NEGATIVE) Stool Vibrio (PCR) (NEGATIVE) Stl Vibrio cholerae PCR (NEGATIVE) Stl Norovirus GI/GII PCR (NEGATIVE) Campylobacter (PCR) (NEGATIVE) C. difficile Screen (NEGATIVE) C.difficile 027-NAP1-B1 (NEGATIVE) C. difficile (PCR) (NEGATIVE) Enterotoxigenic E. coli (NEGATIVE) E.coli Shiga Toxins (NEGATIVE) Giardia lamblia (NEGATIVE) Rotavirus A (PCR) (NEGATIVE) Salmonella (PCR) (NEGATIVE) SARS-CoV-2 (PCR) (NEGATIVE) Shigella (PCR) (NEGATIVE) Slides for Path Review YES 06/19/20 06/19/20 06/19/20 Range/Units 05:40 07:37 09:53 WBC (4.0-10.5) K/mm3 RBC (4.1-5.4) M/mm3 Hgb (12.0-16.0) gm/dl Hct (35-47) % MCV (78-100) fl MCH (26-32) pg MCHC (32-36) g/dl RDW (11.5-14.0) % Plt Count (150-450) K/mm3 MPV (7.5-11.0) fl Gran % (36.0-66.0) % Eos # (Auto) (0-0.5) Absolute Lymphs (auto) (1.0-4.6) Absolute Monos (auto) (0.0-1.3) Lymphocytes % (24.0-44.0) % Monocytes % (0.0-12.0) % Eosinophils % (0.00-5.0) % Basophils % (0.0-0.4) % Absolute Granulocytes (1.4-6.9) Basophils # (0-0.4) Sodium (137-145) mmol/L Potassium (3.5-5.1) mmol/L Chloride (98-107) mmol/L Carbon Dioxide (22-30) mmol/L Anion Gap (5-15) MEQ/L BUN (7-17) mg/dL Creatinine (0.52-1.04) mg/dL Estimated GFR ML/MIN Glucose (74-106) mg/dL POC Glucometer 108 H (74 to 106) mg/dL Hemoglobin A1c 6.08 H (4.5-6.0) % Calcium (8.4-10.2) mg/dL Total Bilirubin (0.2-1.3) mg/dL AST (14-36) U/L ALT (0-35) U/L Alkaline Phosphatase (38-126) U/L Creatine Kinase (30-135) U/L Serum Total Protein (6.3-8.2) g/dL Albumin (3.5-5.0) g/dL Stl C. cayetanensis PCR (NEGATIVE) Stl Adenov F 40/41 PCR (NEGATIVE) Stool Astrovirus (PCR) (NEGATIVE) Stool Cryptosporidium PCR (NEGATIVE) Stool EPEC (PCR) (NEGATIVE) Stool EAEC (PCR) (NEGATIVE) Stl E. histolytica PCR (NEGATIVE) Stl P. shigelloides PCR (NEGATIVE) Stool Sapovirus (PCR) (NEGATIVE) St Y.enterocolitica PCR (NEGATIVE) Stool Vibrio (PCR) (NEGATIVE) Stl Vibrio cholerae PCR (NEGATIVE) Stl Norovirus GI/GII PCR (NEGATIVE) Campylobacter (PCR) (NEGATIVE) C. difficile Screen NEGATIVE (NEGATIVE) C.difficile 027-NAP1-B1 PRESUMPTIVE NEGATIVE (NEGATIVE) C. difficile (PCR) (NEGATIVE) Enterotoxigenic E. coli (NEGATIVE) E.coli Shiga Toxins (NEGATIVE) Giardia lamblia (NEGATIVE) Rotavirus A (PCR) (NEGATIVE) Salmonella (PCR) (NEGATIVE) SARS-CoV-2 (PCR) (NEGATIVE) Shigella (PCR) (NEGATIVE) Slides for Path Review 09/06/19/20 06/19/20 Range/Units 10:41 11:39 12:45 WBC (4.0-10.5) K/mm3 RBC (4.1-5.4) M/mm3 Hgb (12.0-16.0) gm/dl Hct (35-47) % MCV (78-100) fl MCH (26-32) pg MCHC (32-36) g/dl RDW (11.5-14.0) % Plt Count (150-450) K/mm3 MPV (7.5-11.0) fl Gran % (36.0-66.0) % Eos # (Auto) (0-0.5) Absolute Lymphs (auto) (1.0-4.6) Absolute Monos (auto) (0.0-1.3) Lymphocytes % (24.0-44.0) % Monocytes % (0.0-12.0) % Eosinophils % (0.00-5.0) % Basophils % (0.0-0.4) % Absolute Granulocytes (1.4-6.9) Basophils # (0-0.4) Sodium (137-145) mmol/L Potassium (3.5-5.1) mmol/L Chloride (98-107) mmol/L Carbon Dioxide (22-30) mmol/L Anion Gap (5-15) MEQ/L BUN (7-17) mg/dL Creatinine (0.52-1.04) mg/dL Estimated GFR ML/MIN Glucose (74-106) mg/dL POC Glucometer 222 H (74 to 106) mg/dL Hemoglobin A1c (4.5-6.0) % Calcium (8.4-10.2) mg/dL Total Bilirubin (0.2-1.3) mg/dL AST (14-36) U/L ALT (0-35) U/L Alkaline Phosphatase (38-126) U/L Creatine Kinase (30-135) U/L Serum Total Protein (6.3-8.2) g/dL Albumin (3.5-5.0) g/dL Stl C. cayetanensis PCR NEGATIVE (NEGATIVE) Stl Adenov F 40/41 PCR NEGATIVE (NEGATIVE) Stool Astrovirus (PCR) NEGATIVE (NEGATIVE) Stool Cryptosporidium PCR NEGATIVE (NEGATIVE) Stool EPEC (PCR) NEGATIVE (NEGATIVE) Stool EAEC (PCR) NEGATIVE (NEGATIVE) Stl E. histolytica PCR NEGATIVE (NEGATIVE) Stl P. shigelloides PCR NEGATIVE (NEGATIVE) Stool Sapovirus (PCR) NEGATIVE (NEGATIVE) St Y.enterocolitica PCR NEGATIVE (NEGATIVE) Stool Vibrio (PCR) NEGATIVE (NEGATIVE) Stl Vibrio cholerae PCR NEGATIVE (NEGATIVE) Stl Norovirus GI/GII PCR NEGATIVE (NEGATIVE) Campylobacter (PCR) NEGATIVE (NEGATIVE) C. difficile Screen (NEGATIVE) C.difficile 027-NAP1-B1 (NEGATIVE) C. difficile (PCR) NEGATIVE (NEGATIVE) Enterotoxigenic E. coli NEGATIVE (NEGATIVE) E.coli Shiga Toxins NEGATIVE (NEGATIVE) Giardia lamblia NEGATIVE (NEGATIVE) Rotavirus A (PCR) NEGATIVE (NEGATIVE) Salmonella (PCR) NEGATIVE (NEGATIVE) SARS-CoV-2 (PCR) NEGATIVE (NEGATIVE) Shigella (PCR) NEGATIVE (NEGATIVE) Slides for Path Review 06/19/20 06/19/20 Range/Units 16:21 21:04 WBC (4.0-10.5) K/mm3 RBC (4.1-5.4) M/mm3 Hgb (12.0-16.0) gm/dl Hct (35-47) % MCV (78-100) fl MCH (26-32) pg MCHC (32-36) g/dl RDW (11.5-14.0) % Plt Count (150-450) K/mm3 MPV (7.5-11.0) fl Gran % (36.0-66.0) % Eos # (Auto) (0-0.5) Absolute Lymphs (auto) (1.0-4.6) Absolute Monos (auto) (0.0-1.3) Lymphocytes % (24.0-44.0) % Monocytes % (0.0-12.0) % Eosinophils % (0.00-5.0) % Basophils % (0.0-0.4) % Absolute Granulocytes (1.4-6.9) Basophils # (0-0.4) Sodium (137-145) mmol/L Potassium (3.5-5.1) mmol/L Chloride (98-107) mmol/L Carbon Dioxide (22-30) mmol/L Anion Gap (5-15) MEQ/L BUN (7-17) mg/dL Creatinine (0.52-1.04) mg/dL Estimated GFR ML/MIN Glucose (74-106) mg/dL POC Glucometer 116 H TNP (74 to 106) mg/dL Hemoglobin A1c (4.5-6.0) % Calcium (8.4-10.2) mg/dL Total Bilirubin (0.2-1.3) mg/dL AST (14-36) U/L ALT (0-35) U/L Alkaline Phosphatase (38-126) U/L Creatine Kinase (30-135) U/L Serum Total Protein (6.3-8.2) g/dL Albumin (3.5-5.0) g/dL Stl C. cayetanensis PCR (NEGATIVE) Stl Adenov F 40/41 PCR (NEGATIVE) Stool Astrovirus (PCR) (NEGATIVE) Stool Cryptosporidium PCR (NEGATIVE) Stool EPEC (PCR) (NEGATIVE) Stool EAEC (PCR) (NEGATIVE) Stl E. histolytica PCR (NEGATIVE) Stl P. shigelloides PCR (NEGATIVE) Stool Sapovirus (PCR) (NEGATIVE) St Y.enterocolitica PCR (NEGATIVE) Stool Vibrio (PCR) (NEGATIVE) Stl Vibrio cholerae PCR (NEGATIVE) Stl Norovirus GI/GII PCR (NEGATIVE) Campylobacter (PCR) (NEGATIVE) C. difficile Screen (NEGATIVE) C.difficile 027-NAP1-B1 (NEGATIVE) C. difficile (PCR) (NEGATIVE) Enterotoxigenic E. coli (NEGATIVE) E.coli Shiga Toxins (NEGATIVE) Giardia lamblia (NEGATIVE) Rotavirus A (PCR) (NEGATIVE) Salmonella (PCR) (NEGATIVE) SARS-CoV-2 (PCR) (NEGATIVE) Shigella (PCR) (NEGATIVE) Slides for Path Review Microbiology 06/19/20 01:38 Urine Culture - Preliminary Catherized NO GROWTH TO DATE Accuchecks Date 06/19/20 Date 06/19/20 Time 21:00 Time 07:30 - Radiology Impressions Radiology Exams & Impressions: Radiology Procedures Category Date Time Status CHEST 1 VIEW (PORTABLE) Stat Exams 06/18/20 18:57 Completed PELVIS WITHOUT CONTRAST [CT] Routine Exams 06/18/20 17:27 Completed Assessment/Plan (1) Frequent falls Current Visit: Yes Status: Acute Assessment & Plan: PT Code(s): R29.6 - REPEATED FALLS (2) Rhabdomyolysis Current Visit: Yes Status: Acute Qualifiers: Rhabdomyolysis type: traumatic Encounter type: initial encounter Qualified Code(s): T79.6XXA - Traumatic ischemia of muscle, initial encounter Assessment & Plan: monitor labs,hydrate Code(s): M62.82 - RHABDOMYOLYSIS (3) Diarrhea Current Visit: Yes Status: Acute Assessment & Plan: covid rapid test negative Code(s): R19.7 - DIARRHEA, UNSPECIFIED (4) Hypertension Current Visit: No Status: Chronic Qualifiers: Assessment & Plan: moniter Code(s): I10 - ESSENTIAL (PRIMARY) HYPERTENSION (5) Type 2 diabetes mellitus Current Visit: No Status: Chronic Qualifiers: Assessment & Plan: moniter continue present meds
[2020-06-20] MEDS: Sodium Chloride 0.9% W/ 20 mEq KCl/LITER 1,000 ML IV SCH ×3 (01:31→22:54)
[2020-06-20] MEDS ORDERED: MEDICATION INTERVENTION PO SCH (06:45)
[2020-06-20] MEDS: AMARYL 4 MG PO SCH (07:55)
[2020-06-20] MEDS: Glucophage 500 MG PO SCH ×2 (07:55→16:37)
[2020-06-20] MEDS: HUMALOG SQ PRN (07:56)
[2020-06-20] MEDS: SYNTHROID 100 MCG PO SCH (09:01)
[2020-06-20] MEDS: Lexapro 10 MG PO SCH (09:01)
[2020-06-20] MEDS: Neurontin 100 MG PO SCH ×2 (09:01→22:33)
[2020-06-20] MEDS: Adalat CC 30 MG TABLET PO SCH (09:02)
[2020-06-20] MEDS: celeBREX 100 MG PO SCH (09:02)
[2020-06-20] MEDS: Cozaar 50 MG PO SCH (09:02)
[2020-06-20] MEDS: XANAX 1 MG PO SCH ×2 (09:02→22:33)
[2020-06-20] MEDS: NYSTOP 30 GM CREAM TOP SCH ×2 (09:03→22:34)
[2020-06-20] MEDS: Pepcid 20 MG VIAL IV SCH ×2 (09:03→22:34)
[2020-06-20] MEDS: Lantus Insulin SQ SCH (09:03)
[2020-06-20] MEDS ORDERED: NON-FORMULARY ITEM (Escitalopram Oxalate [Lexapro] 20 MG) PO SCH (10:00)
[2020-06-20] MEDS ORDERED: NIFEDIPINE 90 MG PO SCH (10:00)
[2020-06-20] MEDS ORDERED: INSULIN GLARGINE HUM REC ANLOG 20 UNIT SQ SCH (10:00)
--- NOTE | 2020-06-20 12:10 | PCM.NOTE ---
Date and Time: 06/20/20 1207 Subjective Assessment: weakness on right side of body, - Review of Systems Constitutional: Weakness, No Fever, No Chills Eyes: No Symptoms Ears, Nose, & Throat: No Symptoms Respiratory: No Cough, No Short Of Breath Cardiac: No Chest Pain, No Edema, No Syncope Abdominal/Gastrointestinal: No Abdominal Pain, No Nausea, No Vomiting, No Diarrhea Genitourinary Symptoms: No Dysuria Musculoskeletal: No Back Pain, No Neck Pain Skin: No Rash Neurological: Focal Weakness, Gait Changes, No Dizziness, No Sensory Changes Psychological: No Symptoms Endocrine: No Symptoms Hematologic/Lymphatic: No Symptoms Immunological/Allergic: No Symptoms Objective Exam General Appearance: no apparent distress, alert Neurologic Exam: alert, sensation nml, motor weakness, facial droop, slurred speech, aphasia, dysarthria, No motor deficits Skin Exam: normal color, warm, dry Eye Exam: PERRL, EOMI, eyes nml inspection Ears, Nose, Throat Exam: normal ENT inspection, pharynx normal, moist mucous membranes Neck Exam: normal inspection, non-tender, supple, full range of motion Respiratory Exam: normal breath sounds, lungs clear, No respiratory distress Cardiovascular Exam: regular rate/rhythm, normal heart sounds Gastrointestinal/Abdomen Exam: soft, No tenderness, No mass Extremity Exam: normal inspection, normal range of motion Back Exam: normal inspection, normal range of motion, No CVA tenderness, No vertebral tenderness Pelvic Exam: deferred Rectal Exam: deferred OBJECTIVE DATA Vital Signs: Vital Signs - 24 hr Temp Pulse Resp BP Pulse Ox 06/20/20 11:55 96 06/20/20 07:13 98.4 F 117 H 16 200/83 95 06/20/20 03:45 99.4 F 108 H 26 H 146/67 96 06/19/20 23:34 98.0 F 106 H 18 143/72 98 06/19/20 20:00 98.7 F 96 H 16 151/66 98 06/19/20 16:00 100.7 F 111 H 23 170/77 98 Pain Assessment - Last Documented Pain Intensity 4 Pain Scale Used 0-10 Pain Scale Intake and Output: Intake & Output 06/18/20 06/19/20 06/20/20 06/21/20 11:59 11:59 11:59 11:59 Intake Total 1217 3064 Output Total 550 2200 Balance 667 864 Weight 78 kg 79.5 kg Lab Results: Lab Results-Last 24 Hours 06/19/20 06/19/20 06/19/20 Range/Units 05:40 05:40 09:53 POC Glucometer (74 to 106) mg/dL Hemoglobin A1c 6.08 H (4.5-6.0) % Creatine Kinase 1128 H (30-135) U/L Stl C. cayetanensis PCR (NEGATIVE) Stl Adenov F 40/41 PCR (NEGATIVE) Stool Astrovirus (PCR) (NEGATIVE) Stool Cryptosporidium PCR (NEGATIVE) Stool EPEC (PCR) (NEGATIVE) Stool EAEC (PCR) (NEGATIVE) Stl E. histolytica PCR (NEGATIVE) Stl P. shigelloides PCR (NEGATIVE) Stool Sapovirus (PCR) (NEGATIVE) St Y.enterocolitica PCR (NEGATIVE) Stool Vibrio (PCR) (NEGATIVE) Stl Vibrio cholerae PCR (NEGATIVE) Stl Norovirus GI/GII PCR (NEGATIVE) Campylobacter (PCR) (NEGATIVE) C. difficile Screen NEGATIVE (NEGATIVE) C.difficile 027-NAP1-B1 PRESUMPTIVE NEGATIVE (NEGATIVE) C. difficile (PCR) (NEGATIVE) Enterotoxigenic E. coli (NEGATIVE) E.coli Shiga Toxins (NEGATIVE) Giardia lamblia (NEGATIVE) Rotavirus A (PCR) (NEGATIVE) Salmonella (PCR) (NEGATIVE) SARS-CoV-2 (PCR) (NEGATIVE) Shigella (PCR) (NEGATIVE) 06/19/20 06/19/20 06/19/20 Range/Units 10:41 12:45 16:21 POC Glucometer 116 H (74 to 106) mg/dL Hemoglobin A1c (4.5-6.0) % Creatine Kinase (30-135) U/L Stl C. cayetanensis PCR NEGATIVE (NEGATIVE) Stl Adenov F 40/41 PCR NEGATIVE (NEGATIVE) Stool Astrovirus (PCR) NEGATIVE (NEGATIVE) Stool Cryptosporidium PCR NEGATIVE (NEGATIVE) Stool EPEC (PCR) NEGATIVE (NEGATIVE) Stool EAEC (PCR) NEGATIVE (NEGATIVE) Stl E. histolytica PCR NEGATIVE (NEGATIVE) Stl P. shigelloides PCR NEGATIVE (NEGATIVE) Stool Sapovirus (PCR) NEGATIVE (NEGATIVE) St Y.enterocolitica PCR NEGATIVE (NEGATIVE) Stool Vibrio (PCR) NEGATIVE (NEGATIVE) Stl Vibrio cholerae PCR NEGATIVE (NEGATIVE) Stl Norovirus GI/GII PCR NEGATIVE (NEGATIVE) Campylobacter (PCR) NEGATIVE (NEGATIVE) C. difficile Screen (NEGATIVE) C.difficile 027-NAP1-B1 (NEGATIVE) C. difficile (PCR) NEGATIVE (NEGATIVE) Enterotoxigenic E. coli NEGATIVE (NEGATIVE) E.coli Shiga Toxins NEGATIVE (NEGATIVE) Giardia lamblia NEGATIVE (NEGATIVE) Rotavirus A (PCR) NEGATIVE (NEGATIVE) Salmonella (PCR) NEGATIVE (NEGATIVE) SARS-CoV-2 (PCR) NEGATIVE (NEGATIVE) Shigella (PCR) NEGATIVE (NEGATIVE) 06/19/20 06/20/20 06/20/20 Range/Units 21:04 07:04 11:49 POC Glucometer TNP 177 H 125 H (74 to 106) mg/dL Hemoglobin A1c (4.5-6.0) % Creatine Kinase (30-135) U/L Stl C. cayetanensis PCR (NEGATIVE) Stl Adenov F 40/41 PCR (NEGATIVE) Stool Astrovirus (PCR) (NEGATIVE) Stool Cryptosporidium PCR (NEGATIVE) Stool EPEC (PCR) (NEGATIVE) Stool EAEC (PCR) (NEGATIVE) Stl E. histolytica PCR (NEGATIVE) Stl P. shigelloides PCR (NEGATIVE) Stool Sapovirus (PCR) (NEGATIVE) St Y.enterocolitica PCR (NEGATIVE) Stool Vibrio (PCR) (NEGATIVE) Stl Vibrio cholerae PCR (NEGATIVE) Stl Norovirus GI/GII PCR (NEGATIVE) Campylobacter (PCR) (NEGATIVE) C. difficile Screen (NEGATIVE) C.difficile 027-NAP1-B1 (NEGATIVE) C. difficile (PCR) (NEGATIVE) Enterotoxigenic E. coli (NEGATIVE) E.coli Shiga Toxins (NEGATIVE) Giardia lamblia (NEGATIVE) Rotavirus A (PCR) (NEGATIVE) Salmonella (PCR) (NEGATIVE) SARS-CoV-2 (PCR) (NEGATIVE) Shigella (PCR) (NEGATIVE) Radiology Exams: Radiology Procedures Category Date Time Status CHEST 1 VIEW (PORTABLE) Stat Exams 06/18/20 18:57 Completed HEAD WITHOUT CONTRAST [CT] Stat Exams 06/20/20 11:10 Taken PELVIS WITHOUT CONTRAST [CT] Routine Exams 06/18/20 17:27 Completed Multi-Disciplinary Progress Notes: Multi-Disciplinary Progress Notes 06/20/20 11:14 Case Management Note by Roxy Miranda S/W RUPERTO VILLANUEVA- MARICHUY PATIENT IS AGREEABLE TO [place] AND HAS CHOSEN [facility]. HE VERIFIED UNDERSTANDING AND AGREEABLE TO THAT DC PLAN Initialized on 06/20/20 11:14 - END OF NOTE 06/20/20 11:12 Case Management Note by Roxy Miranda WHEN S/W PATIENT THIS AM LEFT SIDE OF FACE NOTED TO BE SWOLLEN, SORE AND PATIENT C/O NUMBNESS ON LEFT SIDE OF FACE. IN CONVERSATION PATIENT ALSO STATED "IM HAVING TROUBLE WITH MY WORDS" "WHY CANT I THINK OF WHAT I WANT TO SAY". NO CT HEAD DONE IN ER. DR. WU NOTIFIED-NEW ORDER RECEIVED. Initialized on 06/20/20 11:12 - END OF NOTE 06/20/20 10:43 Case Management Note by Roxy Miranda REFERRAL PACKET SENT TO [facility] AT THIS TIME. ASKED IF THEY ARE AGREEABLE TO DO PAS[facility] PAPERWORK AFTER PATIENT ARRIVES DUE LIKELY TRIGGERING A LEVEL II - THEY WILL CHECK AND GET BACK WITH US. NO COVID TESTING REQUIRED AT THIS TIME FOR ADMISSIONS. Initialized on 06/20/20 10:43 - END OF NOTE Assessment/Plan (1) Muscle paresis Current Visit: Yes Status: Acute Code(s): G72.89 - OTHER SPECIFIED MYOPATHIES (2) KATELYN (acute kidney injury) Current Visit: Yes Status: Acute Code(s): N17.9 - ACUTE KIDNEY FAILURE, UNSPECIFIED
--- NOTE | 2020-06-20 12:10 | XRAY ---
Exam: CT of the head without IV contrast from 06/20/2020. CTDI: 52.07 mGy Comparison: CT of the head without IV contrast from 04/19/2020. Indication: 85-year-old female with aphasia, swelling/numbness to left side of face, patient fell this past Saturday but did not hit her head. Technique: Non-IV contrast axial images were obtained through the brain. Reconstructed coronal and sagittal images were created and reviewed. Findings: I again see stable bilateral global atrophy which appears age-appropriate. Ventricular size is unchanged from 04/19/2020. There is moderate to marked bilateral periventricular and subcortical white matter changes, likely due to extensive chronic microvascular disease. A new discrete low attenuation cortical infarct is not seen. I see no focal mass effect or midline shift. No acute intracranial bleed or abnormal extra-axial fluid collection is seen. Structures of the posterior fossa appear unremarkable. Some vascular calcification is seen within both distal vertebral arteries as well as the carotid siphons. The calvarium of the skull is intact. Prior small high posterior right parietal scalp hematoma has resolved in the interval. There is some deviation of nasal septum toward the left. I again note some focal mucoperiosteal thickening at the anterior medial aspect of the right maxillary antrum which in retrospect is unchanged. The remainder of the visualized paranasal sinuses appears clear. The mastoid air cells are expansive and clear. The middle ear cavities appear unremarkable. No gross abnormality of either orbit is seen. Impression: 1. I again see age-appropriate global atrophy with moderate to marked bilateral periventricular and subcortical chronic white matter ischemic changes. This appears similar to 04/19/2020. A new discrete low attenuation cortical infarct is not seen within a major cerebral or cerebellar artery distribution. 2. No other acute intracranial process is seen. Prior small scalp hematoma within the upper posterior right parietal region on 04/19/2020 has resolved in the interval. 3. Other minor incidental findings, as discussed above. Note: Depending on the clinical circumstances, consider further evaluation with MRI of the brain without IV contrast to see if there are any areas of suspicious restricted diffusion to suggest an acute or subacute ischemic event.
[2020-06-20] MEDS: NORCO 5/325 MG PO PRN (16:38)
[2020-06-20] MEDS: Levofloxacin 500MG/100ML D5W 500 MG/100 ML BAG IV SCH (17:44)
[2020-06-20] MEDS: zyPREXA 5MG TABLET PO SCH (22:33)
[2020-06-20] MEDS: DESYREL 50 MG PO SCH (22:33)
[2020-06-20] MEDS: ZOCOR 20MG PO SCH (22:34)
[2020-06-21] MEDS: NORCO 5/325 MG PO PRN ×3 (04:12→15:56)
[2020-06-21 05:10] LABS: Absolute Neutrophil Ct (ANC) 11.55 (1.4-6.9); BASOPHIL % 0.1 % (0.0-0.4); Basophil (Absolute #) 0.01 (0-0.4); Eosinophil % 0.3 % (0.00-5.0); Eosinophil (Absolute #) 0.04 (0-0.5); Hematocrit 30.1 % (35-47); Lymphocyte (Absolute #) 1.35 (1.0-4.6); Lymphocytes % 9.8 % (24.0-44.0); Mean Cell Volume 88.8 fl (78-100); Mean Corpuscular Hemoglobin 27.4 pg (26-32); Mean Corpuscular Hgb Concent. 30.9 g/dl (32-36); Mean Platelet Volume 11.6 fl (7.5-11.0); Monocyte (Absolute #) 0.86 (0.0-1.3); Monocytes % 6.2 % (0.0-12.0); Neutrophil % 83.6 % (36.0-66.0); Platelet Count 170 K/mm3 (150-450); Red Blood Count 3.39 M/mm3 (4.1-5.4); White Blood Count 13.8 K/mm3 (4.0-10.5)
[2020-06-21 05:24] LABS: ALKALINE PHOSPHATASE 86 U/L (38-126); ANION GAP 9.6 MEQ/L (5-15); BLOOD UREA NITROGEN 15 mg/dL (7-17); CHLORIDE 110 mmol/L (98-107); CK-Creatinine Phosphokinase 120 U/L (30-135); Calcium 8.4 mg/dL (8.4-10.2); Carbon Dioxide 21 mmol/L (22-30); Creatinine 1 0.92 mg/dL (0.52-1.04); EST GLOMERULAR FILTRATION RATE > 60.0 ML/MIN; Glucose 123 mg/dL (74-106); Potassium 3.7 mmol/L (3.5-5.1); SGOT/AST 23 U/L (14-36); SGPT/ALT 20 U/L (0-35); SODIUM 137 mmol/L (137-145)
[2020-06-21 05:40] LABS: Hemoglobin 9.3 gm/dl (12.0-16.0)
[2020-06-21] MEDS: Sodium Chloride 0.9% W/ 20 mEq KCl/LITER 1,000 ML IV SCH ×2 (08:29→19:34)
[2020-06-21] MEDS: Glucophage 500 MG PO SCH (08:30)
[2020-06-21] MEDS: AMARYL 4 MG PO SCH (08:30)
[2020-06-21] MEDS: Cozaar 50 MG PO SCH (09:59)
[2020-06-21] MEDS: celeBREX 100 MG PO SCH (09:59)
[2020-06-21] MEDS: SYNTHROID 100 MCG PO SCH (09:59)
[2020-06-21] MEDS: Pepcid 20 MG VIAL IV SCH ×2 (09:59→21:01)
[2020-06-21] MEDS: Adalat CC 30 MG TABLET PO SCH (10:00)
[2020-06-21] MEDS: Neurontin 100 MG PO SCH ×2 (10:00→21:01)
[2020-06-21] MEDS: NYSTOP 30 GM CREAM TOP SCH ×2 (10:01→21:01)
[2020-06-21] MEDS: Lexapro 10 MG PO SCH (10:01)
[2020-06-21] MEDS: XANAX 1 MG PO SCH ×2 (10:01→21:01)
[2020-06-21] MEDS: Lantus Insulin SQ SCH (10:02)
--- NOTE | 2020-06-21 11:59 | PCM.NOTE ---
Date and Time: 06/21/20 1158 Subjective Assessment: doing ok - Review of Systems Constitutional: No Fever, No Chills Eyes: No Symptoms Ears, Nose, & Throat: No Symptoms Respiratory: No Cough, No Short Of Breath Cardiac: No Chest Pain, No Edema, No Syncope Abdominal/Gastrointestinal: No Abdominal Pain, No Nausea, No Vomiting, No Diarrhea Genitourinary Symptoms: No Dysuria Musculoskeletal: No Back Pain, No Neck Pain Skin: No Rash Neurological: No Dizziness, No Focal Weakness, No Sensory Changes Psychological: No Symptoms Endocrine: No Symptoms Hematologic/Lymphatic: No Symptoms Immunological/Allergic: No Symptoms Objective Exam General Appearance: no apparent distress, alert Neurologic Exam: alert, oriented x 3, cooperative, normal mood/affect, nml cerebellar function, sensation nml, No motor deficits Skin Exam: normal color, warm, dry Eye Exam: PERRL, EOMI, eyes nml inspection Ears, Nose, Throat Exam: normal ENT inspection, pharynx normal, moist mucous membranes Neck Exam: normal inspection, non-tender, supple, full range of motion Respiratory Exam: normal breath sounds, lungs clear, No respiratory distress Cardiovascular Exam: regular rate/rhythm, normal heart sounds Gastrointestinal/Abdomen Exam: soft, No tenderness, No mass Extremity Exam: normal inspection, normal range of motion Back Exam: normal inspection, normal range of motion, No CVA tenderness, No vertebral tenderness Pelvic Exam: deferred Rectal Exam: deferred OBJECTIVE DATA Vital Signs: Vital Signs - 24 hr Temp Pulse Resp BP BP Pulse Ox 06/21/20 08:15 96 06/21/20 07:53 99.3 F 103 H 10 L 129/58 96 06/21/20 03:32 97.9 F 112 H 12 148/65 94 L 06/21/20 00:00 100 F 104 H 18 127/54 95 06/20/20 21:16 94 L 06/20/20 20:00 99.9 F 99 H 16 129/60 93 L 06/20/20 16:00 98.4 F 110 H 18 148/67 96 06/20/20 12:00 98.1 F 103 H 20 148/70 97 Pain Assessment - Last Documented Pain Intensity 3 Pain Scale Used 0-10 Pain Scale Intake and Output: Intake & Output 06/18/20 06/19/20 06/20/20 06/21/20 11:59 11:59 11:59 11:59 Intake Total 1009 4075 282 Output Total 689 4342 1859 Balance 511 865 743 Weight 78 kg 79.5 kg 81.7 kg Lab Results: Lab Results-Last 24 Hours 06/20/20 06/20/20 06/20/20 Range/Units 12:14 15:50 21:03 WBC (4.0-10.5) K/mm3 RBC (4.1-5.4) M/mm3 Hgb (12.0-16.0) gm/dl Hct (35-47) % MCV (78-100) fl MCH (26-32) pg MCHC (32-36) g/dl RDW (11.5-14.0) % Plt Count (150-450) K/mm3 MPV (7.5-11.0) fl Gran % (36.0-66.0) % Eos # (Auto) (0-0.5) Absolute Lymphs (auto) (1.0-4.6) Absolute Monos (auto) (0.0-1.3) Lymphocytes % (24.0-44.0) % Monocytes % (0.0-12.0) % Eosinophils % (0.00-5.0) % Basophils % (0.0-0.4) % Absolute Granulocytes (1.4-6.9) Basophils # (0-0.4) Sodium (137-145) mmol/L Potassium (3.5-5.1) mmol/L Chloride (98-107) mmol/L Carbon Dioxide (22-30) mmol/L Anion Gap (5-15) MEQ/L BUN (7-17) mg/dL Creatinine (0.52-1.04) mg/dL Estimated GFR ML/MIN Glucose (74-106) mg/dL POC Glucometer 149 H 100 (74 to 106) mg/dL Calcium (8.4-10.2) mg/dL Total Bilirubin (0.2-1.3) mg/dL AST (14-36) U/L ALT (0-35) U/L Alkaline Phosphatase (38-126) U/L Creatine Kinase 215 H (30-135) U/L Serum Total Protein (6.3-8.2) g/dL Albumin (3.5-5.0) g/dL 06/21/20 06/21/20 06/21/20 Range/Units 04:30 04:30 07:40 WBC 13.8 H (4.0-10.5) K/mm3 RBC 3.39 L (4.1-5.4) M/mm3 Hgb 9.3 L D (12.0-16.0) gm/dl Hct 30.1 L (35-47) % MCV 88.8 (78-100) fl MCH 27.4 (26-32) pg MCHC 30.9 L (32-36) g/dl RDW 16.0 H (11.5-14.0) % Plt Count 170 (150-450) K/mm3 MPV 11.6 H (7.5-11.0) fl Gran % 83.6 H (36.0-66.0) % Eos # (Auto) 0.04 (0-0.5) Absolute Lymphs (auto) 1.35 (1.0-4.6) Absolute Monos (auto) 0.86 (0.0-1.3) Lymphocytes % 9.8 L (24.0-44.0) % Monocytes % 6.2 (0.0-12.0) % Eosinophils % 0.3 (0.00-5.0) % Basophils % 0.1 (0.0-0.4) % Absolute Granulocytes 11.55 H (1.4-6.9) Basophils # 0.01 (0-0.4) Sodium 137 (137-145) mmol/L Potassium 3.7 (3.5-5.1) mmol/L Chloride 110 H (98-107) mmol/L Carbon Dioxide 21 L (22-30) mmol/L Anion Gap 9.6 (5-15) MEQ/L BUN 15 (7-17) mg/dL Creatinine 0.92 (0.52-1.04) mg/dL Estimated GFR > 60.0 ML/MIN Glucose 123 H (74-106) mg/dL POC Glucometer 133 H (74 to 106) mg/dL Calcium 8.4 (8.4-10.2) mg/dL Total Bilirubin 0.40 (0.2-1.3) mg/dL AST 23 (14-36) U/L ALT 20 (0-35) U/L Alkaline Phosphatase 86 (38-126) U/L Creatine Kinase 120 (30-135) U/L Serum Total Protein 6.0 L (6.3-8.2) g/dL Albumin 3.0 L (3.5-5.0) g/dL 06/21/20 Range/Units 11:35 WBC (4.0-10.5) K/mm3 RBC (4.1-5.4) M/mm3 Hgb (12.0-16.0) gm/dl Hct (35-47) % MCV (78-100) fl MCH (26-32) pg MCHC (32-36) g/dl RDW (11.5-14.0) % Plt Count (150-450) K/mm3 MPV (7.5-11.0) fl Gran % (36.0-66.0) % Eos # (Auto) (0-0.5) Absolute Lymphs (auto) (1.0-4.6) Absolute Monos (auto) (0.0-1.3) Lymphocytes % (24.0-44.0) % Monocytes % (0.0-12.0) % Eosinophils % (0.00-5.0) % Basophils % (0.0-0.4) % Absolute Granulocytes (1.4-6.9) Basophils # (0-0.4) Sodium (137-145) mmol/L Potassium (3.5-5.1) mmol/L Chloride (98-107) mmol/L Carbon Dioxide (22-30) mmol/L Anion Gap (5-15) MEQ/L BUN (7-17) mg/dL Creatinine (0.52-1.04) mg/dL Estimated GFR ML/MIN Glucose (74-106) mg/dL POC Glucometer 162 H (74 to 106) mg/dL Calcium (8.4-10.2) mg/dL Total Bilirubin (0.2-1.3) mg/dL AST (14-36) U/L ALT (0-35) U/L Alkaline Phosphatase (38-126) U/L Creatine Kinase (30-135) U/L Serum Total Protein (6.3-8.2) g/dL Albumin (3.5-5.0) g/dL Radiology Exams: Radiology Procedures Category Date Time Status HEAD WITHOUT CONTRAST [CT] Stat Exams 06/20/20 11:10 Completed Multi-Disciplinary Progress Notes: Multi-Disciplinary Progress Notes 06/21/20 11:34 Case Management Note by Roxy Miranda ATTEMPTED TO CALL RICH TO UPDATE ON PLAN OF CARE AND THAT [facility] HAS ACCEPTED PATIENT- NO ANSWER AT THIS TIME Initialized on 06/21/20 11:34 - END OF NOTE 06/20/20 15:04 Case Management Note by Fiordaliza Gomes SPOKE WITH LATOSHA AT [facility], THEY WILL BE READY FOR PATIENT WHEN MD IS READY FOR DISCHARGE. THEY WILL COMPLETE PASRR ONCE AT THIS [facility]. Initialized on 06/20/20 15:04 - END OF NOTE Assessment/Plan (1) Muscle paresis Current Visit: Yes Status: Acute Code(s): G72.89 - OTHER SPECIFIED MYOPATHIES (2) KATELYN (acute kidney injury) Current Visit: Yes Status: Acute Code(s): N17.9 - ACUTE KIDNEY FAILURE, UNSPECIFIED
[2020-06-21] MEDS: HUMALOG SQ PRN (12:55)
--- NOTE | 2020-06-21 16:56 | XRAY ---
Exam: CT of the facial bones with IV contrast from 06/21/2020. CTDI: 23.79 mGy Comparison: CT of the head without IV contrast from 06/20/2020. Indication: Left-sided facial swelling with pain and redness. Technique: Post-IV contrast axial images were obtained through the face during automated injection of 80 cc of Isovue-370 contrast material. Reconstructed coronal and sagittal images were created and reviewed. Findings: Significant asymmetric diffuse enlargement and mild heterogeneous enhancement of the left parotid gland is seen with respect to the normal-appearing right parotid gland. There is some mild stranding about the enlarged left parotid gland. I do not see any definite associated calcifications to suggest a parotid duct stone. In retrospect, these findings are partially seen on yesterday's CT of the head study and appear similar. A discrete abscess is not seen. No bubbles of soft tissue air are noted. There is some skin/subcutaneous thickening about the proximal external auditory canal on the left as compared to the right, probably due to the adjacent inflammation. Asymmetric mildly prominent lymph nodes are seen within the upper left neck which are likely reactive in nature. The right parotid gland appears unremarkable. The submandibular glands appear unremarkable bilaterally. The paranasal sinuses reveal mild mucoperiosteal thickening at the lower anterior medial margin of the right maxillary sinus. This could represent a small retention cyst or polyp as well. No air-fluid levels are seen. Minimal mucosal thickening is seen within the ethmoid sinus complex. No bone destruction is evident. The orbits appear grossly unremarkable. The optic nerves and extraocular muscles appear symmetric. There is mild deviation of the posterior nasal septum toward the left. The posterior nasopharynx, oropharynx, uvula, and epiglottis appear unremarkable. There is moderate atherosclerotic vascular calcification at the left carotid artery bifurcation and mild atherosclerotic vascular calcification at the right carotid bifurcation. The mastoid air cells are well aerated without evidence of effusion. Some soft tissue density is seen deep within the left external auditory canal. Correlate clinically regarding cerumen or other soft tissue density. The bones within the middle ear cavities appear grossly unremarkable. No definite bone abnormality is seen. Impression: 1. There is significant asymmetric enlargement and heterogeneous enhancement within the left parotid gland without definite associated stone within the projection of the parotid duct. This is most consistent with acute parotitis. Other differential possibilities include Sjogren syndrome and lymphoma. Correlate clinically. I believe there are some mildly plump reactive lymph nodes within the upper left neck. In addition, there is some skin and subcutaneous thickening about the left external auditory canal. This may be due to adjacent inflammation. I also need note some irregular soft tissue density deep within the left external auditory canal. This could represent cerumen or other some other soft tissue density within the deep left external auditory canal. For example, see axial images #45 through #47 of series 3. 2. Small lobular soft tissue density at the lower anterior medial aspect of the right maxillary sinus may be due to a small retention cyst, polyp, or mucoperiosteal thickening. There also appears to be some subtle mucoperiosteal thickening within the ethmoid sinus complex. No air-fluid levels are seen.
[2020-06-21] MEDS: solu-MEDROL 40 MG IV SCH (18:38)
[2020-06-21] MEDS: DESYREL 50 MG PO SCH (21:01)
[2020-06-21] MEDS: ZOCOR 20MG PO SCH (21:01)
[2020-06-21] MEDS: zyPREXA 5MG TABLET PO SCH (21:01)
[2020-06-21] MEDS: TYLENOL 325 MG PO PRN (21:45)
[2020-06-22 05:36] LABS: ALBUMIN 2.8 g/dL (3.5-5.0); ANION GAP 12.3 MEQ/L (5-15); BILIRUBIN,TOTAL 0.4 mg/dL (0.2-1.3); Calcium 8.6 mg/dL (8.4-10.2); Creatinine 1 0.99 mg/dL (0.52-1.04); EST GLOMERULAR FILTRATION RATE 56.8 ML/MIN; Potassium 4.6 mmol/L (3.5-5.1); Total Protein 5.9 g/dL (6.3-8.2)
[2020-06-22] MEDS: Sodium Chloride 0.9% W/ 20 mEq KCl/LITER 1,000 ML IV SCH ×2 (06:04→17:43)
[2020-06-22] MEDS: solu-MEDROL 40 MG IV SCH ×2 (06:06→17:43)
[2020-06-22] MEDS: Levofloxacin 500MG/100ML D5W 500 MG/100 ML BAG IV SCH (06:06)
[2020-06-22] MEDS: AMARYL 4 MG PO SCH (10:03)
[2020-06-22] MEDS: HUMALOG SQ PRN ×4 (10:03→22:17)
[2020-06-22] MEDS: Adalat CC 30 MG TABLET PO SCH (10:04)
[2020-06-22] MEDS: Cozaar 50 MG PO SCH (10:04)
[2020-06-22] MEDS: Lexapro 10 MG PO SCH (10:04)
[2020-06-22] MEDS: SYNTHROID 100 MCG PO SCH (10:05)
[2020-06-22] MEDS: celeBREX 100 MG PO SCH (10:05)
[2020-06-22] MEDS: Neurontin 100 MG PO SCH ×2 (10:05→22:15)
[2020-06-22] MEDS: NYSTOP 30 GM CREAM TOP SCH ×2 (10:05→22:16)
[2020-06-22] MEDS: Pepcid 20 MG VIAL IV SCH ×2 (10:05→22:16)
[2020-06-22] MEDS: XANAX 1 MG PO SCH ×2 (10:05→22:15)
[2020-06-22] MEDS: Lantus Insulin SQ SCH (10:06)
[2020-06-22 11:38] LABS: Absolute Neutrophil Ct (ANC) 11.65 (1.4-6.9); BASOPHIL % 0.1 % (0.0-0.4); Basophil (Absolute #) 0.01 (0-0.4); Eosinophil (Absolute #) 0 (0-0.5); Hematocrit 32.2 % (35-47); Lymphocyte (Absolute #) 0.38 (1.0-4.6); Lymphocytes % 3.1 % (24.0-44.0); Mean Cell Volume 88.5 fl (78-100); Mean Corpuscular Hemoglobin 27.5 pg (26-32); Mean Corpuscular Hgb Concent. 31.1 g/dl (32-36); Mean Platelet Volume 11.9 fl (7.5-11.0); Monocyte (Absolute #) 0.21 (0.0-1.3); Monocytes % 1.7 % (0.0-12.0); Neutrophil % 95.1 % (36.0-66.0); Platelet Count 201 K/mm3 (150-450); Red Blood Count 3.64 M/mm3 (4.1-5.4); Red Cell Distribution Width 15.9 % (11.5-14.0); White Blood Count 12.3 K/mm3 (4.0-10.5)
[2020-06-22 11:49] LABS: ALBUMIN 2.9 g/dL (3.5-5.0); ANION GAP 12.7 MEQ/L (5-15); BILIRUBIN,TOTAL 0.4 mg/dL (0.2-1.3); Calcium 8.6 mg/dL (8.4-10.2); Creatinine 1 0.95 mg/dL (0.52-1.04); EST GLOMERULAR FILTRATION RATE 59.6 ML/MIN; Potassium 4.3 mmol/L (3.5-5.1)
[2020-06-22 11:53] LABS: Slide Review 1 YES
--- NOTE | 2020-06-22 12:32 | PCM.NOTE ---
Date and Time: 06/22/20 1230 Subjective Assessment: swollen left side face, fever, CT face showed parotitis - Review of Systems Constitutional: No Fever, No Chills Eyes: No Symptoms Ears, Nose, & Throat: No Symptoms, Mouth Swelling Respiratory: No Cough, No Short Of Breath Cardiac: No Chest Pain, No Edema, No Syncope Abdominal/Gastrointestinal: No Abdominal Pain, No Nausea, No Vomiting, No D iarrhea Genitourinary Symptoms: No Dysuria Musculoskeletal: No Back Pain, No Neck Pain Skin: No Rash Neurological: No Dizziness, No Focal Weakness, No Sensory Changes Psychological: No Symptoms Endocrine: No Symptoms Hematologic/Lymphatic: No Symptoms Immunological/Allergic: No Symptoms Objective Exam General Appearance: no apparent distress, alert Neurologic Exam: alert, oriented x 3, cooperative, sensation nml, No motor deficits Skin Exam: normal color, warm, dry Wound Assessment: left side fascial swelling, no open wound Eye Exam: PERRL, EOMI, eyes nml inspection Ears, Nose, Throat Exam: normal ENT inspection, pharynx normal, moist mucous membranes Neck Exam: normal inspection, non-tender, supple, full range of motion Respiratory Exam: normal breath sounds, lungs clear, No respiratory distress Cardiovascular Exam: regular rate/rhythm, normal heart sounds Gastrointestinal/Abdomen Exam: soft, No tenderness, No mass Extremity Exam: normal inspection, normal range of motion Back Exam: normal inspection, normal range of motion, No CVA tenderness, No vertebral tenderness Pelvic Exam: deferred Rectal Exam: deferred OBJECTIVE DATA Vital Signs: Vital Signs - 24 hr Temp Pulse Resp BP Pulse Ox 06/22/20 07:21 94 L 06/22/20 07:18 98.3 F 94 H 18 130/59 96 06/22/20 06:59 96 06/22/20 04:05 97.9 F 104 H 18 116/56 92 L 06/21/20 23:40 99.3 F 95 H 24 104/55 95 06/21/20 20:08 100.3 F 104 H 22 129/59 96 06/21/20 19:49 93 L 06/21/20 16:00 98.4 F 126 H 16 161/67 93 L Pain Assessment - Last Documented Pain Intensity 8 Pain Scale Used 0-10 Pain Scale Intake and Output: Intake & Output 06/20/20 06/21/20 06/22/20 06/23/20 11:59 11:59 11:59 11:59 Intake Total 5690 1543 3730 Output Total 5904 7290 925 Balance 961 086 8889 Weight 79.5 kg 81.7 kg 81.3 kg Lab Results: Lab Results-Last 24 Hours 06/21/20 06/21/20 06/21/20 Range/Units 16:35 20:51 23:55 WBC (4.0-10.5) K/mm3 RBC (4.1-5.4) M/mm3 Hgb (12.0-16.0) gm/dl Hct (35-47) % MCV (78-100) fl MCH (26-32) pg MCHC (32-36) g/dl RDW (11.5-14.0) % Plt Count (150-450) K/mm3 MPV (7.5-11.0) fl Gran % (36.0-66.0) % Eos # (Auto) (0-0.5) Absolute Lymphs (auto) (1.0-4.6) Absolute Monos (auto) (0.0-1.3) Lymphocytes % (24.0-44.0) % Monocytes % (0.0-12.0) % Eosinophils % (0.00-5.0) % Basophils % (0.0-0.4) % Absolute Granulocytes (1.4-6.9) Basophils # (0-0.4) Sodium (137-145) mmol/L Potassium (3.5-5.1) mmol/L Chloride (98-107) mmol/L Carbon Dioxide (22-30) mmol/L Anion Gap (5-15) MEQ/L BUN (7-17) mg/dL Creatinine (0.52-1.04) mg/dL Estimated GFR ML/MIN Glucose (74-106) mg/dL POC Glucometer 69 L 124 H 162 H (74 to 106) mg/dL Calcium (8.4-10.2) mg/dL Total Bilirubin (0.2-1.3) mg/dL AST (14-36) U/L ALT (0-35) U/L Alkaline Phosphatase (38-126) U/L Creatine Kinase (30-135) U/L Serum Total Protein (6.3-8.2) g/dL Albumin (3.5-5.0) g/dL Slides for Path Review 06/22/20 06/22/20 06/22/20 Range/Units 04:39 04:39 06:53 WBC (4.0-10.5) K/mm3 RBC (4.1-5.4) M/mm3 Hgb (12.0-16.0) gm/dl Hct (35-47) % MCV (78-100) fl MCH (26-32) pg MCHC (32-36) g/dl RDW (11.5-14.0) % Plt Count (150-450) K/mm3 MPV (7.5-11.0) fl Gran % (36.0-66.0) % Eos # (Auto) (0-0.5) Absolute Lymphs (auto) (1.0-4.6) Absolute Monos (auto) (0.0-1.3) Lymphocytes % (24.0-44.0) % Monocytes % (0.0-12.0) % Eosinophils % (0.00-5.0) % Basophils % (0.0-0.4) % Absolute Granulocytes (1.4-6.9) Basophils # (0-0.4) Sodium 138 (137-145) mmol/L Potassium 4.6 D (3.5-5.1) mmol/L Chloride 111 H (98-107) mmol/L Carbon Dioxide 19 L (22-30) mmol/L Anion Gap 12.3 (5-15) MEQ/L BUN 18 H (7-17) mg/dL Creatinine 0.99 (0.52-1.04) mg/dL Estimated GFR 56.8 ML/MIN Glucose 223 H (74-106) mg/dL POC Glucometer 190 H (74 to 106) mg/dL Calcium 8.6 (8.4-10.2) mg/dL Total Bilirubin 0.40 (0.2-1.3) mg/dL AST 39 H (14-36) U/L ALT 34 (0-35) U/L Alkaline Phosphatase 121 (38-126) U/L Creatine Kinase 96 (30-135) U/L Serum Total Protein 5.9 L (6.3-8.2) g/dL Albumin 2.8 L (3.5-5.0) g/dL Slides for Path Review 06/22/20 06/22/20 06/22/20 Range/Units 11:22 11:33 11:33 WBC 12.3 H (4.0-10.5) K/mm3 RBC 3.64 L (4.1-5.4) M/mm3 Hgb 10.0 L (12.0-16.0) gm/dl Hct 32.2 L (35-47) % MCV 88.5 (78-100) fl MCH 27.5 (26-32) pg MCHC 31.1 L (32-36) g/dl RDW 15.9 H (11.5-14.0) % Plt Count 201 (150-450) K/mm3 MPV 11.9 H (7.5-11.0) fl Gran % 95.1 H (36.0-66.0) % Eos # (Auto) 0 (0-0.5) Absolute Lymphs (auto) 0.38 L (1.0-4.6) Absolute Monos (auto) 0.21 (0.0-1.3) Lymphocytes % 3.1 L (24.0-44.0) % Monocytes % 1.7 (0.0-12.0) % Eosinophils % 0.0 (0.00-5.0) % Basophils % 0.1 (0.0-0.4) % Absolute Granulocytes 11.65 H (1.4-6.9) Basophils # 0.01 (0-0.4) Sodium 138 (137-145) mmol/L Potassium 4.3 (3.5-5.1) mmol/L Chloride 111 H (98-107) mmol/L Carbon Dioxide 19 L (22-30) mmol/L Anion Gap 12.7 (5-15) MEQ/L BUN 19 H (7-17) mg/dL Creatinine 0.95 (0.52-1.04) mg/dL Estimated GFR 59.6 ML/MIN Glucose 252 H (74-106) mg/dL POC Glucometer 229 H (74 to 106) mg/dL Calcium 8.6 (8.4-10.2) mg/dL Total Bilirubin 0.40 (0.2-1.3) mg/dL AST 57 H (14-36) U/L ALT 45 H (0-35) U/L Alkaline Phosphatase 124 (38-126) U/L Creatine Kinase (30-135) U/L Serum Total Protein 6.0 L (6.3-8.2) g/dL Albumin 2.9 L (3.5-5.0) g/dL Slides for Path Review YES Radiology Exams: Radiology Procedures Category Date Time Status FACIAL BONES WITH CONTRAST [CT] Urgent Exams 06/21/20 13:40 Completed Assessment/Plan (1) Parotitis Current Visit: Yes Status: Acute Assessment & Plan: on abx Code(s): K11.20 - SIALOADENITIS, UNSPECIFIED (2) Muscle paresis Current Visit: Yes Status: Acute Code(s): G72.89 - OTHER SPECIFIED MYOPATHIES (3) KATELYN (acute kidney injury) Current Visit: Yes Status: Acute Code(s): N17.9 - ACUTE KIDNEY FAILURE, UNSPECIFIED
[2020-06-22] MEDS: NORCO 5/325 MG PO PRN (15:14)
[2020-06-22] MEDS: ZOCOR 20MG PO SCH (22:15)
[2020-06-22] MEDS: DESYREL 50 MG PO SCH (22:15)
[2020-06-22] MEDS: zyPREXA 5MG TABLET PO SCH (22:16)
[2020-06-23 00:06] VITALS: O2SAT 94
[2020-06-23] MEDS: Sodium Chloride 0.9% W/ 20 mEq KCl/LITER 1,000 ML IV SCH (03:50)
[2020-06-23] MEDS: NORCO 5/325 MG PO PRN ×2 (04:24→10:58)
[2020-06-23] MEDS: solu-MEDROL 40 MG IV SCH (06:00)
[2020-06-23 07:20] VITALS: BP 147/67; PULSE 94
[2020-06-23] MEDS: TYLENOL 325 MG PO PRN (07:49)
[2020-06-23] MEDS: AMARYL 4 MG PO SCH (07:50)
[2020-06-23] MEDS: HUMALOG SQ PRN (07:50)
[2020-06-23] MEDS: Neurontin 100 MG PO SCH (09:38)
[2020-06-23] MEDS: Lexapro 10 MG PO SCH (09:38)
[2020-06-23] MEDS: XANAX 1 MG PO SCH (09:38)
[2020-06-23] MEDS: SYNTHROID 100 MCG PO SCH (09:38)
[2020-06-23] MEDS: celeBREX 100 MG PO SCH (09:38)
[2020-06-23] MEDS: Pepcid 20 MG VIAL IV SCH (09:39)
[2020-06-23] MEDS: Cozaar 50 MG PO SCH (09:39)
[2020-06-23] MEDS: Adalat CC 30 MG TABLET PO SCH (09:39)
[2020-06-23] MEDS: Lantus Insulin SQ SCH (09:40)
[2020-06-23] MEDS: NYSTOP 30 GM CREAM TOP SCH (09:40)
[2020-06-23] MEDS ORDERED: Glucophage 500 MG PO SCH (17:00)
--- NOTE | 2020-06-27 07:11 | PCM.DS ---
Discharge Summary Date of Admission: 06/19/20 09:55 Admitting Physician: ALICIA WU Primary Care Provider: ALICIA WU Allergies Allergies ceftriaxone [From Rocephin] Allergy (Verified 06/18/20 16:08) lip swelling Hospital Summary - Hospital Course Hospital Course: Chief Complaint Diagnosis Rhabdomyolysis Allergies Allergy/AdvReac Type Severity Reaction Status Date / Time ceftriaxone [From Rocephin] Allergy Verified 06/18/20 16:08 Home Medications Medication Instructions Recorded Confirmed Last Taken Type Cephalexin Monohydrate [Cephalexin] 500 mg PO QID 5 Days capsule 06/23/20 Unknown Rx Current Medications Discontinued Medications Generic Name Dose Route Start Last Admin Trade Name Freq PRN Reason Stop Dose Admin Acetaminophen 650 mg 06/18/20 19:03 06/23/20 07:49 Tylenol 325 Mg PO 07/18/20 19:02 650 mg Q4H PRN PRN Administration PAIN AND/OR FEVER Hydrocodone Bitart/Acetaminophen 1 tab 06/19/20 15:43 06/23/20 10:58 [place] 5/325 Mg PO 06/24/20 15:42 1 tab Q4H PRN PRN Administration PAIN Alprazolam 1 mg 06/18/20 23:00 06/23/20 09:38 Xanax 1 Mg PO 07/18/20 22:59 1 mg BID JEIMY Administration Celecoxib 100 mg 06/20/20 10:00 06/23/20 09:38 Celebrex 100 Mg PO 07/20/20 09:59 100 mg DAILY JEIMY Administration Escitalopram Oxalate 20 mg 06/20/20 10:00 06/23/20 09:38 Lexapro 10 Mg PO 07/20/20 09:59 20 mg DAILY JEIMY Administration Famotidine 20 mg 06/18/20 22:00 06/23/20 09:39 Pepcid 20 Mg Vial IV 07/18/20 21:59 20 mg Q12HT JEIMY Administration Gabapentin 200 mg 06/19/20 22:00 06/23/20 09:38 Neurontin 100 Mg PO 07/19/20 21:59 200 mg BID JEIMY Administration Glimepiride 4 mg 06/20/20 08:00 06/23/20 07:50 Amaryl 4 Mg PO 07/20/20 07:59 4 mg BREAKFAST JEIMY Administration Sodium Chloride 1,000 mls @ 999 mls/hr 06/18/20 17:00 06/18/20 19:05 Sodium Chloride 0.9% 1000 Ml IV 06/18/20 18:00 Infused .Q1H1M STA Infusion Sodium Chloride Confirm 06/18/20 17:02 Sodium Chloride 0.9% 1000 Ml Administered 06/18/20 17:03 Dose 1,000 mls @ ud .ROUTE .STK-MED ONE Potassium Chloride/Sodium Chloride 1,000 mls @ 100 mls/hr 06/18/20 19:15 06/23/20 03:50 Sodium Chloride 0.9% W/ 20 Meq Kcl/Liter IV 07/18/20 19:14 100 mls/hr .Q10H JEIMY Administration Levofloxacin/Dextrose 500 mg in 100 mls @ 100 mls/hr 06/20/20 18:00 06/22/20 06:06 Levofloxacin 500mg/100ml D5w IV 07/20/20 17:59 100 mls/hr Q36H JEIMY Administration Insulin Glargine 20 unit 06/20/20 10:00 06/23/20 09:40 Lantus Insulin SQ 07/20/20 09:59 20 unit DAILY JEIMY Administration Insulin Human Lispro 0 unit 06/18/20 19:03 06/23/20 07:50 Humalog SQ 07/18/20 19:02 5 unit UD PRN Administration HYPERGLYCEMIA Levothyroxine Sodium 100 mcg 06/20/20 10:00 06/23/20 09:38 Synthroid 100 Mcg PO 07/20/20 09:59 100 mcg DAILY JEIMY Administration Losartan Potassium 25 mg 06/20/20 10:00 06/23/20 09:39 Cozaar 50 Mg PO 07/20/20 09:59 25 mg DAILY JEIMY Administration Metformin HCl 500 mg 06/20/20 08:00 06/21/20 08:30 Glucophage 500 Mg PO 07/20/20 07:59 500 mg BIDWM JEIMY Administration Metformin HCl 500 mg 06/23/20 17:00 Glucophage 500 Mg PO 07/23/20 16:59 BIDWM JEIMY Methylprednisolone Sodium Succinate 40 mg 06/21/20 18:00 09/17/20 06:00 Solu-Medrol 40 Mg IV 07/21/20 17:59 Not Given Q12H JEIMY Miscellaneous Information 1 each 06/20/20 06:45 Medication Intervention PO 07/20/20 06:44 .RN TO CHECK ON JEIMY Nifedipine 90 mg 06/20/20 10:00 06/23/20 09:39 Adalat Cc 30 Mg Tablet PO 07/20/20 09:59 90 mg DAILY JEIMY Administration Nystatin 1 gm 06/18/20 23:30 06/23/20 09:40 Nystop 30 Gm Cream TOP 07/18/20 23:29 1 gm BID JEIMY Administration Olanzapine 5 mg 06/19/20 22:00 06/22/20 22:16 Zyprexa 5mg Tablet PO 07/19/20 21:59 5 mg HS JEIMY Administration Ondansetron HCl 4 mg 06/18/20 19:03 Zofran 4 Mg/2 Ml Vial IV 07/18/20 19:02 Q6H PRN PRN NAUSEA/VOMITING Simvastatin 40 mg 06/19/20 22:00 06/22/20 22:15 Zocor 20mg PO 07/19/20 21:59 40 mg HS JEIMY Administration Trazodone HCl 50 mg 06/19/20 22:00 06/22/20 22:15 Desyrel 50 Mg PO 07/19/20 21:59 50 mg HS JEIMY Administration - Vitals & Intake/Output Vital Signs: Vital Signs Temperature 97.7 F 06/23/20 07:20 Pulse Rate 94 H 06/23/20 07:20 Respiratory Rate 18 06/23/20 07:20 Blood Pressure 147/67 06/23/20 07:20 O2 Sat by Pulse Oximetry 94 L 06/23/20 07:20 - Lab Result Diagrams: 06/22/20 11:33 06/22/20 11:33 Micro Results-Entire Visit: Microbiology 06/19/20 01:38 Urine Culture - Final Catherized <10K NORMAL SKIN ANDIE PROBABLE SKIN CONTAMINANT - Procedures and Test Procedures and Tests throughout Hospitalization: Therapy Orders & Screens 06/20/20 07:12 Oxygen NASAL CANNULA 4 lpm Comment: Diagnosis: Rhabdomyolysis 06/20/20 08:15 RT Miscellaneous Order ROUTINE Comment: Physician Instructions: Reason For Exam: wean off oxygen Diagnosis: Rhabdomyolysis Discharge Exam General Appearance: no apparent distress, alert Neurologic Exam: alert, oriented x 3, cooperative, normal mood/affect, nml cerebellar function, sensation nml, facial droop, No motor deficits Eye Exam: PERRL, EOMI, eyes nml inspection Ears, Nose, Throat Exam: normal ENT inspection, pharynx normal, moist mucous membranes Neck Exam: normal inspection, non-tender, supple, full range of motion Respiratory Exam: normal breath sounds, lungs clear, No respiratory distress Cardiovascular Exam: regular rate/rhythm, normal heart sounds Gastrointestinal/Abdomen Exam: soft, No tenderness, No mass Pelvic Exam: deferred Rectal Exam: deferred Back Exam: normal inspection, normal range of motion, No CVA tenderness, No vertebral tenderness Extremity Exam: normal inspection, normal range of motion Skin Exam: normal color, warm, dry Final Diagnosis/Problem List - Final Discharge Diagnosis/Problem (1) Parotitis Status: Acute Assessment & Plan: Last Vital Signs Temp 97.7 F 06/23/20 07:20 Pulse 94 H 06/23/20 07:20 Resp 18 06/23/20 07:20 BP 147/67 06/23/20 07:20 Pulse Ox 94 L 06/23/20 07:20 Allergies ceftriaxone [From Rocephin] Allergy (Verified 06/18/20 16:08) lip swelling Chief Complaint Diagnosis Rhabdomyolysis Allergies Allergy/AdvReac Type Severity Reaction Status Date / Time ceftriaxone [From Rocephin] Allergy Verified 06/18/20 16:08 Home Medications Medication Instructions Recorded Confirmed Last Taken Type Cephalexin Monohydrate [Cephalexin] 500 mg PO QID 5 Days capsule 06/23/20 U nknown Rx Current Medications Discontinued Medications Generic Name Dose Route Start Last Admin Trade Name Freq PRN Reason Stop Dose Admin Acetaminophen 650 mg 06/18/20 19:03 06/23/20 07:49 Tylenol 325 Mg PO 07/18/20 19:02 650 mg Q4H PRN PRN Administration PAIN AND/OR FEVER Hydrocodone Bitart/Acetaminophen 1 tab 06/19/20 15:43 06/23/20 10:58 [place] 5/325 Mg PO 06/24/20 15:42 1 tab Q4H PRN PRN Administration PAIN Alprazolam 1 mg 06/18/20 23:00 06/23/20 09:38 Xanax 1 Mg PO 07/18/20 22:59 1 mg BID JEIMY Administration Celecoxib 100 mg 06/20/20 10:00 06/23/20 09:38 Celebrex 100 Mg PO 07/20/20 09:59 100 mg DAILY JEIMY Administration Escitalopram Oxalate 20 mg 06/20/20 10:00 06/23/20 09:38 Lexapro 10 Mg PO 07/20/20 09:59 20 mg DAILY JEIMY Administration Famotidine 20 mg 06/18/20 22:00 06/23/20 09:39 Pepcid 20 Mg Vial IV 07/18/20 21:59 20 mg Q12HT JEIMY Administration Gabapentin 200 mg 06/19/20 22:00 06/23/20 09:38 Neurontin 100 Mg PO 07/19/20 21:59 200 mg BID JEIMY Administration Glimepiride 4 mg 06/20/20 08:00 06/23/20 07:50 Amaryl 4 Mg PO 07/20/20 07:59 4 mg BREAKFAST JEIMY Administration Sodium Chloride 1,000 mls @ 999 mls/hr 06/18/20 17:00 06/18/20 19:05 Sodium Chloride 0.9% 1000 Ml IV 06/18/20 18:00 Infused .Q1H1M STA Infusion Sodium Chloride Confirm 06/18/20 17:02 Sodium Chloride 0.9% 1000 Ml Administered 06/18/20 17:03 Dose 1,000 mls @ ud .ROUTE .STK-MED ONE Potassium Chloride/Sodium Chloride 1,000 mls @ 100 mls/hr 06/18/20 19:15 06/23/20 03:50 Sodium Chloride 0.9% W/ 20 Meq Kcl/Liter IV 07/18/20 19:14 100 mls/hr .Q10H JEIMY Administration Levofloxacin/Dextrose 500 mg in 100 mls @ 100 mls/hr 06/20/20 18:00 06/22/20 06:06 Levofloxacin 500mg/100ml D5w IV 07/20/20 17:59 100 mls/hr Q36H JEIMY Administration Insulin Glargine 20 unit 06/20/20 10:00 06/23/20 09:40 Lantus Insulin SQ 07/20/20 09:59 20 unit DAILY JEIMY Administration Insulin Human Lispro 0 unit 06/18/20 19:03 06/23/20 07:50 Humalog SQ 07/18/20 19:02 5 unit UD PRN Administration HYPERGLYCEMIA Levothyroxine Sodium 100 mcg 06/20/20 10:00 06/23/20 09:38 Synthroid 100 Mcg PO 07/20/20 09:59 100 mcg DAILY JEIMY Administration Losartan Potassium 25 mg 06/20/20 10:00 06/23/20 09:39 Cozaar 50 Mg PO 07/20/20 09:59 25 mg DAILY JEIMY Administration Metformin HCl 500 mg 06/20/20 08:00 06/21/20 08:30 Glucophage 500 Mg PO 07/20/20 07:59 500 mg BIDWM JEIMY Administration Metformin HCl 500 mg 06/23/20 17:00 Glucophage 500 Mg PO 07/23/20 16:59 BIDWM JEIMY Methylprednisolone Sodium Succinate 40 mg 06/21/20 18:00 06/23/20 06:00 Solu-Medrol 40 Mg IV 07/21/20 17:59 Not Given Q12H JEIMY Miscellaneous Information 1 each 06/20/20 06:45 Medication Intervention PO 07/20/20 06:44 .RN TO CHECK ON JEIMY Nifedipine 90 mg 06/20/20 10:00 06/23/20 09:39 Adalat Cc 30 Mg Tablet PO 07/20/20 09:59 90 mg DAILY JEIMY Administration Nystatin 1 gm 06/18/20 23:30 06/23/20 09:40 Nystop 30 Gm Cream TOP 07/18/20 23:29 1 gm BID JEIMY Administration Olanzapine 5 mg 06/19/20 22:00 06/22/20 22:16 Zyprexa 5mg Tablet PO 07/19/20 21:59 5 mg HS JEIMY Administration Ondansetron HCl 4 mg 06/18/20 19:03 Zofran 4 Mg/2 Ml Vial IV 07/18/20 19:02 Q6H PRN PRN NAUSEA/VOMITING Simvastatin 40 mg 06/19/20 22:00 06/22/20 22:15 Zocor 20mg PO 07/19/20 21:59 40 mg HS JEIMY Administration Trazodone HCl 50 mg 06/19/20 22:00 06/22/20 22:15 Desyrel 50 Mg PO 07/19/20 21:59 50 mg HS JEIMY Administration Code(s): K11.20 - SIALOADENITIS, UNSPECIFIED (2) Muscle paresis Status: Acute Code(s): G72.89 - OTHER SPECIFIED MYOPATHIES (3) KATELYN (acute kidney injury) Status: Acute Code(s): N17.9 - ACUTE KIDNEY FAILURE, UNSPECIFIED - Discharge Discharge Date: 06/23/20 Disposition: DC TO ANY "OTHER" LONG-TERM Condition: Stable Prescriptions: New Cephalexin Monohydrate [Cephalexin] 500 mg PO QID 5 Days capsule Continue Simvastatin 40 mg [Zocor 40 mg] 40 mg PO HS Levothyroxine Sodium 100 Mcg [Synthroid 100 Mcg] 100 mcg PO DAILY Nifedipine [Nifedipine ER] 90 mg PO DAILY Olanzapine 5 mg PO HS Trazodone HCl 100 mg PO HS Metformin HCl 500 mg PO BID Glimepiride 4 mg [Amaryl 4 mg] 4 mg PO DAILY Losartan Potassium 25 mg PO DAILY Insulin Glargine,Hum.rec.anlog [Lantus Solostar] 20 units SQ DAILY Melatonin 5 mg PO HS Alprazolam 1 mg [Xanax 1 mg] 1 mg PO BID Gabapentin 200 mg PO BID Escitalopram Oxalate [Lexapro] 20 mg PO DAILY Furosemide [Lasix] 20 mg PO DAILY Celecoxib 100 mg PO DAILY Additional Instructions: PATIENT LEFT SIDE OF FACE SWOLLEN D/T PAROTITIS KEVIN ORDERS- SEE MED LIST ROUTINE CATHETER CARE ICE PACK TO FACE PRN PATIENT TO SUCK ON PEPPERMINTS OR HARD CANDY (TO HELP PAROTITIS) ACHS ACCU CHECKS DIABETIC DIET PT/OT EVAL AND TREAT OXYGEN AT 2L/NC Follow up with: ALICIA WU MD [Primary Care Provider] - 1 Week Forms: Ambulance Transport Record, Transfer Record Alf
== END 2020-06-23 12:00 | DRG 155 ==
LOC: ED 15:58 → MED SURG 19:45 → OBSVTOIN 06-19 09:55
PROVIDERS: ADMIT General Practice; ATTEND General Practice
DX: K11.21 Acute sialoadenitis (principal); N17.9 Acute kidney failure, unspecified; G72.89 Other specified myopathies; I10 Essential (primary) hypertension; E11.9 Type 2 diabetes mellitus without complications; E78.5 Hyperlipidemia, unspecified; R53.1 Weakness; R19.7 Diarrhea, unspecified; R26.9 Unspecified abnormalities of gait and mobility; W19.XXXA Unspecified fall, initial encounter; Z79.899 Other long term (current) drug therapy
CPT/HCPCS: 36000; 36415; 70450; 70487; 71045; 72192; 80053; 81001; 82550; 82962; 83036; 85025; 87086; 87493; 87507; 93005; 93041; 93268; 94762; 96360; 96372; 96374; 96375; 99285; G0378; P9612; U0003; J1817; J1956; J2920; A9270-GY

== ENCOUNTER 2021-03-20 12:22 | Observation (INO) | payer MEDICARE ==
--- NOTE | 2021-03-20 12:59 | ERPHSYRPT ---
- History of Present Illness Source: patient, EMS Exam Limitations: no limitations Patient Subjective Stated Complaint: Fall Triage Nursing Assessment: Patient brought into ED via EMS and transferred to bed with assist of 2. Patient A+O X 3. Patient's skin pink, warm and dry. Patient states she was walking to the restroom this am at 0600 and tripped over her walker causing her to fall landing on her back. Patient complains of lower back pain and left leg pain 10/10. No bruising noted. Physician History: 86 yo wf fell at home after getting walker caught. Pt lied on floor for several hours. She complains og L-spine pain and denies LOC/VERDE/C,T-spine pain/chest pain/ab pain/hip pain/upper or LE pain. Pt also denies any chest pain/dyspnea/focal weakness/fever/syncope before fall. Occurred: this morning Reason for Fall: tripped Injuries/Pain Location: back Loss of Consciousness: no loss of consciousness Quality: aching Severity of Pain-Max: moderate Severity of Pain-Current: moderate Modifying Factors: Improves With: movement Associated Symptoms (Fall): back pain, No abdominal pain, No confusion, No chest pain, No dizziness, No extremity injury, No headache, No lightheadedness, No muscle spasms, No nausea, No neck pain, No ringing in ears, No seizures, No shortness of breath, No slurred speech, No trouble walking, No vomiting, No vision changes Allergies/Adverse Reactions: ceftriaxone [From Rocephin] Allergy (Verified 03/20/21 17:53) lip swelling morphine Allergy (Verified 03/20/21 17:53) Penicillins Allergy (Verified 03/20/21 17:53) Home Medications: Levothyroxine Sodium 100 Mcg [Synthroid 100 Mcg] 100 mcg PO DAILY 05/24/17 [History] Nifedipine [Nifedipine ER] 90 mg PO DAILY 05/24/17 [History] Simvastatin 40 mg [Zocor 40 mg] 40 mg PO HS 05/24/17 [History] Olanzapine 5 mg PO HS 05/30/18 [History] Trazodone HCl 100 mg PO HS 12/16/18 [History] Glimepiride 4 mg [Amaryl 4 mg] 4 mg PO DAILY 03/20/19 [History] Insulin Glargine,Hum.rec.anlog [Lantus Solostar] 20 units SQ HS 03/21/19 [History] Melatonin 5 mg PO HS 12/29/19 [History] ALPRAZolam 1 MG [Xanax 1 mg] 1 mg PO BID 03/11/20 [History] Escitalopram Oxalate [Lexapro] 20 mg PO DAILY 03/11/20 [History] Gabapentin 200 mg PO BID 03/11/20 [History] Celecoxib 100 mg PO DAILY 04/19/20 [History] HydrALAzine HCL 25 MG TAB [Apresoline 25 MG TABLET] 50 mg PO TID 03/20/21 [History] Hx Tetanus, Diphtheria Vaccination/Date Given: Yes Hx Influenza Vaccination/Date Given: Yes Hx Pneumococcal Vaccination/Date Given: Yes Immunizations Up to Date: Yes Travel Risk - International Travel Have you traveled outside of the country in past 3 weeks: No - Coronavirus Screening Are you exhibiting any of the following symptoms?: No Close contact with a COVID-19 positive Pt in past 14-21 Days: No - Vaccine Status Have you recieved a Covid-19 vaccination: No - Review of Systems Constitutional: No Symptoms Eyes: No Symptoms Ears, Nose, & Throat: No Symptoms Respiratory: No Symptoms Cardiac: No Symptoms Abdominal/Gastrointestinal: No Symptoms Genitourinary Symptoms: No Symptoms Musculoskeletal: No Symptoms, Back Pain Skin: No Symptoms Neurological: No Symptoms Psychological: No Symptoms Endocrine: No Symptoms Hematologic/Lymphatic: No Symptoms Immunological/Allergic: No Symptoms - Past Medical History Pertinent Past Medical History: Yes Neurological History: No Pertinent History ENT History: No Pertinent History Cardiac History: Hypertension Respiratory History: Pneumonia Endocrine Medical History: Diabetes Type II Musculoskeletal History: Degenerative Disk Disease, Fractures, Osteoarthritis GI Medical History: No Pertinent History History: No Pertinent History Psycho-Social History: Depression Female Reproductive Disorders: Breast Cancer Other Medical History: PMHX: DEPRESSION, BREAST CA, CHRONIC LOW BACK PAIN, CHOLECYSTECTOMY, HYSTERECTOMY - Past Surgical History Past Surgical History: Yes Neuro Surgical History: No Pertinent History Cardiac: No Pertinent History Respiratory: No Pertinent History Gastrointestinal: Cholecystectomy Genitourinary: No Pertinent History Musculoskeletal: Joint Replacement Female Surgical History: Hysterectomy Other Surgical History: Left Knee Replacement - Social History Smoking Status: Never smoker Exposure to second hand smoke: No Drug Use: none Patient Lives Alone: No Significant Family History: no pertinent family hx - Female History Hx Now: No - Nursing Vital Signs Nursing Vital Signs: Initial Vital Signs Temperature 98.0 F 03/20/21 12:42 Pulse Rate 112 H 03/20/21 12:42 Respiratory Rate 18 03/20/21 12:42 Blood Pressure 176/85 03/20/21 12:42 O2 Sat by Pulse Oximetry 98 03/20/21 12:42 Pain Scale Pain Intensity 8 - Taniya Coma Score Best Eye Response ([place]): (4) open spontaneously Best Verbal Response (Taniya): (5) oriented Best Motor Response (Taniya): (6) obeys commands Taniya Total: 15 - Physical Exam General Appearance: no apparent distress Head Injury: no evidence of injury Eye Exam: PERRL/EOMI, eyes nml inspection ENT Exam: airway nml, nml ext.inspection, No evidence of ENT injury, No dental injury, No clear fluid (ears), No clear fluid (nose), No midface instability Neck Exam: supple (C-spine nttp) Respiratory/Chest Exam: normal breath sounds, No chest tenderness, No respiratory distress, No crepitus, No decreased breath sounds, No rales, No rhonchi Cardiovascular Exam: normal heart sounds, regular rate/rhythm, normal peripheral pulses, No murmur Gastrointestinal Exam: soft, normal bowel sounds Back Exam: vertebral tenderness (L-spine NTTP) Extremity Exam: normal inspection, normal range of motion, pelvis stable Neurologic Exam: alert, oriented x 3, cooperative, forging dies final finisher II-XII nml as tested, normal mood/affect, nml cerebellar function, sensation nml Skin Exam: normal color, warm, dry SpO2 Interpretation: normal SpO2: 98 O2 Delivery: Room Air - Course Nursing assessment & vital signs reviewed: Yes EKG Interpreted by Me: RATE (Sinus tach/Prolonged QTc/Non-specific ST-Twave changes/Poor tracing) - Radiology Exams Chest X-ray Interpretation: Discussed w/ radiologist (Nothing acute) - CT Exams Lumbar Spine CT Interpretation: Discussed w/radiologist (Nothing acute) Ordered Tests: Active Orders 24 hr Category Date Time Status Bedrest ROUTINE Activity 03/20/21 17:18 Active Admit as Inpatient ROUTINE Care 03/20/21 17:18 Active Code Status Order ROUTINE Care 03/20/21 17:18 Active EKG-ER Only STAT Care 03/20/21 12:29 Completed IV Care Q6H Care 03/20/21 17:18 Active Vital Signs Q4H Care 03/20/21 17:18 Active Heart-Healthy Diet Diet 03/20/21 Dinner Active CHEST 1 VIEW (PORTABLE) Stat Exams 03/20/21 14:10 Completed LUMBAR SPINE W/O [CT] Stat Exams 03/20/21 12:53 Completed CBC W DIFF AM.LAB Lab 03/21/21 04:00 Ordered CBC W DIFF Stat Lab 03/20/21 12:50 Completed CK-Creatinine Phosphokinase Urgent Lab 03/20/21 12:50 Completed CMP AM.LAB Lab 03/21/21 04:00 Ordered CMP Urgent Lab 03/20/21 12:50 Completed CULTURE,URINE Stat Lab 03/20/21 13:45 Received TROPONIN Q3H Lab 03/20/21 12:50 Completed TROPONIN Q3H Lab 03/20/21 15:00 Completed TROPONIN Q3H Lab 03/20/21 18:25 Completed TROPONIN Q3H Lab 03/20/21 21:20 Completed TROPONIN Q3H Lab 03/21/21 00:30 Ordered UA W/RFX UR CULTURE Stat Lab 03/20/21 12:43 Completed Transfer Order Routine Transfer 03/20/21 Completed Medication Summary Generic Name Dose Route Start Last Admin Trade Name Freq PRN Reason Stop Dose Admin Alprazolam 1 mg 03/20/21 22:00 03/20/21 21:55 Xanax 1 Mg PO 04/19/21 21:59 Not Given BID JEIMY Fentanyl Citrate 50 mcg 03/20/21 17:21 03/20/21 21:03 Sublimaze 100 Mcg/2 Ml IV 03/25/21 17:20 50 mcg [id number] PRN Administration PAIN Gabapentin 200 mg 03/20/21 22:00 03/20/21 21:55 Neurontin 100 Mg PO 04/19/21 21:59 200 mg BID JEIMY Administration Hydralazine HCl 50 mg 03/20/21 22:00 03/20/21 21:56 Apresoline 25 Mg Tablet PO 04/19/21 21:59 50 mg TID JEIMY Administration Sodium Chloride 1,000 mls @ 80 mls/hr 03/20/21 17:18 03/20/21 17:43 Sodium Chloride 0.9% 1000 Ml IV 04/19/21 17:17 80 mls/hr .[id number] JEIMY Administration Insulin Glargine 20 unit 03/20/21 22:00 03/20/21 23:17 Lantus Insulin SQ 04/19/21 21:59 Not Given HS JEIMY Loperamide HCl 1 mg 03/20/21 21:00 Imodium 1 Mg/7.5 Ml Liquid PO 04/19/21 20:59 TID PRN JEIMY Olanzapine 5 mg 03/20/21 22:00 03/20/21 21:56 Zyprexa 5mg Tablet PO 04/19/21 21:59 5 mg HS JEIMY Administration Ondansetron HCl 4 mg 03/20/21 17:18 Zofran 4 Mg/2 Ml Vial IV 04/19/21 17:17 Q6H PRN PRN NAUSEA/VOMITING Pantoprazole Sodium 40 mg 03/21/21 10:00 Protonix 40 Mg Iv IV 04/20/21 09:59 Q24H10 JEIMY Simvastatin 40 mg 03/20/21 22:00 03/20/21 21:55 Zocor 20mg PO 04/19/21 21:59 40 mg HS JEIMY Administration Trazodone HCl 100 mg 03/20/21 22:00 03/20/21 21:55 Desyrel 50 Mg PO 04/19/21 21:59 100 mg HS JEIMY Administration Discontinued Medications Generic Name Dose Route Start Last Admin Trade Name Freq PRN Reason Stop Dose Admin Fentanyl Citrate 50 mcg 03/20/21 13:07 03/20/21 13:10 Sublimaze 100 Mcg/2 Ml IV 03/20/21 13:08 50 mcg STAT ONE Administration Fentanyl Citrate Confirm 03/20/21 13:09 Sublimaze 100 Mcg/2 Ml Administered 03/20/21 13:10 Dose 100 mcg .ROUTE .STK-MED ONE Morphine Sulfate 2 mg 03/20/21 17:18 Morphine Sulfate 4 Mg Inj IV 03/25/21 17:17 Q4H PRN PRN PAIN Lab/Rad Data: Laboratory Result Diagrams 03/20/21 12:50 03/20/21 12:50 Laboratory Results 0603/20/21 03/20/21 Range/Units 15:30 15:25 15:00 WBC (4.0-10.5) K/mm3 RBC (4.1-5.4) M/mm3 Hgb (12.0-16.0) gm/dl Hct (35-47) % MCV (78-100) fl MCH (26-32) pg MCHC (32-36) g/dl RDW (11.5-14.0) % Plt Count (150-450) K/mm3 MPV (7.5-11.0) fl Gran % (36.0-66.0) % Eos # (Auto) (0-0.5) Absolute Lymphs (auto) (1.0-4.6) Absolute Monos (auto) (0.0-1.3) Lymphocytes % (24.0-44.0) % Monocytes % (0.0-12.0) % Eosinophils % (0.00-5.0) % Basophils % (0.0-0.4) % Absolute Granulocytes (1.4-6.9) Basophils # (0-0.4) Sodium (137-145) mmol/L Potassium (3.5-5.1) mmol/L Chloride (98-107) mmol/L Carbon Dioxide (22-30) mmol/L Anion Gap (5-15) MEQ/L BUN (7-17) mg/dL Creatinine (0.52-1.04) mg/dL Estimated GFR ML/MIN Glucose (74-106) mg/dL Calcium (8.4-10.2) mg/dL Total Bilirubin (0.2-1.3) mg/dL AST (14-36) U/L ALT (0-35) U/L Alkaline Phosphatase (38-126) U/L Creatine Kinase (30-135) U/L Troponin I < 0.012 (0.000-0.034) ng/mL Serum Total Protein (6.3-8.2) g/dL Albumin (3.5-5.0) g/dL Prealbumin 22.81 (17.6-36.0) mg/dL Urine Color (YELLOW) Urine Appearance (CLEAR) Urine pH (5-6) Ur Specific Terral (1.005-1.025) Urine Protein (Negative) Urine Ketones (NEGATIVE) Urine Blood (0-5) Mitch/ul Urine Nitrite (NEGATIVE) Urine Bilirubin (NEGATIVE) Urine Urobilinogen (0-1) mg/dL Ur Leukocyte Esterase (NEGATIVE) Urine WBC (Auto) (0-5) /HPF Urine RBC (Auto) (0-2) /HPF U Hyaline Cast (Auto) (0-2) /LPF U Epithel Cells (Auto) (FEW) /HPF Urine Bacteria (Auto) (NEGATIVE) /HPF Urine Mucus (Auto) (NEGATIVE) /HPF Urine Yeast (Budding) (NEGATIVE) /HPF Urine Culture Reflexed (NO) Urine Glucose (NEGATIVE) mg/dL SARS-CoV-2 (PCR) NEGATIVE (NEGATIVE) 03/20/21 03/20/21 03/20/21 Range/Units 12:50 12:50 12:43 WBC 10.8 H (4.0-10.5) K/mm3 RBC 3.92 L (4.1-5.4) M/mm3 Hgb 11.0 L (12.0-16.0) gm/dl Hct 35.5 (35-47) % MCV 90.6 (78-100) fl MCH 28.1 (26-32) pg MCHC 31.0 L (32-36) g/dl RDW 15.9 H (11.5-14.0) % Plt Count 255 (150-450) K/mm3 MPV 11.2 H (7.5-11.0) fl Gran % 84.4 H (36.0-66.0) % Eos # (Auto) 0.04 (0-0.5) Absolute Lymphs (auto) 1.06 (1.0-4.6) Absolute Monos (auto) 0.56 (0.0-1.3) Lymphocytes % 9.8 L (24.0-44.0) % Monocytes % 5.2 (0.0-12.0) % Eosinophils % 0.4 (0.00-5.0) % Basophils % 0.2 (0.0-0.4) % Absolute Granulocytes 9.12 H (1.4-6.9) Basophils # 0.02 (0-0.4) Sodium 142 (137-145) mmol/L Potassium 4.1 (3.5-5.1) mmol/L Chloride 114 H (98-107) mmol/L Carbon Dioxide 14 L* (22-30) mmol/L Anion Gap 18.4 H (5-15) MEQ/L BUN 33 H (7-17) mg/dL Creatinine 1.61 H (0.52-1.04) mg/dL Estimated GFR 32.3 ML/MIN Glucose 127 H (74-106) mg/dL Calcium 8.6 (8.4-10.2) mg/dL Total Bilirubin 0.20 (0.2-1.3) mg/dL AST 56 H (14-36) U/L ALT 148 H (0-35) U/L Alkaline Phosphatase 114 (38-126) U/L Creatine Kinase 51 (30-135) U/L Troponin I < 0.012 (0.000-0.034) ng/mL Serum Total Protein 6.5 (6.3-8.2) g/dL Albumin 3.8 (3.5-5.0) g/dL Prealbumin (17.6-36.0) mg/dL Urine Color YELLOW (YELLOW) Urine Appearance SLIGHTLY CLOUDY (CLEAR) Urine pH 5.0 (5-6) Ur Specific Terral 1.018 (1.005-1.025) Urine Protein 100 (Negative) Urine Ketones NEGATIVE (NEGATIVE) Urine Blood NEGATIVE (0-5) Mitch/ul Urine Nitrite NEGATIVE (NEGATIVE) Urine Bilirubin NEGATIVE (NEGATIVE) Urine Urobilinogen NEGATIVE (0-1) mg/dL Ur Leukocyte Esterase NEGATIVE (NEGATIVE) Urine WBC (Auto) 3-5 (0-5) /HPF Urine RBC (Auto) 3-5 (0-2) /HPF U Hyaline Cast (Auto) 3-5 (0-2) /LPF U Epithel Cells (Auto) NONE (FEW) /HPF Urine Bacteria (Auto) NONE (NEGATIVE) /HPF Urine Mucus (Auto) SLIGHT (NEGATIVE) /HPF Urine Yeast (Budding) Rare (NEGATIVE) /HPF Urine Culture Reflexed ORDERED SEPARATELY (NO) Urine Glucose NEGATIVE (NEGATIVE) mg/dL SARS-CoV-2 (PCR) (NEGATIVE) - Progress Progress: improved Progress Note: 03/20/21 15:11 50umg IV Fentanyl w improvement in pain(Pt received 50umg per EMS in route) Admit per Dr. Horvath Counseled pt/family regarding: lab results, diagnosis, rad results - Departure Departure Disposition: In-patient Admission Clinical Impression: Lumbar contusion, Pain, Lethargy, Dehydration Condition: Stable Critical Care Time: No
[2021-03-20] MEDS ORDERED: SUBLIMAZE 100 MCG/2 ML IV ONE (13:07)
[2021-03-20] MEDS ORDERED: SUBLIMAZE 100 MCG/2 ML ONE (13:09)
[2021-03-20 13:14] LABS: Absolute Neutrophil Ct (ANC) 9.12 (1.4-6.9); BASOPHIL % 0.2 % (0.0-0.4); Basophil (Absolute #) 0.02 (0-0.4); Eosinophil % 0.4 % (0.00-5.0); Eosinophil (Absolute #) 0.04 (0-0.5); Hematocrit 35.5 % (35-47); Lymphocyte (Absolute #) 1.06 (1.0-4.6); Lymphocytes % 9.8 % (24.0-44.0); Mean Cell Volume 90.6 fl (78-100); Mean Corpuscular Hemoglobin 28.1 pg (26-32); Mean Platelet Volume 11.2 fl (7.5-11.0); Monocyte (Absolute #) 0.56 (0.0-1.3); Monocytes % 5.2 % (0.0-12.0); Neutrophil % 84.4 % (36.0-66.0); Platelet Count 255 K/mm3 (150-450); Red Blood Count 3.92 M/mm3 (4.1-5.4); Red Cell Distribution Width 15.9 % (11.5-14.0); White Blood Count 10.8 K/mm3 (4.0-10.5)
[2021-03-20 13:30] LABS: ALBUMIN 3.8 g/dL (3.5-5.0); ALKALINE PHOSPHATASE 114 U/L (38-126); ANION GAP 18.4 MEQ/L (5-15); BLOOD UREA NITROGEN 33 mg/dL (7-17); CHLORIDE 114 mmol/L (98-107); CK-Creatinine Phosphokinase 51 U/L (30-135); Calcium 8.6 mg/dL (8.4-10.2); Creatinine 1 1.61 mg/dL (0.52-1.04); EST GLOMERULAR FILTRATION RATE 32.3 ML/MIN; Glucose 127 mg/dL (74-106); Potassium 4.1 mmol/L (3.5-5.1); SGOT/AST 56 U/L (14-36); SGPT/ALT 148 U/L (0-35); SODIUM 142 mmol/L (137-145); TROPONIN < 0.012 ng/mL (0.000-0.034); Total Protein 6.5 g/dL (6.3-8.2)
[2021-03-20 13:32] LABS: Appearance SLIGHTLY CLOUDY (CLEAR); Bilirubin NEGATIVE (NEGATIVE); Blood NEGATIVE Ery/ul (0-5); Glucose NEGATIVE (NEGATIVE); Ketones NEGATIVE (NEGATIVE); Leukocyte Esterase NEGATIVE (NEGATIVE); Mucus SLIGHT /HPF (NEGATIVE); Nitrite NEGATIVE (NEGATIVE); Protein,Urine Dip 100 (Negative); Specific Gravity 1.018 (1.005-1.025); Urobilinogen NEGATIVE mg/dL (0-1)
[2021-03-20 13:33] LABS: Carbon Dioxide 14 mmol/L (22-30)
[2021-03-20 13:35] LABS: Budding Yeast Rare /HPF (NEGATIVE)
--- NOTE | 2021-03-20 13:47 | XRAY ---
Indication: Low back pain following fall. Multiple contiguous axial images obtained through the lumbar spine. Sagittal and coronal reformatted images obtained. Comparison: April 19, 2020. Stable osteopenia and mild/moderate multilevel degenerative spondylosis throughout the thoracolumbar spine again greatest at L3-L4 where there is stable spinal canal stenosis and bilateral foraminal narrowing. Stable small right L5 facet bone island. Facets are symmetric again with bilateral L3-S1 degenerative facet arthropathy. Sagittal and coronal reformatted images again demonstrates normal lumbar lordosis, minimal levoscoliosis centered at L3, and multilevel disc space narrowing. No acute compression fracture or subluxation. Visualized noncontrasted soft tissues again demonstrates heavy scattered vascular calcifications. Impression: Stable osteopenia, multilevel degenerative spondylosis, tiny right L5 facet bone island, minimal levoscoliosis, and scattered arteriosclerotic calcifications. No new/acute findings.
--- NOTE | 2021-03-20 14:31 | XRAY ---
Indication: Pain following fall. Comparison: June 18, 2020. Portable chest remains underinflated without focal infiltrate, consolidation, or large effusion. Heart not enlarged. Bony thorax intact again with osteopenia and degenerative changes. Impression: Continued nonacute chest with chronic bony findings.
[2021-03-20] MEDS ORDERED: Zofran 4 MG/2 ML VIAL IV PRN (17:18)
[2021-03-20] MEDS ORDERED: MORPHINE SULFATE 4 MG INJ IV PRN (17:18)
[2021-03-20] MEDS: Sodium Chloride 0.9% 1000 ML 1,000 ML IV SCH (17:43)
[2021-03-20] MEDS: SUBLIMAZE 100 MCG/2 ML IV PRN ×2 (17:48→21:03)
[2021-03-20] MEDS ORDERED: LOPERAMIDE 1 MG/7.5 ML PO SCH (21:00)
[2021-03-20] MEDS: XANAX 1 MG PO SCH (21:55)
[2021-03-20] MEDS: Neurontin 100 MG PO SCH (21:55)
[2021-03-20] MEDS: DESYREL 50 MG PO SCH (21:55)
[2021-03-20] MEDS: ZOCOR 20MG PO SCH (21:55)
[2021-03-20] MEDS: zyPREXA 5MG TABLET PO SCH (21:56)
[2021-03-20] MEDS: Apresoline 25 MG TABLET PO SCH (21:56)
[2021-03-20 22:36] LABS: Appearance CLEAR (CLEAR); Bilirubin NEGATIVE (NEGATIVE); Blood NEGATIVE Ery/ul (0-5); Glucose NEGATIVE (NEGATIVE); Ketones NEGATIVE (NEGATIVE); Leukocyte Esterase NEGATIVE (NEGATIVE); Mucus SLIGHT /HPF (NEGATIVE); Nitrite NEGATIVE (NEGATIVE); Protein,Urine Dip 30 (Negative); Specific Gravity 1.013 (1.005-1.025); Urobilinogen NEGATIVE mg/dL (0-1); WBC 0-2 /HPF (0-5)
[2021-03-20] MEDS: Lantus Insulin SQ SCH (23:17)
[2021-03-21] MEDS: SUBLIMAZE 100 MCG/2 ML IV PRN ×4 (03:07→21:28)
[2021-03-21 05:05] LABS: Absolute Neutrophil Ct (ANC) 4.18 (1.4-6.9); BASOPHIL % 0.3 % (0.0-0.4); Basophil (Absolute #) 0.02 (0-0.4); Eosinophil % 2.5 % (0.00-5.0); Eosinophil (Absolute #) 0.16 (0-0.5); Hematocrit 32.3 % (35-47); Hemoglobin 9.8 gm/dl (12.0-16.0); Lymphocyte (Absolute #) 1.63 (1.0-4.6); Mean Corpuscular Hemoglobin 27.6 pg (26-32); Mean Corpuscular Hgb Concent. 30.3 g/dl (32-36); Mean Platelet Volume 11.1 fl (7.5-11.0); Monocyte (Absolute #) 0.52 (0.0-1.3); Neutrophil % 64.2 % (36.0-66.0); Platelet Count 216 K/mm3 (150-450); Red Blood Count 3.55 M/mm3 (4.1-5.4); Red Cell Distribution Width 15.9 % (11.5-14.0); White Blood Count 6.5 K/mm3 (4.0-10.5)
[2021-03-21 05:12] LABS: ALBUMIN 3.5 g/dL (3.5-5.0); BILIRUBIN,TOTAL 0.2 mg/dL (0.2-1.3); Calcium 8.4 mg/dL (8.4-10.2); Creatinine 1 1.41 mg/dL (0.52-1.04); EST GLOMERULAR FILTRATION RATE 37.7 ML/MIN; Potassium 3.5 mmol/L (3.5-5.1); Total Protein 6.3 g/dL (6.3-8.2)
[2021-03-21] MEDS: Sodium Chloride 0.9% 1000 ML 1,000 ML IV SCH ×2 (05:49→18:53)
[2021-03-21] MEDS ORDERED: IMODIUM 2 MG PO PRN (07:15)
[2021-03-21] MEDS ORDERED: MEDICATION INTERVENTION MC SCH (07:30)
[2021-03-21] MEDS: PROTONIX 40 MG IV IV SCH (09:21)
[2021-03-21] MEDS: Neurontin 100 MG PO SCH ×2 (09:25→21:28)
[2021-03-21] MEDS: Adalat CC 30 MG TABLET PO SCH (09:25)
[2021-03-21] MEDS: AMARYL 4 MG PO SCH (09:25)
[2021-03-21] MEDS: XANAX 1 MG PO SCH ×2 (09:26→21:28)
[2021-03-21] MEDS: SYNTHROID 100 MCG PO SCH (09:26)
[2021-03-21] MEDS: Apresoline 25 MG TABLET PO SCH ×3 (09:26→21:30)
[2021-03-21] MEDS: celeBREX 100 MG PO SCH (09:26)
[2021-03-21] MEDS: Lexapro 10 MG PO SCH (09:26)
[2021-03-21] MEDS ORDERED: NIFEDIPINE 90 MG PO SCH (10:00)
[2021-03-21] MEDS ORDERED: NON-FORMULARY ITEM (Escitalopram Oxalate [Lexapro] 20 MG) PO SCH (10:00)
--- NOTE | 2021-03-21 11:53 | PCM.HP ---
History of Present Illness - Chief Complaint Chief Complaint: Dehydration/Lumbar contusion History of Present Illness: is a 86 year old female patient of Dr Boone who fell at home and laid on her back for 5 hours. Medications & Allergies Home Medications: Home Medication List Levothyroxine Sodium 100 Mcg [Synthroid 100 Mcg] 100 mcg PO DAILY 05/24/17 [History Confirmed 03/20/21] Nifedipine [Nifedipine ER] 90 mg PO DAILY 05/24/17 [History Confirmed 03/20/21] Simvastatin 40 mg [Zocor 40 mg] 40 mg PO HS 05/24/17 [History Confirmed 03/20/21] Olanzapine 5 mg PO HS 05/30/18 [History Confirmed 03/20/21] Trazodone HCl 100 mg PO HS 12/16/18 [History Confirmed 03/20/21] Glimepiride 4 mg [Amaryl 4 mg] 4 mg PO DAILY 03/20/19 [History Confirmed 03/20/21] Insulin Glargine,Hum.rec.anlog [Lantus Solostar] 20 units SQ HS 03/21/19 [Hist ory Confirmed 03/20/21] Melatonin 5 mg PO HS 12/29/19 [History Confirmed 03/20/21] ALPRAZolam 1 MG [Xanax 1 mg] 1 mg PO BID 03/11/20 [History Confirmed 03/20/21] Escitalopram Oxalate [Lexapro] 20 mg PO DAILY 03/11/20 [History Confirmed 03/20/21] Gabapentin 200 mg PO BID 03/11/20 [History Confirmed 03/20/21] Celecoxib 100 mg PO DAILY 04/19/20 [History Confirmed 03/20/21] HydrALAzine HCL 25 MG TAB [Apresoline 25 MG TABLET] 50 mg PO TID 03/20/21 [History Confirmed 03/20/21] Allergies/Adverse Reactions: Allergies Allergy/AdvReac Type Severity Reaction Status Date / Time ceftriaxone [From Rocephin] Allergy Verified 03/20/21 17:53 morphine Allergy Verified 03/20/21 17:53 Penicillins Allergy Verified 03/20/21 17:53 - Past Medical History Past Medical History: Yes Neurological History: No Pertinent History ENT History: No Pertinent History Cardiac History: Hypertension Respiratory History: Pneumonia Endocrine Medical History: Diabetes Type II Musculoskelatal History: Degenerative Disk Disease, Fractures, Osteoarthritis GI Medical History: No Pertinent History History: No Pertinent History Pyscho-Social History: Depression Reproductive Disorders: Breast Cancer Comment: PMHX: DEPRESSION, BREAST CA, CHRONIC LOW BACK PAIN, CHOLECYSTECTOMY, HYSTERECTOMY - Female History Are you now?: No - Past Surgical History Past Surgical History: Yes Neuro Surgical History: No Pertinent History Cardiac History: No Pertinent History Respiratory Surgery: No Pertinent History GI Surgical History: Cholecystectomy Genitourinary Surgical Hx: No Pertinent History Musculskeletal Surgical Hx: Joint Replacement Female Surgical History: Hysterectomy Other Surgical History: Left Knee Replacement - Social History Smoking Status: Never smoker Exposure to second hand smoke: No Alcohol: None Drug Use: none Significant Family History: no pertinent family hx - Physical Exam Vital Signs: Vital Signs - 24 hr Temp Pulse Resp BP Pulse Ox 03/21/21 08:00 97.2 F 93 H 18 176/72 93 L 03/21/21 03:27 98.5 F 101 H 20 184/86 93 L 03/21/21 00:34 98 F 98 H 20 146/90 94 L 03/20/21 23:21 98 03/20/21 18:15 98.3 F 121 H 16 178/88 93 L 03/20/21 17:18 98.3 F 121 H 16 178/83 93 L 03/20/21 15:05 111 H 18 133/67 94 L 03/20/21 14:03 107 H 18 113/94 92 L 03/20/21 13:42 110 H 18 113/94 92 L 03/20/21 12:42 98.0 F 112 H 18 176/85 98 Results - Labs Lab/Micro Results: Lab Results-Last 24 Hours 03/20/21 03/20/21 03/20/21 Range/Units 12:43 12:50 12:50 WBC 10.8 H (4.0-10.5) K/mm3 RBC 3.92 L (4.1-5.4) M/mm3 Hgb 11.0 L (12.0-16.0) gm/dl Hct 35.5 (35-47) % MCV 90.6 (78-100) fl MCH 28.1 (26-32) pg MCHC 31.0 L (32-36) g/dl RDW 15.9 H (11.5-14.0) % Plt Count 255 (150-450) K/mm3 MPV 11.2 H (7.5-11.0) fl Gran % 84.4 H (36.0-66.0) % Eos # (Auto) 0.04 (0-0.5) Absolute Lymphs (auto) 1.06 (1.0-4.6) Absolute Monos (auto) 0.56 (0.0-1.3) Lymphocytes % 9.8 L (24.0-44.0) % Monocytes % 5.2 (0.0-12.0) % Eosinophils % 0.4 (0.00-5.0) % Basophils % 0.2 (0.0-0.4) % Absolute Granulocytes 9.12 H (1.4-6.9) Basophils # 0.02 (0-0.4) Sodium 142 (137-145) mmol/L Potassium 4.1 (3.5-5.1) mmol/L Chloride 114 H (98-107) mmol/L Carbon Dioxide 14 L* (22-30) mmol/L Anion Gap 18.4 H (5-15) MEQ/L BUN 33 H (7-17) mg/dL Creatinine 1.61 H (0.52-1.04) mg/dL Estimated GFR 32.3 ML/MIN Glucose 127 H (74-106) mg/dL POC Glucometer (74 to 106) mg/dL Hemoglobin A1c (4.5-6.0) % Calcium 8.6 (8.4-10.2) mg/dL Total Bilirubin 0.20 (0.2-1.3) mg/dL AST 56 H (14-36) U/L ALT 148 H (0-35) U/L Alkaline Phosphatase 114 (38-126) U/L Creatine Kinase 51 (30-135) U/L Troponin I < 0.012 (0.000-0.034) ng/mL Serum Total Protein 6.5 (6.3-8.2) g/dL Albumin 3.8 (3.5-5.0) g/dL Prealbumin (17.6-36.0) mg/dL TSH 3rd Generation (0.47-4.68) mIU/L Urine Color YELLOW (YELLOW) Urine Appearance SLIGHTLY CLOUDY (CLEAR) Urine pH 5.0 (5-6) Ur Specific [place] 1.018 (1.005-1.025) Urine Protein 100 (Negative) Urine Ketones NEGATIVE (NEGATIVE) Urine Blood NEGATIVE (0-5) Mitch/ul Urine Nitrite NEGATIVE (NEGATIVE) Urine Bilirubin NEGATIVE (NEGATIVE) Urine Urobilinogen NEGATIVE (0-1) mg/dL Ur Leukocyte Esterase NEGATIVE (NEGATIVE) Urine WBC (Auto) 3-5 (0-5) /HPF Urine RBC (Auto) 3-5 (0-2) /HPF U Hyaline Cast (Auto) 3-5 (0-2) /LPF U Epithel Cells (Auto) NONE (FEW) /HPF Urine Bacteria (Auto) NONE (NEGATIVE) /HPF Urine Mucus (Auto) SLIGHT (NEGATIVE) /HPF Urine Yeast (Budding) Rare (NEGATIVE) /HPF Urine Culture Reflexed ORDERED SEPARATELY (NO) Urine Glucose NEGATIVE (NEGATIVE) mg/dL SARS-CoV-2 (PCR) (NEGATIVE) 03/20/21 03/20/21 03/20/21 Range/Units 15:00 15:25 15:30 WBC (4.0-10.5) K/mm3 RBC (4.1-5.4) M/mm3 Hgb (12.0-16.0) gm/dl Hct (35-47) % MCV (78-100) fl MCH (26-32) pg MCHC (32-36) g/dl RDW (11.5-14.0) % Plt Count (150-450) K/mm3 MPV (7.5-11.0) fl Gran % (36.0-66.0) % Eos # (Auto) (0-0.5) Absolute Lymphs (auto) (1.0-4.6) Absolute Monos (auto) (0.0-1.3) Lymphocytes % (24.0-44.0) % Monocytes % (0.0-12.0) % Eosinophils % (0.00-5.0) % Basophils % (0.0-0.4) % Absolute Granulocytes (1.4-6.9) Basophils # (0-0.4) Sodium (137-145) mmol/L Potassium (3.5-5.1) mmol/L Chloride (98-107) mmol/L Carbon Dioxide (22-30) mmol/L Anion Gap (5-15) MEQ/L BUN (7-17) mg/dL Creatinine (0.52-1.04) mg/dL Estimated GFR ML/MIN Glucose (74-106) mg/dL POC Glucometer (74 to 106) mg/dL Hemoglobin A1c (4.5-6.0) % Calcium (8.4-10.2) mg/dL Total Bilirubin (0.2-1.3) mg/dL AST (14-36) U/L ALT (0-35) U/L Alkaline Phosphatase (38-126) U/L Creatine Kinase (30-135) U/L Troponin I < 0.012 (0.000-0.034) ng/mL Serum Total Protein (6.3-8.2) g/dL Albumin (3.5-5.0) g/dL Prealbumin 22.81 (17.6-36.0) mg/dL TSH 3rd Generation (0.47-4.68) mIU/L Urine Color (YELLOW) Urine Appearance (CLEAR) Urine pH (5-6) Ur Specific [place] (1.005-1.025) Urine Protein (Negative) Urine Ketones (NEGATIVE) Urine Blood (0-5) Mitch/ul Urine Nitrite (NEGATIVE) Urine Bilirubin (NEGATIVE) Urine Urobilinogen (0-1) mg/dL Ur Leukocyte Esterase (NEGATIVE) Urine WBC (Auto) (0-5) /HPF Urine RBC (Auto) (0-2) /HPF U Hyaline Cast (Auto) (0-2) /LPF U Epithel Cells (Auto) (FEW) /HPF Urine Bacteria (Auto) (NEGATIVE) /HPF Urine Mucus (Auto) (NEGATIVE) /HPF Urine Yeast (Budding) (NEGATIVE) /HPF Urine Culture Reflexed (NO) Urine Glucose (NEGATIVE) mg/dL SARS-CoV-2 (PCR) NEGATIVE (NEGATIVE) 03/20/21 03/20/21 03/20/21 Range/Units 18:25 19:54 21:20 WBC (4.0-10.5) K/mm3 RBC (4.1-5.4) M/mm3 Hgb (12.0-16.0) gm/dl Hct (35-47) % MCV (78-100) fl MCH (26-32) pg MCHC (32-36) g/dl RDW (11.5-14.0) % Plt Count (150-450) K/mm3 MPV (7.5-11.0) fl Gran % (36.0-66.0) % Eos # (Auto) (0-0.5) Absolute Lymphs (auto) (1.0-4.6) Absolute Monos (auto) (0.0-1.3) Lymphocytes % (24.0-44.0) % Monocytes % (0.0-12.0) % Eosinophils % (0.00-5.0) % Basophils % (0.0-0.4) % Absolute Granulocytes (1.4-6.9) Basophils # (0-0.4) Sodium (137-145) mmol/L Potassium (3.5-5.1) mmol/L Chloride (98-107) mmol/L Carbon Dioxide (22-30) mmol/L Anion Gap (5-15) MEQ/L BUN (7-17) mg/dL Creatinine (0.52-1.04) mg/dL Estimated GFR ML/MIN Glucose (74-106) mg/dL POC Glucometer 122 H (74 to 106) mg/dL Hemoglobin A1c (4.5-6.0) % Calcium (8.4-10.2) mg/dL Total Bilirubin (0.2-1.3) mg/dL AST (14-36) U/L ALT (0-35) U/L Alkaline Phosphatase (38-126) U/L Creatine Kinase (30-135) U/L Troponin I < 0.012 0.013 (0.000-0.034) ng/mL Serum Total Protein (6.3-8.2) g/dL Albumin (3.5-5.0) g/dL Prealbumin (17.6-36.0) mg/dL TSH 3rd Generation (0.47-4.68) mIU/L Urine Color (YELLOW) Urine Appearance (CLEAR) Urine pH (5-6) Ur Specific [place] (1.005-1.025) Urine Protein (Negative) Urine Ketones (NEGATIVE) Urine Blood (0-5) Mitch/ul Urine Nitrite (NEGATIVE) Urine Bilirubin (NEGATIVE) Urine Urobilinogen (0-1) mg/dL Ur Leukocyte Esterase (NEGATIVE) Urine WBC (Auto) (0-5) /HPF Urine RBC (Auto) (0-2) /HPF U Hyaline Cast (Auto) (0-2) /LPF U Epithel Cells (Auto) (FEW) /HPF Urine Bacteria (Auto) (NEGATIVE) /HPF Urine Mucus (Auto) (NEGATIVE) /HPF Urine Yeast (Budding) (NEGATIVE) /HPF Urine Culture Reflexed (NO) Urine Glucose (NEGATIVE) mg/dL SARS-CoV-2 (PCR) (NEGATIVE) 03/20/21 03/21/21 03/21/21 Range/Units 22:05 00:45 00:45 WBC (4.0-10.5) K/mm3 RBC (4.1-5.4) M/mm3 Hgb (12.0-16.0) gm/dl Hct (35-47) % MCV (78-100) fl MCH (26-32) pg MCHC (32-36) g/dl RDW (11.5-14.0) % Plt Count (150-450) K/mm3 MPV (7.5-11.0) fl Gran % (36.0-66.0) % Eos # (Auto) (0-0.5) Absolute Lymphs (auto) (1.0-4.6) Absolute Monos (auto) (0.0-1.3) Lymphocytes % (24.0-44.0) % Monocytes % (0.0-12.0) % Eosinophils % (0.00-5.0) % Basophils % (0.0-0.4) % Absolute Granulocytes (1.4-6.9) Basophils # (0-0.4) Sodium (137-145) mmol/L Potassium (3.5-5.1) mmol/L Chloride (98-107) mmol/L Carbon Dioxide (22-30) mmol/L Anion Gap (5-15) MEQ/L BUN (7-17) mg/dL Creatinine (0.52-1.04) mg/dL Estimated GFR ML/MIN Glucose (74-106) mg/dL POC Glucometer (74 to 106) mg/dL Hemoglobin A1c (4.5-6.0) % Calcium (8.4-10.2) mg/dL Total Bilirubin (0.2-1.3) mg/dL AST (14-36) U/L ALT (0-35) U/L Alkaline Phosphatase (38-126) U/L Creatine Kinase (30-135) U/L Troponin I 0.020 (0.000-0.034) ng/mL Serum Total Protein (6.3-8.2) g/dL Albumin (3.5-5.0) g/dL Prealbumin (17.6-36.0) mg/dL TSH 3rd Generation 0.852 (0.47-4.68) mIU/L Urine Color YELLOW (YELLOW) Urine Appearance CLEAR (CLEAR) Urine pH 5.0 (5-6) Ur Specific [place] 1.013 (1.005-1.025) Urine Protein 30 (Negative) Urine Ketones NEGATIVE (NEGATIVE) Urine Blood NEGATIVE (0-5) Mitch/ul Urine Nitrite NEGATIVE (NEGATIVE) Urine Bilirubin NEGATIVE (NEGATIVE) Urine Urobilinogen NEGATIVE (0-1) mg/dL Ur Leukocyte Esterase NEGATIVE (NEGATIVE) Urine WBC (Auto) 0-2 (0-5) /HPF Urine RBC (Auto) NONE (0-2) /HPF U Hyaline Cast (Auto) (0-2) /LPF U Epithel Cells (Auto) NONE (FEW) /HPF Urine Bacteria (Auto) NONE (NEGATIVE) /HPF Urine Mucus (Auto) SLIGHT (NEGATIVE) /HPF Urine Yeast (Budding) (NEGATIVE) /HPF Urine Culture Reflexed YES (NO) Urine Glucose NEGATIVE (NEGATIVE) mg/dL SARS-CoV-2 (PCR) (NEGATIVE) 03/21/21 03/21/21 03/21/21 Range/Units 00:45 04:15 04:15 WBC 6.5 (4.0-10.5) K/mm3 RBC 3.55 L (4.1-5.4) M/mm3 Hgb 9.8 L (12.0-16.0) gm/dl Hct 32.3 L (35-47) % MCV 91.0 (78-100) fl MCH 27.6 (26-32) pg MCHC 30.3 L (32-36) g/dl RDW 15.9 H (11.5-14.0) % Plt Count 216 (150-450) K/mm3 MPV 11.1 H (7.5-11.0) fl Gran % 64.2 (36.0-66.0) % Eos # (Auto) 0.16 (0-0.5) Absolute Lymphs (auto) 1.63 (1.0-4.6) Absolute Monos (auto) 0.52 (0.0-1.3) Lymphocytes % 25.0 (24.0-44.0) % Monocytes % 8.0 (0.0-12.0) % Eosinophils % 2.5 (0.00-5.0) % Basophils % 0.3 (0.0-0.4) % Absolute Granulocytes 4.18 (1.4-6.9) Basophils # 0.02 (0-0.4) Sodium 141 (137-145) mmol/L Potassium 3.5 (3.5-5.1) mmol/L Chloride 114 H (98-107) mmol/L Carbon Dioxide 19 L (22-30) mmol/L Anion Gap 12.0 (5-15) MEQ/L BUN 21 H (7-17) mg/dL Creatinine 1.41 H (0.52-1.04) mg/dL Estimated GFR 37.7 ML/MIN Glucose 87 (74-106) mg/dL POC Glucometer (74 to 106) mg/dL Hemoglobin A1c 6.25 H (4.5-6.0) % Calcium 8.4 (8.4-10.2) mg/dL Total Bilirubin 0.20 (0.2-1.3) mg/dL AST 38 H (14-36) U/L ALT 106 H (0-35) U/L Alkaline Phosphatase 90 (38-126) U/L Creatine Kinase (30-135) U/L Troponin I (0.000-0.034) ng/mL Serum Total Protein 6.3 (6.3-8.2) g/dL Albumin 3.5 (3.5-5.0) g/dL Prealbumin (17.6-36.0) mg/dL TSH 3rd Generation (0.47-4.68) mIU/L Urine Color (YELLOW) Urine Appearance (CLEAR) Urine pH (5-6) Ur Specific [place] (1.005-1.025) Urine Protein (Negative) Urine Ketones (NEGATIVE) Urine Blood (0-5) Mitch/ul Urine Nitrite (NEGATIVE) Urine Bilirubin (NEGATIVE) Urine Urobilinogen (0-1) mg/dL Ur Leukocyte Esterase (NEGATIVE) Urine WBC (Auto) (0-5) /HPF Urine RBC (Auto) (0-2) /HPF U Hyaline Cast (Auto) (0-2) /LPF U Epithel Cells (Auto) (FEW) /HPF Urine Bacteria (Auto) (NEGATIVE) /HPF Urine Mucus (Auto) (NEGATIVE) /HPF Urine Yeast (Budding) (NEGATIVE) /HPF Urine Culture Reflexed (NO) Urine Glucose (NEGATIVE) mg/dL SARS-CoV-2 (PCR) (NEGATIVE) 03/21/21 Range/Units 07:49 WBC (4.0-10.5) K/mm3 RBC (4.1-5.4) M/mm3 Hgb (12.0-16.0) gm/dl Hct (35-47) % MCV (78-100) fl MCH (26-32) pg MCHC (32-36) g/dl RDW (11.5-14.0) % Plt Count (150-450) K/mm3 MPV (7.5-11.0) fl Gran % (36.0-66.0) % Eos # (Auto) (0-0.5) Absolute Lymphs (auto) (1.0-4.6) Absolute Monos (auto) (0.0-1.3) Lymphocytes % (24.0-44.0) % Monocytes % (0.0-12.0) % Eosinophils % (0.00-5.0) % Basophils % (0.0-0.4) % Absolute Granulocytes (1.4-6.9) Basophils # (0-0.4) Sodium (137-145) mmol/L Potassium (3.5-5.1) mmol/L Chloride (98-107) mmol/L Carbon Dioxide (22-30) mmol/L Anion Gap (5-15) MEQ/L BUN (7-17) mg/dL Creatinine (0.52-1.04) mg/dL Estimated GFR ML/MIN Glucose (74-106) mg/dL POC Glucometer 98 (74 to 106) mg/dL Hemoglobin A1c (4.5-6.0) % Calcium (8.4-10.2) mg/dL Total Bilirubin (0.2-1.3) mg/dL AST (14-36) U/L ALT (0-35) U/L Alkaline Phosphatase (38-126) U/L Creatine Kinase (30-135) U/L Troponin I (0.000-0.034) ng/mL Serum Total Protein (6.3-8.2) g/dL Albumin (3.5-5.0) g/dL Prealbumin (17.6-36.0) mg/dL TSH 3rd Generation (0.47-4.68) mIU/L Urine Color (YELLOW) Urine Appearance (CLEAR) Urine pH (5-6) Ur Specific [place] (1.005-1.025) Urine Protein (Negative) Urine Ketones (NEGATIVE) Urine Blood (0-5) Mitch/ul Urine Nitrite (NEGATIVE) Urine Bilirubin (NEGATIVE) Urine Urobilinogen (0-1) mg/dL Ur Leukocyte Esterase (NEGATIVE) Urine WBC (Auto) (0-5) /HPF Urine RBC (Auto) (0-2) /HPF U Hyaline Cast (Auto) (0-2) /LPF U Epithel Cells (Auto) (FEW) /HPF Urine Bacteria (Auto) (NEGATIVE) /HPF Urine Mucus (Auto) (NEGATIVE) /HPF Urine Yeast (Budding) (NEGATIVE) /HPF Urine Culture Reflexed (NO) Urine Glucose (NEGATIVE) mg/dL SARS-CoV-2 (PCR) (NEGATIVE) Microbiology 03/20/21 13:45 Urine Culture - Preliminary Catherized NO GROWTH TO DATE Accuchecks Date 03/20/21 Time 19:54 - Radiology Impressions Radiology Exams & Impressions: Radiology Procedures Category Date Time Status CHEST 1 VIEW (PORTABLE) Stat Exams 03/20/21 14:10 Completed LUMBAR SPINE W/O [CT] Stat Exams 03/20/21 12:53 Completed
[2021-03-21] MEDS: DESYREL 50 MG PO SCH (21:27)
[2021-03-21] MEDS: Lantus Insulin SQ SCH (21:27)
[2021-03-21] MEDS: zyPREXA 5MG TABLET PO SCH (21:28)
[2021-03-21] MEDS: ZOCOR 20MG PO SCH (21:28)
[2021-03-22] MEDS: Sodium Chloride 0.9% 1000 ML 1,000 ML IV SCH (08:26)
[2021-03-22] MEDS: AMARYL 4 MG PO SCH (08:26)
[2021-03-22 09:03] LABS: Hematocrit 35.6 % (35-47); Hemoglobin 11.1 gm/dl (12.0-16.0); Mean Cell Volume 89.9 fl (78-100); Mean Corpuscular Hgb Concent. 31.2 g/dl (32-36); Mean Platelet Volume 10.8 fl (7.5-11.0); Platelet Count 217 K/mm3 (150-450); Red Blood Count 3.96 M/mm3 (4.1-5.4); Red Cell Distribution Width 15.6 % (11.5-14.0); White Blood Count 7.6 K/mm3 (4.0-10.5)
[2021-03-22] MEDS: PROTONIX 40 MG IV IV SCH (09:11)
[2021-03-22] MEDS: XANAX 1 MG PO SCH (09:12)
[2021-03-22] MEDS: Neurontin 100 MG PO SCH (09:12)
[2021-03-22] MEDS: Lexapro 10 MG PO SCH (09:12)
[2021-03-22] MEDS: Adalat CC 30 MG TABLET PO SCH (09:12)
[2021-03-22] MEDS: Apresoline 25 MG TABLET PO SCH (09:12)
[2021-03-22] MEDS: celeBREX 100 MG PO SCH (09:12)
[2021-03-22] MEDS: SYNTHROID 100 MCG PO SCH (09:12)
[2021-03-22 11:44] VITALS: BP 121/59; PULSE 91; O2SAT 93
[2021-03-22 12:44] LABS: ALBUMIN 3.5 g/dL (3.5-5.0); ANION GAP 10.3 MEQ/L (5-15); BILIRUBIN,TOTAL 0.2 mg/dL (0.2-1.3); Calcium 8.6 mg/dL (8.4-10.2); Creatinine 1 1.29 mg/dL (0.52-1.04); EST GLOMERULAR FILTRATION RATE 41.7 ML/MIN; Potassium 3.8 mmol/L (3.5-5.1); Total Protein 6.5 g/dL (6.3-8.2)
--- NOTE | 2021-03-23 17:40 | PCM.DS ---
Discharge Summary Date of Admission: 03/20/21 16:55 Admitting Physician: GERALDINE VILLALOBOS DO Primary Care Provider: KEVIN Allergies Allergies ceftriaxone [From Rocephin] Allergy (Verified 03/20/21 17:53) lip swelling morphine Allergy (Verified 03/20/21 17:53) Penicillins Allergy (Verified 03/20/21 17:53) Hospital Summary - Hospital Course Hospital Course: Chief Complaint Diagnosis Dehydration/Lumbar contusion Allergies Allergy/AdvReac Type Severity Reaction Status Date / Time ceftriaxone [From Rocephin] Allergy Verified 03/20/21 17:53 morphine Allergy Verified 03/20/21 17:53 Penicillins Allergy Verified 03/20/21 17:53 Home Medications Medication Instructions Recorded Confirmed Last Taken Type HydrALAzine HCL 25 MG TAB 50 mg PO TID 03/20/21 03/20/21 03/19/21 History [Apresoline 25 MG TABLET] Current Medications Discontinued Medications Generic Name Dose Route Start Last Admin Trade Name Freq PRN Reason Stop Dose Admin Alprazolam 1 mg 03/20/21 22:00 03/22/21 09:12 Xanax 1 Mg PO 04/19/21 21:59 1 mg BID JEIMY Administration Celecoxib 100 mg 03/21/21 10:00 03/22/21 09:12 Celebrex 100 Mg PO 04/20/21 09:59 100 mg DAILY JEIMY Administration Escitalopram Oxalate 20 mg 03/21/21 10:00 03/22/21 09:12 Lexapro 10 Mg PO 04/20/21 09:59 20 mg DAILY JEIMY Administration Fentanyl Citrate 50 mcg 03/20/21 13:07 03/20/21 13:10 Sublimaze 100 Mcg/2 Ml IV 03/20/21 13:08 50 mcg STAT ONE Administration Fentanyl Citrate Confirm 03/20/21 13:09 Sublimaze 100 Mcg/2 Ml Administered 03/20/21 13:10 Dose 100 mcg .ROUTE .STK-MED ONE Fentanyl Citrate 50 mcg 03/20/21 17:21 03/21/21 21:28 Sublimaze 100 Mcg/2 Ml IV 03/25/21 17:20 50 mcg [id number] PRN Administration PAIN Gabapentin 200 mg 03/20/21 22:00 03/22/21 09:12 Neurontin 100 Mg PO 04/19/21 21:59 200 mg BID JEIMY Administration Glimepiride 4 mg 03/21/21 08:00 03/22/21 08:26 Amaryl 4 Mg PO 04/20/21 07:59 4 mg DAILY@0800 JEIMY Administration Hydralazine HCl 50 mg 03/20/21 22:00 03/22/21 09:12 Apresoline 25 Mg Tablet PO 04/19/21 21:59 50 mg TID JEIMY Administration Sodium Chloride 1,000 mls @ 80 mls/hr 03/20/21 17:18 03/22/21 08:26 Sodium Chloride 0.9% 1000 Ml IV 04/19/21 17:17 80 mls/hr .[id number] JEIMY Administration Insulin Glargine 20 unit 03/20/21 22:00 03/21/21 21:27 Lantus Insulin SQ 04/19/21 21:59 20 unit HS JEIMY Administration Levothyroxine Sodium 100 mcg 03/21/21 10:00 03/22/21 09:12 Synthroid 100 Mcg PO 04/20/21 09:59 100 mcg DAILY JEIMY Administration Loperamide HCl 2 mg 03/21/21 07:15 03/21/21 09:25 Imodium 2 Mg PO 04/20/21 07:14 2 mg TID PRN PRN Administration DIARRHEA Miscellaneous Information 1 each 03/21/21 07:30 Medication Intervention MC 04/20/21 07:29 .RN TO CHECK WITH PT JEIMY Morphine Sulfate 2 mg 03/20/21 17:18 Morphine Sulfate 4 Mg Inj IV 03/25/21 17:17 Q4H PRN PRN PAIN Nifedipine 90 mg 03/21/21 10:00 03/22/21 09:12 Adalat Cc 30 Mg Tablet PO 04/20/21 09:59 90 mg DAILY JEIMY Administration Olanzapine 5 mg 03/20/21 22:00 03/21/21 21:28 Zyprexa 5mg Tablet PO 04/19/21 21:59 5 mg HS JEIMY Administration Ondansetron HCl 4 mg 03/20/21 17:18 Zofran 4 Mg/2 Ml Vial IV 04/19/21 17:17 Q6H PRN PRN NAUSEA/VOMITING Pantoprazole Sodium 40 mg 03/21/21 10:00 03/22/21 09:11 Protonix 40 Mg Iv IV 04/20/21 09:59 40 mg [id number] JEIMY Administration Simvastatin 40 mg 03/20/21 22:00 03/21/21 21:28 Zocor 20mg PO 04/19/21 21:59 40 mg HS JEIMY Administration Trazodone HCl 100 mg 03/20/21 22:00 03/21/21 21:27 Desyrel 50 Mg PO 04/19/21 21:59 100 mg HS JEIMY Administration Intake & Output (Last 24 hours) 03/21/21 03/22/21 03/23/21 03/24/21 11:59 11:59 11:59 11:59 Intake Total 1259 2984 380 Output Total 800 1450 Balance 459 1534 380 Weight 81.5 kg - Vitals & Intake/Output Vital Signs: Vital Signs Temperature 97.9 F 03/22/21 11:43 Pulse Rate 91 H 03/22/21 11:43 Respiratory Rate 16 03/22/21 11:43 Blood Pressure 121/59 03/22/21 11:43 O2 Sat by Pulse Oximetry 93 L 03/22/21 11:43 Intake & Output: Intake & Output 03/21/21 03/22/21 03/23/21 03/24/21 11:59 11:59 11:59 11:59 Intake Total 1259 2984 380 Output Total 800 1450 Balance 459 1534 380 Weight 81.5 kg - Lab Result Diagrams: 03/22/21 08:50 03/22/21 08:50 Micro Results-Entire Visit: Microbiology 03/20/21 22:05 Urine Culture - Final Urine, Indwelling Catheter NO GROWTH 03/20/21 13:45 Urine Culture - Final Catherized <10K NORMAL SKIN ANDIE PROBABLE SKIN CONTAMINANT - Procedures and Test Procedures and Tests throughout Hospitalization: Therapy Orders & Screens 03/20/21 18:24 OT Screen per Nursing Assess ONCE Comment: Protocol Order Physician Instructions: Greater than 3 points order OT Admission Screening Reason For Exam: Triggered on Admission Diagnosis: Dehydration/Lumbar contusion Open Wound/Cellutlitis/Pressure Ulcers: Yes Acute Fx/ORIF/Change in wt bearing status: No Severe MUSCULOSKELETAL pain: No ADL Dysfunction: Yes Acute CVA w/Hemiparesis/Hemiplegia: No Decreased Functional Mobility/Strength: Yes Sprain/Strain: No Acute Post-op Mobility Dysfunction: No Total Points: 9 PT Screen per Nursing Assess ONCE Comment: Protocol Order Physician Instructions: Greater than 3 points order PT Admission Screenin Reason For Exam: Triggered on Admission Diagnosis: Dehydration/Lumbar contusion Open Wound/Cellutlitis/Pressure Ulcers: Yes Acute Fx/ORIF/Change in wt bearing status: No Severe MUSCULOSKELETAL pain: No ADL Dysfunction: Yes Acute CVA w/Hemiparesis/Hemiplegia: No Decreased Functional Mobility/Strength: Yes Sprain/Strain: No Acute Post-op Mobility Dysfunction: No Total Points: 9 03/21/21 07:41 PT Eval & Treat (MD Order) ONCE Reason for Eval:: WEAKNESS, FALL AT HOME Diagnosis: Dehydration/Lumbar contusion Discharge Exam General Appearance: no apparent distress, alert Neurologic Exam: alert, oriented x 3, cooperative, normal mood/affect, nml cerebellar function, sensation nml, No motor deficits Eye Exam: PERRL, EOMI, eyes nml inspection Ears, Nose, Throat Exam: normal ENT inspection, pharynx normal, moist mucous membranes Neck Exam: normal inspection, non-tender, supple, full range of motion Respiratory Exam: normal breath sounds, lungs clear, No respiratory distress Cardiovascular Exam: regular rate/rhythm, normal heart sounds Gastrointestinal/Abdomen Exam: soft, No tenderness, No mass Pelvic Exam: deferred Rectal Exam: deferred Back Exam: normal inspection, normal range of motion, No CVA tenderness, No vertebral tenderness Extremity Exam: normal inspection, normal range of motion Skin Exam: normal color, warm, dry Final Diagnosis/Problem List - Final Discharge Diagnosis/Problem (1) Fall at home Status: Chronic Priority: High Code(s): W19.XXXA - UNSPECIFIED FALL, INITIAL ENCOUNTER; Y92.009 - UNSP PLACE IN UNSP NON-INSTITUT (PRIVATE) RESIDENCE PLACE (2) KATELYN (acute kidney injury) Status: Resolved Code(s): N17.9 - ACUTE KIDNEY FAILURE, UNSPECIFIED (3) Spinal stenosis of lumbar region Status: Chronic Code(s): M48.061 - SPINAL STENOSIS, LUMBAR REGION WITHOUT NEUROGENIC KT (4) Type 2 diabetes mellitus Status: Chronic (5) UTI (urinary tract infection) Status: Resolved Code(s): N39.0 - URINARY TRACT INFECTION, SITE NOT SPECIFIED - Discharge Discharge Date: 03/22/21 Disposition: Home Health @ Other In State Condition: Stable Prescriptions: Continue Simvastatin 40 mg [Zocor 40 mg] 40 mg PO HS Levothyroxine Sodium 100 Mcg [Synthroid 100 Mcg] 100 mcg PO DAILY Nifedipine [Nifedipine ER] 90 mg PO DAILY Olanzapine 5 mg PO HS Trazodone HCl 100 mg PO HS Glimepiride 4 mg [Amaryl 4 mg] 4 mg PO DAILY Insulin Glargine,Hum.rec.anlog [Lantus Solostar] 20 units SQ HS Melatonin 5 mg PO HS ALPRAZolam 1 MG [Xanax 1 mg] 1 mg PO BID Gabapentin 200 mg PO BID Escitalopram Oxalate [Lexapro] 20 mg PO DAILY Celecoxib 100 mg PO DAILY HydrALAzine HCL 25 MG TAB [Apresoline 25 MG TABLET] 50 mg PO TID Instructions: Dehydration, Adult (DC) Additional Instructions: [facility] TO CONTINUE ON DISCHARGE. Buy Salonpas Patch at drug store to wear on back for spasms Follow up with: ALICIA WU MD [ACTIVE STAFF] - 03/30/21 11:15 am Forms: Discharge Instructions, Patient Portal Information
== END 2021-03-22 14:15 | disposition home health service (06) ==
LOC: ED 12:22 → MED SURG 16:55 → INTOOBSV 16:55
PROVIDERS: ADMIT Family Medicine; ATTEND General Practice
DX: E86.0 Dehydration (principal); S30.0XXA Contusion of lower back and pelvis, initial encounter; N17.9 Acute kidney failure, unspecified; N39.0 Urinary tract infection, site not specified; Z79.899 Other long term (current) drug therapy; M48.061 Spinal stenosis, lumbar region without neurogenic claudication; E11.9 Type 2 diabetes mellitus without complications; I10 Essential (primary) hypertension; Z20.828 Contact with and (suspected) exposure to other viral communicable diseases; W19.XXXA Unspecified fall, initial encounter
CPT/HCPCS: 36000; 36415; 71045; 72131; 80053; 81001; 82550; 82947; 83036; 84134; 84443; 84484; 85025; 85027; 87086; 93005; 93268; 96374; 97110; 97161; 97530; 99284; G0378; U0003; J3010; A9270-GY

== ENCOUNTER 2021-06-14 18:45 | Inpatient (IN) | payer MEDICARE ==
[2021-06-14] MEDS ORDERED: Sodium Chloride 0.9% 1000 ML 1,000 ML IV SCH (22:15)
--- NOTE | 2021-06-14 22:20 | ERPHSYRPT ---
- History of Present Illness Time Seen by Provider: 06/14/21 19:00 Source: patient Exam Limitations: no limitations Patient Subjective Stated Complaint: PT HERE WEAKNESS, AND LOOSE STOOLS PER EMS, SHE STATES SHE HAS NOT BEEN OUT OF BED FOR ALMOST A WEEK NOW, Triage Nursing Assessment: PT ARRIVED PER AMBULANCE, ALERT, FACE MASK IN PLACE, RESP EASY, SKIN W/D/P. Physician History: Patient is an 86-year-old female presents to our ED via EMS for evaluation of progressive weakness diarrhea and failure to thrive. Patient states she has been in bed for approximately 1 week. She has not eaten in 2 days. No chest pain or shortness of breath. Patient does not require oxygen normally however she was hypoxic upon arrival to our ED. O2 sat was in the high 80s, 88%. Patient was placed on 2 L nasal cannula O2 sat is 95 to 96%. Patient denies Covid exposure. Denies history of COPD and smoking. Symptoms are moderate in intensity. No specific worsening improving factors. Patient voices no other complaints or concerns at this time. Timing/Duration: week(s) (1 week) Severity: moderate Modifying Factors: Improves With: nothing Associated Symptoms: weakness (Diarrhea) Allergies/Adverse Reactions: ceftriaxone [From Rocephin] Allergy (Verified 03/20/21 17:53) lip swelling morphine Allergy (Verified 03/20/21 17:53) Penicillins Allergy (Verified 03/20/21 17:53) Home Medications: Levothyroxine Sodium 100 Mcg [Synthroid 100 Mcg] 100 mcg PO DAILY 05/24/17 [History] Nifedipine [Nifedipine ER] 90 mg PO DAILY 05/24/17 [History] Simvastatin 40 mg [Zocor 40 mg] 40 mg PO HS 05/24/17 [History] Olanzapine 5 mg PO HS 05/30/18 [History] Trazodone HCl 100 mg PO HS 12/16/18 [History] Glimepiride 4 mg [Amaryl 4 mg] 4 mg PO DAILY 03/20/19 [History] Insulin Glargine,Hum.rec.anlog [Lantus Solostar] 20 units SQ HS 03/21/19 [History] Melatonin 5 mg PO HS 12/29/19 [History] ALPRAZolam 1 MG [Xanax 1 mg] 1 mg PO BID 03/11/20 [History] Escitalopram Oxalate [Lexapro] 20 mg PO DAILY 03/11/20 [History] Gabapentin 200 mg PO BID 03/11/20 [History] Celecoxib 100 mg PO DAILY 04/19/20 [History] HydrALAzine HCL 25 MG TAB [Apresoline 25 MG TABLET] 50 mg PO TID 03/20/21 [History] Hx Tetanus, Diphtheria Vaccination/Date Given: Yes Hx Influenza Vaccination/Date Given: Yes Hx Pneumococcal Vaccination/Date Given: Yes Immunizations Up to Date: Yes Travel Risk - International Travel Have you traveled outside of the country in past 3 weeks: No - Coronavirus Screening Are you exhibiting any of the following symptoms?: Yes Symptoms: Vomiting/Diarrhea Close contact with a COVID-19 positive Pt in past 14-21 Days: No - Vaccine Status Have you recieved a Covid-19 vaccination: No - Review of Systems Constitutional: No Symptoms, No Fever, No Chills Eyes: No Symptoms Ears, Nose, & Throat: No Symptoms Respiratory: No Symptoms, No Cough, No Dyspnea Cardiac: No Symptoms, No Chest Pain, No Edema, No Syncope Abdominal/Gastrointestinal: No Symptoms, No Abdominal Pain, No Nausea, No Vomiting, No Diarrhea Genitourinary Symptoms: No Symptoms, No Dysuria Musculoskeletal: No Symptoms, No Back Pain, No Neck Pain Skin: No Symptoms, No Rash Neurological: No Symptoms, No Dizziness, No Focal Weakness, No Sensory Changes Psychological: No Symptoms Endocrine: No Symptoms Hematologic/Lymphatic: No Symptoms Immunological/Allergic: No Symptoms All Other Systems: Reviewed and Negative - Past Medical History Pertinent Past Medical History: Yes Neurological History: No Pertinent History ENT History: No Pertinent History Cardiac History: Hypertension Respiratory History: Pneumonia Endocrine Medical History: Diabetes Type II Musculoskeletal History: Degenerative Disk Disease, Fractures, Osteoarthritis GI Medical History: No Pertinent History History: No Pertinent History Psycho-Social History: Depression Female Reproductive Disorders: Breast Cancer Other Medical History: PMHX: DEPRESSION, BREAST CA, CHRONIC LOW BACK PAIN, CHOLECYSTECTOMY, HYSTERECTOMY - Past Surgical History Past Surgical History: Yes Neuro Surgical History: No Pertinent History Cardiac: No Pertinent History Respiratory: No Pertinent History Gastrointestinal: Cholecystectomy Genitourinary: No Pertinent History Musculoskeletal: Joint Replacement Female Surgical History: Hysterectomy Other Surgical History: Left Knee Replacement - Social History Smoking Status: Never smoker Exposure to second hand smoke: No Drug Use: none Patient Lives Alone: Yes Significant Family History: no pertinent family hx - Female History Hx Last Menstrual Period: PSOT Hx Now: No - Nursing Vital Signs Nursing Vital Signs: Initial Vital Signs Pulse Rate 105 H 06/14/21 18:56 Respiratory Rate 18 06/14/21 18:56 Blood Pressure 146/85 06/14/21 18:56 O2 Sat by Pulse Oximetry 91 L 06/14/21 18:56 Pain Scale Pain Intensity 4 - Physical Exam General Appearance: no apparent distress, alert, obese Eye Exam: PERRL/EOMI, eyes nml inspection, No scleral icterus Ears, Nose, Throat Exam: normal ENT inspection, TMs normal, pharynx normal, moist mucous membranes Neck Exam: normal inspection, non-tender, supple, full range of motion Respiratory Exam: normal breath sounds, lungs clear, airway intact, other (Diminished breath sounds bilaterally. Patient hypoxic on room air), No chest tenderness, No respiratory distress Cardiovascular Exam: regular rate/rhythm, normal heart sounds, normal peripheral pulses Gastrointestinal/Abdomen Exam: soft, normal bowel sounds, No tenderness, No mass Back Exam: normal inspection, normal range of motion, No CVA tenderness, No vertebral tenderness Extremity Exam: normal inspection, normal range of motion, pelvis stable Neurologic Exam: alert, oriented x 3, cooperative, normal mood/affect, sensation nml, No motor deficits Skin Exam: normal color, warm, dry, No rash Lymphatic Exam: No adenopathy SpO2 Interpretation: normal SpO2: 90 O2 Delivery: Room Air - Course Nursing assessment & vital signs reviewed: Yes - Radiology Exams Chest X-ray Interpretation: Interpreted by me (There appears to be a new infiltrate right upper lobe. Osteopenia. Degenerative changes. Normal cardiac silhouette.) Ordered Tests: Active Orders 24 hr Category Date Time Status Discovery Manager STAT Care 06/14/21 22:12 Active EKG-ER Only STAT Care 06/14/21 22:12 Active IV Insertion STAT Care 06/14/21 22:12 Active Pulse Oximetry (ED) STAT Care 06/14/21 22:12 Active CHEST 1 VIEW (PORTABLE) Stat Exams 06/14/21 22:12 Taken BLOOD CULTURE Stat Lab 06/14/21 22:12 Received CBC W DIFF Stat Lab 06/14/21 22:40 Completed CK (IN-HOUSE) [CK-Creatinine Phosphokinase] Stat Lab 06/14/21 22:40 Completed CMP Stat Lab 06/14/21 22:40 Completed CULTURE,URINE Stat Lab 06/15/21 01:28 Received Manual Differential NC Stat Lab 06/14/21 22:40 Completed UA W/RFX UR CULTURE Stat Lab 06/15/21 01:28 Completed Transfer Order Routine Transfer 06/15/21 Ordered Medication Summary Generic Name Dose Route Start Last Admin Trade Name Freq PRN Reason Stop Dose Admin Sodium Chloride 1,000 mls @ 100 mls/hr 06/14/21 22:15 06/14/21 23:20 Sodium Chloride 0.9% 1000 Ml IV 07/14/21 22:14 100 mls/hr .Q10H JEIMY Administration Remdesivir 200 mg/ Sodium 250 mls @ 125 mls/hr 06/15/21 03:24 Chloride IV 06/15/21 05:23 ONCE ONE Discontinued Medications Generic Name Dose Route Start Last Admin Trade Name Freq PRN Reason Stop Dose Admin Dexamethasone Sodium Phosphate 8 mg 06/15/21 03:23 Decadron 10mg Inj. IV 06/15/21 03:24 STAT ONE Enoxaparin Sodium 100 mg 06/15/21 03:24 Enoxaparin Sodium SQ 06/15/21 03:25 ONCE STA Levofloxacin/Dextrose 500 mg in 100 mls @ 100 mls/hr 06/15/21 01:43 06/15/21 01:54 Levofloxacin 500mg/100ml D5w IV 06/15/21 02:42 100 mls/hr STAT STA 100 mls/hr Administration Levofloxacin/Dextrose Confirm 06/15/21 01:51 Levofloxacin 500mg/100ml D5w Administered 06/15/21 01:52 Dose 500 mg in 100 mls @ ud IV .STK-MED ONE Lab/Rad Data: Laboratory Result Diagrams 06/14/21 22:40 06/14/21 22:40 Laboratory Results 06/15/21 06/15/21 06/14/21 Range/Units 01:49 01:28 22:40 WBC (4.0-10.5) K/mm3 RBC (4.1-5.4) M/mm3 Hgb (12.0-16.0) gm/dl Hct (35-47) % MCV (78-100) fl MCH (26-32) pg MCHC (32-36) g/dl RDW (11.5-14.0) % Plt Count (150-450) K/mm3 MPV (7.5-11.0) fl Sodium (137-145) mmol/L Potassium (3.5-5.1) mmol/L Chloride (98-107) mmol/L Carbon Dioxide (22-30) mmol/L Anion Gap (5-15) MEQ/L BUN (7-17) mg/dL Creatinine (0.52-1.04) mg/dL Estimated GFR ML/MIN Glucose (74-106) mg/dL Calcium (8.4-10.2) mg/dL Total Bilirubin (0.2-1.3) mg/dL AST (14-36) U/L ALT (0-35) U/L Alkaline Phosphatase (38-126) U/L Creatine Kinase 645 H (30-135) U/L Serum Total Protein (6.3-8.2) g/dL Albumin (3.5-5.0) g/dL Urine Color YELLOW (YELLOW) Urine Appearance CLOUDY (CLEAR) Urine pH 6.0 (5-6) Ur Specific [place] 1.013 (1.005-1.025) Urine Protein 100 (Negative) Urine Ketones NEGATIVE (NEGATIVE) Urine Blood NEGATIVE (0-5) Mitch/ul Urine Nitrite NEGATIVE (NEGATIVE) Urine Bilirubin NEGATIVE (NEGATIVE) Urine Urobilinogen NEGATIVE (0-1) mg/dL Ur Leukocyte Esterase MODERATE (NEGATIVE) Urine WBC (Auto) 26-50 (0-5) /HPF Urine RBC (Auto) 3-5 (0-2) /HPF U Hyaline Cast (Auto) 3-5 (0-2) /LPF U Epithel Cells (Auto) RARE (FEW) /HPF Urine Bacteria (Auto) FEW (NEGATIVE) /HPF Urine Culture Reflexed YES (NO) Urine Glucose NEGATIVE (NEGATIVE) mg/dL SARS-CoV-2 (PCR) POSITIVE A (NEGATIVE) 06/14/21 06/14/21 Range/Units 22:40 22:40 WBC 6.1 (4.0-10.5) K/mm3 RBC 4.19 (4.1-5.4) M/mm3 Hgb 11.5 L (12.0-16.0) gm/dl Hct 36.6 (35-47) % MCV 87.4 (78-100) fl MCH 27.4 (26-32) pg MCHC 31.4 L (32-36) g/dl RDW 15.1 H (11.5-14.0) % Plt Count 173 (150-450) K/mm3 MPV 11.5 H (7.5-11.0) fl Sodium 139 (137-145) mmol/L Potassium 3.8 (3.5-5.1) mmol/L Chloride 108 H (98-107) mmol/L Carbon Dioxide 16 L* (22-30) mmol/L Anion Gap 18.1 H (5-15) MEQ/L BUN 55 H (7-17) mg/dL Creatinine 2.69 H (0.52-1.04) mg/dL Estimated GFR 17.9 ML/MIN Glucose 119 H (74-106) mg/dL Calcium 8.3 L (8.4-10.2) mg/dL Total Bilirubin 0.20 (0.2-1.3) mg/dL AST 95 H (14-36) U/L ALT 188 H (0-35) U/L Alkaline Phosphatase 168 H (38-126) U/L Creatine Kinase (30-135) U/L Serum Total Protein 7.3 (6.3-8.2) g/dL Albumin 4.1 (3.5-5.0) g/dL Urine Color (YELLOW) Urine Appearance (CLEAR) Urine pH (5-6) Ur Specific [place] (1.005-1.025) Urine Protein (Negative) Urine Ketones (NEGATIVE) Urine Blood (0-5) Mitch/ul Urine Nitrite (NEGATIVE) Urine Bilirubin (NEGATIVE) Urine Urobilinogen (0-1) mg/dL Ur Leukocyte Esterase (NEGATIVE) Urine WBC (Auto) (0-5) /HPF Urine RBC (Auto) (0-2) /HPF U Hyaline Cast (Auto) (0-2) /LPF U Epithel Cells (Auto) (FEW) /HPF Urine Bacteria (Auto) (NEGATIVE) /HPF Urine Culture Reflexed (NO) Urine Glucose (NEGATIVE) mg/dL SARS-CoV-2 (PCR) (NEGATIVE) - Progress Progress: improved Progress Note: Patient reassessed. She feels better. Chest x-ray shows an infiltrate. Patient Covid positive. She feels a little stronger. Case discussed with Dr. Gee who accepts admission to observation. Plan of care discussed with patient. She agrees to admission [facility] for further evaluation and treatment. Anticoagulation administered. Decadron administered. Remdesivir administered. IV fluids administered. Antibiotics administered for UTI. Dehydration acute renal injury hypoxia. Portions of this note were created with voice recognition technology. There may be grammatical, spelling, punctuation or sound alike errors 06/15/21 03:38 06/15/21 03:[address] John Will see patient in: hospital (observation) Counseled pt/family regarding: lab results, diagnosis, rad results - Departure Departure Disposition: Observation Clinical Impression: Generalized weakness, Anorexia, Failure to thrive, Hypoxia, Metabolic acidosis, High anion gap metabolic acidosis, Acute renal injury, Elevated CK, Pneumonia, Transaminitis, Urinary tract infection, COVID-19, Dehydration Condition: Stable Critical Care Time: No Referrals: DARIO CHARLES [Primary Care Provider] -
[2021-06-14 23:07] LABS: Hematocrit 36.6 % (35-47); Hemoglobin 11.5 gm/dl (12.0-16.0); Mean Cell Volume 87.4 fl (78-100); Mean Corpuscular Hemoglobin 27.4 pg (26-32); Mean Corpuscular Hgb Concent. 31.4 g/dl (32-36); Mean Platelet Volume 11.5 fl (7.5-11.0); Platelet Count 173 K/mm3 (150-450); Red Blood Count 4.19 M/mm3 (4.1-5.4); Red Cell Distribution Width 15.1 % (11.5-14.0); White Blood Count 6.1 K/mm3 (4.0-10.5)
[2021-06-14] MEDS ORDERED: Sodium Chloride 0.9% 1000 ML 1,000 ML ONE (23:18)
[2021-06-14 23:28] LABS: ALBUMIN 4.1 g/dL (3.5-5.0); ANION GAP 18.1 MEQ/L (5-15); BILIRUBIN,TOTAL 0.2 mg/dL (0.2-1.3); Calcium 8.3 mg/dL (8.4-10.2); Creatinine 1 2.69 mg/dL (0.52-1.04); EST GLOMERULAR FILTRATION RATE 17.9 ML/MIN; Potassium 3.8 mmol/L (3.5-5.1); Total Protein 7.3 g/dL (6.3-8.2)
[2021-06-15] MEDS ORDERED: Levofloxacin 500MG/100ML D5W 500 MG/100 ML BAG IV STA (01:43)
[2021-06-15] MEDS ORDERED: Levofloxacin 500MG/100ML D5W 500 MG/100 ML BAG IV ONE (01:51)
[2021-06-15 02:14] LABS: Appearance CLOUDY (CLEAR); Bacteria FEW /HPF (NEGATIVE); Bilirubin NEGATIVE (NEGATIVE); Blood NEGATIVE Ery/ul (0-5); Epithelial Cells RARE /HPF (FEW); Glucose NEGATIVE (NEGATIVE); Ketones NEGATIVE (NEGATIVE); Leukocyte Esterase MODERATE (NEGATIVE); Nitrite NEGATIVE (NEGATIVE); Protein,Urine Dip 100 (Negative); Specific Gravity 1.013 (1.005-1.025); Urobilinogen NEGATIVE mg/dL (0-1); WBC 26-50 /HPF (0-5)
[2021-06-15] MEDS ORDERED: DECADRON 10MG INJ. IV ONE (03:23)
[2021-06-15] MEDS ORDERED: ENOXAPARIN SODIUM SQ STA (03:24)
[2021-06-15] MEDS ORDERED: REMDESIVIR 200 MG in Sodium Chloride 0.9% 250 ML 250 ML IV ONE (03:24)
[2021-06-15] MEDS ORDERED: VENTOLIN COMMON CANISTER IH PRN (03:55)
[2021-06-15] MEDS ORDERED: DECADRON 10MG INJ. ONE (04:37)
[2021-06-15 05:01] LABS: Lymphocytes 20 % (24-44); Monocyte 7 % (0.0-12.0); Neutrophils 73 % (36.0-66.0); Total Cells Counted 100
[2021-06-15 05:16] LABS: Platelet Estimate NORMAL (NORMAL)
[2021-06-15 05:48] LABS: Hematocrit 32.5 % (35-47); Hemoglobin 10.2 gm/dl (12.0-16.0); Mean Cell Volume 87.6 fl (78-100); Mean Corpuscular Hemoglobin 27.5 pg (26-32); Mean Corpuscular Hgb Concent. 31.4 g/dl (32-36); Mean Platelet Volume 11.2 fl (7.5-11.0); Platelet Count 156 K/mm3 (150-450); Red Blood Count 3.71 M/mm3 (4.1-5.4); White Blood Count 4.9 K/mm3 (4.0-10.5)
[2021-06-15 06:32] LABS: ALBUMIN 3.5 g/dL (3.5-5.0); ANION GAP 15.6 MEQ/L (5-15); BILIRUBIN,TOTAL 0.2 mg/dL (0.2-1.3); Calcium 7.9 mg/dL (8.4-10.2); Creatinine 1 1.95 mg/dL (0.52-1.04); EST GLOMERULAR FILTRATION RATE 25.9 ML/MIN; Potassium 3.9 mmol/L (3.5-5.1); Total Protein 6.4 g/dL (6.3-8.2)
[2021-06-15 09:09] LABS: ANION GAP 16.5 MEQ/L (5-15); Calcium 7.8 mg/dL (8.4-10.2); Creatinine 1 1.97 mg/dL (0.52-1.04); EST GLOMERULAR FILTRATION RATE 25.6 ML/MIN
--- NOTE | 2021-06-15 09:16 | XRAY ---
Indication: Pneumonia. Comparison: March 20, 2021. Portable chest slightly rotated demonstrating new hazy right base groundglass opacity without consolidation/large effusion. Left lung clear. Heart is now borderline enlarged.
[2021-06-15] MEDS: Pepcid 20 MG VIAL IV SCH ×2 (10:07→21:28)
[2021-06-15] MEDS ORDERED: Ativan 1 MG PO PRN (11:14)
[2021-06-15] MEDS ORDERED: MEDICATION INTERVENTION PO SCH (11:45)
[2021-06-15] MEDS: Lantus Insulin SQ SCH (12:33)
[2021-06-15] MEDS: XANAX 1 MG PO SCH ×2 (12:33→21:22)
[2021-06-15] MEDS: Klor Con 10 MEQ PO SCH ×2 (12:33→21:22)
[2021-06-15] MEDS: Lasix 40 MG PO SCH (12:33)
[2021-06-15] MEDS: Lexapro 10 MG PO SCH (12:34)
[2021-06-15] MEDS: AMARYL 4 MG PO SCH (12:34)
[2021-06-15] MEDS: SYNTHROID 100 MCG PO SCH (12:35)
[2021-06-15] MEDS: Neurontin 100 MG PO SCH ×2 (12:35→21:25)
[2021-06-15] MEDS: Adalat CC 30 MG TABLET PO SCH (12:35)
[2021-06-15] MEDS: Apresoline 25 MG TABLET PO SCH ×3 (12:36→21:24)
[2021-06-15] MEDS: HUMALOG SQ PRN (12:40)
[2021-06-15 14:31] LABS: Lymphocytes 15 % (24-44); Monocyte 4 % (0.0-12.0); Neutrophils 81 % (36.0-66.0); Total Cells Counted 100
[2021-06-15 14:32] LABS: ANISOCYTOSIS 1+; Platelet Estimate NORMAL (NORMAL)
[2021-06-15] MEDS: ZOCOR 20MG PO SCH (21:22)
[2021-06-15] MEDS: ENOXAPARIN SODIUM SQ SCH (21:23)
[2021-06-15] MEDS: DESYREL 50 MG PO SCH (21:23)
[2021-06-15] MEDS: zyPREXA 5MG TABLET PO SCH (21:29)
[2021-06-15] MEDS ORDERED: NON-FORMULARY ITEM (Simvastatin 40 Mg [Zocor 40 Mg] 40 MG) PO SCH (22:00)
[2021-06-16 06:33] LABS: Hematocrit 36.3 % (35-47); Hemoglobin 11.4 gm/dl (12.0-16.0); Mean Cell Volume 85.8 fl (78-100); Mean Corpuscular Hgb Concent. 31.4 g/dl (32-36); Mean Platelet Volume 10.8 fl (7.5-11.0); Platelet Count 202 K/mm3 (150-450); Red Blood Count 4.23 M/mm3 (4.1-5.4); Red Cell Distribution Width 14.9 % (11.5-14.0); White Blood Count 6.9 K/mm3 (4.0-10.5)
[2021-06-16 07:29] LABS: ALBUMIN 3.8 g/dL (3.5-5.0); ANION GAP 15.8 MEQ/L (5-15); BILIRUBIN,TOTAL 0.2 mg/dL (0.2-1.3); Calcium 8.6 mg/dL (8.4-10.2); Creatinine 1 1.54 mg/dL (0.52-1.04); Potassium 3.6 mmol/L (3.5-5.1); Total Protein 6.9 g/dL (6.3-8.2)
[2021-06-16] MEDS ORDERED: REMDESIVIR 100 MG in Sodium Chloride 0.9% 100 ML BAG 100 ML IV SCH (08:00)
[2021-06-16] MEDS: AMARYL 4 MG PO SCH (08:02)
--- NOTE | 2021-06-16 08:10 | HP ---
CHIEF COMPLAINT: COVID pneumonia, shortness of breath, cough, weakness. HISTORY OF PRESENT ILLNESS: The patient presented to the emergency room on the evening of admission with a little bit of chest pain which had been resolved. It was passing very low, aching all over, fever, chills, short of breath for three to four days. The pulse rate was 102. Her O2 dropped and they gave her 2 liters to get her O2 up to 95%. She had a chest x-ray which showed an infiltrate. Test was positive for COVID. She was given some IV fluids, Decadron, anticoagulated. In the emergency room Remdesivir was started. She had a urinary tract infection and was given antibiotics for that. CORONAVIRUS SCREENING: COVID positive MEDICATIONS: The patient takes Xanax 1 mg b.i.d., Lexapro 20 q.d., Lasix 40 q.d., gabapentin 200 b.i.d., Glipizide 4 q.d., hydralazine 25 mg 2 - four times a day for blood pressure, Lantus 20 units q.d., Synthroid 100 q.d., melatonin for sleep, Procardia Extended Release 90 q.d., olanzapine 5 mg h.s., KCL 10 q.d., Simvastatin 40 q.d., trazodone 100 h.s. ALLERGIES: CEFTRIAXONE. MORPHINE. PENICILLIN. LAB DATA AND TESTS: White count 4.9, hemoglobin 10.2. Electrolytes normal. Blood sugar 107, creatinine was elevated 1.97, potassium was 4. CPK was elevated at 645. No D-dimer in the chart. Test for COVID was positive. Chest x-ray showed new hazy right base ground glass opacity. EKG showed sinus tachycardia with axis deviation, low voltage, no acute changes. REVIEW OF SYSTEMS: The patient is an appropriately aged 86 year-old white female who is 5'6" and 87 kg who is talkative, alert and in no distress. HEENT: Pupils equal and reactive to light. NECK: Supple without adenopathy. CHEST: Few rales on the left. CVS: No murmurs or gallops. ABDOMEN: Soft. No tenderness or organomegaly. PHYSICAL EXAMINATION: The patient is alert, orientated, small woman who is speaking very clearly. A patient that I have known before. Vital signs are stable. VITAL SIGNS: Pulse 100, respirations 18, blood pressure 100/60. HEENT: Pupils equal and reactive to light. Hearing and vision seems normal. NECK: Supple without adenopathy. CHEST: Few wheezes bilateral, few rales on the left. CVS: No murmurs or gallops. ABDOMEN: Soft. No tenderness or organomegaly. EXTREMITIES: No edema. No tenderness. IMPRESSION: The patient has early COVID pneumonia, diabetes mellitus, hypertension, minimally elevated cardiac markers. PLAN: The patient will be admitted and give Decadron, Remdesivir and antibodies. PROGNOSIS: [place] to be good.
[2021-06-16] MEDS: Klor Con 10 MEQ PO SCH ×3 (09:44→22:06)
[2021-06-16] MEDS: Pepcid 20 MG VIAL IV SCH ×2 (09:44→21:08)
[2021-06-16] MEDS: Lasix 40 MG PO SCH (09:44)
[2021-06-16] MEDS: XANAX 1 MG PO SCH ×3 (09:45→22:07)
[2021-06-16] MEDS: Apresoline 25 MG TABLET PO SCH ×4 (09:45→21:07)
[2021-06-16] MEDS: Neurontin 100 MG PO SCH ×3 (09:46→22:04)
[2021-06-16] MEDS: Lexapro 10 MG PO SCH (09:46)
[2021-06-16] MEDS: SYNTHROID 100 MCG PO SCH (09:46)
[2021-06-16] MEDS: Adalat CC 30 MG TABLET PO SCH (09:46)
[2021-06-16] MEDS: Lantus Insulin SQ SCH (09:52)
[2021-06-16] MEDS ORDERED: NIFEDIPINE 90 MG PO SCH (10:00)
[2021-06-16] MEDS ORDERED: INSULIN GLARGINE HUM REC ANLOG 20 UNIT SQ SCH (10:00)
[2021-06-16] MEDS ORDERED: NON-FORMULARY ITEM (Escitalopram Oxalate [Lexapro] 20 MG) PO SCH (10:00)
[2021-06-16] MEDS ORDERED: TYLENOL EXTRA STRENGTH 500 MG PO PRN (14:36)
[2021-06-16] MEDS: ENOXAPARIN SODIUM SQ SCH (21:07)
[2021-06-16] MEDS: DESYREL 50 MG PO SCH ×2 (21:07→22:06)
[2021-06-16] MEDS: zyPREXA 5MG TABLET PO SCH (21:08)
[2021-06-16] MEDS: ZOCOR 20MG PO SCH (21:08)
[2021-06-16] MEDS ORDERED: Decadron 4 MG INJ IV ONE (22:53)
[2021-06-17] MEDS: Sodium Chloride 0.9% 1000 ML 1,000 ML IV SCH (04:46)
[2021-06-17 06:41] LABS: Hematocrit 39.2 % (35-47); Hemoglobin 12.5 gm/dl (12.0-16.0); Mean Cell Volume 84.8 fl (78-100); Mean Corpuscular Hemoglobin 27.1 pg (26-32); Mean Corpuscular Hgb Concent. 31.9 g/dl (32-36); Mean Platelet Volume 10.6 fl (7.5-11.0); Platelet Count 217 K/mm3 (150-450); Red Blood Count 4.62 M/mm3 (4.1-5.4); Red Cell Distribution Width 15.3 % (11.5-14.0)
[2021-06-17 06:54] LABS: BILIRUBIN,TOTAL 0.4 mg/dL (0.2-1.3); Calcium 8.7 mg/dL (8.4-10.2); Creatinine 1 1.45 mg/dL (0.52-1.04); EST GLOMERULAR FILTRATION RATE 36.5 ML/MIN; Potassium 3.8 mmol/L (3.5-5.1)
[2021-06-17 10:08] LABS: HBsAg Screen Negative (Negative); Hep A Ab, IgM Negative (Negative); Hep B Core Ab, IgM Negative (Negative)
[2021-06-17] MEDS: Lantus Insulin SQ SCH (10:19)
[2021-06-17] MEDS: AMARYL 4 MG PO SCH (10:19)
[2021-06-17] MEDS: Neurontin 100 MG PO SCH ×2 (10:21→21:15)
[2021-06-17] MEDS: Pepcid 20 MG VIAL IV SCH ×2 (10:22→21:16)
[2021-06-17] MEDS: Lasix 40 MG PO SCH (10:22)
[2021-06-17] MEDS: Klor Con 10 MEQ PO SCH ×2 (10:22→21:15)
[2021-06-17] MEDS: XANAX 1 MG PO SCH ×2 (10:22→21:16)
[2021-06-17] MEDS: Apresoline 25 MG TABLET PO SCH ×4 (10:23→21:15)
[2021-06-17] MEDS: Lexapro 10 MG PO SCH (10:24)
[2021-06-17] MEDS: Adalat CC 30 MG TABLET PO SCH (10:24)
[2021-06-17] MEDS: SYNTHROID 100 MCG PO SCH (10:25)
[2021-06-17] MEDS: HUMALOG SQ PRN (12:10)
[2021-06-17] MEDS: BACTRIM DS TABLET PO SCH ×2 (12:10→21:15)
[2021-06-17 12:15] LABS: Hep C Virus Ab 0.1 s/co ratio (0.0-0.9)
[2021-06-17] MEDS: ENOXAPARIN SODIUM SQ SCH (21:15)
[2021-06-17] MEDS: ZOCOR 20MG PO SCH (21:16)
[2021-06-17] MEDS: zyPREXA 5MG TABLET PO SCH (21:18)
[2021-06-17] MEDS: DESYREL 50 MG PO SCH (22:53)
[2021-06-18] MEDS: Sodium Chloride 0.9% 1000 ML 1,000 ML IV SCH (04:21)
[2021-06-18] MEDS: Lasix 40 MG PO SCH (11:31)
[2021-06-18] MEDS: Pepcid 20 MG VIAL IV SCH (11:31)
[2021-06-18] MEDS: Klor Con 10 MEQ PO SCH (11:31)
[2021-06-18] MEDS: Lantus Insulin SQ SCH (11:31)
[2021-06-18] MEDS: XANAX 1 MG PO SCH (11:31)
[2021-06-18] MEDS ORDERED: DELTASONE 20 MG PO SCH (12:00)
[2021-06-18] MEDS: Apresoline 25 MG TABLET PO SCH (12:04)
[2021-06-18] MEDS: SYNTHROID 100 MCG PO SCH (12:06)
[2021-06-18] MEDS: AMARYL 4 MG PO SCH (12:06)
[2021-06-18] MEDS: Adalat CC 30 MG TABLET PO SCH (12:06)
[2021-06-18] MEDS: zyPREXA 5MG TABLET PO SCH (12:06)
[2021-06-18] MEDS: Lexapro 10 MG PO SCH (12:07)
[2021-06-18] MEDS: Neurontin 100 MG PO SCH (12:07)
[2021-06-18 15:57] VITALS: BP 106/41; PULSE 110; O2SAT 94
== END 2021-06-18 16:20 | disposition home or self-care (01) | DRG 177 ==
LOC: ED 18:45 → MED SURG 06-15 03:48 → UNDOADMOB 06-15 03:48 → MED SURG 06-15 06:06 → INTOOBSV 06-15 10:30 → OBSVTOIN 06-15 10:30 → MED SURG 06-16 10:30 → OBSVTOIN 06-16 10:30 → MED SURG 06-16 14:44
PROVIDERS: ADMIT Family Medicine; ATTEND Family Medicine
DX: U07.1 COVID-19 (principal); J12.82 Pneumonia due to coronavirus disease 2019; E87.2 Acidosis; N39.0 Urinary tract infection, site not specified; R53.1 Weakness; R19.7 Diarrhea, unspecified; R62.7 Adult failure to thrive; I10 Essential (primary) hypertension; E86.0 Dehydration; E11.9 Type 2 diabetes mellitus without complications; R07.9 Chest pain, unspecified; Z20.822 Contact with and (suspected) exposure to COVID-19; Z79.899 Other long term (current) drug therapy
CPT/HCPCS: 36000; 36415; 71045; 80048; 80053; 80074; 81001; 82550; 82947; 83036; 85025; 85027; 85379; 87040; 87077; 87086; 87186; 93005; 93268; 94760; 94762; 96372; 99285; G0378; U0003; J1100; J1650; J1817; J1956; A9270-GY